=== PATIENT | female | born 1975 | race Caucasian/White ===

== ENCOUNTER → 2016-02-19 | Outpatient (CLI) | payer OTHER ==
--- NOTE | 2016-02-19 11:47 | CT ---
EXAMINATION TYPE: CT abdomen pelvis w con DATE OF EXAM: 02/19/2016 11:26 AM COMPARISON: 01/09/2016 INDICATION: Ovarian CA DLP: 715 mGycm, Automated exposure control for dose reduction was used. CONTRAST: 100 ml mL of Omnipaque 300. Study performed with Oral Contrast TECHNIQUE: Axial images were obtained from above the diaphragm to the pubic rami in the axial plane a t 5 mm thick sections. Reconstructed images are reviewed on the computer in the coronal plane. FINDINGS: Limited CT sections are obtained the lung bases. There is a small right pleural effusion. Some minim al atelectasis at the right lung base.. CT ABDOMEN: Liver: Normal Spleen: Normal Pancreas: Normal Adrenal glands: The adrenal glands are normal. Gallbladder: Normal Kidneys: No masses are evident. No hydronephrosis is present. No cysts are present. Delayed images were obtained through the kidneys, which remain unremarkable. Aorta: Vascular calcification is within the aorta. Inferior vena cava: Normal. Diffuse ascites is present throughout the abdomen. This volume has increased over the interval. Note is made of what appears to be omental caking along the anterior abdominal wall. This appears to be a new finding. CT PELVIS: Loops of bowel within the abdomen and pelvis are normal. There are loops of bowel which are incom pletely distended or lack oral contrast limiting their evaluation. Appendix: What appears to be the appendix is normal as visualized. Urinary bladder: There is asymmetric thickening along the right urinary bladder wall. This is slightl y more prominent than previous. Genitourinary structures: Uterus is absent. Ovaries are not identified. Osseous structures: No suspicious lytic or sclerotic lesions. Preliminary results were called to Dr. Tipton by Dr. Cid by telephone at the time of preliminary interpretation. IMPRESSIONS: 1. Increasing ascites. 2. Omental caking. 3. Small right pleural effusion. 4. Asymmetric urinary bladder wall thickening along the right. 5. No suspicious change to account for acute abdominal pain is identified
== END | disposition home or self-care (01) ==
LOC: RADPROMAIN 09:22
PROVIDERS: ATTEND Internal Medicine Hematology & Oncology
DX: R18.8 Other ascites (principal); N32.89 Other specified disorders of bladder; R10.84 Generalized abdominal pain
CPT/HCPCS: 74177; Q9967; 80053; 82150; 83690

== ENCOUNTER 2016-02-20 09:06 | Day surgery (SDC) | payer OTHER ==
[2016-02-20 09:48] LABS: INR 1.1 (<1.1); Mean Platelet Volume 7.3; Prothrombin Time 10.9 sec (9.0-12.0)
[2016-02-20 10:30] VITALS: TEMP 98.1
[2016-02-20 14:37] VITALS: RESP 16
[2016-02-20 14:38] VITALS: BP 120/80; PULSE 90
--- NOTE | 2016-02-20 15:16 | US ---
EXAMINATION TYPE: US paracentesis abd w/image DATE OF EXAM: 02/20/2016 12:13 PM COMPARISON: CT scan 17 March 2016 HISTORY: Ascites. PROCEDURE: Maximal barrier technique was utilized. The skin overlying a suitable pocket of fluid was localized with ultrasound and the overlying skin was prepped and draped. Ultrasound was utilized with sterile technique. Lidocaine was used for local anesthesia and a skin antonio made with a scalpel. Catheter was advanced under direct ultrasound guidance into a suitable pocket of fluid and approximately 4.7 liter s of milky fluid were removed. Catheter was withdrawn and hemostasis achieved. There is no immediat e complication; the patient is discharged in stable condition. IMPRESSION: STATUS POST ULTRASOUND GUIDED PARACENTESIS FOR PALLIATION OF ASCITES. THIS PROCEDURE WA S PERFORMED BY THE UNDERSIGNED.
== END 2016-02-20 12:15 | disposition home or self-care (01) ==
LOC: RADPROMAIN 09:06
PROVIDERS: ATTEND Internal Medicine Hematology & Oncology
DX: R18.8 Other ascites (principal)
CPT/HCPCS: 49083; 85049; 85610

== ENCOUNTER 2016-03-09 05:51 | Inpatient (IN) | payer OTHER ==
[2016-03-09] MEDS ORDERED: IPRATROPIUM-ALBUTEROL 3 ML NEB INHALATION STA ×2 (06:12→10:33)
[2016-03-09] MEDS ORDERED: HYDROmorphone 1 MG/ML 1 ML SYRINGE IVP STA ×4 (06:32→10:35)
--- NOTE | 2016-03-09 06:37 | ED ---
SOB HPI - General Source: patient, family Mode of arrival: ambulatory Limitations: no limitations - History of Present Illness MD Complaint: shortness of breath -: days(s) Severity: moderate Consistency: constant Improves With: nothing Worsens With: nothing <Cameron Page - Last Filed: 03/09/16 07:29> <Lanre Manzo - Last Filed: 03/09/16 12:32> - General Chief Complaint: Shortness of Breath Stated Complaint: SOB Time Seen by Provider: 03/09/16 06:26 - History of Present Illness Initial Comments: This patient is a 40-year-old woman with history of stage IV ovarian cancer, who complains of worsening of some underlying shortness of breath. The patient states that since the afternoon of yesterday, she has been getting more short of breath. She also is having some bilateral flank pain. Patient denies any symptoms of pneumonia, including no cough, fever or chills, sputum production, or chest pain. Patient denies change in bowel movements, including no melena or hematochezia. She has not had change in urination. Patient denies leg pain or swelling. (Cameron Page) - Related Data Home Medications Medication Instructions Recorded Confirmed Citalopram Hydrobromide [CeleXA] 20 mg PO HS 03/02/14 03/09/16 Atorvastatin [Lipitor] 20 mg PO HS 03/19/15 03/09/16 EPINEPHrine [Epipen 2-Mike] 0.3 mg IM ONCE PRN 03/19/15 03/09/16 Ondansetron [Zofran ODT] 8 mg PO Q8HR PRN 03/19/15 03/09/16 Sennosides [Senokot] 8.6 mg PO HS 03/19/15 03/09/16 Albuterol Inhaler [Ventolin Hfa 2 puff INHALATION RT-Q6H PRN 10/02/15 03/09/16 Inhaler] Albuterol Nebulized [Ventolin 2.5 mg INHALATION RT-Q6H PRN 10/02/15 03/09/16 Nebulized] Loratadine 10 mg PO HS 10/02/15 03/09/16 LORazepam [Lorazepam] 0.5 mg PO Q6H PRN 11/19/15 03/09/16 Amoxic-Pot Clav 875-125Mg 1 tab PO Q12H 03/01/16 03/09/16 [Augmentin 875-125] Gabapentin [Neurontin] 300 mg PO BID 03/01/16 03/09/16 Previous Rx's Medication Instructions Recorded Bisacodyl [Dulcolax] 5 mg PO DAILY #30 tablet. 11/20/15 Polyethylene Glycol 3350 [Miralax] 17 gm PO DAILY #255 gm 11/20/15 Allergies Allergy/AdvReac Type Severity Reaction Status Date / Time dexamethasone [From Decadron] Allergy Unknown Verified 03/09/16 06:04 dexamethasone sod phosphate Allergy Unknown Verified 03/09/16 06:04 [From Decadron] venom-honey bee Allergy Anaphylaxis Verified 03/09/16 06:04 [bee venom (honey bee)] Review of Systems ROS Other: All systems not noted in ROS Statement are negative. Constitutional: Denies: fever, chills Respiratory: Reports: as per HPI, dyspnea. Denies: cough, wheezes, hemoptysis Cardiovascular: Denies: chest pain, palpitations, edema, syncope Gastrointestinal: Reports: as per HPI, abdominal pain. Denies: nausea, vomiting , diarrhea, constipation Genitourinary: Denies: dysuria, hematuria Musculoskeletal: Denies: back pain Skin: Denies: rash Neurological: Denies: headache, weakness, numbness <Cameron Page - Last Filed: 03/09/16 07:29> ROS Other: All systems not noted in ROS Statement are negative. <Lanre Manzo - Last Filed: 03/09/16 12:32> ROS Statement: Those systems with pertinent positive or pertinent negative responses have been documented in the HPI. Past Medical History Past Medical History: Cancer, Deep Vein Thrombosis (DVT), Hyperlipidemia Additional Past Medical History / Comment(s): stage 4 uterine cancer with total hysterectomy and chemo (last chemo 11/13/15 and due again tomorrow), bilateral hands and feet neuropathy, chronic cervical pain-degnerative bone disease, buldging disk, blood clot to the rt wrist and rt neck, chronic constipation, ascites, paracentesis History of Any Multi-Drug Resistant Organisms: None Reported Past Surgical History: Hysterectomy Additional Past Surgical History / Comment(s): powerport left chest, total hysterectomy Past Anesthesia/Blood Transfusion Reactions: No Reported Reaction Past Psychological History: Anxiety, Depression Additional Psychological History / Comment(s): Pt states medication for mental health help. Pt resides with significant other. She is independent. Smoking Status: Current every day smoker Past Alcohol Use History: None Reported Additional Past Alcohol Use History / Comment(s): Pt states she started smoking at age 7 yrs (1982) and last smoked 2 days ago-planning to quit. Past Drug Use History: Marijuana Additional Drug Use History / Comment(s): Pt has medical marijuana that she uses for pain control on a nearly everyday basis. - Past Family History Mother Family Medical History: Diabetes Mellitus Additional Family Medical History / Comment(s): bilat knee replace <Cameron Page - Last Filed: 03/09/16 07:29> General Exam Limitations: no limitations General appearance: alert, in distress (Mild tachypnea) Head exam: Present: atraumatic, normocephalic Eye exam: Present: normal appearance. Absent: scleral icterus, conjunctival injection ENT exam: Present: normal oropharynx Neck exam: Present: normal inspection, full ROM Respiratory exam: Present: respiratory distress (Mild tachypnea), decreased breath sounds (At right base). Absent: wheezes, rales, rhonchi, stridor, chest wall tenderness, accessory muscle use, prolonged expiratory Cardiovascular Exam: Present: regular rate, normal rhythm, normal heart sounds. Absent: systolic murmur, diastolic murmur, rubs, gallop GI/Abdominal exam: Present: soft. Absent: tenderness, guarding, rebound, mass Extremities exam: Present: normal inspection, normal capillary refill. Absent: pedal edema, calf tenderness Back exam: Present: normal inspection. Absent: CVA tenderness (R), CVA tenderness (L) Neurological exam: Present: alert Skin exam: Present: warm, dry, intact, normal color. Absent: rash <Cameron Page - Last Filed: 03/09/16 07:29> Medical Decision Making <Cameron Page - Last Filed: 03/09/16 07:29> - Lab Data Result diagrams: 03/09/16 08:02 03/09/16 08:02 <Lanre Manzo - Last Filed: 03/09/16 12:32> - Medical Decision Making EKG shows normal sinus rhythm at 95 bpm CO interval on a 42 QRS is 80 QT interval 354 QTC is 444. Patient's EKG shows no ST segment elevation or depression or T-wave abdomen about is her noted. CT shows moderate pleural effusion on the right. Some ascites. No pulmonary emboli I spoke with Dr. Vaughn and he agreed that the patient should be admitted and be evaluated by a commercial real estate sales manager to determine the fluid can be removed so that the patient would get some comfort I spoke with Dr. Ardon he agreed to admit the patient I wrote admitting orders and consult pulmonology. (Lanre Manzo) - Lab Data Lab Results 03/09/16 03/09/16 03/09/16 Range/Units 08:02 08:02 08:02 WBC 6.2 (3.8-10.6) k/uL RBC 4.36 (3.80-5.40) m/uL Hgb 13.0 (11.4-16.0) gm/dL Hct 39.6 (34.0-46.0) % MCV 90.9 (80.0-100.0) fL MCH 29.8 (25.0-35.0) pg MCHC 32.8 (31.0-37.0) g/dL RDW 15.1 (11.5-15.5) % Plt Count 332 (150-450) k/uL Neutrophils % 75 % Lymphocytes % 12 % Monocytes % 10 % Eosinophils % 2 % Basophils % 1 % Neutrophils # 4.6 (1.3-7.7) k/uL Lymphocytes # 0.8 L (1.0-4.8) k/uL Monocytes # 0.6 (0-1.0) k/uL Eosinophils # 0.1 (0-0.7) k/uL Basophils # 0.1 (0-0.2) k/uL PT 11.0 (9.0-12.0) sec INR 1.1 (<1.1) APTT 25.6 (22.0-30.0) sec D-Dimer 1.71 H (<0.60) mg/L FEU Sodium 137 (137-145) mmol/L Potassium 4.0 (3.5-5.1) mmol/L Chloride 106 (98-107) mmol/L Carbon Dioxide 21 L (22-30) mmol/L Anion Gap 10 mmol/L BUN 6 L (7-17) mg/dL Creatinine 0.60 (0.52-1.04) mg/dL Est GFR (MDRD) Af Amer >60 (>60 ml/min/1.73 sqM) Est GFR (MDRD) Non-Af >60 (>60 ml/min/1.73 sqM) Glucose 102 H (74-99) mg/dL Plasma Lactic Acid Migle (0.7-2.0) mmol/L Calcium 8.7 (8.4-10.2) mg/dL Total Bilirubin 0.3 (0.2-1.3) mg/dL AST 19 (14-36) U/L ALT 30 (9-52) U/L Alkaline Phosphatase 90 (38-126) U/L Troponin I (0.000-0.034) ng/mL NT-Pro-B Natriuret Pep pg/mL Total Protein 5.8 L (6.3-8.2) g/dL Albumin 3.1 L (3.5-5.0) g/dL Urine Color Urine Appearance (Clear) Urine pH (5.0-8.0) Ur Specific [place] (1.001-1.035) Urine Protein (Negative) Urine Glucose (UA) (Negative) Urine Ketones (Negative) Urine Blood (Negative) Urine Nitrate (Negative) Urine Bilirubin (Negative) Urine Urobilinogen (<2.0) mg/dL Ur Leukocyte Esterase (Negative) Urine RBC (0-5) /hpf Urine WBC (0-5) /hpf Hyaline Casts (0-2) /lpf Urine Mucus (None) /hpf 03/09/16 03/09/16 03/09/16 Range/Units 08:02 08:02 08:10 WBC (3.8-10.6) k/uL RBC (3.80-5.40) m/uL Hgb (11.4-16.0) gm/dL Hct (34.0-46.0) % MCV (80.0-100.0) fL MCH (25.0-35.0) pg MCHC (31.0-37.0) g/dL RDW (11.5-15.5) % Plt Count (150-450) k/uL Neutrophils % % Lymphocytes % % Monocytes % % Eosinophils % % Basophils % % Neutrophils # (1.3-7.7) k/uL Lymphocytes # (1.0-4.8) k/uL Monocytes # (0-1.0) k/uL Eosinophils # (0-0.7) k/uL Basophils # (0-0.2) k/uL PT (9.0-12.0) sec INR (<1.1) APTT (22.0-30.0) sec D-Dimer (<0.60) mg/L FEU Sodium (137-145) mmol/L Potassium (3.5-5.1) mmol/L Chloride (98-107) mmol/L Carbon Dioxide (22-30) mmol/L Anion Gap mmol/L BUN (7-17) mg/dL Creatinine (0.52-1.04) mg/dL Est GFR (MDRD) Af Amer (>60 ml/min/1.73 sqM) Est GFR (MDRD) Non-Af (>60 ml/min/1.73 sqM) Glucose (74-99) mg/dL Plasma Lactic Acid Migel 0.8 (0.7-2.0) mmol/L Calcium (8.4-10.2) mg/dL Total Bilirubin (0.2-1.3) mg/dL AST (14-36) U/L ALT (9-52) U/L Alkaline Phosphatase (38-126) U/L Troponin I <0.012 (0.000-0.034) ng/mL NT-Pro-B Natriuret Pep 254 pg/mL Total Protein (6.3-8.2) g/dL Albumin (3.5-5.0) g/dL Urine Color Urine Appearance (Clear) Urine pH (5.0-8.0) Ur Specific [place] (1.001-1.035) Urine Protein (Negative) Urine Glucose (UA) (Negative) Urine Ketones (Negative) Urine Blood (Negative) Urine Nitrate (Negative) Urine Bilirubin (Negative) Urine Urobilinogen (<2.0) mg/dL Ur Leukocyte Esterase (Negative) Urine RBC (0-5) /hpf Urine WBC (0-5) /hpf Hyaline Casts (0-2) /lpf Urine Mucus (None) /hpf 03/09/16 Range/Units 08:30 WBC (3.8-10.6) k/uL RBC (3.80-5.40) m/uL Hgb (11.4-16.0) gm/dL Hct (34.0-46.0) % MCV (80.0-100.0) fL MCH (25.0-35.0) pg MCHC (31.0-37.0) g/dL RDW (11.5-15.5) % Plt Count (150-450) k/uL Neutrophils % % Lymphocytes % % Monocytes % % Eosinophils % % Basophils % % Neutrophils # (1.3-7.7) k/uL Lymphocytes # (1.0-4.8) k/uL Monocytes # (0-1.0) k/uL Eosinophils # (0-0.7) k/uL Basophils # (0-0.2) k/uL PT (9.0-12.0) sec INR (<1.1) APTT (22.0-30.0) sec D-Dimer (<0.60) mg/L FEU Sodium (137-145) mmol/L Potassium (3.5-5.1) mmol/L Chloride (98-107) mmol/L Carbon Dioxide (22-30) mmol/L Anion Gap mmol/L BUN (7-17) mg/dL Creatinine (0.52-1.04) mg/dL Est GFR (MDRD) Af Amer (>60 ml/min/1.73 sqM) Est GFR (MDRD) Non-Af (>60 ml/min/1.73 sqM) Glucose (74-99) mg/dL Plasma Lactic Acid Migel (0.7-2.0) mmol/L Calcium (8.4-10.2) mg/dL Total Bilirubin (0.2-1.3) mg/dL AST (14-36) U/L ALT (9-52) U/L Alkaline Phosphatase (38-126) U/L Troponin I (0.000-0.034) ng/mL NT-Pro-B Natriuret Pep pg/mL Total Protein (6.3-8.2) g/dL Albumin (3.5-5.0) g/dL Urine Color Yellow Urine Appearance Clear (Clear) Urine pH 7.0 (5.0-8.0) Ur Specific [place] 1.021 (1.001-1.035) Urine Protein 1+ H (Negative) Urine Glucose (UA) Negative (Negative) Urine Ketones Trace H (Negative) Urine Blood Negative (Negative) Urine Nitrate Negative (Negative) Urine Bilirubin Negative (Negative) Urine Urobilinogen 4.0 (<2.0) mg/dL Ur Leukocyte Esterase Small H (Negative) Urine RBC 3 (0-5) /hpf Urine WBC <1 (0-5) /hpf Hyaline Casts 3 H (0-2) /lpf Urine Mucus Many H (None) /hpf Disposition <Cameron Page - Last Filed: 03/09/16 07:29> Time of Disposition: 12:29 <Lanre Manzo - Last Filed: 03/09/16 12:32> Clinical Impression: Pleural effusion, Thoracic back pain Disposition: ADMITTED IP TO THIS HOSP Referrals: Adia Ardon MD [Primary Care Provider] - 1-2 days
[2016-03-09] MEDS ORDERED: ENOXAPARIN 80 MG/0.8 ML SYRINGE SQ STA (07:03)
--- NOTE | 2016-03-09 07:06 | XR ---
EXAMINATION TYPE: XR chest 1V portable DATE OF EXAM: 03/09/2016 7:00 AM COMPARISON: 03/02/2016 HISTORY: Shortness of breath back pain stage IV ovarian carcinoma. TECHNIQUE: Single frontal view of the chest is obtained. Portable upright AP study. FINDINGS: There is moderate right-sided pleural effusion with right basilar lung infiltrates and atelectasis wi thout significant change. Rest of the lungs are clear. Left-sided Mediport catheter is noted. The cardiac silhouette size is within normal limits. The osseous structures are intact. IMPRESSION: 1. Stable moderate right-sided pleural effusion and right basilar lung infiltrates and atelectasis. 2. Left-sided Mediport catheter in place.
[2016-03-09] MEDS ORDERED: KETOROLAC 60 MG/2 ML VIAL IVP STA (07:47)
[2016-03-09] MEDS ORDERED: SODIUM CHLORIDE 0.9% 1,000 ML IV ONE ×2 (07:47→12:33)
[2016-03-09] MEDS ORDERED: ONDANSETRON 4 MG/2 ML VIAL IVP STA (07:52)
[2016-03-09 08:19] LABS: Basophils # (A) 0.1 k/uL (0-0.2); Basophils % (A) 1 %; CHCM 34.2; Eosinophils # (A) 0.1 k/uL (0-0.7); Eosinophils % (A) 2 %; HCT 39.6 % (34.0-46.0); HDW 3.35; Luc # (Auto) 0.06; Luc % (Auto) 1; Lymphocytes # (A) 0.8 k/uL (1.0-4.8); Lymphocytes % (A) 12 %; MCH 29.8 pg (25.0-35.0); MCHC 32.8 g/dL (31.0-37.0); MCV 90.9 fL (80.0-100.0); Mean Platelet Volume 7.2; Monocytes # (A) 0.6 k/uL (0-1.0); Monocytes % (A) 10 %; Neutrophils # (A) 4.6 k/uL (1.3-7.7); Neutrophils % (A) 75 %; RBC 4.36 m/uL (3.80-5.40); RDW 15.1 % (11.5-15.5); WBC 6.2 k/uL (3.8-10.6); WBC (Perox) 6.86
[2016-03-09 08:38] LABS: ALT 30 U/L (9-52); AST 19 U/L (14-36); Alkaline Phosphatase 90 U/L (38-126); Anion Gap 10 mmol/L; Blood Urea Nitrogen 6 mg/dL (7-17); Calcium 8.7 mg/dL (8.4-10.2); Carbon Dioxide 21 mmol/L (22-30); Chloride 106 mmol/L (98-107); Glucose 102 mg/dL (74-99); Non-African American GFR(MDRD) >60 (>60 ml/min/1.73 sqM); Sodium 137 mmol/L (137-145); Total Bilirubin 0.3 mg/dL (0.2-1.3); Total Protein 5.8 g/dL (6.3-8.2)
[2016-03-09 08:49] LABS: INR 1.1 (<1.1); Partial Thromboplastin Time 25.6 sec (22.0-30.0)
[2016-03-09 09:10] LABS: Appearance,Urine Clear (Clear); Bilirubin,Urine Negative (Negative); Glucose,Urine (UA) Negative (Negative); Ketones,Urine Trace (Negative); Leukocyte Esterase,Urine Small (Negative); Mucus,Urine Many /hpf; Nitrite,Urine Negative (Negative); Particle Count 10345; Protein,Urine 1+ (Negative); RBC,Urine 3 /hpf (0-5); Specific Gravity,Urine 1.021 (1.001-1.035); UA Billing (MACRO vs. MICRO) MICRO; WBC,Urine <1 /hpf (0-5)
[2016-03-09] MEDS ORDERED: RX INFO: IV CONTRAST WAS GIVEN 1 EACH MISC MISCELLANE PRN (09:50)
[2016-03-09] MEDS ORDERED: OSELTAMIVIR 75 MG CAP PO STA (10:32)
[2016-03-09] MEDS ORDERED: ACETAMINOPHEN TAB 500 MG TAB PO STA (10:33)
[2016-03-09] MEDS ORDERED: IBUPROFEN 600 MG TAB PO STA (10:33)
[2016-03-09] MEDS ORDERED: KETOROLAC 30 MG/ML 1 ML VIAL IVP STA (11:19)
--- NOTE | 2016-03-09 11:29 | CT ---
CT CHEST FOR PULMONARY EMBOLISM. EXAMINATION TYPE: CT chest angio for PE DATE OF EXAM: 03/09/2016 11:07 AM INDICATION: SOB CT DLP: 159.1 mGycm, Automated exposure control for dose reduction was used. CONTRAST: Patient injected with 45 ml mL of Omnipaque 350. COMPARISON: 10/02/2015 TECHNIQUE: CT of the chest is performed on a spiral scan at 2 mm thick sections. Study is performed with intravenous contrast timed for evaluation for pulmonary embolism. This will limit additional po rtions of the evaluation. 3-D MIP images reconstructed by the technologist are reviewed on the compu ter in the coronal and sagittal planes. Contrast timing results were suboptimal. FINDINGS: No persistent filling defects are evident to suggest an acute pulmonary embolism. Contrast opacificat ion however suboptimal with the majority of the contrast within the peripheral arterial system. Subtl e pulmonary emboli may not be visualized. No mediastinal or hilar adenopathy enlarged by CT criteria is evident. The ascending aorta diameter at the level of the main pulmonary artery is 2.8 cm. The main pulmonary artery diameter at the bifur cation is 2.8 cm. There is compressive atelectasis or consolidation at the right middle lobe. There is a moderate size right pleural effusion. Ascites is present adjacent to the liver and spleen within the [id number]. IMPRESSIONS: 1. Right middle lobe atelectasis or pneumonia. 2. Moderate right pleural effusion. 3. Ascites. 4. No acute pulmonary embolism. Exam is limited for pulmonary embolism evaluation due to contrast t iming.
[2016-03-09] MEDS ORDERED: PIPERACILLIN-TAZOBACTAM 3.375 GM in DEXTROSE/WATER 1 50ML.BAG IVPB STA (12:35)
[2016-03-09 14:47] VITALS: BMI 27.6
[2016-03-09 15:09] LABS: Magnesium 1.8 mg/dL (1.6-2.3)
[2016-03-09] MEDS: HYDROmorphone 1 MG/ML 1 ML SYRINGE IVP PRN ×2 (15:24→21:03)
--- NOTE | 2016-03-09 15:28 | P.CNPUL ---
History of Present Illness Consult date: 03/09/16 Requesting physician: Adia Ardon Reason for consult: dyspnea, pleural effusion Chief complaint: Shortness of breath History of present illness: This is a 40-year-old female with history of stage IV ovarian cancer, patient has been receiving chemotherapy for quite some time down at [facility], and recently she was seen by Dr. Tipton. A few years ago, patient presented with a right pleural effusion, and this was drained by a air intelligence specialist out of [facility]. Since then the patient has been doing well, and recently she developed recurrent ascites requiring paracentesis. Her last paracentesis was 2 weeks ago down at [facility]. Patient presented this time to the ER with mostly a few days history of increased shortness of breath. No fever no chills no hemoptysis no chest pain. Patient had a CT of the chest and chest x-ray showing a significant right -sided pleural effusion. Hence this consult was initiated. Patient is complaining of shortness of breath, but she is not in extreme distress. She is actually on room air, very comfortable, but she has some shortness of breath especially when she lays flat. Denies any headaches, no blurred vision, no dizziness. Again his CT of the chest today showed moderate right-sided pleural effusion, right middle lobe atelectasis, and ascites. After reviewing the findings on the CT, I recommended ultrasound of the chest with markings, I also recommended ultrasound of the abdomen and pelvis, patient may even need to have thoracentesis and paracentesis done at the same time. And this will likely be arranged for to be done tomorrow. Review of Systems 14 point review of systems were obtained, please refer to pertinent positives and negatives in HPI. Past Medical History Past Medical History: Cancer, Deep Vein Thrombosis (DVT), Hyperlipidemia Additional Past Medical History / Comment(s): stage 4 ovarian cancer with total hysterectomy and chemo (last chemo 03/04/15), bilateral hands and feet neuropathy , chronic cervical pain-degnerative bone disease, buldging disk, blood clot to the rt wrist and rt neck, chronic constipation, ascites, paracentesis History of Any Multi-Drug Resistant Organisms: None Reported Past Surgical History: Hysterectomy Additional Past Surgical History / Comment(s): powerport left chest, total hysterectomy, multiple paracentisis, one right thorocentesis Past Anesthesia/Blood Transfusion Reactions: No Reported Reaction Past Psychological History: Anxiety Additional Psychological History / Comment(s): Pt states medication for mental health help. Pt resides with significant other. She is independent. Smoking Status: Current some day smoker Past Alcohol Use History: None Reported Additional Past Alcohol Use History / Comment(s): Pt states she started smoking at age 7 yrs (1982) Past Drug Use History: Marijuana Additional Drug Use History / Comment(s): Pt has medical marijuana that she uses for pain control on a nearly everyday basis. - Past Family History Mother Family Medical History: Diabetes Mellitus Additional Family Medical History / Comment(s): bilat knee replace Father Family Medical History: COPD Medications and Allergies Home Medications Medication Instructions Recorded Confirmed Type Citalopram Hydrobromide [CeleXA] 20 mg PO HS 03/02/14 03/09/16 History Atorvastatin [Lipitor] 20 mg PO HS 03/19/15 03/09/16 History EPINEPHrine [Epipen 2-Mike] 0.3 mg IM ONCE PRN 03/19/15 03/09/16 History Ondansetron [Zofran ODT] 8 mg PO Q8HR PRN 03/19/15 03/09/16 History Sennosides [Senokot] 8.6 mg PO HS 03/19/15 03/09/16 History Albuterol Inhaler [Ventolin Hfa 2 puff INHALATION RT-Q6H PRN 10/02/15 03/09/16 History Inhaler] Albuterol Nebulized [Ventolin 2.5 mg INHALATION RT-Q6H PRN 10/02/15 03/09/16 History Nebulized] Loratadine 10 mg PO HS 10/02/15 03/09/16 History LORazepam [Lorazepam] 0.5 mg PO Q6H PRN 11/19/15 03/09/16 History Amoxic-Pot Clav 875-125Mg 1 tab PO Q12H 03/01/16 03/09/16 History [Augmentin 875-125] Gabapentin [Neurontin] 300 mg PO BID 03/01/16 03/09/16 History Allergies Allergy/AdvReac Type Severity Reaction Status Date / Time dexamethasone [From Decadron] Allergy Unknown Verified 03/09/16 12:53 dexamethasone sod phosphate Allergy Unknown Verified 03/09/16 12:53 [From Decadron] venom-honey bee Allergy Anaphylaxis Verified 03/09/16 12:53 [bee venom (honey bee)] Physical Exam Vitals: Vital Signs Temp Pulse Pulse Resp BP BP Pulse Ox 03/09/16 14:57 97.4 F L 72 16 108/61 98 03/09/16 14:26 99 F 75 20 100/56 97 Intake and Output 03/09/16 03/09/16 03/09/16 06:59 14:59 22:59 Intake Total 1000 Balance 1000 Intake: Amount of Fluid Infused ( 1000 ml) Other: Weight 70.76 kg Patient Weight 03/10/16 06:59 Weight 70.76 kg Limitations: no limitations General appearance: alert, in distress (Mild tachypnea) Head exam: Present: atraumatic, normocephalic Eye exam: Present: normal appearance. Absent: scleral icterus, conjunctival injection ENT exam: Present: normal oropharynx Neck exam: Present: normal inspection, full ROM Respiratory exam: Present: respiratory distress (Mild tachypnea), decreased breath sounds (At right base). Absent: wheezes, rales, rhonchi, stridor, chest wall tenderness, accessory muscle use, prolonged expiratory. Port-A-Cath is noted in the left upper chest below the left clavicle. Cardiovascular Exam: Present: regular rate, normal rhythm, normal heart sounds. Absent: systolic murmur, diastolic murmur, rubs, gallop GI/Abdominal exam: Present: soft. Absent: tenderness, guarding, rebound, mass Extremities exam: Present: normal inspection, normal capillary refill. Absent: pedal edema, calf tenderness Back exam: Present: normal inspection. Absent: CVA tenderness (R), CVA tenderness (L) Neurological exam: Present: alert Skin exam: Present: warm, dry, intact, normal color. Absent: rash Results - Laboratory Findings CBC and BMP: 03/09/16 08:02 03/09/16 08:02 PT/INR, D-dimer PT 11.0 sec (9.0-12.0) 03/09/16 08:02 INR 1.1 (<1.1) 03/09/16 08:02 D-Dimer 1.71 mg/L FEU (<0.60) H 03/09/16 08:02 - Diagnostic Findings Chest x-ray: image reviewed CT scan - chest: image reviewed Assessment and Plan Plan: Impression: 1 moderate Right pleural effusion and ascites secondary to metastatic ovarian cancer stage IV. Her last chemotherapy was on 11/13/2015, and she is due for chemotherapy again tomorrow. 2 history of multiple comorbidities including history of deep vein thrombosis, hyperlipidemia, history of chemotherapy-induced neuropathy and history of degenerative joint disease. History of bulging disc. Recommendation: Patient will likely need to have right-sided thoracentesis and paracentesis to be done, however prior to any intervention, patient will have ultrasound of the chest and ultrasound of the abdomen and pelvis. And most likely Dr. Weiss will perform the thoracentesis in a.m., however her paracentesis will be done by interventional radiology if needed. In the meantime, continue present treatment plan, agree with empiric antibiotics, although I have a feeling that the patient would have full expansion of her right lung postthoracentesis. Strongly doubt pneumonia. We'll continue to follow. Once the patient gets her thoracentesis done, she could be discharged home. Time with Patient: Greater than 30
[2016-03-09] MEDS ORDERED: IPRATROPIUM-ALBUTEROL 3 ML NEB INHALATION SCH (16:00)
[2016-03-09] MEDS ORDERED: METOCLOPRAMIDE 10 MG TAB PO PRN (16:51)
[2016-03-09] MEDS ORDERED: SENNOSIDES 8.6 MG TAB PO PRN (16:51)
[2016-03-09] MEDS ORDERED: ONDANSETRON ODT 8 MG TAB.RAPDIS PO PRN (16:51)
[2016-03-09] MEDS ORDERED: ALBUTEROL INHALER 60 PUFF/8 GM INHALER INHALATION PRN (16:51)
[2016-03-09] MEDS ORDERED: LORazepam 0.5 MG TAB PO PRN (16:51)
[2016-03-09] MEDS ORDERED: methylPREDNISolone SOD SUCCI 125 MG/2 ML VIAL IV SCH (18:00)
[2016-03-09] MEDS: ALBUTEROL NEBULIZED 2.5 MG/3 ML INHALATION PRN (19:53)
[2016-03-09] MEDS: HYDROcodone/APAP 10-325MG 1 EACH TAB PO SCH (21:07)
[2016-03-09] MEDS: CITALOPRAM HYDROBROMIDE 20 MG TAB PO SCH (21:10)
[2016-03-09] MEDS: ATORVASTATIN 20 MG TAB PO SCH (21:10)
[2016-03-09] MEDS: LORATADINE 10 MG TAB PO SCH (21:10)
[2016-03-09] MEDS: GABAPENTIN 300 MG CAP PO SCH (21:10)
[2016-03-09] MEDS: PIPERACILLIN-TAZOBACTAM 3.375 GM in DEXTROSE/WATER 1 50ML.BAG IVPB SCH (23:14)
[2016-03-10] MEDS: HYDROmorphone 1 MG/ML 1 ML SYRINGE IVP PRN ×4 (01:04→22:42)
[2016-03-10] MEDS: PIPERACILLIN-TAZOBACTAM 3.375 GM in DEXTROSE/WATER 1 50ML.BAG IVPB SCH ×3 (06:19→22:42)
[2016-03-10 06:27] LABS: CH 30.5; CHCM 32.6; HGB 11.1 gm/dL (11.4-16.0); Hypochromasia Slight; MCH 30.5 pg (25.0-35.0); MCHC 32.5 g/dL (31.0-37.0); MCV 93.8 fL (80.0-100.0); Mean Platelet Volume 6.8; Poikilocytosis Slight; RBC 3.62 m/uL (3.80-5.40); WBC 4.9 k/uL (3.8-10.6)
[2016-03-10 06:39] LABS: ALT 23 U/L (9-52); AST 21 U/L (14-36); Alkaline Phosphatase 70 U/L (38-126); Anion Gap 6 mmol/L; Blood Urea Nitrogen 5 mg/dL (7-17); Carbon Dioxide 24 mmol/L (22-30); Chloride 105 mmol/L (98-107); Glucose 90 mg/dL (74-99); Magnesium 1.9 mg/dL (1.6-2.3); Non-African American GFR(MDRD) >60 (>60 ml/min/1.73 sqM); Potassium 3.9 mmol/L (3.5-5.1); Sodium 135 mmol/L (137-145); Total Bilirubin 0.3 mg/dL (0.2-1.3); Total Protein 4.9 g/dL (6.3-8.2)
[2016-03-10] MEDS: POLYETHYLENE GLYCOL 3350 17 GM POWD.PACK PO SCH (09:26)
[2016-03-10] MEDS: HYDROcodone/APAP 10-325MG 1 EACH TAB PO SCH ×2 (09:26→20:30)
[2016-03-10] MEDS: GABAPENTIN 300 MG CAP PO SCH ×2 (09:26→20:30)
[2016-03-10] MEDS: BISACODYL 5 MG TABLET.DR PO SCH (09:29)
--- NOTE | 2016-03-10 10:19 | US ---
EXAMINATION TYPE: US chest DATE OF EXAM: 03/10/2016 8:29 AM COMPARISON: NONE CLINICAL HISTORY: rt pleural effusion. EXAM MEASUREMENTS: Right Pleural Effusion fluid pocket: 6.7 cm Right skin to fluid thickness: 2.4 cm Left Pleural Effusion fluid pocket: no fluid Right side marked for possible thoracentesis outside the dept. Left side NOT marked for possible thoracentesis outside the dept. Pulmonologists are able to review the images in the patient?s EMR. IMPRESSIONS: 1. Right pleural effusion.
--- NOTE | 2016-03-10 10:30 | US ---
EXAMINATION TYPE: US abdomen comp/pelvis limited DATE OF EXAM: 03/10/2016 8:21 AM COMPARISON: NONE CLINICAL HISTORY: ascites/ ovarian cancer stage . EXAM MEASUREMENTS: Liver Length: 16.8 cm Gallbladder Wall: 0.3 cm CBD: 0.3 cm Spleen: 11.2 cm Right Kidney: 10.9 x 4.9 x 5.1 cm Left Kidney: 11.4x 5.9 x 5.6 cm Findings: Mild to moderate ascites Pancreas: tail obscured by bowel gas Liver: wnl Gallbladder: wnl CBD: wnl Spleen: wnl Right Kidney: inferior pole obscured by bowel gas Left Kidney: upper pole obscured by bowel gas Upper IVC: wnl Abd Aorta: Obscured by overlying bowel gas/ ascites Bladder: somewhat difficult to visualized due to ascites, appears wnl IMPRESSION: 1 mild to moderate ascites.
[2016-03-10] MEDS: ALBUTEROL NEBULIZED 2.5 MG/3 ML INHALATION PRN ×2 (12:26→19:59)
--- NOTE | 2016-03-10 12:41 | P.HPIM ---
History of Present Illness H&P Date: 03/10/16 Chief Complaint: Worsening shortness of breath Is a 40-year-old female with a known history of stage IV ovarian cancer status post GHAZALA and SBO. She's currently on chemotherapy. Her last chemotherapy was 03/04/2015. Patient reports over the last couple a days she had worsening shortness of breath. Came into the emergency room for further evaluation and treatment. Patient has required previous thoracentesis and paracentesis. Last paracentesis was 1 week ago. Patient does also admit to a cough at times. Denies any fevers chills or sweats. Denies any nausea or vomiting. Denies any bowel movement changes or urinary symptoms. Primary service has been consulted. She had a CTA of the chest which was negative for PE. It did reveal a right middle lobe atelectasis versus pneumonia and a moderate right pleural effusion. There is also evidence of abdominal ascites. Therefore a chest ultrasound and abdominal ultrasound were ordered. Chest ultrasound shows a right pleural effusion of 6.7 cm. Abdominal ultrasound shows mild to moderate ascites. Patient also had some cardiac arrhythmia cardiology is also been consulted. Patient also complaining of lower back pain bilaterally she reports that this happens when the fluid buildup. Review of Systems Please refer to HPI otherwise unremarkable Past Medical History Past Medical History: Cancer, Deep Vein Thrombosis (DVT), Hyperlipidemia Additional Past Medical History / Comment(s): stage 4 ovarian cancer with total hysterectomy and chemo (last chemo 03/04/15), bilateral hands and feet neuropathy , chronic cervical pain-degnerative bone disease, buldging disk, blood clot to the rt wrist and rt neck, chronic constipation, ascites, paracentesis History of Any Multi-Drug Resistant Organisms: None Reported Past Surgical History: Hysterectomy Additional Past Surgical History / Comment(s): powerport left chest, total hysterectomy, multiple paracentisis, one right thorocentesis Past Anesthesia/Blood Transfusion Reactions: No Reported Reaction Past Psychological History: Anxiety Additional Psychological History / Comment(s): Pt states medication for mental health help. Pt resides with significant other. She is independent. Smoking Status: Current some day smoker Past Alcohol Use History: None Reported Additional Past Alcohol Use History / Comment(s): Pt states she started smoking at age 7 yrs (1982) Past Drug Use History: Marijuana Additional Drug Use History / Comment(s): Pt has medical marijuana that she uses for pain control on a nearly everyday basis. - Past Family History Mother Family Medical History: Diabetes Mellitus Additional Family Medical History / Comment(s): bilat knee replace Father Family Medical History: COPD Medications and Allergies Home Medications Medication Instructions Recorded Confirmed Type Citalopram Hydrobromide [CeleXA] 20 mg PO HS 03/02/14 03/09/16 History Atorvastatin [Lipitor] 20 mg PO HS 03/19/15 03/09/16 History EPINEPHrine [Epipen 2-Mike] 0.3 mg IM ONCE PRN 03/19/15 03/09/16 History Ondansetron [Zofran ODT] 8 mg PO Q8HR PRN 03/19/15 03/09/16 History Sennosides [Senokot] 8.6 mg PO DAILY PRN 03/19/15 03/09/16 History Albuterol Inhaler [Ventolin Hfa 2 puff INHALATION RT-Q6H PRN 10/02/15 03/09/16 History Inhaler] Albuterol Nebulized [Ventolin 2.5 mg INHALATION RT-Q6H PRN 10/02/15 03/09/16 History Nebulized] Loratadine 10 mg PO HS 10/02/15 03/09/16 History LORazepam [Lorazepam] 0.5 mg PO Q6H PRN 11/19/15 03/09/16 History Amoxic-Pot Clav 875-125Mg 1 tab PO Q12H 03/01/16 03/09/16 History [Augmentin 875-125] Gabapentin [Neurontin] 300 mg PO BID 03/01/16 03/09/16 History HYDROcodone/APAP 10-325MG [[place] 2 tab PO BID 03/09/16 03/09/16 History 10-325] Metoclopramide HCl [Reglan] 10 mg PO Q6HR PRN 03/09/16 03/09/16 History Allergies Allergy/AdvReac Type Severity Reaction Status Date / Time dexamethasone [From Decadron] Allergy Unknown Verified 03/09/16 12:53 dexamethasone sod phosphate Allergy Unknown Verified 03/09/16 12:53 [From Decadron] venom-honey bee Allergy Anaphylaxis Verified 03/09/16 12:53 [bee venom (honey bee)] Physical Exam Vitals: Vital Signs Temp Pulse Pulse Resp BP BP Pulse Ox 03/10/16 07:00 97.2 F L 57 L 16 97/67 94 L 03/10/16 00:00 92 16 03/09/16 22:20 98.8 F 92 16 127/72 93 L 03/09/16 20:07 84 03/09/16 19:54 86 03/09/16 14:57 97.4 F L 72 16 108/61 98 03/09/16 14:26 99 F 75 20 100/56 97 Intake and Output 03/09/16 03/10/16 03/10/16 22:59 06:59 14:59 Intake Total 800 700 Balance 800 700 Intake: IV 800 700 Sodium Chloride 0.9% 1, 800 700 000 ml @ 100 mls/hr IV . Q10H ONE Rx#:[id number] Other: Voiding Method Toilet Toilet Toilet # Voids 2 2 Head normocephalic Neck supple Lungs no breath sounds noted on the right lower lung field Heart regular rate and rhythm S1-S2, no rub or gallop Abdomen is soft nontender distended. Ascites present. Fluid was present Extremities no edema Neuro alert and orientated to 3 Results CBC & Chem 7: 03/10/16 05:50 03/10/16 05:50 Labs: Abnormal Lab Results - Last 24 Hours (Table) 03/10/16 03/10/16 Range/Units 05:50 05:50 RBC 3.62 L (3.80-5.40) m/uL Hgb 11.1 L (11.4-16.0) gm/dL Sodium 135 L (137-145) mmol/L BUN 5 L (7-17) mg/dL Calcium 8.0 L (8.4-10.2) mg/dL Total Protein 4.9 L (6.3-8.2) g/dL Albumin 2.5 L (3.5-5.0) g/dL Thrombosis Risk Factor Assmnt - Choose All That Apply Each Factor Represents 1 point: Age 41-60 years Each Risk Factor Represents 2 Points: Malignancy Each Risk Factor Represents 3 Points: History of DVT/PE Thrombosis Risk Factor Assessment Total Risk Factor Score: 6 Thrombosis Risk Factor Assessment Level: High Risk Assessment and Plan Plan: 1. Shortness of breath secondary to right pleural effusion 2. Right pleural effusion noted on CAT scan. Chest ultrasound showing a right pleural effusion 6.7 cm. Patient followed by pulmonary service. We'll await their recommendations in regards to possible thoracentesis 3. Abdominal ascites with abdominal ultrasound revealing mild to moderate ascites. Patient's last paracentesis was 1 week ago 4. Pleural effusion abdominal ascites secondary to metastatic of ovarian cancer stage IV 5. Metastatic ovarian cancer stage IV status post GHAZALA/SBO. Last chemotherapy March 04. Followed by Dr. Tipton 6. Opiate-induced constipation continue with her MiraLAX and stool softener. Last bowel movement yesterday 7. Possible pneumonia noted on computed tomography scan patient currently on IV Zosyn 8. Hyperlipidemia continue Lipitor 9. Depression continue with Celexa GI prophylaxis Pepcid and DVT prophylaxis Lovenox Time with Patient: Greater than 30 (Greater than 50% of the total time spent in counseling and coordination of care.I performed an examination of the patient and discussed their management with the physician Order Entry Technician. I have reviewed the Physician Order Entry Technician's notes and agree with the documented findings and plan of care)
--- NOTE | 2016-03-10 13:11 | P.CRDCN ---
History of Present Illness Consult date: 03/10/16 History of present illness: This is a 40-year-old female with history of ovarian cancer ,stage IV, who was admitted to the hospital with complaints of increasing shortness of breath. Apparently patient had a pleural effusion and had a pleural tap done in the past at [facility]. Patient also has been receiving chemotherapy. There is history that she has had recurrent bouts of ascites requiring paracentesis. Apparently she had a last paracentesis about 2 weeks ago done at [facility]. Since admission patient was found to have moderate right-sided pleural effusion and also [id number] ascites. These issues are being addressed by control systems eng. We're asked to see the patient because of irregular heart rhythm and evidence of frequent PVCs with a bigeminal pattern. No sustained arrhythmias were documented. Patient has had palpitations all her life but they're brief and nonsustained. No history of previous hypertension or diabetes or myocardial infarction. I'm going to obtain an echocardiogram to assess LV function. Her blood pressure has been running low. Her potassium and magnesium were also within normal limits. At this point I'm not offering any specific therapy for these unifocal PVCs. Further recommendation depending upon the clinical course and findings on the echocardiogram. Review of Systems As per the chart Past Medical History Past Medical History: Cancer, Deep Vein Thrombosis (DVT), Hyperlipidemia Additional Past Medical History / Comment(s): stage 4 ovarian cancer with total hysterectomy and chemo (last chemo 03/04/15), bilateral hands and feet neuropathy , chronic cervical pain-degnerative bone disease, buldging disk, blood clot to the rt wrist and rt neck, chronic constipation, ascites, paracentesis History of Any Multi-Drug Resistant Organisms: None Reported Past Surgical History: Hysterectomy Additional Past Surgical History / Comment(s): powerport left chest, total hysterectomy, multiple paracentisis, one right thorocentesis Past Anesthesia/Blood Transfusion Reactions: No Reported Reaction Past Psychological History: Anxiety Additional Psychological History / Comment(s): Pt states medication for mental health help. Pt resides with significant other. She is independent. Smoking Status: Current some day smoker Past Alcohol Use History: None Reported Additional Past Alcohol Use History / Comment(s): Pt states she started smoking at age 7 yrs (1982) Past Drug Use History: Marijuana Additional Drug Use History / Comment(s): Pt has medical marijuana that she uses for pain control on a nearly everyday basis. - Past Family History Mother Family Medical History: Diabetes Mellitus Additional Family Medical History / Comment(s): bilat knee replace Father Family Medical History: COPD Medications and Allergies Home Medications Medication Instructions Recorded Confirmed Type Citalopram Hydrobromide [CeleXA] 20 mg PO HS 03/02/14 03/09/16 History Atorvastatin [Lipitor] 20 mg PO HS 03/19/15 03/09/16 History EPINEPHrine [Epipen 2-Mike] 0.3 mg IM ONCE PRN 03/19/15 03/09/16 History Ondansetron [Zofran ODT] 8 mg PO Q8HR PRN 03/19/15 03/09/16 History Sennosides [Senokot] 8.6 mg PO DAILY PRN 03/19/15 03/09/16 History Albuterol Inhaler [Ventolin Hfa 2 puff INHALATION RT-Q6H PRN 10/02/15 03/09/16 History Inhaler] Albuterol Nebulized [Ventolin 2.5 mg INHALATION RT-Q6H PRN 10/02/15 03/09/16 History Nebulized] Loratadine 10 mg PO HS 10/02/15 03/09/16 History LORazepam [Lorazepam] 0.5 mg PO Q6H PRN 11/19/15 03/09/16 History Amoxic-Pot Clav 875-125Mg 1 tab PO Q12H 03/01/16 03/09/16 History [Augmentin 875-125] Gabapentin [Neurontin] 300 mg PO BID 03/01/16 03/09/16 History HYDROcodone/APAP 10-325MG [[place] 2 tab PO BID 03/09/16 03/09/16 History 10-325] Metoclopramide HCl [Reglan] 10 mg PO Q6HR PRN 03/09/16 03/09/16 History Allergies Allergy/AdvReac Type Severity Reaction Status Date / Time dexamethasone [From Decadron] Allergy Unknown Verified 03/09/16 12:53 dexamethasone sod phosphate Allergy Unknown Verified 03/09/16 12:53 [From Decadron] venom-honey bee Allergy Anaphylaxis Verified 03/09/16 12:53 [bee venom (honey bee)] Physical Exam Vitals: Vital Signs Temp Pulse Pulse Resp BP BP Pulse Ox 03/10/16 12:36 64 03/10/16 12:26 68 03/10/16 07:00 97.2 F L 57 L 16 97/67 94 L 03/10/16 00:00 92 16 03/09/16 22:20 98.8 F 92 16 127/72 93 L 03/09/16 20:07 84 03/09/16 19:54 86 03/09/16 14:57 97.4 F L 72 16 108/61 98 03/09/16 14:26 99 F 75 20 100/56 97 Intake and Output 03/09/16 03/10/16 03/10/16 22:59 06:59 14:59 Intake Total 800 700 Balance 800 700 Intake: IV 800 700 Sodium Chloride 0.9% 1, 800 700 000 ml @ 100 mls/hr IV . Q10H ONE Rx#:[id number] Other: Voiding Method Toilet Toilet Toilet # Voids 2 2 GENERAL EXAM: Patient is alert and oriented and doesn't appear to be in any acute distress HEENT: Normocephalic. Normal reaction of pupils, equal size, normal range of extraocular motion. No erythema or exudates in the throat. NECK: No masses, no nuchal rigidity. CHEST: No chest wall deformity. LUNGS: Equal air entry with diminished breath sounds on the right side with dullness to percussion HEART: S1 and S2 normal with no audible mumurs or gallops. Regular rhythm, femorals equal on both sides.. ABDOMEN: Distended with ascites , normal bowel sounds, no guarding or rigidity. SKIN: No rashes CENTRAL NERVOUS SYSTEM: No focal deficits. EXTREMITIES: No cyanosis, clubbing or edema. Results 03/10/16 05:50 03/10/16 05:50 Cardiac Enzymes 03/10/16 Range/Units 05:50 AST 21 (14-36) U/L CBC 03/10/16 Range/Units 05:50 WBC 4.9 (3.8-10.6) k/uL RBC 3.62 L (3.80-5.40) m/uL Hgb 11.1 L (11.4-16.0) gm/dL Hct 34.0 (34.0-46.0) % Plt Count 303 (150-450) k/uL Comprehensive Metabolic Panel 03/10/16 Range/Units 05:50 Sodium 135 L (137-145) mmol/L Potassium 3.9 (3.5-5.1) mmol/L Chloride 105 (98-107) mmol/L Carbon Dioxide 24 (22-30) mmol/L BUN 5 L (7-17) mg/dL Creatinine 0.60 (0.52-1.04) mg/dL Glucose 90 (74-99) mg/dL Calcium 8.0 L (8.4-10.2) mg/dL AST 21 (14-36) U/L ALT 23 (9-52) U/L Alkaline Phosphatase 70 (38-126) U/L Total Protein 4.9 L (6.3-8.2) g/dL Albumin 2.5 L (3.5-5.0) g/dL Current Medications Generic Name Dose Route Start Last Admin Trade Name Freq PRN Reason Stop Dose Admin Acetaminophen/Hydrocodone Bitart 2 each 03/09/16 21:00 03/10/16 09:26 [place] 10 PO 2 each BID CHARLA Administration Albuterol Sulfate 2.5 mg 03/09/16 16:51 03/10/16 12:26 Ventolin Nebulized INHALATION 2.5 mg RT-Q6H PRN Administration Shortness Of Breath Atorvastatin Calcium 20 mg 03/09/16 21:00 03/09/16 21:10 Lipitor PO 20 mg HS CHARLA Administration Bisacodyl 5 mg 03/10/16 09:00 03/10/16 09:29 Dulcolax PO 5 mg DAILY CHARLA Administration Citalopram Hydrobromide 20 mg 03/09/16 21:00 03/09/16 21:10 Celexa PO 20 mg HS CHARLA Administration Enoxaparin Sodium 40 mg 03/11/16 09:00 Lovenox SQ DAILY CHARLA Famotidine 20 mg 03/11/16 09:00 Pepcid PO DAILY CHARLA Gabapentin 300 mg 03/09/16 21:00 03/10/16 09:26 Neurontin PO 300 mg BID CHARLA Administration Hydromorphone HCl 0.5 mg 03/09/16 15:05 03/10/16 05:31 Dilaudid IVP 0.5 mg Q4HR PRN Administration Pain Piperacillin/Tazobactam/ 50 mls @ 12.5 mls/hr 03/09/16 22:00 03/10/16 06:19 Dextrose 3.375 gm/ IV Solution IVPB 12.5 mls/hr Q8H CHARLA Administration Loratadine 10 mg 03/09/16 21:00 03/09/16 21:10 Claritin PO 10 mg HS CHARLA Administration Lorazepam 0.5 mg 03/09/16 16:51 03/09/16 21:02 Ativan PO 0.5 mg Q6H PRN Administration Nausea Metoclopramide HCl 10 mg 03/09/16 16:51 Reglan PO Q6HR PRN Nausea Miscellaneous Information 1 each 03/09/16 09:50 Rx Info: Iv Contrast Was Given MISCELLANE 03/11/16 09:50 DAILY PRN Per Protocol Ondansetron HCl 8 mg 03/09/16 16:51 03/09/16 21:10 Zofran Odt PO 8 mg Q8HR PRN Administration Nausea Polyethylene Glycol 17 gm 03/10/16 09:00 03/10/16 09:26 Miralax PO 17 gm DAILY CHARLA Administration Senna 8.6 mg 03/09/16 16:51 Senokot PO DAILY PRN Constipation Intake and Output 03/09/16 03/10/16 03/10/16 22:59 06:59 14:59 Intake Total 800 700 Balance 800 700 Intake: IV 800 700 Sodium Chloride 0.9% 1, 800 700 000 ml @ 100 mls/hr IV . Q10H ONE Rx#:[id number] Other: Voiding Method Toilet Toilet Toilet # Voids 2 2 03/10/16 05:50 03/10/16 05:50 EKG Interpretations (text) Sinus rhythm with occasional to frequent PVCs and bigeminal pattern Assessment and Plan (1) PVCs (premature ventricular contractions) Status: Acute (2) Pleural effusion Status: Acute (3) Ascites Status: Acute (4) History of ovarian cancer Status: Acute Plan: Will obtain echocardiogram to assess LV function. If the LV function is normal without any structural heart disease,with therapies offered of the PVCs. If necessary small dose of beta pooja may be considered if the blood pressure is more stable.
--- NOTE | 2016-03-10 13:42 | P.PN ---
Subjective Principal diagnosis: Dyspnea secondary to right pleural effusion This is a very pleasant 40-year-old female patient with a known history of stage IV ovarian cancer status post total hysterectomy and chemotherapy, DVT and hyperlipidemia. She has had previous episodes of right pleural effusions with previous thoracentesis. She's also had multiple paracentesis secondary to ascites. She presented here on 03/09/2016 with complaints of increasing shortness of breath. She was seen in consultation by Dr. Davies. Her CAT scan revealed a moderate right-sided pleural effusion, right middle lobe atelectasis and ascites. An ultrasound of the chest was performed as well and showed a 6.7 cm pocket and the chest was marked. Ultrasound of the abdomen revealed mild to moderate ascites. She is seen again today in follow-up. She is awake and alert in no acute distress. She denies any worsening shortness of breath, cough or congestion. She is dyspneic on exertion. She is maintaining good O2 saturations in the mid 90s on room air. Objective - Vital Signs Vital signs: Vital Signs Temp 97.2 F L 03/10/16 07:00 Pulse 64 03/10/16 12:36 Resp 16 03/10/16 07:00 BP 97/67 03/10/16 07:00 Pulse Ox 94 L 03/10/16 07:00 Intake & Output 03/09/16 03/10/16 03/10/16 18:59 06:59 18:59 Intake Total 1000 1500 Balance 1000 1500 Weight 70.76 kg Intake: IV 1500 Sodium Chloride 0.9% 1, 1500 000 ml @ 100 mls/hr IV . Q10H ONE Rx#:[id number] Amount of Fluid Infused ( 1000 ml) Other: Voiding Method Toilet Toilet Toilet # Voids 2 - Exam GENERAL EXAM: Alert, active, comfortable in no apparent distress. HEAD: Normocephalic. EYES: Normal reaction of pupils, equal size. NOSE: Clear with pink turbinates. THROAT: No erythema or exudates. NECK: No masses, no JVD. CHEST: No chest wall deformity. LUNGS: Equal air entry with crackles in the right posterior base. Diminished.. CVS: S1 and S2 normal with no audible murmurs, regular rhythm. ABDOMEN: Distended, positive fluid wave, normal bowel sounds, no guarding or rigidity. Extremities: There is trace peripheral edema. No clubbing, no cyanosis peripheral pulses are intact. - Labs CBC & Chem 7: 03/10/16 05:50 03/10/16 05:50 Labs: Abnormal Lab Results - Last 24 Hours (Table) 03/10/16 03/10/16 Range/Units 05:50 05:50 RBC 3.62 L (3.80-5.40) m/uL Hgb 11.1 L (11.4-16.0) gm/dL Sodium 135 L (137-145) mmol/L BUN 5 L (7-17) mg/dL Calcium 8.0 L (8.4-10.2) mg/dL Total Protein 4.9 L (6.3-8.2) g/dL Albumin 2.5 L (3.5-5.0) g/dL Assessment and Plan Plan: Impression: #1 Dyspnea secondary to moderate right pleural effusion. Ultrasound reveals 6.7 cm. #2 Mild to moderate ascites secondary to stage IV ovarian cancer. #3 Stage IV ovarian cancer status post total hysterectomy and chemotherapy. #4 History of DVT. #5 Hyperlipidemia. #6 Degenerative joint disease. Plan: The patient was seen and evaluated by Dr. Weiss. Her CAT scan, chest x-ray and ultrasound were reviewed. We are going to place an order to interventional radiology to perform a thoracentesis. Patient is in no respiratory distress at this time. We'll continue with with bronchodilators as needed. The patient could go home following the thoracentesis.
[2016-03-10] MEDS: LORATADINE 10 MG TAB PO SCH (20:30)
[2016-03-10] MEDS: ATORVASTATIN 20 MG TAB PO SCH (20:30)
[2016-03-10] MEDS: CITALOPRAM HYDROBROMIDE 20 MG TAB PO SCH (20:30)
[2016-03-11] MEDS: HYDROmorphone 1 MG/ML 1 ML SYRINGE IVP PRN ×2 (04:23→08:01)
[2016-03-11 05:59] LABS: Basophils % (A) 1 %; CH 30.5; CHCM 33.2; Eosinophils # (A) 0.3 k/uL (0-0.7); Eosinophils % (A) 4 %; HCT 36.9 % (34.0-46.0); Hypochromasia Slight; Luc # (Auto) 0.12; Luc % (Auto) 2; Lymphocytes % (A) 17 %; MCHC 32.5 g/dL (31.0-37.0); MCV 92.2 fL (80.0-100.0); Mean Platelet Volume 6.8; Monocytes # (A) 0.4 k/uL (0-1.0); Monocytes % (A) 7 %; Neutrophils # (A) 4.2 k/uL (1.3-7.7); Neutrophils % (A) 70 %; Poikilocytosis Slight; RBC 4.01 m/uL (3.80-5.40); RDW 14.9 % (11.5-15.5); WBC 6.1 k/uL (3.8-10.6); WBC (Perox) 6.89
[2016-03-11 06:13] LABS: ALT 27 U/L (9-52); AST 25 U/L (14-36); Alkaline Phosphatase 83 U/L (38-126); Anion Gap 8 mmol/L; Blood Urea Nitrogen 7 mg/dL (7-17); Calcium 8.5 mg/dL (8.4-10.2); Carbon Dioxide 27 mmol/L (22-30); Chloride 105 mmol/L (98-107); Glucose 91 mg/dL (74-99); Non-African American GFR(MDRD) >60 (>60 ml/min/1.73 sqM); Sodium 140 mmol/L (137-145); Total Bilirubin 0.4 mg/dL (0.2-1.3); Total Protein 5.6 g/dL (6.3-8.2)
[2016-03-11] MEDS: PIPERACILLIN-TAZOBACTAM 3.375 GM in DEXTROSE/WATER 1 50ML.BAG IVPB SCH (06:21)
[2016-03-11 07:46] VITALS: TEMP 97.7
[2016-03-11] MEDS ORDERED: ENOXAPARIN 40 MG/0.4 ML SYRINGE SQ SCH (09:00)
[2016-03-11] MEDS ORDERED: FAMOTIDINE 20 MG TAB PO SCH (09:00)
--- NOTE | 2016-03-11 09:49 | ECHOF ---
Referral Reason:PVCs MEASUREMENTS -------- HEIGHT: 160.0 cm WEIGHT: 70.8 kg BP: 97/67 RVIDd: 2.8 cm (< 3.3) IVSd: 1.0 cm (0.6 - 1.1) LVIDd: 3.9 cm (3.9 - 5.3) LVPWd: 1.0 cm (0.6 - 1.1) IVSs: 1.4 cm LVIDs: 2.9 cm LVPWs: 1.4 cm LA Diam: 2.7 cm (2.7 - 3.8) Ao Diam: 2.8 cm (2.0 - 3.7) AV Cusp: 1.9 cm (1.5 - 2.6) LA Diam: 3.3 cm (2.7 - 3.8) MV EXCURSION: 10.933 mm (> 18.000) MV EF SLOPE: 77 mm/s (70 - 150) EPSS: 0.4 cm MV E Carroll: 1.05 m/s MV DecT: 266 ms MV A [place]: 0.57 m/s MV E/A Ratio: 1.86 RAP: 5.00 mmHg RVSP: 50.88 mmHg FINDINGS -------- Sinus rhythm. This was a technically good study. Left ventricular wall thickness is normal. Overall left ventricular systolic function is normal with, an EF between 55 - 60 %. The right ventricle is normal in size. The left atrial size is normal. The right atrium is normal in size. The aortic valve is trileaflet and appears structurally normal. Mild mitral regurgitation is present. Mild tricuspid regurgitation present. There is moderate pulmonary hypertension. The right ventricular systolic pressure, as measured by Doppler, is 50.88mmHg. Trace/mild (physiologic) pulmonic regurgitation. The aortic root size is normal. Normal inferior vena cava with normal inspiratory collapse consistent with estimated right atrial pressure of 5 mmHg. There is no pericardial effusion. Pleural Effusion with Fibrin. CONCLUSIONS -------- 1. Sinus rhythm. 2. Mild tricuspid regurgitation present. 3. There is moderate pulmonary hypertension. 4. The right ventricular systolic pressure, as measured by Doppler, is 50.88mmHg. 5. Trace/mild (physiologic) pulmonic regurgitation. 6. The aortic root size is normal. 7. There is no pericardial effusion. 8. Pleural Effusion with Fibrin. 9. This was a technically good study. 10. Left ventricular wall thickness is normal. 11. Overall left ventricular systolic function is normal with, an EF between 55 - 60 %. 12. The right ventricle is normal in size. 13. The left atrial size is normal. 14. The right atrium is normal in size. 15. The aortic valve is trileaflet and appears structurally normal. 16. Mild mitral regurgitation is present. COLOR STRAINER: Turner Valderrama RDCS
[2016-03-11 10:08] VITALS: RESP 14
[2016-03-11 10:52] VITALS: BP 119/66; PULSE 75
--- NOTE | 2016-03-11 11:44 | P.PN ---
Subjective This is a 40-year-old female with history of advanced ovarian carcinoma. She suffer some shortness of breath caused by ascites and pleural effusion practically on the right side. She has had for paracentesis performed in 2 thoracentesis. The second thoracentesis was done today. From our perspective she can be discharged home. Today we did speak about; a Pleurx catheter. This may offer her long-term solution to her right-sided pleural effusion. Anyway she is feeling much better. About a liter and a half was removed today. I believe the Dr. Page did the procedure. Anyway again from our perspective she can be discharged home. Objective - Vital Signs Vital signs: Vital Signs Temp 97.7 F 03/11/16 07:00 Pulse 75 03/11/16 10:51 Resp 14 03/11/16 10:51 BP 119/66 03/11/16 10:51 Pulse Ox 96 03/11/16 10:51 Intake & Output 03/10/16 03/11/16 03/11/16 18:59 06:59 18:59 Intake Total 850 230 Balance 850 230 Intake: IV 800 80 .9@10 80 Sodium Chloride 0.9% 1, 800 000 ml @ 100 mls/hr IV . Q10H ONE Rx#:[id number] Intake, IV Titration 50 50 Amount Piperacillin-Tazobactam 3 50 50 .375 gm In Dextrose/Water 1 50ml.bag @ 12.5 mls/hr IVPB Q8H [facility] Rx#: [id number] Oral 100 Other: Voiding Method Toilet Toilet Toilet # Voids 3 1 - Exam No acute distress, oriented 3. Up and walking down the hallway. HEENT examination is grossly unremarkable. Neck supple. Full range of motion. Cardiovascular examination reveals regular rhythm rate. Lungs reveal diminished breath sounds. A few scattered rhonchi. No wheezes. Most of the abnormal breath sounds on the right side. Abdomen soft. Mildly distended. Extremities are intact. - Labs CBC & Chem 7: 03/11/16 05:50 03/11/16 05:50 Labs: Abnormal Lab Results - Last 24 Hours (Table) 03/11/16 Range/Units 05:50 Total Protein 5.6 L (6.3-8.2) g/dL Albumin 3.0 L (3.5-5.0) g/dL Microbiology - Last 24 Hours (Table) 03/10/16 13:45 Urine Culture - Preliminary Urine,Voided Assessment and Plan (1) Pleural effusion Status: Acute (2) Ascites Status: Acute (3) Dyspnea Status: Acute (4) History of ovarian cancer Status: Acute (5) Pleural effusion on right Status: Acute (6) Recurrent right pleural effusion Status: Acute (7) Shortness of breath Status: Acute Plan: Plan 03/11/2016 The patient can be discharged home today. No additional recommendations are made. We did talk about the possibility of a Pleurx catheter as a long-term solution to her right-sided effusion. Additional recommendations suggestions are forthcoming. Time with Patient: Less than 30
[2016-03-11] MEDS: BISACODYL 5 MG TABLET.DR PO SCH (11:52)
[2016-03-11] MEDS: GABAPENTIN 300 MG CAP PO SCH (11:53)
[2016-03-11] MEDS: POLYETHYLENE GLYCOL 3350 17 GM POWD.PACK PO SCH (11:53)
[2016-03-11] MEDS: HYDROcodone/APAP 10-325MG 1 EACH TAB PO SCH (11:53)
--- NOTE | 2016-03-11 11:59 | P.DS ---
Providers Date of admission: 03/09/16 12:33 Expected date of discharge: 03/11/16 Attending physician: Adia Ardon Consults: 03/09/16 13:58 Consult Physician Routine Consulting Provider: [facility] Consult Reason/Comments: [email or web address] Do you want consulting provider notified?: Yes [facility] Course: Patient presented to the hospital with worsening shortness of breath. 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 Below is a list of her medical problems addressed during this hospitalization 1. Shortness of breath secondary to right pleural effusion patient underwent a therapeutic thoracentesis with approximately 1.7 L of fluid removed by interventional cardiology. 2. Right pleural effusion noted on CAT scan. Patient was seen and evaluated by pulmonology during this admission 3. Abdominal ascites with abdominal ultrasound revealing mild to moderate ascites. Patient's last paracentesis was 1 week ago. No plan for paracentesis at this time 4. Pleural effusion abdominal ascites secondary to metastatic of ovarian cancer stage IV 5. Metastatic ovarian cancer stage IV status post GHAZALA/SBO. Last chemotherapy March 04. Followed by Dr. Tipton 6. Opiate-induced constipation continue with her MiraLAX and stool softener. Last bowel movement yesterday 7. Possible pneumonia noted on computed tomography scan patient currently on IV Zosyn 8. Hyperlipidemia continue Lipitor 9. Depression continue with Celexa Patient will be discharged home in a stable condition. Follow-up with her oncologist for chemotherapy as scheduled. Plan - Discharge Summary Discharge Medication List Citalopram Hydrobromide [CeleXA] 20 mg PO HS 03/02/14 [History] Atorvastatin [Lipitor] 20 mg PO HS 03/19/15 [History] EPINEPHrine [Epipen 2-Mike] 0.3 mg IM ONCE PRN 03/19/15 [History] Ondansetron [Zofran ODT] 8 mg PO Q8HR PRN 03/19/15 [History] Sennosides [Senokot] 8.6 mg PO DAILY PRN 03/19/15 [History] Albuterol Inhaler [Ventolin Hfa Inhaler] 2 puff INHALATION RT-Q6H PRN 10/02/15 [ History] Albuterol Nebulized [Ventolin Nebulized] 2.5 mg INHALATION RT-Q6H PRN 10/02/15 [ History] Loratadine 10 mg PO HS 10/02/15 [History] LORazepam [Lorazepam] 0.5 mg PO Q6H PRN 11/19/15 [History] Bisacodyl [Dulcolax] 5 mg PO DAILY #30 tablet.dr 11/20/15 [Rx] Polyethylene Glycol 3350 [Miralax] 17 gm PO DAILY #255 gm 11/20/15 [Rx] Gabapentin [Neurontin] 300 mg PO BID 03/01/16 [History] HYDROcodone/APAP 10-325MG [[place] 10-325] 2 tab PO BID 03/09/16 [History] Metoclopramide HCl [Reglan] 10 mg PO Q6HR PRN 03/09/16 [History] Follow up Appointment(s)/Referral(s): Adia Ardon MD [Primary Care Provider] - 1 Week
[2016-03-11 12:57] LABS: Total Protein 5.5 g/dL (6.3-8.2)
--- NOTE | 2016-03-11 13:32 | XR ---
EXAMINATION TYPE: XR chest 1V DATE OF EXAM: 03/11/2016 11:05 AM COMPARISON: Chest x-ray 09 March 2016 HISTORY: Status post thoracentesis TECHNIQUE: Single frontal view of the chest is obtained. FINDINGS: There is interval improved aeration at the right lung base. No evident pneumothorax. No ot her interval change. IMPRESSION: No evident complication status post thoracentesis.
[2016-03-11 14:33] LABS: RBC, Body Fluid 460000 /uL
--- NOTE | 2016-03-11 16:26 | US ---
EXAMINATION TYPE: US thoracentesis DATE OF EXAM: 03/11/2016 10:54 AM COMPARISON: Chest x-ray 09 March 2016 HISTORY: Pleural effusion. FINDINGS: Maximal barrier technique was utilized. The skin overlying a suitable pocket of fluid was localized and the overlying skin prepped and draped. Lidocaine was used for local anesthesia. Ultras ound was used with sterile technique. A 5 [place] catheter over guide needle was advanced into the pl eural fluid collection using ultrasound guidance catheter advanced, needle removed. Approximately 1. 8 liter(s) of sanguinous fluid was removed. Catheter was withdrawn and hemostasis achieved. There i s no immediate complication. The patient discharged in stable condition without complication. IMPRESSION: STATUS POST ULTRASOUND GUIDED THORACENTESIS, POST PROCEDURE CHEST X-RAY PENDING. THIS [place] OCEDURE WAS PERFORMED BY THE UNDERSIGNED.
[2016-03-14 09:35] LABS: Mis test requested (Non-blood) LDH Pleural Fld
== END 2016-03-11 14:55 | disposition home or self-care (01) | DRG 755 ==
LOC: EC 05:51 → 5ONC 12:33
PROVIDERS: ADMIT Internal Medicine; ATTEND Internal Medicine
PROC: 0W993ZZ Drainage of Right Pleural Cavity, Percutaneous Approach (ICD-10-PCS; principal; 2016-03-11)
DX: C56.9 Malignant neoplasm of unspecified ovary (principal); J91.0 Malignant pleural effusion; R18.0 Malignant ascites; J98.11 Atelectasis; K59.03 Drug induced constipation; T40.605A Adverse effect of unspecified narcotics, initial encounter; E78.5 Hyperlipidemia, unspecified; F32.9 Major depressive disorder, single episode, unspecified; G62.0 Drug-induced polyneuropathy; T45.1X5A Adverse effect of antineoplastic and immunosuppressive drugs, initial encounter; F17.200 Nicotine dependence, unspecified, uncomplicated; M50.30 Other cervical disc degeneration, unspecified cervical region; M19.90 Unspecified osteoarthritis, unspecified site; Z86.718 Personal history of other venous thrombosis and embolism; I49.3 Ventricular premature depolarization; F41.9 Anxiety disorder, unspecified; Z92.21 Personal history of antineoplastic chemotherapy; Z90.710 Acquired absence of both cervix and uterus; Z90.722 Acquired absence of ovaries, bilateral; Z79.891 Long term (current) use of opiate analgesic; Z79.899 Other long term (current) drug therapy
CPT/HCPCS: 32555; 36415; 71010; 71275; 76604; 76700; 76857; 80053; 81001; 82945; 83605; 83615; 83735; 83880; 84155; 84157; 84484; 85025; 85027; 85379; 85610; 85730; 87040; 87070; 87075; 87086; 87205; 88108; 88305; 88341; 88342; 89050; 93005; 93306; 94640; 96361; 96372; 96374; 96375; 96376; 99285

== ENCOUNTER 2016-03-12 21:11 | Emergency (ER) | payer OTHER ==
[2016-03-12 21:24] VITALS: RESP 18
--- NOTE | 2016-03-12 22:12 | ED ---
Extremity Problem HPI <HarrisonYoshi - Last Filed: 03/13/16 00:46> - General Source: patient, RN notes reviewed Mode of arrival: ambulatory Limitations: no limitations <BetsyYoana - Last Filed: 03/13/16 00:56> - General Chief complaint: Extremity Problem,Nontraumatic Stated complaint: left leg swelling/pain Time Seen by Provider: 03/12/16 21:30 - History of Present Illness Initial comments: Patient is a 40-year-old female with a chief complaint of left leg swelling for approximately 1 day. Patient has a past medical history significant for stage IV ovarian cancer. She reports that she was discharged yesterday due to a pleural effusion and shortness of breath. Patient reports that she recently had a thoracentesis. Patient denies any shortness of breath or chest pain at this time. Patient states that she does have pain and heaviness in the left leg. She has had a history of blood clots in her neck and her right arm. Patient reports that she has had increased ascites as well which is been manage at her in patient treatment. Patient states that she was feeling well earlier today and had her appointment with her oncologist in no problems until this afternoon when her leg started to swell. Patient reports that she is not able to continue chemotherapy treatment as it is now reached a palliative care measures. (Yoana Meyer) - Related Data Home Medications Medication Instructions Recorded Confirmed Citalopram Hydrobromide [CeleXA] 20 mg PO HS 03/02/14 03/12/16 Atorvastatin [Lipitor] 20 mg PO HS 03/19/15 03/12/16 EPINEPHrine [Epipen 2-Mike] 0.3 mg IM ONCE PRN 03/19/15 03/12/16 Ondansetron [Zofran ODT] 8 mg PO Q8HR PRN 03/19/15 03/12/16 Sennosides [Senokot] 8.6 mg PO DAILY PRN 03/19/15 03/12/16 Albuterol Inhaler [Ventolin Hfa 2 puff INHALATION RT-Q6H PRN 10/02/15 03/12/16 Inhaler] Albuterol Nebulized [Ventolin 2.5 mg INHALATION RT-Q6H PRN 10/02/15 03/12/16 Nebulized] Loratadine 10 mg PO HS 10/02/15 03/12/16 LORazepam [Lorazepam] 0.5 mg PO Q6H PRN 11/19/15 03/12/16 Gabapentin [Neurontin] 300 mg PO BID 03/01/16 03/12/16 HYDROcodone/APAP 10-325MG [[place] 2 tab PO BID 03/09/16 03/12/16 10-325] Metoclopramide HCl [Reglan] 10 mg PO Q6HR PRN 03/09/16 03/12/16 Morphine Sulfate [Ms Contin] 30 mg PO Q12HR 03/12/16 03/12/16 Previous Rx's Medication Instructions Recorded Bisacodyl [Dulcolax] 5 mg PO DAILY #30 tablet. 11/20/15 Polyethylene Glycol 3350 [Miralax] 17 gm PO DAILY #255 gm 11/20/15 Allergies Allergy/AdvReac Type Severity Reaction Status Date / Time dexamethasone [From Decadron] Allergy Unknown Verified 03/12/16 21:29 dexamethasone sod phosphate Allergy Unknown Verified 03/12/16 21:29 [From Decadron] venom-honey bee Allergy Anaphylaxis Verified 03/12/16 21:29 [bee venom (honey bee)] Review of Systems ROS Other: All systems not noted in ROS Statement are negative. <Yoshi Terry - Last Filed: 03/13/16 00:46> ROS Other: All systems not noted in ROS Statement are negative. <Yoana Meyer - Last Filed: 03/13/16 00:56> ROS Statement: Those systems with pertinent positive or pertinent negative responses have been documented in the HPI. Past Medical History Past Medical History: Cancer, Deep Vein Thrombosis (DVT), Hyperlipidemia Additional Past Medical History / Comment(s): stage 4 ovarian cancer with total hysterectomy and chemo (last chemo 03/04/15), bilateral hands and feet neuropathy , chronic cervical pain-degnerative bone disease, buldging disk, blood clot to the rt wrist and rt neck, chronic constipation, ascites, paracentesis History of Any Multi-Drug Resistant Organisms: None Reported Past Surgical History: Hysterectomy Additional Past Surgical History / Comment(s): powerport left chest, total hysterectomy, multiple paracentisis, one right thorocentesis Past Anesthesia/Blood Transfusion Reactions: No Reported Reaction Past Psychological History: Anxiety Additional Psychological History / Comment(s): Pt states medication for mental health help. Pt resides with significant other. She is independent. Smoking Status: Current some day smoker Past Alcohol Use History: None Reported Additional Past Alcohol Use History / Comment(s): Pt states she started smoking at age 7 yrs (1982) Past Drug Use History: Marijuana Additional Drug Use History / Comment(s): Pt has medical marijuana that she uses for pain control on a nearly everyday basis. - Past Family History Mother Family Medical History: Diabetes Mellitus Additional Family Medical History / Comment(s): bilat knee replace Father Family Medical History: COPD <Yoana Meyer - Last Filed: 03/13/16 00:56> General Exam <Yoshi Terry - Last Filed: 03/13/16 00:46> Limitations: no limitations General appearance: alert, in no apparent distress Head exam: Present: atraumatic, normocephalic, normal inspection Eye exam: Present: normal appearance, PERRL, EOMI. Absent: scleral icterus, conjunctival injection, periorbital swelling ENT exam: Present: normal exam, normal oropharynx, mucous membranes moist Neck exam: Present: normal inspection. Absent: tenderness, meningismus, lymphadenopathy Respiratory exam: Present: normal lung sounds bilaterally. Absent: respiratory distress, wheezes, rales, rhonchi, stridor Cardiovascular Exam: Present: regular rate, normal rhythm, normal heart sounds. Absent: systolic murmur, diastolic murmur, rubs, gallop, clicks GI/Abdominal exam: Present: soft, tenderness (Patient reports some mild tenderness in the right lower quadrant.), normal bowel sounds, other (evidence of ascites). Absent: distended, guarding, rebound, rigid Extremities exam: Present: normal inspection, full ROM, normal capillary refill. Absent: tenderness, pedal edema, joint swelling, calf tenderness Back exam: Present: normal inspection Neurological exam: Present: alert, oriented X3, CN II-XII intact Psychiatric exam: Present: normal affect, normal mood Skin exam: Present: warm, dry, intact, normal color. Absent: rash <Yoana Meyer - Last Filed: 03/13/16 00:56> - General Exam Comments Initial Comments: Patient is a very pleasant 40-year-old female. She does not appear to be in any acute distress at this time. (Yoana Meyer) Medical Decision Making - Lab Data Result diagrams: 03/12/16 22:40 03/12/16 22:40 <Yoshi Terry - Last Filed: 03/13/16 00:46> - Lab Data Result diagrams: 03/12/16 22:40 03/12/16 22:40 <Yoana Meyer - Last Filed: 03/13/16 00:56> - Medical Decision Making Medical decision-making. The patient has stage IV ovarian cancer. Has increased intraperitoneal fluid as well as right pleural effusion. She had some swelling to her left calf and mild discomfort yesterday it comes and goes pending upon her keeping the leg elevated. She had an ultrasound which is negative for DVT. I examine the patient neurovascular status intact the bones bruises or injuries. No popliteal swelling. We discussed the potential cause of occasional swelling to her left leg. The patient will be discharged home and she will follow-up with her family physician and oncologist. Dr. Terry ( Yoshi Terry) - Lab Data Lab Results 03/12/16 03/12/16 03/12/16 Range/Units 22:40 22:40 22:40 WBC 7.6 (3.8-10.6) k/uL RBC 3.75 L (3.80-5.40) m/uL Hgb 11.3 L (11.4-16.0) gm/dL Hct 33.3 L (34.0-46.0) % MCV 89.0 (80.0-100.0) fL MCH 30.1 (25.0-35.0) pg MCHC 33.8 (31.0-37.0) g/dL RDW 14.7 (11.5-15.5) % Plt Count 344 (150-450) k/uL Neutrophils % 75 % Lymphocytes % 14 % Monocytes % 6 % Eosinophils % 4 % Basophils % 1 % Neutrophils # 5.7 (1.3-7.7) k/uL Lymphocytes # 1.1 (1.0-4.8) k/uL Monocytes # 0.5 (0-1.0) k/uL Eosinophils # 0.3 (0-0.7) k/uL Basophils # 0.0 (0-0.2) k/uL Poikilocytosis Slight PT 11.3 (9.0-12.0) sec INR 1.1 (<1.1) APTT 26.6 (22.0-30.0) sec Sodium 135 L (137-145) mmol/L Potassium 3.7 (3.5-5.1) mmol/L Chloride 100 (98-107) mmol/L Carbon Dioxide 28 (22-30) mmol/L Anion Gap 7 mmol/L BUN 6 L (7-17) mg/dL Creatinine 0.53 (0.52-1.04) mg/dL Est GFR (MDRD) Af Amer >60 (>60 ml/min/1.73 sqM) Est GFR (MDRD) Non-Af >60 (>60 ml/min/1.73 sqM) Glucose 91 (74-99) mg/dL Plasma Lactic Acid Migel (0.7-2.0) mmol/L Calcium 8.4 (8.4-10.2) mg/dL Magnesium 1.9 (1.6-2.3) mg/dL Total Bilirubin 0.4 (0.2-1.3) mg/dL AST 26 (14-36) U/L ALT 31 (9-52) U/L Alkaline Phosphatase 76 (38-126) U/L Total Protein 5.3 L (6.3-8.2) g/dL Albumin 2.7 L (3.5-5.0) g/dL 03/12/16 Range/Units 22:40 WBC (3.8-10.6) k/uL RBC (3.80-5.40) m/uL Hgb (11.4-16.0) gm/dL Hct (34.0-46.0) % MCV (80.0-100.0) fL MCH (25.0-35.0) pg MCHC (31.0-37.0) g/dL RDW (11.5-15.5) % Plt Count (150-450) k/uL Neutrophils % % Lymphocytes % % Monocytes % % Eosinophils % % Basophils % % Neutrophils # (1.3-7.7) k/uL Lymphocytes # (1.0-4.8) k/uL Monocytes # (0-1.0) k/uL Eosinophils # (0-0.7) k/uL Basophils # (0-0.2) k/uL Poikilocytosis PT (9.0-12.0) sec INR (<1.1) APTT (22.0-30.0) sec Sodium (137-145) mmol/L Potassium (3.5-5.1) mmol/L Chloride (98-107) mmol/L Carbon Dioxide (22-30) mmol/L Anion Gap mmol/L BUN (7-17) mg/dL Creatinine (0.52-1.04) mg/dL Est GFR (MDRD) Af Amer (>60 ml/min/1.73 sqM) Est GFR (MDRD) Non-Af (>60 ml/min/1.73 sqM) Glucose (74-99) mg/dL Plasma Lactic Acid Migel 0.7 (0.7-2.0) mmol/L Calcium (8.4-10.2) mg/dL Magnesium (1.6-2.3) mg/dL Total Bilirubin (0.2-1.3) mg/dL AST (14-36) U/L ALT (9-52) U/L Alkaline Phosphatase (38-126) U/L Total Protein (6.3-8.2) g/dL Albumin (3.5-5.0) g/dL 03/12/16 22:36 EKG shows normal sinus rhythm. Unable to rule out a history of tearing for a period. 87 bpm..: 54 ms. QRS duration 90 seconds. QT/QTc is 360/433 ms. ( Yoana Meyer) Disposition <Yoshi Terry - Last Filed: 03/13/16 00:46> Time of Disposition: 00:55 <Yoana Meyer - Last Filed: 03/13/16 00:56> Clinical Impression: Left leg swelling Disposition: HOME SELF-CARE Condition: Good Instructions: Leg Edema (ED) Additional Instructions: Patient started to follow-up with primary care provider in one to 2 days. Return to the EC if any alarming signs or symptoms occur.
[2016-03-12] MEDS ORDERED: MORPHINE SULFATE 2 MG/ML SYRINGE IVP ONE (22:16)
--- NOTE | 2016-03-12 23:01 | XR ---
EXAMINATION TYPE: XR chest 2V DATE OF EXAM: 03/12/2016 10:53 PM COMPARISON: 03/11/2016 HISTORY: Chest pain TECHNIQUE: Frontal and lateral views of the chest are obtained. FINDINGS: There is right pleural effusion. There is infiltrate and atelectasis in the right lower lo be. There is mild focal atelectasis in the left lower lobe. There is no gross heart failure. Heart si ze is normal. There are no hilar masses. There is a left subclavian catheter with the tip in the supe rior vena cava. IMPRESSION: Right pleural effusion with right lower lobe infiltrate and atelectasis appears to be le ss fluid than yesterday but the atelectasis is increased.
[2016-03-12 23:03] LABS: Basophils % (A) 1 %; CH 30.6; CHCM 34.4; Eosinophils # (A) 0.3 k/uL (0-0.7); Eosinophils % (A) 4 %; HCT 33.3 % (34.0-46.0); HDW 3.61; HGB 11.3 gm/dL (11.4-16.0); Luc % (Auto) 1; Lymphocytes # (A) 1.1 k/uL (1.0-4.8); Lymphocytes % (A) 14 %; MCH 30.1 pg (25.0-35.0); MCHC 33.8 g/dL (31.0-37.0); Mean Platelet Volume 7.4; Monocytes # (A) 0.5 k/uL (0-1.0); Monocytes % (A) 6 %; Neutrophils # (A) 5.7 k/uL (1.3-7.7); Neutrophils % (A) 75 %; Poikilocytosis Slight; RBC 3.75 m/uL (3.80-5.40); RDW 14.7 % (11.5-15.5); WBC 7.6 k/uL (3.8-10.6); WBC (Perox) 8.24
[2016-03-12 23:13] LABS: INR 1.1 (<1.1); Partial Thromboplastin Time 26.6 sec (22.0-30.0); Prothrombin Time 11.3 sec (9.0-12.0)
[2016-03-12 23:19] LABS: ALT 31 U/L (9-52); AST 26 U/L (14-36); Alkaline Phosphatase 76 U/L (38-126); Anion Gap 7 mmol/L; Blood Urea Nitrogen 6 mg/dL (7-17); Calcium 8.4 mg/dL (8.4-10.2); Carbon Dioxide 28 mmol/L (22-30); Chloride 100 mmol/L (98-107); Glucose 91 mg/dL (74-99); Magnesium 1.9 mg/dL (1.6-2.3); Non-African American GFR(MDRD) >60 (>60 ml/min/1.73 sqM); Potassium 3.7 mmol/L (3.5-5.1); Sodium 135 mmol/L (137-145); Total Bilirubin 0.4 mg/dL (0.2-1.3); Total Protein 5.3 g/dL (6.3-8.2)
[2016-03-12] MEDS ORDERED: SODIUM CHLORIDE 0.9% 1,000 ML IV ONE (23:41)
--- NOTE | 2016-03-12 23:52 | US ---
EXAMINATION TYPE: US venous doppler duplex LE LT DATE OF EXAM: 03/12/2016 11:41 PM COMPARISON: NONE CLINICAL HISTORY: Pain and swelling in left leg . SIDE PERFORMED: Left VESSELS IMAGED: External Iliac Vein (EIV) Common Femoral Vein Deep Femoral Vein Greater Saphenous Vein * Femoral Vein Popliteal Vein Small Saphenous Vein * Proximal Calf Veins (* superficial vessels) TECHNOLOGIST IMPRESSION: Left Leg: Negative for DVT IMPRESSION: Normal exam. No evidence of deep venous thrombosis in the left leg.
[2016-03-13 01:25] VITALS: BP 112/65; PULSE 95; TEMP 98.3
== END 2016-03-13 01:24 | disposition home or self-care (01) ==
LOC: EC 21:11
DX: M79.89 Other specified soft tissue disorders (principal); C56.9 Malignant neoplasm of unspecified ovary; J90 Pleural effusion, not elsewhere classified; Z88.8 Allergy status to other drugs, medicaments and biological substances; E78.5 Hyperlipidemia, unspecified; F41.9 Anxiety disorder, unspecified; F17.200 Nicotine dependence, unspecified, uncomplicated; Z86.718 Personal history of other venous thrombosis and embolism; Z92.21 Personal history of antineoplastic chemotherapy; Z79.899 Other long term (current) drug therapy; Z79.891 Long term (current) use of opiate analgesic
CPT/HCPCS: 96374; 96361; 99284; 36415; 93005; 80053; 83605; 83735; 85025; 85610; 85730; 87040; 71020; 93971; J2270

== ENCOUNTER 2016-03-21 09:03 | Day surgery (SDC) | payer OTHER ==
[2016-03-21 09:32] VITALS: RESP 20; TEMP 97.6
[2016-03-21 09:38] LABS: Mean Platelet Volume 6.5
[2016-03-21 09:42] LABS: INR 1.1 (<1.1); Prothrombin Time 10.7 sec (9.0-12.0)
[2016-03-21 11:13] VITALS: BP 106/66; PULSE 70
--- NOTE | 2016-03-21 13:01 | US ---
EXAMINATION TYPE: US paracentesis abd w/image DATE OF EXAM: 03/21/2016 10:51 AM CLINICAL HISTORY: Ascites The procedure was discussed with the patient. The risks, complications, benefits, and alternatives we re discussed and any questions were answered. Informed consent was obtained. The patient was placed s upine on the ultrasound table and prepped and draped in the usual sterile fashion. All elements of maximal barrier technique were utilized. Under ultrasound guidance, access into the left lower quadrant was obtained, via the paracentesis catheter system and direct ultrasound guidance . Approximately 4 liters of serous fluid was removed. The patient was stable throughout the procedure a nd remained stable upon discharge from Department of Radiology. IMPRESSION: Successful therapeutic paracentesis under ultrasound guidance.
== END 2016-03-21 11:00 | disposition home or self-care (01) ==
LOC: RADPROMAIN 09:03
PROVIDERS: ATTEND Internal Medicine Hematology & Oncology
DX: R18.8 Other ascites (principal)
CPT/HCPCS: 36415; 49083; 85049; 85610

== ENCOUNTER 2016-04-02 09:16 | Day surgery (SDC) | payer OTHER ==
[2016-04-02 09:45] LABS: Mean Platelet Volume 7.4
[2016-04-02 09:49] VITALS: TEMP 97.6
[2016-04-02 09:49] LABS: Prothrombin Time 10.3 sec (9.0-12.0)
[2016-04-02 10:31] VITALS: RESP 16
[2016-04-02 11:43] VITALS: BP 119/83; PULSE 90
--- NOTE | 2016-04-02 13:40 | US ---
EXAMINATION TYPE: US paracentesis abd w/image DATE OF EXAM: 04/02/2016 12:27 PM HISTORY: Ascites. PROCEDURE: Maximal barrier technique was utilized. The skin overlying a suitable pocket of fluid was localized with ultrasound and the overlying skin was prepped and draped. Ultrasound was utilized with sterile technique. Lidocaine was used for local anesthesia and a skin antonio made with a scalpel. Catheter was advanced under direct ultrasound guidance into a suitable pocket of fluid and approximately 3.5 liter s of serous fluid were removed. Catheter was withdrawn and hemostasis achieved. There is no immedia te complication; the patient is discharged in stable condition. IMPRESSION: STATUS POST ULTRASOUND GUIDED PARACENTESIS FOR PALLIATION OF ASCITES. THIS PROCEDURE WA S PERFORMED BY THE UNDERSIGNED.
== END 2016-04-02 11:45 | disposition home or self-care (01) ==
LOC: RADPROMAIN 09:16
PROVIDERS: ATTEND Internal Medicine Hematology & Oncology
DX: R18.8 Other ascites (principal)
CPT/HCPCS: 36415; 49083; 85049; 85610

== ENCOUNTER 2016-04-09 09:09 | Day surgery (SDC) | payer OTHER ==
[2016-04-09 09:42] LABS: Mean Platelet Volume 7.3
[2016-04-09 09:49] LABS: INR 1.1 (<1.1); Prothrombin Time 10.6 sec (9.0-12.0)
[2016-04-09 10:24] VITALS: TEMP 98
[2016-04-09 12:05] VITALS: BP 105/74; PULSE 94; RESP 18
--- NOTE | 2016-04-09 12:41 | US ---
EXAMINATION TYPE: US paracentesis abd w/image DATE OF EXAM: 04/09/2016 12:18 PM COMPARISON: NONE HISTORY: Ascites. PROCEDURE: Maximal barrier technique was utilized. The skin overlying a suitable pocket of fluid was localized with ultrasound and the overlying skin was prepped and draped. Ultrasound was utilized with sterile technique. Lidocaine was used for local anesthesia and a skin antonio made with a scalpel. Catheter was advanced under direct ultrasound guidance into a suitable pocket of fluid and approximately 4.5 liter s of milky fluid were removed. Catheter was withdrawn and hemostasis achieved. There is no immediat e complication; the patient is discharged in stable condition. IMPRESSION: STATUS POST ULTRASOUND GUIDED PARACENTESIS FOR PALLIATION OF ASCITES. THIS PROCEDURE WA S PERFORMED BY THE UNDERSIGNED.
== END 2016-04-09 12:00 | disposition home or self-care (01) ==
LOC: RADPROMAIN 09:09
PROVIDERS: ATTEND Internal Medicine Hematology & Oncology
DX: R18.8 Other ascites (principal)
CPT/HCPCS: 49083; 85049; 85610

== ENCOUNTER 2016-04-16 09:12 | Day surgery (SDC) | payer OTHER ==
[2016-04-16 10:07] VITALS: RESP 20; TEMP 97.9
[2016-04-16 10:11] LABS: Mean Platelet Volume 6.3
[2016-04-16 10:18] LABS: Prothrombin Time 10.4 sec (9.0-12.0)
[2016-04-16 11:21] VITALS: PULSE 100
[2016-04-16 11:54] VITALS: BP 119/80
--- NOTE | 2016-04-16 12:45 | US ---
Therapeutic paracentesis. CLINICAL HISTORY: Ascites The procedure was discussed with the patient. The risks, complications, benefits, and alternatives we re discussed and any questions were answered. Informed consent was obtained. The patient was placed s upine on the ultrasound table and prepped and draped in the usual sterile fashion. All elements of maximal barrier technique were utilized. Under ultrasound guidance, access into the left lower quadrant was obtained, via the paracentesis catheter system and direct ultrasound guidance . Approximately 4.4 liters of straw-colored fluid was removed. The patient was stable throughout the pr ocedure and remained stable upon discharge from Department of Radiology. IMPRESSION: Successful therapeutic paracentesis under ultrasound guidance.
== END 2016-04-16 11:50 | disposition home or self-care (01) ==
LOC: RADPROMAIN 09:12
PROVIDERS: ATTEND Internal Medicine Hematology & Oncology
DX: R18.8 Other ascites (principal)
CPT/HCPCS: 36415; 49083; 85049; 85610

== ENCOUNTER 2016-04-21 12:26 | Day surgery (SDC) | payer OTHER ==
[2016-04-21 12:56] VITALS: RESP 20; TEMP 98
[2016-04-21 13:08] LABS: Mean Platelet Volume 7.2
[2016-04-21 13:13] LABS: Prothrombin Time 10.2 sec (9.0-12.0)
[2016-04-21 14:25] VITALS: BP 118/70; PULSE 96
--- NOTE | 2016-04-21 14:43 | US ---
Therapeutic paracentesis. CLINICAL HISTORY: Ascites The procedure was discussed with the patient. The risks, complications, benefits, and alternatives we re discussed and any questions were answered. Informed consent was obtained. The patient was placed s upine on the ultrasound table and prepped and draped in the usual sterile fashion. All elements of maximal barrier technique were utilized. Under ultrasound guidance, access into the right lower quadrant was obtained, via the paracentesis catheter system and direct ultrasound guidanc e. Approximately 4.3 liters of straw-colored fluid was removed. The patient was stable throughout the pr ocedure and remained stable upon discharge from Department of Radiology. IMPRESSION: Successful therapeutic paracentesis under ultrasound guidance.
== END 2016-04-21 14:45 | disposition home or self-care (01) ==
LOC: RADPROMAIN 12:26
PROVIDERS: ATTEND Internal Medicine Hematology & Oncology
DX: R18.8 Other ascites (principal)
CPT/HCPCS: 49083; 85049; 85610

== ENCOUNTER 2016-04-24 19:06 | Emergency (ER) | payer OTHER ==
[2016-04-24 19:21] VITALS: RESP 18
[2016-04-24 20:04] LABS: Basophils % (A) 0 %; CH 28.1; CHCM 33.7; Eosinophils # (A) 0.2 k/uL (0-0.7); Eosinophils % (A) 2 %; HCT 37.4 % (34.0-46.0); HDW 3.44; HGB 12.3 gm/dL (11.4-16.0); Luc # (Auto) 0.19; Luc % (Auto) 2; Lymphocytes # (A) 1.1 k/uL (1.0-4.8); Lymphocytes % (A) 11 %; MCH 27.3 pg (25.0-35.0); MCHC 32.7 g/dL (31.0-37.0); Monocytes # (A) 0.6 k/uL (0-1.0); Monocytes % (A) 6 %; Neutrophils % (A) 80 %; Poikilocytosis Slight; RBC 4.49 m/uL (3.80-5.40); RDW 15.6 % (11.5-15.5); WBC 10.1 k/uL (3.8-10.6); WBC (Perox) 9.87
[2016-04-24 20:10] LABS: MCV 83.4 fL (80.0-100.0)
--- NOTE | 2016-04-24 20:16 | ED ---
General Adult HPI - General Chief complaint: Urogenital Stated complaint: FEMALE , LEFT LEG SWELLING Time Seen by Provider: 04/24/16 19:35 Source: patient, RN notes reviewed Mode of arrival: ambulatory Limitations: no limitations - History of Present Illness Initial comments: Patient 40-year-old female who presents emergency room today with a chief complaint of increased swelling to left lower extremity. She admits that this started approximately an hour ago. Also admits that she's noticed some swelling to the bilateral labia majora. States she's had similar symptoms in the past with swelling. States she does have history of stage IV ovarian cancer. Patient admits that she was recently discharged from [facility] for constipation. Patient denies any other complaints or symptoms. She denies any pain. Denies any vaginal bleeding or discharge. Patient denies any recent fever, chills, shortness of breath, chest pain, back pain, abdominal pain, nausea or vomiting, numbness or tingling, dysuria or hematuria, constipation or diarrhea, headaches or visual changes, or any other complaints. - Related Data Home Medications Medication Instructions Recorded Confirmed Citalopram Hydrobromide [CeleXA] 20 mg PO HS 03/02/14 04/24/16 Atorvastatin [Lipitor] 20 mg PO HS 03/19/15 04/24/16 EPINEPHrine [Epipen 2-Mike] 0.3 mg IM ONCE PRN 03/19/15 04/24/16 Ondansetron [Zofran ODT] 8 mg PO Q8HR PRN 03/19/15 04/24/16 Sennosides [Senokot] 8.6 mg PO DAILY PRN 03/19/15 04/24/16 Albuterol Inhaler [Ventolin Hfa 2 puff INHALATION RT-Q6H PRN 10/02/15 04/24/16 Inhaler] Albuterol Nebulized [Ventolin 2.5 mg INHALATION RT-Q6H PRN 10/02/15 04/24/16 Nebulized] LORazepam [Lorazepam] 0.5 mg PO Q6H PRN 11/19/15 04/24/16 Gabapentin [Neurontin] 300 mg PO BID 03/01/16 04/24/16 HYDROcodone/APAP 10-325MG [[place] 2 tab PO BID 03/09/16 04/24/16 10-325] Morphine Sulfate [Ms Contin] 30 mg PO Q12HR 03/12/16 04/24/16 Previous Rx's Medication Instructions Recorded Bisacodyl [Dulcolax] 5 mg PO DAILY #30 tablet. 11/20/15 Polyethylene Glycol 3350 [Miralax] 17 gm PO DAILY #255 gm 11/20/15 Allergies Allergy/AdvReac Type Severity Reaction Status Date / Time dexamethasone [From Decadron] Allergy Unknown Verified 04/24/16 19:32 dexamethasone sod phosphate Allergy Unknown Verified 04/24/16 19:32 [From Decadron] venom-honey bee Allergy Anaphylaxis Verified 04/24/16 19:32 [bee venom (honey bee)] Review of Systems ROS Statement: Those systems with pertinent positive or pertinent negative responses have been documented in the HPI. ROS Other: All systems not noted in ROS Statement are negative. Past Medical History Past Medical History: Cancer, Deep Vein Thrombosis (DVT), Hyperlipidemia Additional Past Medical History / Comment(s): stage 4 ovarian cancer with total hysterectomy and chemo (last chemo 03/04/15), bilateral hands and feet neuropathy , chronic cervical pain-degnerative bone disease, buldging disk, blood clot to the rt wrist and rt neck, chronic constipation, ascites, paracentesis History of Any Multi-Drug Resistant Organisms: None Reported Past Surgical History: Hysterectomy Additional Past Surgical History / Comment(s): powerport left chest, total hysterectomy, multiple paracentisis, one right thorocentesis Past Anesthesia/Blood Transfusion Reactions: No Reported Reaction Past Psychological History: Anxiety Additional Psychological History / Comment(s): Pt states medication for mental health help. Pt resides with significant other. She is independent. Smoking Status: Current some day smoker Past Alcohol Use History: None Reported Additional Past Alcohol Use History / Comment(s): Pt states she started smoking at age 7 yrs (1982) Past Drug Use History: Marijuana Additional Drug Use History / Comment(s): Pt has medical marijuana that she uses for pain control on a nearly everyday basis. - Past Family History Mother Family Medical History: Diabetes Mellitus Additional Family Medical History / Comment(s): bilat knee replace Father Family Medical History: COPD General Exam - General Exam Comments Initial Comments: General: The patient is awake and alert, in no distress, and does not appear acutely ill. Eye: Pupils are equal, round and reactive to light, extra-ocular movements are intact. No nystagmus. There is normal conjunctiva bilaterally. No signs of icterus. Ears, nose, mouth and throat: There are moist mucous membranes and no oral lesions. Neck: The neck is supple, there is no tenderness or JVD. Cardiovascular: There is a regular rate and rhythm. No murmur, rub or gallop is appreciated. Respiratory: Lungs are clear to auscultation, respirations are non-labored, breath sounds are equal. No wheezes, stridor, rales, or rhonchi. Gastrointestinal: Soft, non-distended, non-tender abdomen without masses or organomegaly noted. There is no rebound or guarding present. No CVA tenderness. Bowel sounds are unremarkable. Musculoskeletal: Normal ROM, no tenderness. Strength 5/5. Sensation intact. Pulses equal bilaterally 2+. Neurological: A&O x 3. CN II-XII intact, There are no obvious motor or sensory deficits. Coordination appears grossly intact. Speech is normal. Skin: Skin is warm and dry and no rashes or lesions are noted. Mild swelling to the left lower extremity when compared bilaterally. No redness or erythema. No sign of infection. No tenderness on exam. Psychiatric: Cooperative, appropriate mood & affect, normal judgment. : CONSULTING PRACTICE MANAGER Phil present. Patient admits to swelling bilateral to the labia majora. No sign of infection. No redness or swelling. No discharge. No tenderness. Limitations: no limitations Course Vital Signs 04/24/16 19:17 Temperature 98.6 F Pulse Rate 115 H Respiratory 18 Rate Blood Pressure 115/74 O2 Sat by Pulse 97 Oximetry Medical Decision Making - Medical Decision Making Case discussed in detail with attending physician Dr. Vázquez. His labs reviewed. Has had similar visits here in the emergency room. Chest x-ray reviewed. Labs are unremarkable. Patient will be discharged home advised to use compression stockings and elevation. Negative DVT. Advised follow-up the oncologist and [facility] tomorrow. Advised return for any other concerns. She states understanding and is in agreement. - Lab Data Result diagrams: 04/24/16 19:48 04/24/16 19:48 Lab Results 04/24/16 04/24/16 04/24/16 Range/Units 19:48 19:48 19:48 WBC 10.1 (3.8-10.6) k/uL RBC 4.49 (3.80-5.40) m/uL Hgb 12.3 (11.4-16.0) gm/dL Hct 37.4 (34.0-46.0) % MCV 83.4 D (80.0-100.0) fL MCH 27.3 (25.0-35.0) pg MCHC 32.7 (31.0-37.0) g/dL RDW 15.6 H (11.5-15.5) % Plt Count 407 (150-450) k/uL Neutrophils % 80 % Lymphocytes % 11 % Monocytes % 6 % Eosinophils % 2 % Basophils % 0 % Neutrophils # 8.0 H (1.3-7.7) k/uL Lymphocytes # 1.1 (1.0-4.8) k/uL Monocytes # 0.6 (0-1.0) k/uL Eosinophils # 0.2 (0-0.7) k/uL Basophils # 0.0 (0-0.2) k/uL Poikilocytosis Slight PT 10.5 (9.0-12.0) sec INR 1.0 (<1.1) APTT 25.0 (22.0-30.0) sec Sodium 133 L (137-145) mmol/L Potassium 3.8 (3.5-5.1) mmol/L Chloride 101 (98-107) mmol/L Carbon Dioxide 24 (22-30) mmol/L Anion Gap 8 mmol/L BUN 6 L (7-17) mg/dL Creatinine 0.59 (0.52-1.04) mg/dL Est GFR (MDRD) Af Amer >60 (>60 ml/min/1.73 sqM) Est GFR (MDRD) Non-Af >60 (>60 ml/min/1.73 sqM) Glucose 90 (74-99) mg/dL Calcium 8.2 L (8.4-10.2) mg/dL Total Bilirubin 0.3 (0.2-1.3) mg/dL AST 20 (14-36) U/L ALT 19 (9-52) U/L Alkaline Phosphatase 75 (38-126) U/L Total Protein 4.9 L (6.3-8.2) g/dL Albumin 2.4 L (3.5-5.0) g/dL Disposition Clinical Impression: Leg edema, left Disposition: HOME SELF-CARE Condition: Good Instructions: Leg Edema (ED) Additional Instructions: Please follow-up with your oncologist in [facility] tomorrow as discussed. Please return to emergency room if the symptoms increase or worsen or for any other concerns. Referrals: Adia Ardon MD [Primary Care Provider] - 1-2 days Trenton Tipton MD [STAFF PHYSICIAN] - 1-2 days Time of Disposition: 21:05
[2016-04-24 20:19] LABS: ALT 19 U/L (9-52); AST 20 U/L (14-36); Alkaline Phosphatase 75 U/L (38-126); Anion Gap 8 mmol/L; Blood Urea Nitrogen 6 mg/dL (7-17); Calcium 8.2 mg/dL (8.4-10.2); Carbon Dioxide 24 mmol/L (22-30); Chloride 101 mmol/L (98-107); Glucose 90 mg/dL (74-99); Non-African American GFR(MDRD) >60 (>60 ml/min/1.73 sqM); Potassium 3.8 mmol/L (3.5-5.1); Prothrombin Time 10.5 sec (9.0-12.0); Sodium 133 mmol/L (137-145); Total Bilirubin 0.3 mg/dL (0.2-1.3); Total Protein 4.9 g/dL (6.3-8.2)
--- NOTE | 2016-04-24 20:28 | US ---
EXAMINATION TYPE: US venous doppler duplex LE LT DATE OF EXAM: 04/24/2016 8:11 PM COMPARISON: Prior in PACS CLINICAL HISTORY: Left leg pain SIDE PERFORMED: Left VESSELS IMAGED: External Iliac Vein (EIV) Common Femoral Vein Deep Femoral Vein Greater Saphenous Vein * Femoral Vein Popliteal Vein Small Saphenous Vein * Proximal Calf Veins (* superficial vessels) TECHNOLOGIST IMPRESSION: Left Leg: Negative for DVT IMPRESSION: Normal exam. No evidence of deep venous thrombosis in the left leg.
--- NOTE | 2016-04-24 20:35 | XR ---
EXAMINATION TYPE: XR chest 2V DATE OF EXAM: 04/24/2016 8:27 PM COMPARISON: 03/12/2016 HISTORY: Left leg swelling TECHNIQUE: Frontal and lateral views of the chest are obtained. FINDINGS: Heart and mediastinum are normal. There is blunting of right costophrenic angle. The left lung is clear. There is a left subclavian catheter with the tip in the superior vena cava. There is n o pneumothorax. Bony thorax is intact. IMPRESSION: Mild right pleural effusion. There is some clearing of the atelectasis in the right lowe r lobe compared to last exam. Normal heart. Pleural fluid is increased compared to last exam. No hear t failure.
[2016-04-24] MEDS ORDERED: MORPHINE SULFATE 4 MG/ML SYRINGE IV STA (21:03)
[2016-04-24 21:37] VITALS: BP 109/76; PULSE 96; TEMP 97.6
== END 2016-04-24 21:36 | disposition home or self-care (01) ==
LOC: EC 19:06
DX: R60.0 Localized edema (principal); N90.89 Other specified noninflammatory disorders of vulva and perineum; E78.5 Hyperlipidemia, unspecified; G62.9 Polyneuropathy, unspecified; F17.200 Nicotine dependence, unspecified, uncomplicated; Z86.718 Personal history of other venous thrombosis and embolism; Z85.43 Personal history of malignant neoplasm of ovary; Z79.891 Long term (current) use of opiate analgesic; Z79.899 Other long term (current) drug therapy; Z91.030 Bee allergy status; Z88.8 Allergy status to other drugs, medicaments and biological substances; Z90.710 Acquired absence of both cervix and uterus
CPT/HCPCS: 36415; 80053; 85025; 85610; 85730; 71020; 93971; 99284; 96374; J2270

== ENCOUNTER 2016-05-05 11:28 | Emergency (ER) | payer OTHER ==
[2016-05-05] MEDS ORDERED: ONDANSETRON 4 MG/2 ML VIAL IVP STA (13:27)
[2016-05-05] MEDS ORDERED: IPRATROPIUM-ALBUTEROL 3 ML NEB INHALATION STA (13:29)
[2016-05-05] MEDS: HYDROmorphone 1 MG/ML 1 ML SYRINGE IVP STA ×2 (13:48→16:40)
--- NOTE | 2016-05-05 13:51 | ED ---
Abdominal Pain HPI - General Chief Complaint: Abdominal Pain Stated Complaint: diff breathing Time Seen by Provider: 05/05/16 13:18 Source: patient Mode of arrival: ambulatory Limitations: no limitations - History of Present Illness Initial Comments: This 40-year-old white female presents with a complaint of some abdominal pain and distention. She does have a history of uterine cancer which apparently is stage IV. She's been battling this since 2010. She states that she is no longer receiving chemotherapy and is terminal. She has developed significant ascites. She usually gets this drained weekly. She was last drained approximately 4 days ago. She states that she is now having increased distention and feels as though she needs another paracentesis. She is having some difficulty in breathing as well as some nausea and lightheadedness. She last was drained at [facility] this past . She denies any other complaints or modifying factors. - Related Data Home Medications Medication Instructions Recorded Confirmed Citalopram Hydrobromide [CeleXA] 20 mg PO HS 03/02/14 05/05/16 EPINEPHrine [Epipen 2-Mike] 0.3 mg IM ONCE PRN 03/19/15 05/05/16 Ondansetron [Zofran ODT] 8 mg PO Q8HR PRN 03/19/15 05/05/16 Sennosides [Senokot] 8.6 mg PO DAILY PRN 03/19/15 05/05/16 Albuterol Inhaler [Ventolin Hfa 2 puff INHALATION RT-Q6H PRN 10/02/15 05/05/16 Inhaler] Albuterol Nebulized [Ventolin 2.5 mg INHALATION RT-Q6H PRN 10/02/15 05/05/16 Nebulized] LORazepam [Lorazepam] 0.5 mg PO Q6H PRN 11/19/15 05/05/16 Gabapentin [Neurontin] 300 mg PO BID 03/01/16 05/05/16 HYDROcodone/APAP 10-325MG [[place] 2 tab PO BID 03/09/16 05/05/16 10-325] Morphine Sulfate [Ms Contin] 30 mg PO Q12HR 03/12/16 05/05/16 Magnesium Hydroxide [Milk of 2,400 mg PO DAILY PRN 05/05/16 05/05/16 Magnesia] Previous Rx's Medication Instructions Recorded Bisacodyl [Dulcolax] 5 mg PO DAILY #30 tablet. 11/20/15 Polyethylene Glycol 3350 [Miralax] 17 gm PO DAILY #255 gm 11/20/15 Allergies Allergy/AdvReac Type Severity Reaction Status Date / Time dexamethasone [From Decadron] Allergy Unknown Verified 05/05/16 14:42 dexamethasone sod phosphate Allergy Unknown Verified 05/05/16 14:42 [From Decadron] venom-honey bee Allergy Anaphylaxis Verified 05/05/16 14:42 [bee venom (honey bee)] Review of Systems ROS Statement: Those systems with pertinent positive or pertinent negative responses have been documented in the HPI. ROS Other: All systems not noted in ROS Statement are negative. Past Medical History Past Medical History: Cancer, Deep Vein Thrombosis (DVT), Hyperlipidemia Additional Past Medical History / Comment(s): stage 4 ovarian cancer with total hysterectomy and chemo (last chemo 03/04/15), bilateral hands and feet neuropathy , chronic cervical pain-degnerative bone disease, buldging disk, blood clot to the rt wrist and rt neck, chronic constipation, ascites, paracentesis History of Any Multi-Drug Resistant Organisms: None Reported Past Surgical History: Hysterectomy Additional Past Surgical History / Comment(s): powerport left chest, total hysterectomy, multiple paracentisis, one right thorocentesis Past Anesthesia/Blood Transfusion Reactions: No Reported Reaction Past Psychological History: Anxiety Additional Psychological History / Comment(s): Pt states medication for mental health help. Pt resides with significant other. She is independent. Smoking Status: Current some day smoker Past Alcohol Use History: None Reported Additional Past Alcohol Use History / Comment(s): Pt states she started smoking at age 7 yrs (1982) Past Drug Use History: Marijuana Additional Drug Use History / Comment(s): Pt has medical marijuana that she uses for pain control on a nearly everyday basis. - Past Family History Mother Family Medical History: Diabetes Mellitus Additional Family Medical History / Comment(s): bilat knee replace Father Family Medical History: COPD General Exam - General Exam Comments Initial Comments: GENERAL: The patient is well nourished and well hydrated. VITAL SIGNS: Heart rate, blood pressure, respiratory rate reviewed as recorded in nurse's notes. EYES: Pupils are round and reactive. Extraocular movements are intact. No conjunctival / lid redness or swelling. ENT: No external evidence of injury, swelling, or ecchymosis. Airway is patent. Throat is clear. NECK: Nontender. No swelling or evidence of injury. No subcutaneous emphysema. Trachea is midline. No thyroid mass. HEART: Regular rate and rhythm. Good peripheral pulses. LUNGS/CHEST: There is mild wheezing noted bilaterally. No ecchymosis, subcutaneous emphysema, or tenderness. ABDOMEN: There is significant ascites noted diffusely with mild tenderness. No palpable masses or organomegaly. No peritoneal signs. No abdominal wall swelling or ecchymosis. EXTREMITIES: No extremity tenderness. Normal muscle tone and function. No thoracolumbar tenderness. NEUROLOGIC: Sensation is grossly intact. Cranial nerve exam reveals face is symmetrical, tongue is midline, speech is clear. SKIN: No abrasions or ecchymosis is noted. No induration or masses noted. PSYCHIATRIC: Alert and oriented. Appropriate behavior and judgment. Limitations: no limitations Course Vital Signs 05/05/16 05/05/16 05/05/16 11:36 13:50 13:57 Temperature 96.7 F L Pulse Rate 110 H 80 84 Pulse Rate [ Pulse Oximetery ] Respiratory 23 Rate Blood Pressure 114/85 Blood Pressure [Supine] O2 Sat by Pulse 98 Oximetry 05/05/16 05/05/16 05/05/16 15:00 15:27 15:38 Temperature Pulse Rate Pulse Rate [ 90 80 77 Pulse Oximetery ] Respiratory 16 16 16 Rate Blood Pressure Blood Pressure 120/83 120/83 119/79 [Supine] O2 Sat by Pulse 97 96 Oximetry 05/05/16 05/05/16 16:15 16:42 Temperature Pulse Rate 82 89 Pulse Rate [ Pulse Oximetery ] Respiratory 20 18 Rate Blood Pressure 112/70 115/77 Blood Pressure [Supine] O2 Sat by Pulse 98 97 Oximetry Medical Decision Making - Medical Decision Making The patient was seen and examined. All diagnostics were reviewed. She did receive some Dilaudid for pain control intravenously 2. The laboratory overall is fairly unremarkable. The patient had a chest x-ray done which is show a chronic right pleural effusion which is stable. The patient also underwent a paracentesis and had over 4 L of fluid removed. She feels remarkably better on recheck. She states that she is no longer short of breath. His felt as though she is stable for discharge. She has an appointment with her oncologist in 2 days. She is instructed to continue this appointment. Return parameters are discussed. - Lab Data Result diagrams: 05/05/16 13:47 05/05/16 13:47 Lab Results 05/05/16 05/05/16 05/05/16 Range/Units 13:47 13:47 14:00 WBC 9.0 (3.8-10.6) k/uL RBC 5.61 H (3.80-5.40) m/uL Hgb 15.2 (11.4-16.0) gm/dL Hct 46.9 H (34.0-46.0) % MCV 83.6 (80.0-100.0) fL MCH 27.0 (25.0-35.0) pg MCHC 32.3 (31.0-37.0) g/dL RDW 16.0 H (11.5-15.5) % Plt Count 439 (150-450) k/uL Neutrophils % 77 % Lymphocytes % 13 % Monocytes % 5 % Eosinophils % 1 % Basophils % 1 % Neutrophils # 6.9 (1.3-7.7) k/uL Lymphocytes # 1.2 (1.0-4.8) k/uL Monocytes # 0.5 (0-1.0) k/uL Eosinophils # 0.1 (0-0.7) k/uL Basophils # 0.1 (0-0.2) k/uL Hypochromasia Slight Poikilocytosis Slight Anisocytosis Slight PT 10.0 (9.0-12.0) sec INR 1.0 (<1.1) APTT 23.1 (22.0-30.0) sec Sodium 132 L (137-145) mmol/L Potassium 4.4 (3.5-5.1) mmol/L Chloride 100 (98-107) mmol/L Carbon Dioxide 25 (22-30) mmol/L Anion Gap 7 mmol/L BUN 11 (7-17) mg/dL Creatinine 0.56 (0.52-1.04) mg/dL Est GFR (MDRD) Af Amer >60 (>60 ml/min/1.73 sqM) Est GFR (MDRD) Non-Af >60 (>60 ml/min/1.73 sqM) Glucose 95 (74-99) mg/dL Calcium 8.1 L (8.4-10.2) mg/dL Total Bilirubin 0.2 (0.2-1.3) mg/dL AST 23 (14-36) U/L ALT 24 (9-52) U/L Alkaline Phosphatase 86 (38-126) U/L Total Protein 5.2 L (6.3-8.2) g/dL Albumin 2.5 L (3.5-5.0) g/dL Amylase 34 (30-110) U/L Lipase 40 (23-300) U/L Disposition Clinical Impression: Abdominal pain, Ascites, Abdominal pain, Recurrent right pleural effusion, Uterine cancer, Dyspnea Disposition: HOME SELF-CARE Condition: Good Instructions: Abdominal Pain (ED), Ascites (ED) Referrals: Adia Ardon MD [Primary Care Provider] - 1-2 days Time of Disposition: 17:18
[2016-05-05 14:11] LABS: Anisocytosis Slight; Basophils # (A) 0.1 k/uL (0-0.2); Basophils % (A) 1 %; CH 27.3; CHCM 32.7; Eosinophils # (A) 0.1 k/uL (0-0.7); Eosinophils % (A) 1 %; HCT 46.9 % (34.0-46.0); HDW 3.41; HGB 15.2 gm/dL (11.4-16.0); Hypochromasia Slight; Luc # (Auto) 0.28; Luc % (Auto) 3; Lymphocytes # (A) 1.2 k/uL (1.0-4.8); Lymphocytes % (A) 13 %; MCHC 32.3 g/dL (31.0-37.0); MCV 83.6 fL (80.0-100.0); Mean Platelet Volume 7.5; Monocytes # (A) 0.5 k/uL (0-1.0); Monocytes % (A) 5 %; Neutrophils # (A) 6.9 k/uL (1.3-7.7); Neutrophils % (A) 77 %; Poikilocytosis Slight; RBC 5.61 m/uL (3.80-5.40); WBC (Perox) 9.11
[2016-05-05 14:24] LABS: ALT 24 U/L (9-52); AST 23 U/L (14-36); Alkaline Phosphatase 86 U/L (38-126); Amylase 34 U/L (30-110); Anion Gap 7 mmol/L; Blood Urea Nitrogen 11 mg/dL (7-17); Calcium 8.1 mg/dL (8.4-10.2); Carbon Dioxide 25 mmol/L (22-30); Chloride 100 mmol/L (98-107); Glucose 95 mg/dL (74-99); Non-African American GFR(MDRD) >60 (>60 ml/min/1.73 sqM); Potassium 4.4 mmol/L (3.5-5.1); Sodium 132 mmol/L (137-145); Total Bilirubin 0.2 mg/dL (0.2-1.3); Total Protein 5.2 g/dL (6.3-8.2)
[2016-05-05 14:38] LABS: Partial Thromboplastin Time 23.1 sec (22.0-30.0)
[2016-05-05 16:44] VITALS: RESP 18
--- NOTE | 2016-05-05 16:52 | XR ---
EXAMINATION TYPE: XR abdomen acute w cxr DATE OF EXAM: 05/05/2016 2:28 PM COMPARISON: 04/24/2016 HISTORY: Shortness of breath and chest pain TECHNIQUE: Supine, upright, and left side down lateral decubitus views of the abdomen are obtained. FINDINGS: Right lower lobe infiltrate and small effusion. Mediport catheter seen with the tip overlyi ng the SVC. No sizable pneumothorax. Findings appear stable. 4 views of the abdomen demonstrate a nonspecific gas pattern. Surgical clips in the pelvis noted. No suspicious calcifications. IMPRESSION: 1. Nonspecific abdomen. 2. Stable right lower lobe infiltrate and small effusion.
[2016-05-05 17:29] VITALS: BP 108/77; PULSE 85; TEMP 97.9
--- NOTE | 2016-05-06 08:13 | US ---
EXAMINATION TYPE: US paracentesis abd w/image DATE OF EXAM: 05/05/2016 4:44 PM COMPARISON: NONE HISTORY: Ascites. PROCEDURE: Maximal barrier technique was utilized. The skin overlying a suitable pocket of fluid was localized with ultrasound and the overlying skin was prepped and draped. Ultrasound was utilized with sterile technique. Lidocaine was used for local anesthesia and a skin antonio made with a scalpel. Catheter was advanced under direct ultrasound guidance into a suitable pocket of fluid and approximately 4.7 liter s of white fluid were removed. Catheter was withdrawn and hemostasis achieved. There is no immediat e complication; the patient is discharged in stable condition. IMPRESSION: STATUS POST ULTRASOUND GUIDED PARACENTESIS FOR PALLIATION OF ASCITES. THIS PROCEDURE WA S PERFORMED BY THE UNDERSIGNED.
== END 2016-05-05 17:32 | disposition home or self-care (01) ==
LOC: EC 11:28
DX: R18.8 Other ascites (principal); R10.9 Unspecified abdominal pain; J90 Pleural effusion, not elsewhere classified; R06.00 Dyspnea, unspecified; F17.200 Nicotine dependence, unspecified, uncomplicated; Z85.42 Personal history of malignant neoplasm of other parts of uterus; E78.5 Hyperlipidemia, unspecified; Z86.718 Personal history of other venous thrombosis and embolism; Z79.891 Long term (current) use of opiate analgesic; Z79.899 Other long term (current) drug therapy; Z91.030 Bee allergy status; Z88.8 Allergy status to other drugs, medicaments and biological substances; F41.9 Anxiety disorder, unspecified; Z90.710 Acquired absence of both cervix and uterus
CPT/HCPCS: 36415; 94640; 80053; 82150; 83690; 85025; 85610; 85730; 74022; 49083; 99284; 96374; 96375 ×2; J2405; J1642; J1170

== ENCOUNTER 2016-05-12 12:46 | Day surgery (SDC) | payer OTHER ==
[2016-05-12 13:18] VITALS: RESP 20; TEMP 97.8
[2016-05-12 13:21] LABS: Mean Platelet Volume 7.5
[2016-05-12 13:35] LABS: Prothrombin Time 10.4 sec (9.0-12.0)
[2016-05-12] MEDS ORDERED: ALTEPLASE 2 MG VIAL (CATHFLO) IV STA (13:35)
[2016-05-12 14:52] VITALS: BP 105/70; PULSE 70
--- NOTE | 2016-05-12 15:03 | US ---
EXAMINATION TYPE: US paracentesis abd w/image DATE OF EXAM: 05/12/2016 2:56 PM COMPARISON: NONE HISTORY: Ascites. PROCEDURE: Maximal barrier technique was utilized. The skin overlying a suitable pocket of fluid was localized with ultrasound and the overlying skin was prepped and draped. Ultrasound was utilized with sterile technique. Lidocaine was used for local anesthesia and a skin antonio made with a scalpel. Catheter was advanced under direct ultrasound guidance into a suitable pocket of fluid and approximately 4.3 liter s of milky fluid were removed. Catheter was withdrawn and hemostasis achieved. There is no immediat e complication; the patient is discharged in stable condition. IMPRESSION: STATUS POST ULTRASOUND GUIDED PARACENTESIS FOR PALLIATION OF ASCITES. THIS PROCEDURE WA S PERFORMED BY THE UNDERSIGNED.
== END 2016-05-12 15:15 | disposition home or self-care (01) ==
LOC: RADPROMAIN 12:46
PROVIDERS: ATTEND Internal Medicine Hematology & Oncology
DX: R18.8 Other ascites (principal)
CPT/HCPCS: 85049; 85610; 36415; 49083; J2997

== ENCOUNTER 2016-05-15 11:21 | Emergency (ER) | payer OTHER ==
[2016-05-15 12:41] LABS: Anisocytosis Slight; Basophils # (A) 0.1 k/uL (0-0.2); Basophils % (A) 1 %; CH 26.4; CHCM 31.3; Eosinophils # (A) 0.2 k/uL (0-0.7); Eosinophils % (A) 2 %; HCT 44.9 % (34.0-46.0); HDW 3.34; HGB 14.1 gm/dL (11.4-16.0); Hypochromasia Moderate; Luc # (Auto) 0.15; Luc % (Auto) 2; Lymphocytes # (A) 0.9 k/uL (1.0-4.8); Lymphocytes % (A) 9 %; MCH 26.6 pg (25.0-35.0); MCHC 31.5 g/dL (31.0-37.0); MCV 84.3 fL (80.0-100.0); Monocytes # (A) 0.6 k/uL (0-1.0); Monocytes % (A) 6 %; Neutrophils # (A) 8.1 k/uL (1.3-7.7); Neutrophils % (A) 81 %; RBC 5.32 m/uL (3.80-5.40); RDW 16.3 % (11.5-15.5); WBC 9.9 k/uL (3.8-10.6); WBC (Perox) 9.68
[2016-05-15] MEDS ORDERED: HYDROmorphone 1 MG/ML 1 ML SYRINGE IVP STA (13:11)
[2016-05-15 13:25] LABS: Appearance,Urine Cloudy (Clear); Bacteria,Urine Rare /hpf; Bilirubin,Urine Negative (Negative); Glucose,Urine (UA) Negative (Negative); Ketones,Urine Negative (Negative); Leukocyte Esterase,Urine Large (Negative); Mucus,Urine Rare /hpf; Nitrite,Urine Negative (Negative); Particle Count 6840; Protein,Urine Negative (Negative); RBC,Urine 1 /hpf (0-5); Squamous Epithelial Cell,Urine 9 /hpf (0-4); UA Billing (MACRO vs. MICRO) MICRO; Urobilinogen,Urine <2.0 mg/dL (<2.0); WBC,Urine 6 /hpf (0-5)
--- NOTE | 2016-05-15 13:32 | ED ---
SOB HPI - General Chief Complaint: Shortness of Breath Stated Complaint: Abd pain,diff breathing Time Seen by Provider: 05/15/16 11:37 Source: patient Mode of arrival: wheelchair Limitations: no limitations - History of Present Illness Initial Comments: Patient complains of shortness of breath. She has a history of cancer. She has regularly scheduled paracentesis. She states that she has had a thoracentesis done in the past. She feels like she needs that done today. She doesn't have any lightheadedness or dizziness. She has no fever or chills. - Related Data Home Medications Medication Instructions Recorded Confirmed Citalopram Hydrobromide [CeleXA] 20 mg PO HS 03/02/14 05/15/16 EPINEPHrine [Epipen 2-Mike] 0.3 mg IM ONCE PRN 03/19/15 05/15/16 Ondansetron [Zofran ODT] 8 mg PO Q8HR PRN 03/19/15 05/15/16 Sennosides [Senokot] 8.6 mg PO DAILY PRN 03/19/15 05/15/16 Albuterol Inhaler [Ventolin Hfa 2 puff INHALATION RT-Q6H PRN 10/02/15 05/15/16 Inhaler] Albuterol Nebulized [Ventolin 2.5 mg INHALATION RT-Q6H PRN 10/02/15 05/15/16 Nebulized] LORazepam [Lorazepam] 0.5 mg PO Q6H PRN 11/19/15 05/15/16 Gabapentin [Neurontin] 300 mg PO BID 03/01/16 05/15/16 HYDROcodone/APAP 10-325MG [[place] 2 tab PO BID 03/09/16 05/15/16 10-325] Morphine Sulfate [Ms Contin] 30 mg PO Q12HR 03/12/16 05/15/16 Magnesium Hydroxide [Milk of 2,400 mg PO DAILY PRN 05/05/16 05/15/16 Magnesia] Previous Rx's Medication Instructions Recorded Bisacodyl [Dulcolax] 5 mg PO DAILY #30 tablet. 11/20/15 Polyethylene Glycol 3350 [Miralax] 17 gm PO DAILY #255 gm 11/20/15 Allergies Allergy/AdvReac Type Severity Reaction Status Date / Time dexamethasone [From Decadron] Allergy Unknown Verified 05/15/16 12:11 dexamethasone sod phosphate Allergy Unknown Verified 05/15/16 12:11 [From Decadron] venom-honey bee Allergy Anaphylaxis Verified 05/15/16 12:11 [bee venom (honey bee)] Review of Systems ROS Statement: Those systems with pertinent positive or pertinent negative responses have been documented in the HPI. ROS Other: All systems not noted in ROS Statement are negative. Past Medical History Past Medical History: Cancer, Deep Vein Thrombosis (DVT), Hyperlipidemia Additional Past Medical History / Comment(s): stage 4 ovarian cancer with total hysterectomy and chemo (last chemo 03/04/15), bilateral hands and feet neuropathy , chronic cervical pain-degnerative bone disease, buldging disk, blood clot to the rt wrist and rt neck, chronic constipation, ascites, paracentesis History of Any Multi-Drug Resistant Organisms: None Reported Past Surgical History: Hysterectomy Additional Past Surgical History / Comment(s): powerport left chest, total hysterectomy, multiple paracentisis, one right thorocentesis Past Anesthesia/Blood Transfusion Reactions: No Reported Reaction Past Psychological History: Anxiety Additional Psychological History / Comment(s): Pt states medication for mental health help. Pt resides with significant other. She is independent. Smoking Status: Current some day smoker Past Alcohol Use History: None Reported Additional Past Alcohol Use History / Comment(s): Pt states she started smoking at age 7 yrs (1982) Past Drug Use History: Marijuana Additional Drug Use History / Comment(s): Pt has medical marijuana that she uses for pain control on a nearly everyday basis. - Past Family History Mother Family Medical History: Diabetes Mellitus Additional Family Medical History / Comment(s): bilat knee replace Father Family Medical History: COPD General Exam Limitations: no limitations General appearance: alert, in no apparent distress Head exam: Present: atraumatic, normocephalic, normal inspection Eye exam: Present: normal appearance, PERRL, EOMI. Absent: scleral icterus, conjunctival injection, periorbital swelling ENT exam: Present: normal exam, mucous membranes moist Respiratory exam: Absent: accessory muscle use Cardiovascular Exam: Present: regular rate GI/Abdominal exam: Present: distended Back exam: Present: normal inspection Neurological exam: Present: alert, oriented X3, CN II-XII intact Psychiatric exam: Present: normal affect, normal mood Course Vital Signs 05/15/16 05/15/16 11:26 11:41 Temperature 97.4 F L 97.9 F Pulse Rate 113 H 71 Respiratory 20 20 Rate Blood Pressure 109/78 114/83 O2 Sat by Pulse 98 98 Oximetry Medical Decision Making - Medical Decision Making Patient complains of shortness of breath. She has a pleural effusion. I discussed the case with interventional radiology. They're unable to perform a thoracentesis today, however we have arranged for thoracentesis to be done tomorrow morning. There is no emergent quality of the patient's condition, and it does not actually require a thoracentesis today. Therefore I feel that she is stable for outpatient follow-up tomorrow morning which I have arranged. I did discuss the case the patient's primary care physician, who was comfortable with her going home. - Lab Data Result diagrams: 05/15/16 12:30 Lab Results 05/15/16 05/15/16 05/15/16 Range/Units 12:30 12:30 13:05 WBC 9.9 (3.8-10.6) k/uL RBC 5.32 (3.80-5.40) m/uL Hgb 14.1 (11.4-16.0) gm/dL Hct 44.9 (34.0-46.0) % MCV 84.3 (80.0-100.0) fL MCH 26.6 (25.0-35.0) pg MCHC 31.5 (31.0-37.0) g/dL RDW 16.3 H (11.5-15.5) % Plt Count 378 (150-450) k/uL Neutrophils % 81 % Lymphocytes % 9 % Monocytes % 6 % Eosinophils % 2 % Basophils % 1 % Neutrophils # 8.1 H (1.3-7.7) k/uL Lymphocytes # 0.9 L (1.0-4.8) k/uL Monocytes # 0.6 (0-1.0) k/uL Eosinophils # 0.2 (0-0.7) k/uL Basophils # 0.1 (0-0.2) k/uL Hypochromasia Moderate Anisocytosis Slight Troponin I <0.012 (0.000-0.034) ng/mL Urine Color Yellow Urine Appearance Cloudy H (Clear) Urine pH 7.0 (5.0-8.0) Ur Specific [place] 1.010 (1.001-1.035) Urine Protein Negative (Negative) Urine Glucose (UA) Negative (Negative) Urine Ketones Negative (Negative) Urine Blood Negative (Negative) Urine Nitrite Negative (Negative) Urine Bilirubin Negative (Negative) Urine Urobilinogen <2.0 (<2.0) mg/dL Ur Leukocyte Esterase Large H (Negative) Urine RBC 1 (0-5) /hpf Urine WBC 6 H (0-5) /hpf Ur Squamous Epith Cells 9 H (0-4) /hpf Urine Bacteria Rare H (None) /hpf Urine Mucus Rare H (None) /hpf Disposition Clinical Impression: Pleural effusion Disposition: HOME SELF-CARE Condition: Good Instructions: Pleural Effusion (ED) Time of Disposition: 13:32
[2016-05-15 13:36] LABS: ALT 16 U/L (9-52); AST 16 U/L (14-36); Alkaline Phosphatase 88 U/L (38-126); Anion Gap 5 mmol/L; Blood Urea Nitrogen 8 mg/dL (7-17); Calcium 8.2 mg/dL (8.4-10.2); Carbon Dioxide 24 mmol/L (22-30); Chloride 106 mmol/L (98-107); Glucose 82 mg/dL (74-99); Magnesium 1.8 mg/dL (1.6-2.3); Non-African American GFR(MDRD) >60 (>60 ml/min/1.73 sqM); Potassium 4.1 mmol/L (3.5-5.1); Sodium 135 mmol/L (137-145); Total Bilirubin 0.3 mg/dL (0.2-1.3); Total Protein 5.1 g/dL (6.3-8.2)
[2016-05-15 13:46] VITALS: BP 118/96; PULSE 85; RESP 16; TEMP 98
--- NOTE | 2016-05-15 14:19 | XR ---
EXAMINATION TYPE: XR chest 1V portable DATE OF EXAM: 05/15/2016 2:10 PM HISTORY: dyspnea. REFERENCE: Previous study dated 04/24/2016. FINDINGS: There is a stable right pleural effusion. There is some right basilar atelectasis. Left nhua g is clear. Heart size is normal. There is a Port-A-Cath in place on the left, unchanged from previous. IMPRESSION: STABLE RIGHT PLEURAL EFFUSION.
--- NOTE | 2016-05-15 14:38 | US ---
EXAMINATION TYPE: US chest DATE OF EXAM: 05/15/2016 2:27 PM COMPARISON: See PACS CLINICAL HISTORY: Pain. EXAM MEASUREMENTS: Right Pleural Effusion fluid pocket: 8.1 cm Right skin to fluid thickness: 2.8 cm Left Pleural Effusion fluid pocket: 1.3 cm Lung seen within right fluid pocket. IMPRESSIONS: Moderate right-sided pleural effusion. Left pleural effusion is small.
== END 2016-05-15 14:39 | disposition home or self-care (01) ==
LOC: EC 11:21
DX: J90 Pleural effusion, not elsewhere classified (principal); M50.30 Other cervical disc degeneration, unspecified cervical region; G62.9 Polyneuropathy, unspecified; F17.200 Nicotine dependence, unspecified, uncomplicated; Z79.899 Other long term (current) drug therapy; Z91.030 Bee allergy status; Z88.8 Allergy status to other drugs, medicaments and biological substances; Z79.891 Long term (current) use of opiate analgesic
CPT/HCPCS: 99285; 96374; 36415; 80053; 83735; 84484; 85025; 81001; 71010; 76604; J1170; 32555

== ENCOUNTER 2016-05-16 08:03 | Day surgery (SDC) | payer OTHER ==
[2016-05-16 08:26] VITALS: TEMP 97.3
[2016-05-16] MEDS ORDERED: HYDROmorphone 1 MG/ML 1 ML SYRINGE IVP PRN (09:00)
[2016-05-16] MEDS ORDERED: ALTEPLASE 2 MG VIAL (CATHFLO) IV STA (09:08)
[2016-05-16 10:05] VITALS: RESP 16
--- NOTE | 2016-05-16 11:17 | XR ---
EXAMINATION TYPE: XR chest 1V DATE OF EXAM: 05/16/2016 11:01 AM HISTORY: post thoracentesis right. REFERENCE: Previous study dated 05/15/2016. FINDINGS: There is a stable right-sided pleural effusion. The lungs appear clear. Heart size is jonn l. IMPRESSION: STABLE RIGHT-SIDED PLEURAL EFFUSION.
[2016-05-16 11:40] VITALS: BP 116/80; PULSE 97
--- NOTE | 2016-05-16 12:58 | US ---
EXAMINATION TYPE: US thoracentesis DATE OF EXAM: 05/16/2016 10:59 AM COMPARISON: NONE HISTORY: Right Pleural effusion. FINDINGS: Maximal barrier technique was utilized. The skin overlying a suitable pocket of fluid was localized and the overlying skin prepped and draped. Lidocaine was used for local anesthesia. Ultras ound was used with sterile technique. A 5 [place] needle was advanced into the pleural fluid collecti on using ultrasound guidance and the needle removed, catheter advanced. Approximately 1.1 liter(s) o f serous sanguinous fluid was removed. Catheter was withdrawn and hemostasis achieved. There is no immediate complication. The patient discharged in stable condition without complication. IMPRESSION: STATUS POST ULTRASOUND GUIDED THORACENTESIS, POST PROCEDURE CHEST X-RAY PENDING. THIS MS OCEDURE WAS PERFORMED BY THE UNDERSIGNED.
== END 2016-05-16 11:40 | disposition home or self-care (01) ==
LOC: RADPROMAIN 08:03
PROVIDERS: ATTEND Emergency Medicine
DX: J90 Pleural effusion, not elsewhere classified (principal); R18.8 Other ascites
CPT/HCPCS: 96374; 71010; 32555; J1170; J1642; J2997

== ENCOUNTER 2016-05-19 08:13 | Day surgery (SDC) | payer OTHER ==
--- NOTE | 2016-05-19 09:16 | US ---
EXAMINATION TYPE: US abdomen limited DATE OF EXAM: 05/19/2016 8:49 AM COMPARISON: Previous study dated 05/12/2016 CLINICAL HISTORY: R18.8 ascites. Limited amount of fluid seen in all four quadrants. IMPRESSION: SMALL AMOUNT OF ASCITES.
== END 2016-05-19 08:30 | disposition home or self-care (01) ==
LOC: RADPROMAIN 08:13
PROVIDERS: ATTEND Internal Medicine Hematology & Oncology
DX: R18.8 Other ascites (principal); Z53.8 Procedure and treatment not carried out for other reasons
CPT/HCPCS: 76705

== ENCOUNTER 2016-05-23 05:18 | Inpatient (IN) | payer OTHER ==
[2016-05-23] MEDS ORDERED: SODIUM CHLORIDE 0.9% 1,000 ML IV STA (05:30)
[2016-05-23] MEDS ORDERED: LORazepam 2 MG/ML SYRINGE IV STA (05:30)
[2016-05-23] MEDS ORDERED: HYDROmorphone 2 MG/ML 1 ML SYRINGE IVP STA (05:30)
[2016-05-23] MEDS ORDERED: ONDANSETRON 4 MG/2 ML VIAL IVP STA (05:30)
[2016-05-23] MEDS ORDERED: PANTOPRAZOLE 40 MG/10 ML VIAL IVP STA (05:30)
--- NOTE | 2016-05-23 05:33 | ED ---
General Adult HPI - General Stated complaint: ABD PAIN Time Seen by Provider: 05/23/16 05:28 Source: RN notes reviewed, old records reviewed - History of Present Illness Initial comments: This is a 40-year-old female in severe distress. Patient coming in with severe abdominal pain, severe nausea feels like abides going to explode. Patient has a significant medical history centering around stage IV ovarian cancer. Patient has no appetite significant weight loss but feels like she cannot have a bowel movement and her belly is much larger than before. No recent fevers cough or congestion. Patient denies difficulty with urination. - Related Data Home Medications Medication Instructions Recorded Confirmed Citalopram Hydrobromide [CeleXA] 20 mg PO HS 03/02/14 05/15/16 EPINEPHrine [Epipen 2-Mike] 0.3 mg IM ONCE PRN 03/19/15 05/15/16 Ondansetron [Zofran ODT] 8 mg PO Q8HR PRN 03/19/15 05/15/16 Sennosides [Senokot] 8.6 mg PO DAILY PRN 03/19/15 05/15/16 Albuterol Inhaler [Ventolin Hfa 2 puff INHALATION RT-Q6H PRN 10/02/15 05/15/16 Inhaler] Albuterol Nebulized [Ventolin 2.5 mg INHALATION RT-Q6H PRN 10/02/15 05/15/16 Nebulized] LORazepam [Lorazepam] 0.5 mg PO Q6H PRN 11/19/15 05/15/16 Gabapentin [Neurontin] 300 mg PO BID 03/01/16 05/15/16 HYDROcodone/APAP 10-325MG [[place] 2 tab PO BID 03/09/16 05/15/16 10-325] Morphine Sulfate [Ms Contin] 30 mg PO Q12HR 03/12/16 05/15/16 Magnesium Hydroxide [Milk of 2,400 mg PO DAILY PRN 05/05/16 05/15/16 Magnesia] Previous Rx's Medication Instructions Recorded Bisacodyl [Dulcolax] 5 mg PO DAILY #30 tablet 11/20/15 Polyethylene Glycol 3350 [Miralax] 17 gm PO DAILY #255 gm 11/20/15 Allergies Allergy/AdvReac Type Severity Reaction Status Date / Time dexamethasone [From Decadron] Allergy Unknown Verified 05/23/16 05:33 dexamethasone sod phosphate Allergy Unknown Verified 05/23/16 05:33 [From Decadron] venom-honey bee Allergy Anaphylaxis Verified 05/23/16 05:33 [bee venom (honey bee)] Review of Systems ROS Statement: Those systems with pertinent positive or pertinent negative responses have been documented in the HPI. ROS Other: All systems not noted in ROS Statement are negative. Past Medical History Past Medical History: Cancer, Deep Vein Thrombosis (DVT), Hyperlipidemia Additional Past Medical History / Comment(s): stage 4 ovarian cancer with total hysterectomy and chemo (last chemo 03/04/15), bilateral hands and feet neuropathy , chronic cervical pain-degnerative bone disease, buldging disk, blood clot to the rt wrist and rt neck, chronic constipation, ascites, paracentesis History of Any Multi-Drug Resistant Organisms: None Reported Past Surgical History: Hysterectomy Additional Past Surgical History / Comment(s): powerport left chest, total hysterectomy, multiple paracentisis, one right thorocentesis Past Anesthesia/Blood Transfusion Reactions: No Reported Reaction Past Psychological History: Anxiety, Depression Additional Psychological History / Comment(s): Pt states medication for mental health help. Pt resides with significant other. She is independent. Smoking Status: Current some day smoker Past Alcohol Use History: None Reported Additional Past Alcohol Use History / Comment(s): Pt states she started smoking at age 7 yrs (1982) Past Drug Use History: Marijuana Additional Drug Use History / Comment(s): Pt has medical marijuana that she uses for pain control on a nearly everyday basis. - Past Family History Mother Family Medical History: Diabetes Mellitus Additional Family Medical History / Comment(s): bilat knee replace Father Family Medical History: COPD General Exam General appearance: alert, anxious, in distress Head exam: Present: atraumatic, normocephalic, normal inspection Eye exam: Present: normal appearance, PERRL, EOMI. Absent: scleral icterus, conjunctival injection, periorbital swelling ENT exam: Present: normal exam, mucous membranes moist Neck exam: Present: normal inspection. Absent: tenderness, meningismus, lymphadenopathy Respiratory exam: Present: normal lung sounds bilaterally. Absent: respiratory distress, wheezes, rales, rhonchi, stridor Cardiovascular Exam: Present: regular rate, normal rhythm, normal heart sounds. Absent: systolic murmur, diastolic murmur, rubs, gallop, clicks GI/Abdominal exam: Present: soft, distended, guarding, rebound, normal bowel sounds. Absent: tenderness, rigid Extremities exam: Present: normal inspection, full ROM, normal capillary refill. Absent: tenderness, pedal edema, joint swelling, calf tenderness Back exam: Present: normal inspection Neurological exam: Present: alert, oriented X3, CN II-XII intact Psychiatric exam: Present: normal affect, normal mood Skin exam: Present: warm, dry, intact, normal color. Absent: rash Course Vital Signs 05/23/16 05/23/16 05:29 06:31 Temperature 97.3 F L Pulse Rate 99 90 Respiratory 18 18 Rate Blood Pressure 136/97 118/81 O2 Sat by Pulse 96 97 Oximetry - Reevaluation(s) Reevaluation #1: 05/23/16 05:33 Medical record is reviewed EKG Findings - EKG Comments: EKG Findings:: EKG shows normal sinus rhythm rate of 93, pr of 140, qrs of 82, qtc 455 Medical Decision Making - Medical Decision Making 40 female in the ER for evaluation of bowel pain, severe ascites, severe dull pain. Patient will be admitted for GI psychological evaluation. Pain control. Symptomatic therapy - Lab Data Result diagrams: 05/23/16 06:00 05/23/16 06:00 Lab Results 05/23/16 05/23/16 05/23/16 Range/Units 06:00 06:00 06:00 WBC 7.8 (3.8-10.6) k/uL RBC 4.98 (3.80-5.40) m/uL Hgb 13.4 (11.4-16.0) gm/dL Hct 41.9 (34.0-46.0) % MCV 84.2 (80.0-100.0) fL MCH 26.9 (25.0-35.0) pg MCHC 31.9 (31.0-37.0) g/dL RDW 17.2 H (11.5-15.5) % Plt Count 469 H (150-450) k/uL Neutrophils % 76 % Lymphocytes % 11 % Monocytes % 8 % Eosinophils % 2 % Basophils % 0 % Neutrophils # 5.9 (1.3-7.7) k/uL Lymphocytes # 0.9 L (1.0-4.8) k/uL Monocytes # 0.6 (0-1.0) k/uL Eosinophils # 0.1 (0-0.7) k/uL Basophils # 0.0 (0-0.2) k/uL Hypochromasia Slight Anisocytosis Slight Sodium 132 L (137-145) mmol/L Potassium 4.7 (3.5-5.1) mmol/L Chloride 99 (98-107) mmol/L Carbon Dioxide 25 (22-30) mmol/L Anion Gap 8 mmol/L BUN 8 (7-17) mg/dL Creatinine 0.60 (0.52-1.04) mg/dL Est GFR (MDRD) Af Amer >60 (>60 ml/min/1.73 sqM) Est GFR (MDRD) Non-Af >60 (>60 ml/min/1.73 sqM) Glucose 100 H (74-99) mg/dL Calcium 8.8 (8.4-10.2) mg/dL Total Bilirubin 0.4 (0.2-1.3) mg/dL AST 24 (14-36) U/L ALT 21 (9-52) U/L Alkaline Phosphatase 106 (38-126) U/L Ammonia <9 (<30) umol/L Total Protein 5.5 L (6.3-8.2) g/dL Albumin 2.6 L (3.5-5.0) g/dL Amylase <30 L (30-110) U/L Lipase 22 L (23-300) U/L Disposition Clinical Impression: History of ovarian cancer, Recurrent right pleural effusion, Constipation, Abdominal pain Disposition: ADMITTED IP TO THIS HOSP Condition: Serious Instructions: Abdominal Pain (ED)
[2016-05-23 06:23] LABS: Anisocytosis Slight; Basophils % (A) 0 %; CHCM 32.1; Eosinophils # (A) 0.1 k/uL (0-0.7); Eosinophils % (A) 2 %; HCT 41.9 % (34.0-46.0); HDW 3.11; HGB 13.4 gm/dL (11.4-16.0); Hypochromasia Slight; Luc % (Auto) 3; Lymphocytes # (A) 0.9 k/uL (1.0-4.8); Lymphocytes % (A) 11 %; MCH 26.9 pg (25.0-35.0); MCHC 31.9 g/dL (31.0-37.0); MCV 84.2 fL (80.0-100.0); Mean Platelet Volume 6.9; Monocytes # (A) 0.6 k/uL (0-1.0); Monocytes % (A) 8 %; Neutrophils # (A) 5.9 k/uL (1.3-7.7); Neutrophils % (A) 76 %; RBC 4.98 m/uL (3.80-5.40); RDW 17.2 % (11.5-15.5); WBC 7.8 k/uL (3.8-10.6); WBC (Perox) 7.76
[2016-05-23 06:41] LABS: ALT 21 U/L (9-52); AST 24 U/L (14-36); Alkaline Phosphatase 106 U/L (38-126); Amylase <30 U/L (30-110); Anion Gap 8 mmol/L; Blood Urea Nitrogen 8 mg/dL (7-17); Calcium 8.8 mg/dL (8.4-10.2); Carbon Dioxide 25 mmol/L (22-30); Chloride 99 mmol/L (98-107); Glucose 100 mg/dL (74-99); Non-African American GFR(MDRD) >60 (>60 ml/min/1.73 sqM); Potassium 4.7 mmol/L (3.5-5.1); Sodium 132 mmol/L (137-145); Total Bilirubin 0.4 mg/dL (0.2-1.3); Total Protein 5.5 g/dL (6.3-8.2)
--- NOTE | 2016-05-23 06:54 | XR ---
EXAM: XR Kub. CLINICAL HISTORY: Reason: abdominal pain TECHNIQUE: Single upright view of the abdomen Inferior pelvis is not completely imaged. COMPARISON: 05/05/16 FINDINGS: No subdiaphragmatic free air. Minimal distention of some small bowel loops measuring up to about 2.8 Cm in caliber. Nonspecific. There is still gas and stool in colon. Partially imaged right lung base demonstrates some similar pleural parenchymal opacity as the prior study. IMPRESSION: Nonspecific, nonobstructive bowel gas pattern. No subdiaphragmatic free air. Other findings, as above.
[2016-05-23 08:23] LABS: Prothrombin Time 10.5 sec (9.0-12.0)
--- NOTE | 2016-05-23 10:34 | P.CONS ---
History of Present Illness - Reason for Consult Consult date: 05/23/16 metastatic ovarian carcinoma Requesting physician: Lanre Pagan - Chief Complaint abd distension, anuria - History of Present Illness Ms. Rosales is a very pleasant cuacasian female pt of Dr. Donahue who was diagnosed with stage IIIC ovarian cancer in Mar 2012, she had GHAZALA/BSO, she received adjuvant chemo with Carbo and Taxol initially. Over the years the pt has received multiple therapies for recurrences: Doxil, Avastin June of 2013, carboplatinum then topotecan in 12/2014, gemcitabine Feb 2015 and then single agent taxol September 2015. Pt wanted treatment closer to home in [place] so she was seen by Dr. Tipton late least year. She continued on single agent taxol under the direction of Dr. Donahue, she was recently discontinued from chemo, placed on "hormonse pill" and was being worked up for clinical trial- anticipate 3 months before sudy evaluation is complete. Pt mother explained to me that her understanding was that there "are no more treatments" and that her daughter is "terminal". Dr. Tipton has seen pt within the last month, he did discuss hospice but pt was not ready for that, mother confirmed same. Pt came to hospital after having anuria all day, her abd has been distended, progressive, she has required palliative paracentesis previously, she is having constipation and abd pain, abd pain is constant, sore, worse when moving around , pain meds help. She has urinated twice since coming back from paracentesis- she has been having paracentesis every 4-6 days with 4-5+ L fluid being removed- she has poor appetite but denies nausea or vomiting at this time, she will get SOB with activity,no wheezing, chest pain, JASMINE, palpitations. She is ambulatory. Review of Systems All systems: negative Constitutional: Reports as per HPI Past Medical History Past Medical History: Cancer, Deep Vein Thrombosis (DVT), Hyperlipidemia Additional Past Medical History / Comment(s): Stage 4 ovarian cancer with total hysterectomy and chemo (last chemo 03/04/15), right pleural effusions with thoracentesis, ascities with paracentesis, bilateral hands and feet neuropathy, chronic cervical pain-degnerative bone disease, buldging disk, blood clot to the rt wrist and rt neck, chronic constipation. History of Any Multi-Drug Resistant Organisms: None Reported Past Surgical History: Hysterectomy Additional Past Surgical History / Comment(s): powerport left chest, total hysterectomy, multiple paracentisis, multiple right thorocentesis Past Anesthesia/Blood Transfusion Reactions: No Reported Reaction Past Psychological History: Anxiety, Depression Additional Psychological History / Comment(s): Pt states medication for mental health help. Pt resides with significant other. She is independent. States she and significant other spoke with hospice recently and they did not care for it. Significant other assists pt when she needs it. Smoking Status: Current some day smoker Past Alcohol Use History: None Reported Additional Past Alcohol Use History / Comment(s): Pt states she started smoking at age 7 yrs (1982) Past Drug Use History: Marijuana Additional Drug Use History / Comment(s): Pt has medical marijuana that she uses for pain control on a nearly everyday basis. - Past Family History Mother Family Medical History: Diabetes Mellitus Additional Family Medical History / Comment(s): bilat knee replace Father Family Medical History: COPD Medications and Allergies Home Medications Medication Instructions Recorded Confirmed Type Citalopram Hydrobromide [CeleXA] 20 mg PO HS 03/02/14 05/23/16 History EPINEPHrine [Epipen 2-Mike] 0.3 mg IM ONCE PRN 03/19/15 05/23/16 History Ondansetron [Zofran ODT] 8 mg PO Q8HR PRN 03/19/15 05/23/16 History Sennosides [Senokot] 8.6 mg PO DAILY PRN 03/19/15 05/23/16 History Albuterol Inhaler [Ventolin Hfa 2 puff INHALATION RT-Q6H PRN 10/02/15 05/23/16 History Inhaler] Albuterol Nebulized [Ventolin 2.5 mg INHALATION RT-Q6H PRN 10/02/15 05/23/16 History Nebulized] LORazepam [Lorazepam] 0.5 mg PO Q6H PRN 11/19/15 05/23/16 History Gabapentin [Neurontin] 300 mg PO BID 03/01/16 05/23/16 History HYDROcodone/APAP 10-325MG [[place] 2 tab PO BID 03/09/16 05/23/16 History 10-325] Morphine Sulfate [Ms Contin] 30 mg PO Q12HR 03/12/16 05/23/16 History Magnesium Hydroxide [Milk of 2,400 mg PO DAILY PRN 05/05/16 05/23/16 History Magnesia] Allergies Allergy/AdvReac Type Severity Reaction Status Date / Time dexamethasone [From Decadron] Allergy Unknown Verified 05/23/16 07:14 dexamethasone sod phosphate Allergy Unknown Verified 05/23/16 07:14 [From Decadron] venom-honey bee Allergy Anaphylaxis Verified 05/23/16 07:14 [bee venom (honey bee)] Physical Exam Vitals: Vital Signs Temp Pulse Pulse Resp BP BP Pulse Ox 05/23/16 10:20 98.6 F 80 18 156/78 98 05/23/16 08:27 97.6 F 90 18 143/95 98 05/23/16 07:27 97.0 F L 90 16 121/94 96 - Constitutional General appearance: average body habitus, cooperative, mild distress - EENT Eyes: anicteric sclerae, EOMI, PERRLA, normal appearance ENT: normal oropharynx - Neck Neck: no lymphadenopathy - Respiratory Respiratory: bilateral: CTA - Cardiovascular Rhythm: regular Heart sounds: normal: S1, S2 leg Peripheral Edema: bilateral: Trace - Gastrointestinal General gastrointestinal: soft, tenderness Localized gastrointestinal: tender: diffuse - Integumentary Integumentary: normal - Neurologic Neurologic: CNII-XII intact - Musculoskeletal Musculoskeletal: strength equal bilaterally - Psychiatric Psychiatric: A&O x's 3, appropriate affect, intact judgment & insight Results CBC & Chem 7: 05/23/16 06:00 05/23/16 06:00 Abdominal x-ray: report reviewed Assessment and Plan (1) Ovarian carcinoma Narrative/Plan: Pt has known metastatic ovarian carcinoma and has received al FDA approved therapies. Her Oncologist Dr. Donahue was trying to work pt up for clinical trials but that will take several months. Pt states that she understands there are no additional treatments at this time, she is NOT interested in hospice so we are planning palliation. Pt wants more information about percutaneous drain and will discuss with her mother. If she is amenable IR will be consulted for procedure. Pt pain meds will be adjusted and titrated for comfort. Status: Chronic (2) Ascites Narrative/Plan: Pt had 5.1 L of fluid removed with improvement in her abd pain, distension. She has urinated twice since procedure. Pt and mother being provided with info re: peritoneal percutaneous drain placement. Status: Chronic
[2016-05-23] MEDS ORDERED: MORPHINE SULFATE 2 MG/ML SYRINGE IVP PRN (10:41)
--- NOTE | 2016-05-23 10:45 | P.CONS ---
History of Present Illness - Reason for Consult Consult date: 05/23/16 constipation Requesting physician: Helder London - History of Present Illness 40-year-old female with a history of malignant ovarian carcinoma; omental caking status post thoracentesis February 2016 with evidence of metastatic carcinoma. Presents with acute abdominal pain distention reports of constipation and recurrent ascites. She is scheduled to have therapeutic paracentesis today. Last paracentesis a few weeks ago of 4.3 L removal. Consultation requested for constipation unrelieved with [id number] laxatives. Persistent bloatedness pelvic heaviness and lower abdominal pain for several months. Denies hematemesis hematochezia melena fever or chills. Last bowel movement 2 days ago. More constipated over the last few months. Attempted colonoscopy several months ago but unsuccessful secondary unable to tolerate prep. No history of colonoscopy. CT abdomen and pelvis February 2016 reported no evidence of bowel obstruction or dilation. Hemoglobin 13.4. White count 7.8. INR 1.0. Review of Systems Constitutional: Denies fever, chills, sweats, weight gain, or loss. HEENT: Negative for migraines, blurred vision or loss, earaches, drainage, tinnitus, oral mucosal lesions, dysphagia, or odynophagia. CARDIAC: Hyperlipidemia. Negative for chest pain, arrhythmias, or palpitation. RESPIRATORY: Negative for shortness of breath, hemoptysis, cough, or sputum production. GI: See HPI for pertinent findings. : Negative for hematuria, urgency, frequency, polyuria, or dysuria. GYNc: metastatic ovarian carcinoma Negative vaginal discharge. MUSCULOSKELETAL: Chronic neuropathy degenerative disc disease Negative for muscle aches, swelling, arthritis, and arthralgias. NEUROLOGIC: Negative for stroke or TIA. Hematologic: DVT. ENDOCRINE: Negative for thyroid problems. SKIN: Negative for rash or itching. PSYCHIATRIC: anxiety, depression All systems: negative (See HPI) Past Medical History Past Medical History: Cancer, Deep Vein Thrombosis (DVT), Hyperlipidemia Additional Past Medical History / Comment(s): Stage 4 ovarian cancer with total hysterectomy and chemo (last chemo 03/04/15), right pleural effusions with thoracentesis, ascities with paracentesis, bilateral hands and feet neuropathy, chronic cervical pain-degnerative bone disease, buldging disk, blood clot to the rt wrist and rt neck, chronic constipation. History of Any Multi-Drug Resistant Organisms: None Reported Past Surgical History: Hysterectomy Additional Past Surgical History / Comment(s): powerport left chest, total hysterectomy, multiple paracentisis, multiple right thorocentesis Past Anesthesia/Blood Transfusion Reactions: No Reported Reaction Past Psychological History: Anxiety, Depression Additional Psychological History / Comment(s): Pt states medication for mental health help. Pt resides with significant other. She is independent. States she and significant other spoke with hospice recently and they did not care for it. Significant other assists pt when she needs it. Smoking Status: Current some day smoker Past Alcohol Use History: None Reported Additional Past Alcohol Use History / Comment(s): Pt states she started smoking at age 7 yrs (1982) Past Drug Use History: Marijuana Additional Drug Use History / Comment(s): Pt has medical marijuana that she uses for pain control on a nearly everyday basis. - Past Family History Mother Family Medical History: Diabetes Mellitus Additional Family Medical History / Comment(s): bilat knee replace Father Family Medical History: COPD Medications and Allergies Home Medications Medication Instructions Recorded Confirmed Type Citalopram Hydrobromide [CeleXA] 20 mg PO HS 03/02/14 05/23/16 History EPINEPHrine [Epipen 2-Mike] 0.3 mg IM ONCE PRN 03/19/15 05/23/16 History Ondansetron [Zofran ODT] 8 mg PO Q8HR PRN 03/19/15 05/23/16 History Sennosides [Senokot] 8.6 mg PO DAILY PRN 03/19/15 05/23/16 History Albuterol Inhaler [Ventolin Hfa 2 puff INHALATION RT-Q6H PRN 10/02/15 05/23/16 History Inhaler] Albuterol Nebulized [Ventolin 2.5 mg INHALATION RT-Q6H PRN 10/02/15 05/23/16 History Nebulized] LORazepam [Lorazepam] 0.5 mg PO Q6H PRN 11/19/15 05/23/16 History Gabapentin [Neurontin] 300 mg PO BID 03/01/16 05/23/16 History HYDROcodone/APAP 10-325MG [[place] 2 tab PO BID 03/09/16 05/23/16 History 10-325] Morphine Sulfate [Ms Contin] 30 mg PO Q12HR 03/12/16 05/23/16 History Magnesium Hydroxide [Milk of 2,400 mg PO DAILY PRN 05/05/16 05/23/16 History Magnesia] Allergies Allergy/AdvReac Type Severity Reaction Status Date / Time dexamethasone [From Decadron] Allergy Unknown Verified 05/23/16 07:14 dexamethasone sod phosphate Allergy Unknown Verified 05/23/16 07:14 [From Decadron] venom-honey bee Allergy Anaphylaxis Verified 05/23/16 07:14 [bee venom (honey bee)] Physical Exam Vitals: Vital Signs Temp Pulse Pulse Resp BP BP Pulse Ox 05/23/16 10:20 98.6 F 80 18 156/78 98 05/23/16 08:27 97.6 F 90 18 143/95 98 05/23/16 07:27 97.0 F L 90 16 121/94 96 General appearance: The patient is alert, oriented, anxious. HET: Head is normocephalic and atraumatic. Pupils are equal and reactive. Oropharynx is clear without lesions. Neck: Supple without lymphadenopathy. Trachea midline. Heart: S1 S2. Regular rate and rhythm. Lungs: No crackles or wheezes are heard. Abdomen: Soft, distended with mild ascites with bowel sounds. No peritoneal signs. No palpable organomegaly or masses. Extremities: Normal skin color and turgor. No cyanosis, rash, ulceration, clubbing, or edema. Radial and pedal pulses are 2/4 bilaterally. Neurological: No focal deficits. Strength and sensation are grossly intact. Results CBC & Chem 7: 05/23/16 06:00 05/23/16 06:00 Assessment and Plan (1) Constipation Narrative/Plan: Patient's symptoms of constipation bloatedness lower pelvic fullness sometimes can be seen with underlying ovarian carcinoma. Status: Acute (2) Ovarian carcinoma Narrative/Plan: Metastatic Status: Acute (3) Anxiety Status: Acute (4) Ascites Status: Acute Plan: 1. Paracentesis. 2. Stool softeners and laxatives. 3. Outpatient colonoscopy discussed. Follow-up in office after discharge for reevaluation in 1-2 weeks. Thank you for this kind referral and the opportunity to participate in the care of your patient. This consultation was discussed with Dr. Hawkins. The impression and plan of care have been directed as dictated.
[2016-05-23] MEDS ORDERED: MAGNESIUM CITRATE 296 ML BOTTLE PO ONE (10:46)
[2016-05-23] MEDS ORDERED: MAGNESIUM HYDROXIDE 2,400 MG/10 ML CUP PO PRN (10:46)
[2016-05-23] MEDS ORDERED: LORazepam 0.5 MG TAB PO PRN (11:47)
[2016-05-23] MEDS ORDERED: NON-FORMULARY DRUG (Magnesium Hydroxide [Milk Of Magnesia] 2,400 MG) PO PRN (11:47)
--- NOTE | 2016-05-23 12:27 | US ---
Therapeutic paracentesis. CLINICAL HISTORY: Ascites The procedure was discussed with the patient. The risks, complications, benefits, and alternatives we re discussed and any questions were answered. Informed consent was obtained. The patient was placed s upine on the ultrasound table and prepped and draped in the usual sterile fashion. All elements of maximal barrier technique were utilized. Under ultrasound guidance, access into the left lower quadrant was obtained, via the paracentesis catheter system and direct ultrasound guidance . Approximately 5.1 liters of straw-colored fluid was removed. The patient was stable throughout the pr ocedure and remained stable upon discharge from Department of Radiology. IMPRESSION: Successful therapeutic paracentesis under ultrasound guidance.
[2016-05-23] MEDS ORDERED: HYDROmorphone 1 MG/ML 1 ML SYRINGE IVP PRN (13:15)
[2016-05-23] MEDS: ENOXAPARIN 40 MG/0.4 ML SYRINGE SQ SCH (14:37)
[2016-05-23] MEDS: SENNOSIDES-DOCUSATE SODIUM 1 EACH TAB PO SCH ×2 (14:38→20:58)
[2016-05-23] MEDS: BISACODYL 5 MG TABLET.DR PO SCH (14:38)
[2016-05-23 14:54] VITALS: BMI 26.0
--- NOTE | 2016-05-23 15:03 | P.HPIM ---
History of Present Illness H&P Date: 05/23/16 Chief Complaint: Abdominal discomfort This is a 40-year-old female with complex past medical history significant for metastatic ovarian cancer on chemotherapy with history of recurrent right pleural effusion and recurrent ascites that presented to the emergency room with worsening abdominal distention and pain patient did not have any documented fever. X-ray showed obstructive pattern with possible fecal stasis. She is known to have chronic constipation secondary to opiate use. She was admitted to the hospital and was seen and evaluated by GI and oncology. She is scheduled for paracentesis today. She will receive IV albumin as needed for large paracentesis of larger than 4 L. Review of Systems Review of system: 14 points review of systems were obtained and were negative except to what were mentioned in the HPI. Past Medical History Past Medical History: Cancer, Deep Vein Thrombosis (DVT), Hyperlipidemia Additional Past Medical History / Comment(s): Stage 4 ovarian cancer with total hysterectomy and chemo (last chemo 03/04/15), right pleural effusions with thoracentesis, ascities with paracentesis, bilateral hands and feet neuropathy, chronic cervical pain-degnerative bone disease, buldging disk, blood clot to the rt wrist and rt neck, chronic constipation. History of Any Multi-Drug Resistant Organisms: None Reported Past Surgical History: Hysterectomy Additional Past Surgical History / Comment(s): powerport left chest, total hysterectomy, multiple paracentisis, multiple right thorocentesis Past Anesthesia/Blood Transfusion Reactions: No Reported Reaction Past Psychological History: Anxiety, Depression Additional Psychological History / Comment(s): Pt states medication for mental health help. Pt resides with significant other. She is independent. States she and significant other spoke with hospice recently and they did not care for it. Significant other assists pt when she needs it. Smoking Status: Current some day smoker Past Alcohol Use History: None Reported Additional Past Alcohol Use History / Comment(s): Pt states she started smoking at age 7 yrs (1982) Past Drug Use History: Marijuana Additional Drug Use History / Comment(s): Pt has medical marijuana that she uses for pain control on a nearly everyday basis. - Past Family History Mother Family Medical History: Diabetes Mellitus Additional Family Medical History / Comment(s): bilat knee replace Father Family Medical History: COPD Medications and Allergies Home Medications Medication Instructions Recorded Confirmed Type RX: Citalopram Hydrobromide 20 mg PO HS 03/02/14 05/23/16 History [CeleXA] RX: EPINEPHrine [Epipen 2-Mike] 0.3 mg IM ONCE PRN 03/19/15 05/23/16 History RX: Ondansetron [Zofran ODT] 8 mg PO Q8HR PRN 03/19/15 05/23/16 History RX: Sennosides [Senokot] 8.6 mg PO DAILY PRN 03/19/15 05/23/16 History RX: Albuterol Inhaler [Ventolin 2 puff INHALATION RT-Q6H PRN 10/02/15 05/23/16 History Hfa Inhaler] RX: Albuterol Nebulized [Ventolin 2.5 mg INHALATION RT-Q6H PRN 10/02/15 History Nebulized] RX: LORazepam [Lorazepam] 0.5 mg PO Q6H PRN 11/19/15 05/23/16 History RX: Gabapentin [Neurontin] 300 mg PO BID 03/01/16 05/23/16 History RX: HYDROcodone/APAP 10-325MG 2 tab PO BID 03/09/16 05/23/16 History [[place] 10-325] Morphine Sulfate [Ms Contin] 30 mg PO Q12HR 03/12/16 05/23/16 History Magnesium Hydroxide [Milk of 2,400 mg PO DAILY PRN 05/05/16 05/23/16 History Magnesia] Allergies Allergy/AdvReac Type Severity Reaction Status Date / Time dexamethasone [From Decadron] Allergy Unknown Verified 05/23/16 07:14 dexamethasone sod phosphate Allergy Unknown Verified 05/23/16 07:14 [From Decadron] venom-honey bee Allergy Anaphylaxis Verified 05/23/16 07:14 [bee venom (honey bee)] Physical Exam Vitals: Vital Signs Temp Pulse Pulse Resp BP BP BP 05/23/16 12:26 88 14 120/85 05/23/16 12:05 91 14 114/79 05/23/16 11:40 90 14 133/74 05/23/16 11:09 92 14 133/91 05/23/16 10:20 98.6 F 80 18 156/78 05/23/16 08:27 97.6 F 90 18 143/95 05/23/16 08:00 91 14 05/23/16 07:27 97.0 F L 90 16 121/94 Pulse Ox 05/23/16 12:26 98 05/23/16 12:05 94 L 05/23/16 11:40 92 L 05/23/16 11:09 97 05/23/16 10:20 98 05/23/16 08:27 98 05/23/16 08:00 05/23/16 07:27 96 Intake and Output 05/23/16 05/23/16 05/23/16 06:59 14:59 22:59 Other: Weight 66.678 kg Patient Weight 05/24/16 06:59 Weight 66.678 kg General: The patient is awake and alert, in no distress Eye: there is normal conjunctiva bilaterally. Neck: The neck is supple, there is no JVD. Cardiovascular: Normal S1-S2, no S3-S4, no murmurs. Respiratory: Lungs clear to auscultation bilaterally Gastrointestinal: Abdomen is soft, mild tenderness, evidence of ascites. Musculoskeletal: There is no pedal edema. Neurological:. Speech is normal. Skin: Skin is warm and dry Results CBC & Chem 7: 05/23/16 06:00 05/23/16 06:00 Thrombosis Risk Factor Assmnt - Choose All That Apply Any of the Below Risk Factors Present?: Yes Other Risk Factors: Yes Each Risk Factor Represents 2 Points: Malignancy Each Risk Factor Represents 3 Points: History of DVT/PE Other congenital or acquired thrombophilia - If yes, enter type in comment: No Thrombosis Risk Factor Assessment Total Risk Factor Score: 5 Thrombosis Risk Factor Assessment Level: High Risk Assessment and Plan Plan: 1. Worsening abdominal pain secondary to large ascites and constipation IR consulted for paracentesis 2. Stage IV metastatic ovarian cancer status post GHAZALA/SBO 3. Opiate-induced constipation 4. Mixed hyperlipidemia 5. Major depressive disorder 6. Generalized anxiety disorder Patient is scheduled for therapeutic paracentesis today 50 g of IV albumin will be given for large paracentesis of greater than 4 L. Continue supportive care otherwise. Bowel regimen adjusted. Repeat lab work in the morning. Family updated at bedside.
[2016-05-23] MEDS: ALBUMIN HUMAN 25% 50 ML in EMPTY BAG 1 BAG IVPB SCH ×4 (15:28→18:47)
[2016-05-23] MEDS: HYDROmorphone 1 MG/ML 1 ML SYRINGE IVP PRN ×3 (16:47→23:18)
[2016-05-23] MEDS: ALBUTEROL NEBULIZED 2.5 MG/3 ML INHALATION PRN (20:02)
[2016-05-23] MEDS: GABAPENTIN 300 MG CAP PO SCH (20:58)
[2016-05-23] MEDS: MORPHINE SULFATE ER 30 MG TABLET PO SCH (20:58)
[2016-05-23] MEDS ORDERED: CITALOPRAM HYDROBROMIDE 20 MG TAB PO SCH (21:00)
[2016-05-23 22:11] VITALS: RESP 16
[2016-05-24] MEDS: HYDROmorphone 1 MG/ML 1 ML SYRINGE IVP PRN ×5 (02:42→16:41)
[2016-05-24] MEDS: MORPHINE SULFATE ER 30 MG TABLET PO SCH (07:28)
[2016-05-24] MEDS: SENNOSIDES-DOCUSATE SODIUM 1 EACH TAB PO SCH (07:28)
[2016-05-24] MEDS: ENOXAPARIN 40 MG/0.4 ML SYRINGE SQ SCH (07:29)
[2016-05-24] MEDS: GABAPENTIN 300 MG CAP PO SCH (07:29)
[2016-05-24] MEDS: BISACODYL 5 MG TABLET.DR PO SCH (07:30)
[2016-05-24 07:54] VITALS: TEMP 97.4
[2016-05-24] MEDS ORDERED: POLYETHYLENE GLYCOL 3350 17 GM POWD.PACK PO SCH (09:00)
[2016-05-24] MEDS: ALBUTEROL NEBULIZED 2.5 MG/3 ML INHALATION PRN (09:21)
--- NOTE | 2016-05-24 14:28 | P.DS ---
Providers Date of admission: 05/24/16 08:13 Expected date of discharge: 05/24/16 Attending physician: Adia Ardon Primary care physician: Adia Ardon [facility] Course: This is a 40-year-old female with past medical history noted below significant for stage IV metastatic ovarian cancer with recurrent malignant ascites that presented to the hospital with worsening abdominal pain and distention. 1. Worsening abdominal pain secondary to large ascites status post therapeutic paracentesis with approximately 5 L removed 2. Stage IV metastatic ovarian cancer status post GHAZALA/SBO 3. Opiate-induced constipation: Will be given a trial of Flovent take 4. Mixed hyperlipidemia 5. Major depressive disorder 6. Generalized anxiety disorder Patient will be discharged home in a stable condition. She is scheduled for repeat paracentesis on Thursday if needed. She will follow-up with me in the office. He was discussed with the patient possibly placing a permanent pigtail catheter which will be discussed with interventional radiology next week. Patient Condition at Discharge: Serious Plan - Discharge Summary Discharge Medication List Citalopram Hydrobromide [CeleXA] 20 mg PO HS 03/02/14 [History] EPINEPHrine [Epipen 2-Mike] 0.3 mg IM ONCE PRN 03/19/15 [History] Ondansetron [Zofran ODT] 8 mg PO Q8HR PRN 03/19/15 [History] Sennosides [Senokot] 8.6 mg PO DAILY PRN 03/19/15 [History] Albuterol Inhaler [Ventolin Hfa Inhaler] 2 puff INHALATION RT-Q6H PRN 10/02/15 [ History] Albuterol Nebulized [Ventolin Nebulized] 2.5 mg INHALATION RT-Q6H PRN 10/02/15 [ History] LORazepam [Lorazepam] 0.5 mg PO Q6H PRN 11/19/15 [History] Bisacodyl [Dulcolax] 5 mg PO DAILY #30 tablet.dr 11/20/15 [Rx] Polyethylene Glycol 3350 [Miralax] 17 gm PO DAILY #255 gm 11/20/15 [Rx] Gabapentin [Neurontin] 300 mg PO BID 03/01/16 [History] HYDROcodone/APAP 10-325MG [[place] 10-325] 2 tab PO BID 03/09/16 [History] Morphine Sulfate [Ms Contin] 30 mg PO Q12HR 03/12/16 [History] Magnesium Hydroxide [Milk of Magnesia] 2,400 mg PO DAILY PRN 05/05/16 [History] Follow up Appointment(s)/Referral(s): Fernando Hawkins MD [STAFF PHYSICIAN] - 2 Weeks None,Stated [REFERRING] - 1-2 days Trenton Tipton MD [STAFF PHYSICIAN] - 05/30/16 9:30 am Patient Instructions/Handouts: Abdominal Pain (ED) Activity/Diet/Wound Care/Special Instructions: 05/28/16 0800 AM paracentesis nothing to eat or drink after 0700 on 2016 Discharge Disposition: HOME SELF-CARE
[2016-05-24 17:12] VITALS: PULSE 86
[2016-05-24 17:34] VITALS: BP 142/92
== END 2016-05-24 17:30 | disposition home or self-care (01) | DRG 755 ==
LOC: EC 05:18 → 5ONC 06:55 → OBSVTOIN 05-24 08:13
PROVIDERS: ADMIT Internal Medicine; ATTEND Internal Medicine
PROC: 0W9G3ZZ Drainage of Peritoneal Cavity, Percutaneous Approach (ICD-10-PCS; principal; 2016-05-23)
DX: C56.9 Malignant neoplasm of unspecified ovary (principal); R18.0 Malignant ascites; J90 Pleural effusion, not elsewhere classified; K59.03 Drug induced constipation; T40.605A Adverse effect of unspecified narcotics, initial encounter; E78.2 Mixed hyperlipidemia; G62.9 Polyneuropathy, unspecified; M50.30 Other cervical disc degeneration, unspecified cervical region; G89.29 Other chronic pain; Z90.710 Acquired absence of both cervix and uterus; F17.200 Nicotine dependence, unspecified, uncomplicated; F32.9 Major depressive disorder, single episode, unspecified; F41.1 Generalized anxiety disorder; Z79.891 Long term (current) use of opiate analgesic; Z79.899 Other long term (current) drug therapy
CPT/HCPCS: 36415; 49083; 74000; 80053; 82140; 82150; 83690; 85025; 85610; 93005; 94640; 96361; 96365; 96366; 96372; 96374; 96375; 96376; 99285

== ENCOUNTER 2016-05-26 13:06 | Day surgery (SDC) | payer OTHER ==
[2016-05-26 14:06] VITALS: TEMP 98
[2016-05-26 15:18] VITALS: BP 133/88; PULSE 90; RESP 16
--- NOTE | 2016-05-26 22:54 | US ---
EXAMINATION TYPE: US paracentesis abd w/image DATE OF EXAM: 05/26/2016 2:35 PM CLINICAL HISTORY: Ascites The procedure was discussed with the patient. The risks, complications, benefits, and alternatives we re discussed and any questions were answered. Informed consent was obtained. The patient was placed s upine on the ultrasound table and prepped and draped in the usual sterile fashion. All elements of maximal barrier technique were utilized. Under ultrasound guidance, access into the right lower quadrant was obtained, via the paracentesis catheter system and direct ultrasound guidanc e. Approximately 4 liters of serous fluid was removed. The patient was stable throughout the procedure a nd remained stable upon discharge from Department of Radiology. IMPRESSION: Successful therapeutic paracentesis under ultrasound guidance.
== END 2016-05-26 15:00 | disposition home or self-care (01) ==
LOC: RADPROMAIN 13:06
PROVIDERS: ATTEND Internal Medicine Hematology & Oncology
DX: R18.8 Other ascites (principal)
CPT/HCPCS: 49083

== ENCOUNTER 2016-05-30 12:32 | Day surgery (SDC) | payer OTHER ==
[2016-05-30] MEDS ORDERED: HYDROmorphone 1 MG/ML 1 ML SYRINGE IVP STA (13:30)
[2016-05-30 14:38] VITALS: RESP 14; TEMP 98.2
[2016-05-30 15:03] VITALS: BP 122/69; PULSE 83
--- NOTE | 2016-05-30 16:13 | US ---
EXAMINATION TYPE: US paracentesis abd w/image DATE OF EXAM: 05/30/2016 3:07 PM COMPARISON: NONE HISTORY: Ascites. PROCEDURE: Maximal barrier technique was utilized. The skin overlying a suitable pocket of fluid was localized with ultrasound and the overlying skin was prepped and draped. Ultrasound was utilized with sterile technique. Lidocaine was used for local anesthesia and a skin antonio made with a scalpel. Catheter was advanced under direct ultrasound guidance into a suitable pocket of fluid and approximately 4.5 liter s of white fluid were removed. Catheter was withdrawn and hemostasis achieved. There is no immediat e complication; the patient is discharged in stable condition. IMPRESSION: STATUS POST ULTRASOUND GUIDED PARACENTESIS FOR PALLIATION OF ASCITES. THIS PROCEDURE WA S PERFORMED BY THE UNDERSIGNED.
== END 2016-05-30 15:25 | disposition home or self-care (01) ==
LOC: RADPROMAIN 12:32
PROVIDERS: ATTEND Internal Medicine Hematology & Oncology
DX: R18.8 Other ascites (principal)
CPT/HCPCS: 96374; 49083; J1170

== ENCOUNTER 2016-06-02 08:13 | Day surgery (SDC) | payer OTHER ==
[2016-06-02] MEDS ORDERED: HYDROmorphone 1 MG/ML 1 ML SYRINGE IVP PRN (08:37)
[2016-06-02 08:49] LABS: Mean Platelet Volume 6.8
[2016-06-02 08:51] LABS: Prothrombin Time 10.4 sec (9.0-12.0)
[2016-06-02 08:55] VITALS: TEMP 98
[2016-06-02 09:01] VITALS: PULSE 86
[2016-06-02 09:44] VITALS: BP 121/81; RESP 14
--- NOTE | 2016-06-02 10:57 | US ---
Discontinued paracentesis HISTORY: Ascites Real-time ultrasound shows reduced fluid as compared to previous exam of 30 May 2016. A suitable po cket of fluid is not evident within the abdomen. IMPRESSION: The procedure was aborted, reschedule as needed
== END 2016-06-02 10:30 | disposition home or self-care (01) ==
LOC: RADPROMAIN 08:13
PROVIDERS: ATTEND Internal Medicine Hematology & Oncology
DX: R18.8 Other ascites (principal); Z53.8 Procedure and treatment not carried out for other reasons
CPT/HCPCS: 85049; 85610; 96374; 76705; 49083; J1170

== ENCOUNTER 2016-06-04 08:11 | Day surgery (SDC) | payer OTHER ==
--- NOTE | 2016-06-04 11:21 | US ---
Discontinued paracentesis HISTORY: Ascites Ultrasound performed of the abdomen. Minimal ascites is present. Patient elected to abort procedure t his time. IMPRESSION: Discontinued paracentesis. Minimal ascites. Reschedule as necessary.
== END 2016-06-04 08:25 | disposition home or self-care (01) ==
LOC: RADPROMAIN 08:11
PROVIDERS: ATTEND Internal Medicine Hematology & Oncology

== ENCOUNTER 2016-06-06 01:03 | Inpatient (IN) | payer OTHER ==
[2016-06-06] MEDS ORDERED: SODIUM CHLORIDE 0.9% 1,000 ML IV STA (01:08)
[2016-06-06] MEDS ORDERED: IPRATROPIUM-ALBUTEROL 3 ML NEB INHALATION STA (01:08)
--- NOTE | 2016-06-06 01:13 | ED ---
SOB HPI - General Stated Complaint: JASMINE-cancer pt Time Seen by Provider: 06/06/16 01:03 Source: patient Mode of arrival: wheelchair Limitations: no limitations - History of Present Illness Initial Comments: This is a 40-year-old female history of ovarian cancer and a history of ascites and pleural effusions who is brought in by her today because of shortness of breath which is progressively got worse over last several days. She was scheduled originally apparently for a paracentesis tomorrow he was to be switch with thoracentesis. No fevers chills nausea vomiting she's had decreased oral intake. MD Complaint: shortness of breath - Related Data Home Medications Medication Instructions Recorded Confirmed Citalopram Hydrobromide [CeleXA] 20 mg PO HS 03/02/14 06/06/16 EPINEPHrine [Epipen 2-Mike] 0.3 mg IM ONCE PRN 03/19/15 06/06/16 Ondansetron [Zofran ODT] 8 mg PO Q8HR PRN 03/19/15 06/06/16 Sennosides [Senokot] 8.6 mg PO DAILY PRN 03/19/15 06/06/16 Albuterol Inhaler [Ventolin Hfa 2 puff INHALATION RT-Q6H PRN 10/02/15 06/06/16 Inhaler] Albuterol Nebulized [Ventolin 2.5 mg INHALATION RT-Q6H PRN 10/02/15 06/06/16 Nebulized] LORazepam [Lorazepam] 0.5 mg PO Q6H PRN 11/19/15 06/06/16 Gabapentin [Neurontin] 300 mg PO BID 03/01/16 06/06/16 HYDROcodone/APAP 10-325MG [[place] 2 tab PO BID 03/09/16 06/06/16 10-325] Morphine Sulfate [Ms Contin] 30 mg PO Q12HR 03/12/16 06/06/16 Magnesium Hydroxide [Milk of 2,400 mg PO DAILY PRN 05/05/16 06/06/16 Magnesia] Tamoxifen [Nolvadex] 20 mg PO DAILY 06/02/16 06/06/16 Previous Rx's Medication Instructions Recorded Bisacodyl [Dulcolax] 5 mg PO DAILY #30 tablet. 11/20/15 Polyethylene Glycol 3350 [Miralax] 17 gm PO DAILY #255 gm 11/20/15 Allergies Allergy/AdvReac Type Severity Reaction Status Date / Time dexamethasone [From Decadron] Allergy Unknown Verified 06/06/16 01:10 dexamethasone sod phosphate Allergy Unknown Verified 06/06/16 01:10 [From Decadron] venom-honey bee Allergy Anaphylaxis Verified 06/06/16 01:10 [bee venom (honey bee)] Review of Systems ROS Statement: Those systems with pertinent positive or pertinent negative responses have been documented in the HPI. ROS Other: All systems not noted in ROS Statement are negative. Past Medical History Past Medical History: Cancer, Deep Vein Thrombosis (DVT), Hyperlipidemia Additional Past Medical History / Comment(s): Stage 4 ovarian cancer with total hysterectomy and chemo (last chemo 03/04/15), right pleural effusions with thoracentesis, ascities with paracentesis, bilateral hands and feet neuropathy, chronic cervical pain-degnerative bone disease, buldging disk, blood clot to the rt wrist and rt neck, chronic constipation. History of Any Multi-Drug Resistant Organisms: None Reported Past Surgical History: Hysterectomy Additional Past Surgical History / Comment(s): powerport left chest, total hysterectomy, multiple paracentisis, multiple right thorocentesis Past Anesthesia/Blood Transfusion Reactions: No Reported Reaction Past Psychological History: Anxiety, Depression Additional Psychological History / Comment(s): Pt states medication for mental health help. Pt resides with significant other. She is independent. States she and significant other spoke with hospice recently and they did not care for it. Significant other assists pt when she needs it. Smoking Status: Former smoker Past Alcohol Use History: None Reported Additional Past Alcohol Use History / Comment(s): pt quit smoking 05/24/2016 Past Drug Use History: Marijuana Additional Drug Use History / Comment(s): Pt has medical marijuana that she uses for pain control on a nearly everyday basis. - Past Family History Mother Family Medical History: Diabetes Mellitus Additional Family Medical History / Comment(s): bilat knee replace Father Family Medical History: COPD General Exam - General Exam Comments Initial Comments: This is a well-developed asthenic appearing female who is very lethargic Limitations: no limitations General appearance: lethargic Head exam: Present: atraumatic, normocephalic, normal inspection Eye exam: Present: normal appearance, PERRL, EOMI. Absent: scleral icterus, conjunctival injection, periorbital swelling ENT exam: Present: mucous membranes dry Neck exam: Present: normal inspection. Absent: tenderness, meningismus, lymphadenopathy Respiratory exam: Present: decreased breath sounds Cardiovascular Exam: Present: tachycardia GI/Abdominal exam: Present: other (Distended abdomen consistent with ascites) Rectal exam: Present: deferred Extremities exam: Present: pedal edema Back exam: Present: normal inspection Neurological exam: Present: alert, oriented X3, CN II-XII intact Psychiatric exam: Present: anxious Skin exam: Present: warm, dry, intact Course Vital Signs 06/06/16 06/06/16 06/06/16 01:07 01:15 01:25 Temperature 98.3 F Pulse Rate 112 H 100 113 H Respiratory 28 H Rate Blood Pressure 191/129 O2 Sat by Pulse 100 Oximetry - Reevaluation(s) Reevaluation #1: 06/06/16 01:27 Reevaluation after the initial DuoNeb treatment reveals markedly increased aeration with no wheezing heard. Patient does appear more comfortable. She was noted to be nauseated and vomit she was given Zofran. Reevaluation #2: 06/06/16 03:48 Patient is feeling improved. I did discuss findings with her and her . Patient be admitted. Medical Decision Making - Medical Decision Making Patient will be admitted I did discuss findings with her and her as well as with the baby physician. Interventional radiology will be consulted for paracentesis. - Lab Data Result diagrams: 06/06/16 01:12 06/06/16 01:12 Lab Results 06/06/16 06/06/16 06/06/16 Range/Units 01:12 01:12 01:12 WBC 10.1 (3.8-10.6) k/uL RBC 5.84 H (3.80-5.40) m/uL Hgb 15.2 (11.4-16.0) gm/dL Hct 48.2 H (34.0-46.0) % MCV 82.7 (80.0-100.0) fL MCH 26.1 (25.0-35.0) pg MCHC 31.5 (31.0-37.0) g/dL RDW 17.6 H (11.5-15.5) % Plt Count 512 H (150-450) k/uL Neutrophils % 82 % Lymphocytes % 9 % Monocytes % 6 % Eosinophils % 1 % Basophils % 0 % Neutrophils # 8.3 H (1.3-7.7) k/uL Lymphocytes # 1.0 (1.0-4.8) k/uL Monocytes # 0.6 (0-1.0) k/uL Eosinophils # 0.1 (0-0.7) k/uL Basophils # 0.0 (0-0.2) k/uL Hypochromasia Slight Anisocytosis Slight PT (9.0-12.0) sec INR (<1.1) APTT (22.0-30.0) sec Sodium 131 L (137-145) mmol/L Potassium 4.1 (3.5-5.1) mmol/L Chloride 93 L (98-107) mmol/L Carbon Dioxide 30 (22-30) mmol/L Anion Gap 8 mmol/L BUN 8 (7-17) mg/dL Creatinine 0.70 (0.52-1.04) mg/dL Est GFR (MDRD) Af Amer >60 (>60 ml/min/1.73 sqM) Est GFR (MDRD) Non-Af >60 (>60 ml/min/1.73 sqM) Glucose 100 H (74-99) mg/dL Calcium 8.8 (8.4-10.2) mg/dL Magnesium 1.8 (1.6-2.3) mg/dL Total Bilirubin 0.3 (0.2-1.3) mg/dL AST 27 (14-36) U/L ALT 27 (9-52) U/L Alkaline Phosphatase 131 H (38-126) U/L Total Creatine Kinase 32 (30-135) U/L CK-MB (CK-2) 1.3 (0.0-2.4) ng/mL CK-MB (CK-2) Rel Index 4.1 Troponin I <0.012 (0.000-0.034) ng/mL NT-Pro-B Natriuret Pep pg/mL Total Protein 5.3 L (6.3-8.2) g/dL Albumin 2.5 L (3.5-5.0) g/dL 06/06/16 06/06/16 Range/Units 01:12 01:12 WBC (3.8-10.6) k/uL RBC (3.80-5.40) m/uL Hgb (11.4-16.0) gm/dL Hct (34.0-46.0) % MCV (80.0-100.0) fL MCH (25.0-35.0) pg MCHC (31.0-37.0) g/dL RDW (11.5-15.5) % Plt Count (150-450) k/uL Neutrophils % % Lymphocytes % % Monocytes % % Eosinophils % % Basophils % % Neutrophils # (1.3-7.7) k/uL Lymphocytes # (1.0-4.8) k/uL Monocytes # (0-1.0) k/uL Eosinophils # (0-0.7) k/uL Basophils # (0-0.2) k/uL Hypochromasia Anisocytosis PT 10.5 (9.0-12.0) sec INR 1.0 (<1.1) APTT 24.2 (22.0-30.0) sec Sodium (137-145) mmol/L Potassium (3.5-5.1) mmol/L Chloride (98-107) mmol/L Carbon Dioxide (22-30) mmol/L Anion Gap mmol/L BUN (7-17) mg/dL Creatinine (0.52-1.04) mg/dL Est GFR (MDRD) Af Amer (>60 ml/min/1.73 sqM) Est GFR (MDRD) Non-Af (>60 ml/min/1.73 sqM) Glucose (74-99) mg/dL Calcium (8.4-10.2) mg/dL Magnesium (1.6-2.3) mg/dL Total Bilirubin (0.2-1.3) mg/dL AST (14-36) U/L ALT (9-52) U/L Alkaline Phosphatase (38-126) U/L Total Creatine Kinase (30-135) U/L CK-MB (CK-2) (0.0-2.4) ng/mL CK-MB (CK-2) Rel Index Troponin I (0.000-0.034) ng/mL NT-Pro-B Natriuret Pep 884 pg/mL Total Protein (6.3-8.2) g/dL Albumin (3.5-5.0) g/dL - EKG Data -: EKG Interpreted by Al EKG shows normal: sinus rhythm (Sinus rhythm rate 99. Interval 132 QRS duration 76 QT/QTC of 338/433 low-voltage QRS and nonspecific inferior configuration.) - Radiology Data Radiology results: report reviewed (I did review the imaging and reports evidence of left lower lobe infiltrate which is new.), image reviewed Critical Care Time Critical Care Time: Yes Critical Care Time: 36 minutes of critical care time which includes initial presentation with history physical lab and x-rays reevaluation the patient multiple occasions. Discussion with the patient family regarding the findings on several occasions review of old charting. Discussion with the admitting physician documentation above admission orders. Disposition Clinical Impression: Acute exacerbation of chronic obstructive airways disease, Adult respiratory distress syndrome, Left lower lobe pneumonia, Ascites, Ovarian cancer Disposition: ADMITTED IP TO THIS HOSP Condition: Stable
[2016-06-06] MEDS ORDERED: ONDANSETRON 4 MG/2 ML VIAL IVP STA (01:15)
[2016-06-06] MEDS ORDERED: LORazepam 2 MG/ML SYRINGE IV STA (01:16)
[2016-06-06] MEDS: HYDROmorphone 1 MG/ML 1 ML SYRINGE IVP STA ×2 (01:19→03:27)
[2016-06-06 01:23] LABS: Anisocytosis Slight; Basophils % (A) 0 %; CH 26.6; CHCM 32.3; Eosinophils # (A) 0.1 k/uL (0-0.7); Eosinophils % (A) 1 %; HCT 48.2 % (34.0-46.0); HDW 2.96; HGB 15.2 gm/dL (11.4-16.0); Hypochromasia Slight; Luc % (Auto) 1; Lymphocytes % (A) 9 %; MCH 26.1 pg (25.0-35.0); MCHC 31.5 g/dL (31.0-37.0); MCV 82.7 fL (80.0-100.0); Mean Platelet Volume 6.2; Monocytes # (A) 0.6 k/uL (0-1.0); Monocytes % (A) 6 %; Neutrophils # (A) 8.3 k/uL (1.3-7.7); Neutrophils % (A) 82 %; RBC 5.84 m/uL (3.80-5.40); RDW 17.6 % (11.5-15.5); WBC 10.1 k/uL (3.8-10.6); WBC (Perox) 10.19
[2016-06-06 01:37] LABS: ALT 27 U/L (9-52); AST 27 U/L (14-36); Alkaline Phosphatase 131 U/L (38-126); Anion Gap 8 mmol/L; Blood Urea Nitrogen 8 mg/dL (7-17); Calcium 8.8 mg/dL (8.4-10.2); Carbon Dioxide 30 mmol/L (22-30); Chloride 93 mmol/L (98-107); Glucose 100 mg/dL (74-99); Magnesium 1.8 mg/dL (1.6-2.3); Non-African American GFR(MDRD) >60 (>60 ml/min/1.73 sqM); Potassium 4.1 mmol/L (3.5-5.1); Sodium 131 mmol/L (137-145); Total Bilirubin 0.3 mg/dL (0.2-1.3); Total Protein 5.3 g/dL (6.3-8.2)
[2016-06-06 01:42] LABS: Creatine Kinase 32 U/L (30-135)
[2016-06-06 01:55] LABS: Creatine Kinase MB 1.3 ng/mL (0.0-2.4); Troponin I <0.012 ng/mL (0.000-0.034)
[2016-06-06 02:00] LABS: Partial Thromboplastin Time 24.2 sec (22.0-30.0); Prothrombin Time 10.5 sec (9.0-12.0)
--- NOTE | 2016-06-06 02:30 | XR ---
EXAM: XR Chest, 2 Views. CLINICAL HISTORY: Reason: difficulty breathing TECHNIQUE: Frontal and lateral views of the chest. COMPARISON: 05/16/16 FINDINGS: Lungs/ Pleural space: There is persistent opacity in the right lower lung with obscuration of the costophrenic angle. There is interval development of ill-defined opacity in the left lower lobe. Again seen is left-sided Port-A-Cath, unchanged in position. No pneumothorax is seen. Low lung volumes accentuate pulmonary markings Heart: Unremarkable. Cardiovascular silhouette is upper limits of normal accentuated by low lung volume. Mediastinum: Unremarkable. Bones/joints: Unremarkable. IMPRESSION: 1. Low lung volume. 2. Persistent right basilar airspace disease and effusion, slightly worse. 3. Interval development of left basilar infiltrate.
[2016-06-06] MEDS ORDERED: MAGNESIUM HYDROXIDE 2,400 MG/10 ML CUP PO PRN (03:53)
[2016-06-06] MEDS ORDERED: ONDANSETRON ODT 8 MG TAB.RAPDIS PO PRN (03:53)
[2016-06-06] MEDS ORDERED: HYDROmorphone 1 MG/ML 1 ML SYRINGE IVP PRN (03:55)
[2016-06-06] MEDS ORDERED: IPRATROPIUM-ALBUTEROL 3 ML NEB INHALATION SCH (04:00)
[2016-06-06] MEDS ORDERED: SODIUM CHLORIDE 0.9% 1,000 ML IV SCH (04:00)
[2016-06-06] MEDS ORDERED: IPRATROPIUM-ALBUTEROL 3 ML NEB INHALATION PRN (04:30)
[2016-06-06 05:28] VITALS: BMI 25.7
[2016-06-06] MEDS: methylPREDNISolone SOD SUCCI 125 MG/2 ML VIAL IV SCH ×4 (06:16→22:04)
[2016-06-06] MEDS ORDERED: HYDROmorphone 2 MG/ML 1 ML SYRINGE IVP PRN (07:44)
[2016-06-06] MEDS: MORPHINE SULFATE ER 30 MG TABLET PO SCH ×2 (08:06→22:03)
[2016-06-06] MEDS: HYDROcodone/APAP 10-325MG 1 EACH TAB PO SCH ×2 (08:06→22:02)
[2016-06-06] MEDS: POLYETHYLENE GLYCOL 3350 17 GM POWD.PACK PO SCH (08:07)
[2016-06-06] MEDS: GABAPENTIN 300 MG CAP PO SCH ×2 (08:07→22:02)
[2016-06-06] MEDS: IPRATROPIUM-ALBUTEROL 3 ML NEB INHALATION SCH ×4 (08:40→19:05)
[2016-06-06] MEDS ORDERED: SENNOSIDES 8.6 MG TAB PO PRN (09:00)
[2016-06-06] MEDS: HYDROmorphone 1 MG/ML 1 ML SYRINGE IM PRN ×4 (09:05→20:24)
[2016-06-06] MEDS: LORazepam 0.5 MG TAB PO PRN ×2 (10:04→20:24)
[2016-06-06] MEDS: BISACODYL 5 MG TABLET.DR PO SCH (10:04)
[2016-06-06] MEDS: TAMOXIFEN 10 MG TAB PO SCH (12:36)
--- NOTE | 2016-06-06 12:58 | P.CNPUL ---
History of Present Illness Consult date: 06/06/16 Requesting physician: Helder London Reason for consult: pleural effusion Chief complaint: Shortness of breath History of present illness: This is a very pleasant 40-year-old female patient who follows with Dr. Ardon as her primary care physician. She has a history of hyperlipidemia, DVT, stage IV ovarian cancer status post total hysterectomy and chemotherapy. She also has chronic and ongoing ascites and pleural effusions secondary to the ovarian cancer. She follows with Dr. Armendariz. She has had 15 paracentesis done and at least 3 thoracentesis done. Mostly of the right lung. 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 Recently undergone ultrasound on 06/04/2016 for the ascites but did not show enough fluid to be drained at that time. She presented here early this morning with complaints of increasing shortness of breath. Chest x-ray does show recurrent right-sided pleural effusion. We are consulted for the same. She is seen today on the regular medical floor. She is awake and alert in no acute distress. He is maintaining good O2 saturations in the high 90s on 2 L/m per nasal cannula. She's been afebrile. Not tachycardic. Hemodynamically stable. No leukocytosis. Review of Systems 14 point review of systems was conducted. All negative other than as mentioned in HPI. Past Medical History Past Medical History: Cancer, Deep Vein Thrombosis (DVT), Hyperlipidemia Additional Past Medical History / Comment(s): Stage 4 ovarian cancer with total hysterectomy and chemo (last chemo 03/04/15), right pleural effusions with thoracentesis, ascities with paracentesis, bilateral hands and feet neuropathy, chronic cervical pain-degnerative bone disease, buldging disk, blood clot to the rt wrist and rt neck, chronic constipation. History of Any Multi-Drug Resistant Organisms: None Reported Past Surgical History: Hysterectomy Additional Past Surgical History / Comment(s): powerport left chest, total hysterectomy, multiple paracentisis, multiple right thorocentesis Past Anesthesia/Blood Transfusion Reactions: No Reported Reaction Past Psychological History: Anxiety, Depression Additional Psychological History / Comment(s): Pt states medication for mental health help. Pt resides with significant other. She is independent. States she and significant other spoke with hospice recently and they did not care for it. Significant other assists pt when she needs it. Smoking Status: Former smoker Past Alcohol Use History: None Reported Additional Past Alcohol Use History / Comment(s): pt quit smoking 05/24/2016 Past Drug Use History: Marijuana Additional Drug Use History / Comment(s): Pt has medical marijuana that she uses for pain control on a nearly everyday basis. - Past Family History Mother Family Medical History: Diabetes Mellitus Additional Family Medical History / Comment(s): bilat knee replace Father Family Medical History: COPD Medications and Allergies Home Medications Medication Instructions Recorded Confirmed Type Citalopram Hydrobromide [CeleXA] 20 mg PO HS 03/02/14 06/06/16 History EPINEPHrine [Epipen 2-Mike] 0.3 mg IM ONCE PRN 03/19/15 06/06/16 History Ondansetron [Zofran ODT] 8 mg PO Q8HR PRN 03/19/15 06/06/16 History Sennosides [Senokot] 8.6 mg PO DAILY PRN 03/19/15 06/06/16 History Albuterol Inhaler [Ventolin Hfa 2 puff INHALATION RT-Q6H PRN 10/02/15 06/06/16 History Inhaler] Albuterol Nebulized [Ventolin 2.5 mg INHALATION RT-Q6H PRN 10/02/15 06/06/16 History Nebulized] LORazepam [Lorazepam] 0.5 mg PO Q6H PRN 11/19/15 06/06/16 History Gabapentin [Neurontin] 300 mg PO BID 03/01/16 06/06/16 History HYDROcodone/APAP 10-325MG [[place] 2 tab PO BID 03/09/16 06/06/16 History 10-325] Morphine Sulfate [Ms Contin] 30 mg PO Q12HR 03/12/16 06/06/16 History Magnesium Hydroxide [Milk of 2,400 mg PO DAILY PRN 05/05/16 06/06/16 History Magnesia] Tamoxifen Citrate [Tamoxifen 20 mg PO DAILY 06/06/16 06/06/16 History Citrate] Allergies Allergy/AdvReac Type Severity Reaction Status Date / Time dexamethasone [From Decadron] Allergy Unknown Verified 06/06/16 08:15 dexamethasone sod phosphate Allergy Unknown Verified 06/06/16 08:15 [From Decadron] venom-honey bee Allergy Anaphylaxis Verified 06/06/16 08:15 [bee venom (honey bee)] Physical Exam Vitals: Vital Signs Temp Pulse Pulse Resp BP BP BP 06/06/16 11:24 100 06/06/16 11:12 96 06/06/16 08:46 100 06/06/16 08:32 100 06/06/16 07:00 97.5 F L 98 16 140/90 06/06/16 04:59 96.8 F L 86 16 133/89 06/06/16 03:57 93 16 143/96 Pulse Ox 06/06/16 11:24 06/06/16 11:12 06/06/16 08:46 06/06/16 08:32 06/06/16 07:00 99 06/06/16 04:59 97 06/06/16 03:57 96 Intake and Output 06/05/16 06/06/16 06/06/16 22:59 06:59 14:59 Other: # Voids 1 Weight 65.771 kg GENERAL EXAM: Alert, active, comfortable in no apparent distress. HEAD: Normocephalic. EYES: Normal reaction of pupils, equal size. NOSE: Clear with pink turbinates. THROAT: No erythema or exudates. NECK: No masses, no JVD. CHEST: No chest wall deformity. LUNGS: Equal air entry with crackles diminished in the right posterior base. CVS: S1 and S2 normal with no audible murmurs, regular rhythm. ABDOMEN: Distended, soft, normal bowel sounds, no guarding or rigidity. SPINE: No scoliosis or deformity SKIN: No rashes CENTRAL NERVOUS SYSTEM: No focal deficits, tone is normal in all 4 extremities. *Midis: There is 1-2+ lower extremity peripheral edema. No clubbing, no cyanosis. Peripheral pulses are intact. Results - Laboratory Findings CBC and BMP: 06/06/16 01:12 06/06/16 01:12 PT/INR, D-dimer PT 10.5 sec (9.0-12.0) 06/06/16 01:12 INR 1.0 (<1.1) 06/06/16 01:12 - Diagnostic Findings Chest x-ray: image reviewed Assessment and Plan Plan: Impression: #1 Recurrent right-sided pleural effusion, metastatic carcinoma of ovarian primary documented on previous thoracentesis fluid. #2 Stage IV ovarian cancer status post total hysterectomy and chemotherapy, last chemotherapy February 2015. #3 Bilateral hand and feet neuropathy. #4 Chronic cervical neck pain. #5 History of DVT. #6 Hyperlipidemia Plan: The patient was seen and evaluated by Dr. Weiss. We did offer her a repeat thoracentesis that we could do tomorrow however the patient is quite anxious that she has plans for the weekend. We will request interventional radiology to possibly perform the thoracentesis, ultrasound-guided today. The patient was interested in any more permanent paracentesis tube to continue to drain the fluid as she has had at least 18 paracentesis done. She may also benefit from a Pleurx catheter for her recurrent thoracentesis however she goes ahead with the paracentesis drainage tube that will be necessary. He is currently stable from the pulmonary standpoint. We'll wait and see if interventional radiology can perform the procedure today if not will do a thoracentesis of the right chest tomorrow. We'll continue to follow and make further recommendations based on her clinical status. Time with Patient: Greater than 30
--- NOTE | 2016-06-06 14:05 | P.HPIM ---
History of Present Illness H&P Date: 06/06/16 Chief Complaint: Shortness of breath This is a 40-year-old female with a known past medical history of stage IV ovarian cancer status post total hysterectomy and chemotherapy. She also has a history of hyperlipidemia and DVT. She's had recurrent and chronic abdominal ascites and pleural effusion secondary to her ovarian cancer. Her last routine paracentesis was about 3 weeks ago. She follows with Dr. Tipton an outpatient setting for her oncology care. patient presents to emergency room with complaints of worsening shortness of breath. Chest x-ray showing low lung volume and persistent right basilar airspace disease and effusion, slightly worse. Also interval development of a left basilar infiltrate. Patient does report having a cough that is productive at times. Patient was started on IV Rocephin. Also is been placed on IV steroids for COPD exacerbation. Pulmonary service is consulted. Chest ultrasound ordered for evaluation of pleural effusion and that patient may require Thoracentesis. patient denies any fever, nausea or vomiting, bowel movement changes or any burning with urination. She does have some lower extremity edema and edema in the labial area with some difficulty with avoiding. Post void residuals have been ordered. Review of Systems please refer to HPI otherwise unremarkable Past Medical History Past Medical History: Cancer, Deep Vein Thrombosis (DVT), Hyperlipidemia Additional Past Medical History / Comment(s): Stage 4 ovarian cancer with total hysterectomy and chemo (last chemo 03/04/15), right pleural effusions with thoracentesis, ascities with paracentesis, bilateral hands and feet neuropathy, chronic cervical pain-degnerative bone disease, buldging disk, blood clot to the rt wrist and rt neck, chronic constipation. History of Any Multi-Drug Resistant Organisms: None Reported Past Surgical History: Hysterectomy Additional Past Surgical History / Comment(s): powerport left chest, total hysterectomy, multiple paracentisis, multiple right thorocentesis Past Anesthesia/Blood Transfusion Reactions: No Reported Reaction Past Psychological History: Anxiety, Depression Additional Psychological History / Comment(s): Pt states medication for mental health help. Pt resides with significant other. She is independent. States she and significant other spoke with hospice recently and they did not care for it. Significant other assists pt when she needs it. Smoking Status: Former smoker Past Alcohol Use History: None Reported Additional Past Alcohol Use History / Comment(s): pt quit smoking 05/24/2016 Past Drug Use History: Marijuana Additional Drug Use History / Comment(s): Pt has medical marijuana that she uses for pain control on a nearly everyday basis. - Past Family History Mother Family Medical History: Diabetes Mellitus Additional Family Medical History / Comment(s): bilat knee replace Father Family Medical History: COPD Medications and Allergies Home Medications Medication Instructions Recorded Confirmed Type Citalopram Hydrobromide [CeleXA] 20 mg PO HS 03/02/14 06/06/16 History EPINEPHrine [Epipen 2-Mike] 0.3 mg IM ONCE PRN 03/19/15 06/06/16 History Ondansetron [Zofran ODT] 8 mg PO Q8HR PRN 03/19/15 06/06/16 History Sennosides [Senokot] 8.6 mg PO DAILY PRN 03/19/15 06/06/16 History Albuterol Inhaler [Ventolin Hfa 2 puff INHALATION RT-Q6H PRN 10/02/15 06/06/16 History Inhaler] Albuterol Nebulized [Ventolin 2.5 mg INHALATION RT-Q6H PRN 10/02/15 06/06/16 History Nebulized] LORazepam [Lorazepam] 0.5 mg PO Q6H PRN 11/19/15 06/06/16 History Gabapentin [Neurontin] 300 mg PO BID 03/01/16 06/06/16 History HYDROcodone/APAP 10-325MG [[place] 2 tab PO BID 03/09/16 06/06/16 History 10-325] Morphine Sulfate [Ms Contin] 30 mg PO Q12HR 03/12/16 06/06/16 History Magnesium Hydroxide [Milk of 2,400 mg PO DAILY PRN 05/05/16 06/06/16 History Magnesia] Tamoxifen Citrate [Tamoxifen 20 mg PO DAILY 06/06/16 06/06/16 History Citrate] Allergies Allergy/AdvReac Type Severity Reaction Status Date / Time dexamethasone [From Decadron] Allergy Unknown Verified 06/06/16 08:15 dexamethasone sod phosphate Allergy Unknown Verified 06/06/16 08:15 [From Decadron] venom-honey bee Allergy Anaphylaxis Verified 06/06/16 08:15 [bee venom (honey bee)] Physical Exam Vitals: Vital Signs Temp Pulse Pulse Resp BP BP BP 06/06/16 11:24 100 06/06/16 11:12 96 06/06/16 08:46 100 06/06/16 08:32 100 06/06/16 07:00 97.5 F L 98 16 140/90 06/06/16 04:59 96.8 F L 86 16 133/89 06/06/16 03:57 93 16 143/96 Pulse Ox 06/06/16 11:24 06/06/16 11:12 06/06/16 08:46 06/06/16 08:32 06/06/16 07:00 99 06/06/16 04:59 97 06/06/16 03:57 96 Intake and Output 06/05/16 06/06/16 06/06/16 22:59 06:59 14:59 Other: # Voids 1 Weight 65.771 kg Head normocephalic Neck supple Lungs diminished at the bases no wheezing Heart regular rate and rhythm S1-S2, no rub or gallop Abdomen is soft nontender nondistended positive bowel sounds no hepatosplenomegaly Extremities +1 edema bilateral Neuro alert and orientated to 3 Results CBC & Chem 7: 06/06/16 01:12 06/06/16 01:12 Thrombosis Risk Factor Assmnt - Choose All That Apply Any of the Below Risk Factors Present?: No Other Risk Factors: No Other congenital or acquired thrombophilia - If yes, enter type in comment: No Thrombosis Risk Factor Assessment Level: Very Low Risk Assessment and Plan Plan: 1. Shortness of breath likely related to recurrent right-sided pleural effusion secondary to her metastatic ovarian cancer. Patient has chest ultrasound ordered for evaluation of possible thoracentesis. Pulmonary service has been consulted 2. Stage IV ovarian cancer status post total hysterectomy and chemotherapy. Last chemotherapy was February 2015. Oncology consulted 3. Hyponatremia: Sodium level 131. Patient did receive some IV fluids in the emergency room. At this time fluids were hep-locked due to her edema and pleural effusion. Repeat labs in a.m. 4.possible bacterial pneumonia: Continue Rocephin 1 g daily 5. Acute COPD exacerbation continue IV Solu-Medrol and bronchodilators 6. Chronic constipation continue her stool softener and MiraLAX 7.GI prophylaxis Pepcid and DVT prophylaxis subcu heparin 8. Monitor for urinary retention post void residuals should be checked every shift for the next 24 hours 9. severe Protein calorie malnutrition: Albumin level 2.5. Start ensure protein drinks 3 times a day 10. hypertension: Continue to monitor blood pressures. We'll Hep-Lock IV. if blood pressure remains elevated will need add antihypertensive Time with Patient: Greater than 30 (Greater than 50% of the total time spent in counseling and coordination of care.I performed an examination of the patient and discussed their management with the physician Recruitment Director. I have reviewed the Physician Recruitment Director's notes and agree with the documented findings and plan of care)
--- NOTE | 2016-06-06 16:28 | XR ---
EXAMINATION TYPE: XR chest 1V DATE OF EXAM: 06/06/2016 4:15 PM COMPARISON: Prior chest x-ray 06 June 2016 HISTORY: Status post right thoracentesis TECHNIQUE: Single frontal view of the chest is obtained. FINDINGS: There is improvement in the right pleural effusion. No evident pneumothorax. No significan t interval change. Left pleural effusion also noted, bibasilar atelectasis is likely. IMPRESSION: No evident complication status post thoracentesis.
--- NOTE | 2016-06-06 16:29 | US ---
EXAMINATION TYPE: US thoracentesis DATE OF EXAM: 06/06/2016 4:19 PM COMPARISON: NONE HISTORY: Pleural effusion. FINDINGS: Maximal barrier technique was utilized. The skin overlying a suitable pocket of fluid was localized and the overlying skin prepped and draped. Lidocaine was used for local anesthesia. Ultras ound was used with sterile technique. A 5 Y[place] catheter over guide needle was advanced into the pl eural fluid collection using ultrasound guidance and catheter advanced, needle removed. Approximatel y 1.25 liter(s) of serous sanguinous fluid was removed. Catheter was withdrawn and hemostasis achiev ed. There is no immediate complication. The patient discharged in stable condition without complica tion. IMPRESSION: STATUS POST ULTRASOUND GUIDED THORACENTESIS, POST PROCEDURE CHEST X-RAY PENDING. THIS FL OCEDURE WAS PERFORMED BY THE UNDERSIGNED.
--- NOTE | 2016-06-06 17:55 | P.CONS ---
History of Present Illness - Reason for Consult Consult date: 06/06/16 ovarian cancer Requesting physician: Crispin Belle - Chief Complaint SOB - History of Present Illness Yvette is a very pleasant 40-year-old female patient of Dr. Tipton and Dr. Donahue who was diagnosed with stage IIIc ovarian cancer March 2012. At that time she had GHAZALA/BSO, adjuvant chemotherapy with carboplatin and Taxol. Patient has received multiple therapies over the years for recurrence under the care of Dr. Donahue. Patient moved her care over to Dr. Tipton in late 2015 as she wanted to be treated closer to home. Patient was on single agent Taxol at that time. This was subsequently discontinued and she was placed on a hormone pill and in the process of being worked up for clinical trials. Patient is aware that there are no other treatment options available at this time. Patient has had hospice discussion but is not ready for that at this time. Patient has been requiring palliative paracentesis. Over the last few days she had progressive shortness of breath and difficulty in breathing, also had some nausea and vomiting so she came to the emergency room for evaluation. She denies fevers, chills, oral irritation, chest pain or palpitations, her abdomen is constantly distended but she denies any acute pain in her abdomen or cramping, she does have to medicate to prevent constipation, she is currently able to urinate with no symptoms of dysuria or hematuria, her bilateral lower extremities are chronically swollen. She is able to ambulate independently. She is status post thoracentesis on the right with 1.25 L of serosanguineous fluid drained. Patient states breathing is much better and is anxious to go home. She was supposed to meet with surgeon for placement possibly of a peritoneal drain to prevent her from having to return to the hospital so frequently for paracentesis (about once a week), but she does have a family gathering planned for this weekend so she would prefer to wait until next week to consider that option. Currently she is denying significant discomfort from the ascites in her abdomen. Review of Systems All systems: negative Constitutional: Reports as per HPI Past Medical History Past Medical History: Cancer, Deep Vein Thrombosis (DVT), Hyperlipidemia Additional Past Medical History / Comment(s): Stage 4 ovarian cancer with total hysterectomy and chemo (last chemo 03/04/15), right pleural effusions with thoracentesis, ascities with paracentesis, bilateral hands and feet neuropathy, chronic cervical pain-degnerative bone disease, buldging disk, blood clot to the rt wrist and rt neck, chronic constipation. History of Any Multi-Drug Resistant Organisms: None Reported Past Surgical History: Hysterectomy Additional Past Surgical History / Comment(s): powerport left chest, total hysterectomy, multiple paracentisis, multiple right thorocentesis Past Anesthesia/Blood Transfusion Reactions: No Reported Reaction Past Psychological History: Anxiety, Depression Additional Psychological History / Comment(s): Pt states medication for mental health help. Pt resides with significant other. She is independent. States she and significant other spoke with hospice recently and they did not care for it. Significant other assists pt when she needs it. Smoking Status: Former smoker Past Alcohol Use History: None Reported Additional Past Alcohol Use History / Comment(s): pt quit smoking 05/24/2016 Past Drug Use History: Marijuana Additional Drug Use History / Comment(s): Pt has medical marijuana that she uses for pain control on a nearly everyday basis. - Past Family History Mother Family Medical History: Diabetes Mellitus Additional Family Medical History / Comment(s): bilat knee replace Father Family Medical History: COPD Medications and Allergies Home Medications Medication Instructions Recorded Confirmed Type Citalopram Hydrobromide [CeleXA] 20 mg PO HS 03/02/14 06/06/16 History EPINEPHrine [Epipen 2-Mike] 0.3 mg IM ONCE PRN 03/19/15 06/06/16 History Ondansetron [Zofran ODT] 8 mg PO Q8HR PRN 03/19/15 06/06/16 History Sennosides [Senokot] 8.6 mg PO DAILY PRN 03/19/15 06/06/16 History Albuterol Inhaler [Ventolin Hfa 2 puff INHALATION RT-Q6H PRN 10/02/15 06/06/16 History Inhaler] Albuterol Nebulized [Ventolin 2.5 mg INHALATION RT-Q6H PRN 10/02/15 06/06/16 History Nebulized] LORazepam [Lorazepam] 0.5 mg PO Q6H PRN 11/19/15 06/06/16 History Gabapentin [Neurontin] 300 mg PO BID 03/01/16 06/06/16 History HYDROcodone/APAP 10-325MG [[place] 2 tab PO BID 03/09/16 06/06/16 History 10-325] Morphine Sulfate [Ms Contin] 30 mg PO Q12HR 03/12/16 06/06/16 History Magnesium Hydroxide [Milk of 2,400 mg PO DAILY PRN 05/05/16 06/06/16 History Magnesia] Tamoxifen Citrate [Tamoxifen 20 mg PO DAILY 06/06/16 06/06/16 History Citrate] Allergies Allergy/AdvReac Type Severity Reaction Status Date / Time dexamethasone [From Decadron] Allergy Unknown Verified 06/06/16 16:42 dexamethasone sod phosphate Allergy Unknown Verified 06/06/16 16:42 [From Decadron] venom-honey bee Allergy Anaphylaxis Verified 06/06/16 16:42 [bee venom (honey bee)] Physical Exam Vitals: Vital Signs Temp Pulse Pulse Resp BP BP BP 06/06/16 17:32 97.9 F 97 16 135/95 06/06/16 16:00 99 20 06/06/16 15:30 99 20 140/92 06/06/16 11:24 100 06/06/16 11:12 96 06/06/16 08:46 100 06/06/16 08:32 100 06/06/16 07:00 97.5 F L 98 16 140/90 06/06/16 04:59 96.8 F L 86 16 133/89 06/06/16 03:57 93 16 143/96 Pulse Ox 06/06/16 17:32 98 06/06/16 16:00 06/06/16 15:30 98 06/06/16 11:24 06/06/16 11:12 06/06/16 08:46 06/06/16 08:32 06/06/16 07:00 99 06/06/16 04:59 97 06/06/16 03:57 96 Intake and Output 06/06/16 06/06/16 06/06/16 06:59 14:59 22:59 Intake Total 300 Balance 300 Intake: Oral 300 Other: # Voids 1 3 Weight 65.771 kg 65.771 kg Patient Weight 06/07/16 06:59 Weight 65.771 kg - Constitutional General appearance: average body habitus, cooperative, no acute distress - EENT Eyes: anicteric sclerae, normal appearance ENT: normal oropharynx - Neck Neck: no lymphadenopathy - Respiratory Respiratory: right: rhonchi, left: CTA - Cardiovascular Rhythm: regular Heart sounds: normal: S1, S2 leg Peripheral Edema: bilateral: 2+ - Gastrointestinal General gastrointestinal: no absent bowel sounds, decreased bowel sounds, distended, no hepatomegaly, no hyperactive bowel sounds, no normal bowel sounds , no organomegaly, no rigid, no scaphoid, soft, no splenomegaly, tenderness, no umbilical hernia, no ventral hernia - Integumentary Integumentary: normal - Neurologic Neurologic: CNII-XII intact - Musculoskeletal Musculoskeletal: strength equal bilaterally - Psychiatric Psychiatric: A&O x's 3, appropriate affect, intact judgment & insight Results CBC & Chem 7: 06/06/16 01:12 06/06/16 01:12 Chest x-ray: report reviewed Assessment and Plan (1) Ascites Narrative/Plan: Ascites is recurrent and related to malignancy. From my understanding there are were plans for her to be seen by Dr. Bowers for placement of a peritoneal drain. Patient is still interested in this option but we will schedule this for her outpatient she would prefer to have it done after family gathering this weekend. Status: Chronic (2) Pleural effusion on right Narrative/Plan: Patient did have thoracentesis with interventional radiology. Patient's respiratory symptoms are significantly improved. Status: Acute (3) Ovarian carcinoma Narrative/Plan: Patient has recurrent ovarian malignancy. Patient has been on multiple lines of treatment. Patient has been started on tamoxifen. She will continue to follow-up with Dr. Tipton as needed. Patient is not interested in pursuing comfort measures only at this time. Status: Chronic Plan: Bilateral lower extremity lymphedema: Patient has been provided with information to call [facility] to see if she qualifies for lymph drainage. She will contact our office if she is interested and we will provide referral. Verbalized understanding patient is okay from an oncology standpoint to be discharged once she has been cleared by internal medicine and other consults
[2016-06-06] MEDS ORDERED: CITALOPRAM HYDROBROMIDE 20 MG TAB PO SCH (21:00)
[2016-06-06] MEDS: HEPARIN SODIUM,PORCINE 5,000 UNIT/ML 1 ML VIAL SQ SCH (22:22)
[2016-06-07] MEDS: HYDROmorphone 1 MG/ML 1 ML SYRINGE IM PRN ×3 (00:19→08:42)
[2016-06-07] MEDS: methylPREDNISolone SOD SUCCI 125 MG/2 ML VIAL IV SCH ×2 (05:37→11:55)
[2016-06-07] MEDS: LORazepam 0.5 MG TAB PO PRN (05:38)
[2016-06-07 07:39] LABS: Anisocytosis Slight; Basophils % (A) 0 %; CH 26.1; CHCM 31.3; Eosinophils % (A) 0 %; HCT 44.8 % (34.0-46.0); HDW 3.09; HGB 13.8 gm/dL (11.4-16.0); Hypochromasia Moderate; Luc # (Auto) 0.09; Luc % (Auto) 1; Lymphocytes # (A) 0.5 k/uL (1.0-4.8); Lymphocytes % (A) 3 %; MCH 25.7 pg (25.0-35.0); MCHC 30.8 g/dL (31.0-37.0); MCV 83.3 fL (80.0-100.0); Mean Platelet Volume 6.5; Monocytes # (A) 0.5 k/uL (0-1.0); Monocytes % (A) 3 %; Neutrophils # (A) 15.3 k/uL (1.3-7.7); Neutrophils % (A) 94 %; RBC 5.38 m/uL (3.80-5.40); WBC 16.4 k/uL (3.8-10.6); WBC (Perox) 16.93
[2016-06-07 08:04] VITALS: BP 145/91; RESP 18; TEMP 94.6
[2016-06-07] MEDS: BISACODYL 5 MG TABLET.DR PO SCH (08:05)
[2016-06-07] MEDS: GABAPENTIN 300 MG CAP PO SCH (08:06)
[2016-06-07] MEDS: HYDROcodone/APAP 10-325MG 1 EACH TAB PO SCH (08:06)
[2016-06-07] MEDS: HEPARIN SODIUM,PORCINE 5,000 UNIT/ML 1 ML VIAL SQ SCH (08:06)
[2016-06-07] MEDS: MORPHINE SULFATE ER 30 MG TABLET PO SCH (08:07)
[2016-06-07] MEDS: POLYETHYLENE GLYCOL 3350 17 GM POWD.PACK PO SCH (08:08)
[2016-06-07] MEDS: TAMOXIFEN 10 MG TAB PO SCH (08:08)
[2016-06-07 08:15] LABS: ALT 29 U/L (9-52); AST 27 U/L (14-36); Alkaline Phosphatase 126 U/L (38-126); Anion Gap 8 mmol/L; Blood Urea Nitrogen 13 mg/dL (7-17); Carbon Dioxide 27 mmol/L (22-30); Chloride 93 mmol/L (98-107); Glucose 122 mg/dL (74-99); Non-African American GFR(MDRD) >60 (>60 ml/min/1.73 sqM); Potassium 5.1 mmol/L (3.5-5.1); Sodium 128 mmol/L (137-145); Total Bilirubin 0.4 mg/dL (0.2-1.3); Total Protein 5.8 g/dL (6.3-8.2)
[2016-06-07] MEDS: IPRATROPIUM-ALBUTEROL 3 ML NEB INHALATION SCH ×2 (08:55→12:52)
[2016-06-07] MEDS ORDERED: FAMOTIDINE 20 MG TAB PO SCH (09:00)
[2016-06-07 09:07] VITALS: PULSE 92
--- NOTE | 2016-06-07 11:55 | P.DS ---
Providers Date of admission: 06/06/16 03:50 Expected date of discharge: 06/07/16 Attending physician: Helder London Consults: 06/06/16 04:09 Consult Physician Routine Consulting Provider: Crispin Weiss Consult Reason/Comments: COPD, infiltrate Do you want consulting provider notified?: Yes, Notify in am Primary care physician: [facility] Hospital Course: This is a 40-year-old female with a known past medical history of stage IV ovarian cancer status post total hysterectomy and chemotherapy. She also has a history of hyperlipidemia and DVT. She's had recurrent and chronic abdominal ascites and pleural effusion secondary to her ovarian cancer. Her last routine paracentesis was about 3 weeks ago. She follows with Dr. Tipton an outpatient setting for her oncology care. patient presents to emergency room with complaints of worsening shortness of breath. Chest x-ray showing low lung volume and persistent right basilar airspace disease and effusion, slightly worse. Also interval development of a left basilar infiltrate. Patient does report having a cough that is productive at times. Patient was started on IV Rocephin. Also is been placed on IV steroids for COPD exacerbation. Pulmonary service is consulted. Chest ultrasound ordered for evaluation of pleural effusion and that patient may require Thoracentesis. patient denies any fever, nausea or vomiting, bowel movement changes or any burning with urination. She does have some lower extremity edema and edema in the labial area with some difficulty with avoiding. Post void residuals have been ordered. Patient is admitted to medical floor she was seen by pulmonary she underwent thoracentesis, she did well she was discharged home on 06/07/2016 She will follow with Bibi within one week She will also follow with Dr Ozuna within one week Patient Condition at Discharge: Stable Plan - Discharge Summary Discharge Medication List Citalopram Hydrobromide [CeleXA] 20 mg PO HS 03/02/14 [History] EPINEPHrine [Epipen 2-Mike] 0.3 mg IM ONCE PRN 03/19/15 [History] Ondansetron [Zofran ODT] 8 mg PO Q8HR PRN 03/19/15 [History] Sennosides [Senokot] 8.6 mg PO DAILY PRN 03/19/15 [History] Albuterol Inhaler [Ventolin Hfa Inhaler] 2 puff INHALATION RT-Q6H PRN 10/02/15 [ History] Albuterol Nebulized [Ventolin Nebulized] 2.5 mg INHALATION RT-Q6H PRN 10/02/15 [ History] LORazepam [Lorazepam] 0.5 mg PO Q6H PRN 11/19/15 [History] Bisacodyl [Dulcolax] 5 mg PO DAILY #30 tablet.dr 11/20/15 [Rx] Polyethylene Glycol 3350 [Miralax] 17 gm PO DAILY #255 gm 11/20/15 [Rx] Gabapentin [Neurontin] 300 mg PO BID 03/01/16 [History] HYDROcodone/APAP 10-325MG [[place] 10-325] 2 tab PO BID 03/09/16 [History] Morphine Sulfate [Ms Contin] 30 mg PO Q12HR 03/12/16 [History] Magnesium Hydroxide [Milk of Magnesia] 2,400 mg PO DAILY PRN 05/05/16 [History] Tamoxifen Citrate 20 mg PO DAILY 06/06/16 [History] Tamoxifen [Nolvadex] 20 mg PO DAILY tab 06/07/16 [Rx] Follow up Appointment(s)/Referral(s): Adia Ozuna MD [Primary Care Provider] - 1-2 days Activity/Diet/Wound Care/Special Instructions: resume [facility] [employer]
== END 2016-06-07 13:01 | disposition home health service (06) | DRG 754 ==
LOC: EC 01:03 → SUPCPDRO 01:03 → 5MS5E 03:50
PROVIDERS: ADMIT Internal Medicine; ATTEND Internal Medicine
PROC: 0W993ZZ Drainage of Right Pleural Cavity, Percutaneous Approach (ICD-10-PCS; principal; 2016-06-06)
DX: C56.9 Malignant neoplasm of unspecified ovary (principal); E43 Unspecified severe protein-calorie malnutrition; R18.0 Malignant ascites; J91.0 Malignant pleural effusion; E87.1 Hypo-osmolality and hyponatremia; J44.1 Chronic obstructive pulmonary disease with (acute) exacerbation; G62.9 Polyneuropathy, unspecified; M50.20 Other cervical disc displacement, unspecified cervical region; E78.5 Hyperlipidemia, unspecified; F17.200 Nicotine dependence, unspecified, uncomplicated; F32.9 Major depressive disorder, single episode, unspecified; F41.9 Anxiety disorder, unspecified; I10 Essential (primary) hypertension; K59.09 Other constipation; M50.30 Other cervical disc degeneration, unspecified cervical region; G89.29 Other chronic pain; F12.90 Cannabis use, unspecified, uncomplicated; Z79.810 Long term (current) use of selective estrogen receptor modulators (SERMs); Z79.899 Other long term (current) drug therapy; Z88.8 Allergy status to other drugs, medicaments and biological substances; Z68.25 Body mass index [BMI] 25.0-25.9, adult
CPT/HCPCS: 32555; 36415; 71010; 71020; 80053; 82550; 82553; 83735; 83880; 84484; 85025; 85610; 85730; 87040; 93005; 94640; 96361; 96365; 96375; 99291

== ENCOUNTER 2016-06-11 08:14 | Day surgery (SDC) | payer OTHER ==
[~2016-06-11 08:14] MED LIST: fentaNYL (PF) 50 MCG/ML 2 ML AMP ONE
[2016-06-11] MEDS ORDERED: HYDROmorphone 1 MG/ML 1 ML SYRINGE IVP PRN (08:38)
[2016-06-11 08:47] LABS: Mean Platelet Volume 6.6
[2016-06-11 09:18] VITALS: TEMP 98.1
[2016-06-11 10:59] VITALS: RESP 16
[2016-06-11 11:08] VITALS: BP 118/77; PULSE 84
--- NOTE | 2016-06-11 12:42 | US ---
Therapeutic paracentesis. CLINICAL HISTORY: Ascites The procedure was discussed with the patient. The risks, complications, benefits, and alternatives we re discussed and any questions were answered. Informed consent was obtained. The patient was placed s upine on the ultrasound table and prepped and draped in the usual sterile fashion. All elements of maximal barrier technique were utilized. Under ultrasound guidance, access into the right lower quadrant was obtained, via the paracentesis catheter system and direct ultrasound guidanc e. Approximately 6.6 liters of serous fluid was removed. The patient was stable throughout the procedure and remained stable upon discharge from Department of Radiology. IMPRESSION: Successful therapeutic paracentesis under ultrasound guidance.
== END 2016-06-11 11:20 | disposition home or self-care (01) ==
LOC: RADPROMAIN 08:14
PROVIDERS: ATTEND Internal Medicine Hematology & Oncology
DX: R18.8 Other ascites (principal)
CPT/HCPCS: 85049; 85610; 36415; 49083; J1170

== ENCOUNTER 2016-06-16 12:39 | Day surgery (SDC) | payer OTHER ==
[2016-06-16 13:27] LABS: Mean Platelet Volume 6.7
[2016-06-16 13:30] VITALS: TEMP 98
[2016-06-16] MEDS ORDERED: HYDROmorphone 1 MG/ML 1 ML SYRINGE IVP STA (13:30)
[2016-06-16 13:31] LABS: INR 1.1 (<1.1); Prothrombin Time 10.8 sec (9.0-12.0)
[2016-06-16 16:13] VITALS: RESP 16
[2016-06-16 16:15] VITALS: BP 119/73; PULSE 103
--- NOTE | 2016-06-16 16:25 | US ---
EXAMINATION TYPE: US thoracentesis DATE OF EXAM: 06/16/2016 2:41 PM COMPARISON: NONE HISTORY: Pleural effusion. FINDINGS: Maximal barrier technique was utilized. The skin overlying a suitable pocket of fluid was localized and the overlying skin prepped and draped. Lidocaine was used for local anesthesia. Ultras ound was used with sterile technique. A 5 [place] catheter over guide needle was advanced into the pl eural fluid collection using ultrasound guidance and the catheter advanced, needle removed. Approxim ately 0.65 liter(s) of serous sanguinous fluid was removed. Catheter was withdrawn and hemostasis ac hieved. There is no immediate complication. The patient discharged in stable condition without comp lication. IMPRESSION: STATUS POST ULTRASOUND GUIDED THORACENTESIS, POST PROCEDURE CHEST X-RAY PENDING. THIS GA OCEDURE WAS PERFORMED BY THE UNDERSIGNED.
--- NOTE | 2016-06-16 16:26 | XR ---
EXAMINATION TYPE: XR chest 1V DATE OF EXAM: 06/16/2016 3:04 PM COMPARISON: Prior chest x-ray May HISTORY: Status post thoracentesis TECHNIQUE: Single frontal view of the chest is obtained. FINDINGS: There is no significant interval change. IMPRESSION: No evident complication status post thoracentesis.
--- NOTE | 2016-06-16 16:31 | US ---
Discontinued paracentesis HISTORY: Ascites Ultrasound of the abdomen shows small pockets of fluid. Exam is aborted at this time, reconsult as necessary, no paracentesis at this time
== END 2016-06-16 16:15 | disposition home or self-care (01) ==
LOC: RADPROMAIN 12:39
PROVIDERS: ATTEND Internal Medicine Hematology & Oncology
DX: R18.8 Other ascites (principal); C56.9 Malignant neoplasm of unspecified ovary; Z53.8 Procedure and treatment not carried out for other reasons
CPT/HCPCS: 85049; 85610; 71010; 32555; 76705; 49083; J1170

== ENCOUNTER 2016-06-18 10:23 | Inpatient (IN) | payer OTHER ==
[2016-06-18] MEDS ORDERED: SODIUM CHLORIDE 0.9% 500 ML IV STA (10:36)
[2016-06-18] MEDS ORDERED: ONDANSETRON 4 MG/2 ML VIAL IVP STA (10:36)
[2016-06-18] MEDS ORDERED: FAMOTIDINE 20 MG/2 ML VIAL IV STA (10:37)
--- NOTE | 2016-06-18 10:40 | ED ---
General Adult HPI - General Chief complaint: Nausea/Vomiting/Diarrhea Stated complaint: Vomiting Time Seen by Provider: 06/18/16 10:30 Source: patient, family, RN notes reviewed Mode of arrival: wheelchair Limitations: physical limitation - History of Present Illness Initial comments: Patient is a pleasant 40-year-old female presenting to the emergency department complaining of nausea and vomiting. Onset was through the night. Patient did try some medicine at home without improvement. Symptoms started up again worse this morning. Patient does complain of chest discomfort which is fairly chronic for her. Patient also has some abdominal discomfort which is also fairly chronic for her. Patient did have thoracentesis done yesterday. Patient is scheduled for thoracentesis on the other side tomorrow as well as paracentesis. Patient does have stage IV ovarian cancer. Patient is not currently on any treatment for this. Patient has had leg swelling for the past several weeks. - Related Data Home Medications Medication Instructions Recorded Confirmed Citalopram Hydrobromide [CeleXA] 20 mg PO HS 03/02/14 06/18/16 EPINEPHrine [Epipen 2-Mike] 0.3 mg IM ONCE PRN 03/19/15 06/18/16 Ondansetron [Zofran ODT] 8 mg PO Q8HR PRN 03/19/15 06/18/16 Sennosides [Senokot] 8.6 mg PO DAILY PRN 03/19/15 06/18/16 Albuterol Inhaler [Ventolin Hfa 2 puff INHALATION RT-Q6H PRN 10/02/15 06/18/16 Inhaler] Albuterol Nebulized [Ventolin 2.5 mg INHALATION RT-Q6H PRN 10/02/15 06/18/16 Nebulized] LORazepam [Lorazepam] 0.5 mg PO Q6H PRN 11/19/15 06/18/16 Gabapentin [Neurontin] 300 mg PO BID 03/01/16 06/18/16 HYDROcodone/APAP 10-325MG [[place] 1 tab PO Q6H PRN 03/09/16 06/18/16 10-325] Morphine Sulfate [Ms Contin] 30 mg PO Q12HR 03/12/16 06/18/16 Magnesium Hydroxide [Milk of 2,400 mg PO DAILY PRN 05/05/16 06/18/16 Magnesia] Tamoxifen Citrate 20 mg PO DAILY 06/06/16 06/18/16 Spironolactone [Aldactone] 50 mg PO BID 06/18/16 06/18/16 Previous Rx's Medication Instructions Recorded Bisacodyl [Dulcolax] 5 mg PO DAILY #30 tablet. 11/20/15 Polyethylene Glycol 3350 [Miralax] 17 gm PO DAILY #255 gm 11/20/15 Allergies Allergy/AdvReac Type Severity Reaction Status Date / Time dexamethasone [From Decadron] Allergy Unknown Verified 06/18/16 11:20 dexamethasone sod phosphate Allergy Unknown Verified 06/18/16 11:20 [From Decadron] venom-honey bee Allergy Anaphylaxis Verified 06/18/16 11:20 [bee venom (honey bee)] Review of Systems ROS Statement: Those systems with pertinent positive or pertinent negative responses have been documented in the HPI. ROS Other: All systems not noted in ROS Statement are negative. Constitutional: Denies: fever Eyes: Denies: eye pain ENT: Denies: ear pain Respiratory: Reports: dyspnea (Chronic and unchanged). Denies: cough Cardiovascular: Reports: chest pain (Chronic) Endocrine: Reports: fatigue Gastrointestinal: Reports: abdominal pain, nausea, vomiting Genitourinary: Denies: dysuria Musculoskeletal: Denies: back pain Skin: Denies: rash Neurological: Reports: weakness Past Medical History Past Medical History: Cancer, Deep Vein Thrombosis (DVT), Hyperlipidemia Additional Past Medical History / Comment(s): Stage 4 ovarian cancer with total hysterectomy and chemo (last chemo 03/04/15), right pleural effusions with thoracentesis, ascities with paracentesis, bilateral hands and feet neuropathy, chronic cervical pain-degnerative bone disease, buldging disk, blood clot to the rt wrist and rt neck, chronic constipation. History of Any Multi-Drug Resistant Organisms: None Reported Past Surgical History: Hysterectomy Additional Past Surgical History / Comment(s): powerport left chest, total hysterectomy, multiple paracentisis, multiple right thorocentesis Past Anesthesia/Blood Transfusion Reactions: No Reported Reaction Past Psychological History: Anxiety, Depression Additional Psychological History / Comment(s): Pt states medication for mental health help. Pt resides with significant other. She is independent. States she and significant other spoke with hospice recently and they did not care for it. Significant other assists pt when she needs it. Smoking Status: Former smoker Past Alcohol Use History: None Reported Additional Past Alcohol Use History / Comment(s): pt quit smoking 05/24/2016 Past Drug Use History: Marijuana Additional Drug Use History / Comment(s): Pt has medical marijuana that she uses for pain control on a nearly everyday basis. - Past Family History Mother Family Medical History: Diabetes Mellitus Additional Family Medical History / Comment(s): bilat knee replace Father Family Medical History: COPD General Exam Limitations: physical limitation General appearance: alert, cachectic Head exam: Present: normocephalic Eye exam: Present: normal appearance, PERRL ENT exam: Present: mucous membranes dry Neck exam: Present: normal inspection Respiratory exam: Present: rales Cardiovascular Exam: Present: tachycardia GI/Abdominal exam: Present: distended (Ascites), tenderness (Mild to moderate diffuse tenderness) Extremities exam: Present: pedal edema. Absent: calf tenderness Neurological exam: Present: alert. Absent: motor sensory deficit Psychiatric exam: Present: normal affect, normal mood Skin exam: Present: normal color Course Vital Signs 06/18/16 06/18/16 06/18/16 10:27 11:01 11:59 Temperature 97.8 F Pulse Rate 105 H 105 H 102 H Respiratory 16 16 16 Rate Blood Pressure 142/107 144/109 151/104 O2 Sat by Pulse 97 99 99 Oximetry 06/18/16 12:28 Temperature 97.1 F L Pulse Rate 108 H Respiratory 18 Rate Blood Pressure 152/111 O2 Sat by Pulse 99 Oximetry EKG Findings - EKG Comments: EKG Findings:: Sinus tachycardia 109. ND 152. QRS 78. QT 328. QTC 441. Normal axis. Normal QRS. No acute ST change. Medical Decision Making - Medical Decision Making Patient reevaluated and feels somewhat better. Patient is still drowsy. Patient is not comfortable with discharge home and does request admission. Case was discussed in detail with Dr. Oh, who recommends medical admission and will consult. Dr. London has been paged for admission for Dr. Juarez who Dr. Dorantes states his primary care physician. - Lab Data Result diagrams: 06/18/16 10:50 06/18/16 10:50 Lab Results 06/18/16 06/18/16 06/18/16 Range/Units 10:50 10:50 10:50 WBC 13.5 H (3.8-10.6) k/uL RBC 4.90 (3.80-5.40) m/uL Hgb 13.1 (11.4-16.0) gm/dL Hct 39.6 (34.0-46.0) % MCV 80.9 (80.0-100.0) fL MCH 26.7 (25.0-35.0) pg MCHC 33.0 (31.0-37.0) g/dL RDW 17.8 H (11.5-15.5) % Plt Count 535 H (150-450) k/uL Neutrophils % 90 % Lymphocytes % 4 % Monocytes % 5 % Eosinophils % 0 % Basophils % 0 % Neutrophils # 12.2 H (1.3-7.7) k/uL Lymphocytes # 0.6 L (1.0-4.8) k/uL Monocytes # 0.6 (0-1.0) k/uL Eosinophils # 0.0 (0-0.7) k/uL Basophils # 0.0 (0-0.2) k/uL Anisocytosis Slight Microcytosis Slight PT (9.0-12.0) sec INR (<1.1) APTT (22.0-30.0) sec Sodium 124 L (137-145) mmol/L Potassium 4.9 (3.5-5.1) mmol/L Chloride 90 L (98-107) mmol/L Carbon Dioxide 27 (22-30) mmol/L Anion Gap 7 mmol/L BUN 11 (7-17) mg/dL Creatinine 0.63 (0.52-1.04) mg/dL Est GFR (MDRD) Af Amer >60 (>60 ml/min/1.73 sqM) Est GFR (MDRD) Non-Af >60 (>60 ml/min/1.73 sqM) Glucose 92 (74-99) mg/dL Calcium 8.6 (8.4-10.2) mg/dL Total Bilirubin 0.4 (0.2-1.3) mg/dL AST 25 (14-36) U/L ALT 29 (9-52) U/L Alkaline Phosphatase 121 (38-126) U/L Total Creatine Kinase 26 L (30-135) U/L CK-MB (CK-2) 1.6 (0.0-2.4) ng/mL CK-MB (CK-2) Rel Index 6.2 Troponin I <0.012 (0.000-0.034) ng/mL Total Protein 5.1 L (6.3-8.2) g/dL Albumin 2.4 L (3.5-5.0) g/dL Amylase <30 L (30-110) U/L Lipase 22 L (23-300) U/L Urine Color Urine Appearance (Clear) Urine pH (5.0-8.0) Ur Specific [place] (1.001-1.035) Urine Protein (Negative) Urine Glucose (UA) (Negative) Urine Ketones (Negative) Urine Blood (Negative) Urine Nitrite (Negative) Urine Bilirubin (Negative) Urine Urobilinogen (<2.0) mg/dL Ur Leukocyte Esterase (Negative) Urine RBC (0-5) /hpf Urine WBC (0-5) /hpf Ur Squamous Epith Cells (0-4) /hpf Urine Mucus (None) /hpf 06/18/16 06/18/16 Range/Units 10:50 12:52 WBC (3.8-10.6) k/uL RBC (3.80-5.40) m/uL Hgb (11.4-16.0) gm/dL Hct (34.0-46.0) % MCV (80.0-100.0) fL MCH (25.0-35.0) pg MCHC (31.0-37.0) g/dL RDW (11.5-15.5) % Plt Count (150-450) k/uL Neutrophils % % Lymphocytes % % Monocytes % % Eosinophils % % Basophils % % Neutrophils # (1.3-7.7) k/uL Lymphocytes # (1.0-4.8) k/uL Monocytes # (0-1.0) k/uL Eosinophils # (0-0.7) k/uL Basophils # (0-0.2) k/uL Anisocytosis Microcytosis PT 10.6 (9.0-12.0) sec INR 1.1 (<1.1) APTT 124.0 H* (22.0-30.0) sec Sodium (137-145) mmol/L Potassium (3.5-5.1) mmol/L Chloride (98-107) mmol/L Carbon Dioxide (22-30) mmol/L Anion Gap mmol/L BUN (7-17) mg/dL Creatinine (0.52-1.04) mg/dL Est GFR (MDRD) Af Amer (>60 ml/min/1.73 sqM) Est GFR (MDRD) Non-Af (>60 ml/min/1.73 sqM) Glucose (74-99) mg/dL Calcium (8.4-10.2) mg/dL Total Bilirubin (0.2-1.3) mg/dL AST (14-36) U/L ALT (9-52) U/L Alkaline Phosphatase (38-126) U/L Total Creatine Kinase (30-135) U/L CK-MB (CK-2) (0.0-2.4) ng/mL CK-MB (CK-2) Rel Index Troponin I (0.000-0.034) ng/mL Total Protein (6.3-8.2) g/dL Albumin (3.5-5.0) g/dL Amylase (30-110) U/L Lipase (23-300) U/L Urine Color Yellow Urine Appearance Cloudy H (Clear) Urine pH 7.0 (5.0-8.0) Ur Specific [place] 1.012 (1.001-1.035) Urine Protein 1+ H (Negative) Urine Glucose (UA) Negative (Negative) Urine Ketones Trace H (Negative) Urine Blood Negative (Negative) Urine Nitrite Negative (Negative) Urine Bilirubin Negative (Negative) Urine Urobilinogen <2.0 (<2.0) mg/dL Ur Leukocyte Esterase Negative (Negative) Urine RBC 1 (0-5) /hpf Urine WBC 4 (0-5) /hpf Ur Squamous Epith Cells 1 (0-4) /hpf Urine Mucus Many H (None) /hpf - Radiology Data Radiology results: image reviewed (Chest x-ray shows basilar effusions. KUB shows nonobstructive pattern. Concern for ascites.) Disposition Clinical Impression: Intractable vomiting, Hyponatremia, Ovarian cancer Disposition: ADMITTED IP TO THIS HOSP
[2016-06-18] MEDS: HYDROmorphone 1 MG/ML 1 ML SYRINGE IVP STA ×2 (11:07→13:00)
[2016-06-18 11:26] LABS: ALT 29 U/L (9-52); AST 25 U/L (14-36); Alkaline Phosphatase 121 U/L (38-126); Amylase <30 U/L (30-110); Anion Gap 7 mmol/L; Blood Urea Nitrogen 11 mg/dL (7-17); Calcium 8.6 mg/dL (8.4-10.2); Carbon Dioxide 27 mmol/L (22-30); Chloride 90 mmol/L (98-107); Glucose 92 mg/dL (74-99); Non-African American GFR(MDRD) >60 (>60 ml/min/1.73 sqM); Potassium 4.9 mmol/L (3.5-5.1); Sodium 124 mmol/L (137-145); Total Bilirubin 0.4 mg/dL (0.2-1.3); Total Protein 5.1 g/dL (6.3-8.2)
--- NOTE | 2016-06-18 11:27 | XR ---
EXAMINATION TYPE: XR KUB DATE OF EXAM: 06/18/2016 11:21 AM COMPARISON: NONE HISTORY: Pain TECHNIQUE: Single supine KUB image of the abdomen is obtained FINDINGS: Small bowel demonstrates no evidence for dilatation or air fluid levels. Gas and fecal material is seen in non-distended colon. No convincing evidence for pneumoperitoneum. No unusual calcifications. The lung bases are clear. The osseous structures are intact. IMPRESSION: 1. Overall nonobstructive bowel gas pattern.
--- NOTE | 2016-06-18 11:30 | XR ---
EXAMINATION TYPE: XR chest 1V portable DATE OF EXAM: 06/18/2016 11:21 AM COMPARISON: June 16, 2016 HISTORY: Chest pain TECHNIQUE: Single frontal view of the chest is obtained. FINDINGS: Basilar pleural effusions are again noted. There may be mild right basilar atelectasis or infiltrate. Mediastinum is unremarkable. MediPort catheter is in place. The cardiac silhouette size is within normal limits. The osseous structures are intact. IMPRESSION: 1. Basilar pleural effusions are again noted. There may be mild right basilar atelectasis or infiltr ate.
[2016-06-18 11:39] LABS: INR 1.1 (<1.1); Prothrombin Time 10.6 sec (9.0-12.0)
[2016-06-18 11:42] LABS: Creatine Kinase 26 U/L (30-135)
[2016-06-18 11:54] LABS: Creatine Kinase MB 1.6 ng/mL (0.0-2.4); Troponin I <0.012 ng/mL (0.000-0.034)
[2016-06-18] MEDS: SODIUM CHLORIDE 0.9% 1,000 ML IV STA ×2 (11:56→15:01)
[2016-06-18 12:01] LABS: Anisocytosis Slight; Basophils % (A) 0 %; CH 26.4; CHCM 32.7; Eosinophils % (A) 0 %; HCT 39.6 % (34.0-46.0); HDW 2.98; HGB 13.1 gm/dL (11.4-16.0); Luc # (Auto) 0.13; Luc % (Auto) 1; Lymphocytes # (A) 0.6 k/uL (1.0-4.8); Lymphocytes % (A) 4 %; MCH 26.7 pg (25.0-35.0); MCV 80.9 fL (80.0-100.0); Microcytosis Slight; Monocytes # (A) 0.6 k/uL (0-1.0); Monocytes % (A) 5 %; Neutrophils # (A) 12.2 k/uL (1.3-7.7); Neutrophils % (A) 90 %; RDW 17.8 % (11.5-15.5); WBC 13.5 k/uL (3.8-10.6); WBC (Perox) 12.81
[2016-06-18 13:12] LABS: Appearance,Urine Cloudy (Clear); Bilirubin,Urine Negative (Negative); Glucose,Urine (UA) Negative (Negative); Ketones,Urine Trace (Negative); Leukocyte Esterase,Urine Negative (Negative); Mucus,Urine Many /hpf; Nitrite,Urine Negative (Negative); Particle Count 16432; Protein,Urine 1+ (Negative); RBC,Urine 1 /hpf (0-5); Specific Gravity,Urine 1.012 (1.001-1.035); Squamous Epithelial Cell,Urine 1 /hpf (0-4); UA Billing (MACRO vs. MICRO) MICRO; Urobilinogen,Urine <2.0 mg/dL (<2.0); WBC,Urine 4 /hpf (0-5)
[2016-06-18] MEDS ORDERED: ONDANSETRON 4 MG/2 ML VIAL IVP PRN (13:59)
[2016-06-18] MEDS ORDERED: NALOXONE 0.4 MG/ML 1 ML VIAL IV PRN (13:59)
[2016-06-18] MEDS ORDERED: METOCLOPRAMIDE 5 MG/ML 2 ML VIAL IVP STA (15:03)
[2016-06-18] MEDS ORDERED: HYDROmorphone 1 MG/ML 1 ML SYRINGE IVP STA (15:06)
[2016-06-18] MEDS: HYDROmorphone 1 MG/ML 1 ML SYRINGE IVP PRN ×2 (18:05→21:17)
[2016-06-18] MEDS: SODIUM CHLORIDE 0.9% 1,000 ML IV SCH (18:13)
[2016-06-18] MEDS ORDERED: MAGNESIUM HYDROXIDE 2,400 MG/10 ML CUP PO PRN (21:22)
[2016-06-18] MEDS ORDERED: ALBUTEROL INHALER 60 PUFF/8 GM INHALER INHALATION PRN (21:22)
[2016-06-18] MEDS ORDERED: ALBUTEROL NEBULIZED 2.5 MG/3 ML INHALATION PRN ×2 (21:22→22:49)
[2016-06-18] MEDS ORDERED: ONDANSETRON ODT 8 MG TAB.RAPDIS PO PRN (21:22)
[2016-06-18] MEDS: GABAPENTIN 300 MG CAP PO SCH (22:45)
[2016-06-18] MEDS: MORPHINE SULFATE ER 30 MG TABLET PO SCH (22:45)
[2016-06-18] MEDS: SPIRONOLACTONE 25 MG TAB PO SCH (22:45)
[2016-06-18] MEDS: CITALOPRAM HYDROBROMIDE 20 MG TAB PO SCH (22:45)
[2016-06-19] MEDS: HYDROmorphone 1 MG/ML 1 ML SYRINGE IVP PRN ×8 (00:44→23:09)
[2016-06-19 06:13] LABS: Anisocytosis Slight; Basophils % (A) 0 %; CH 26.4; CHCM 32.8; Eosinophils # (A) 0.1 k/uL (0-0.7); Eosinophils % (A) 1 %; HCT 37.4 % (34.0-46.0); HDW 3.09; HGB 12.3 gm/dL (11.4-16.0); Luc # (Auto) 0.17; Luc % (Auto) 1; Lymphocytes # (A) 0.7 k/uL (1.0-4.8); Lymphocytes % (A) 6 %; MCH 26.5 pg (25.0-35.0); MCHC 32.9 g/dL (31.0-37.0); MCV 80.7 fL (80.0-100.0); Mean Platelet Volume 6.4; Microcytosis Slight; Monocytes # (A) 0.7 k/uL (0-1.0); Monocytes % (A) 6 %; Neutrophils # (A) 10.4 k/uL (1.3-7.7); Neutrophils % (A) 86 %; RBC 4.63 m/uL (3.80-5.40); RDW 17.7 % (11.5-15.5); WBC 12.1 k/uL (3.8-10.6); WBC (Perox) 11.75
[2016-06-19 06:33] LABS: ALT 27 U/L (9-52); AST 25 U/L (14-36); Alkaline Phosphatase 108 U/L (38-126); Anion Gap 5 mmol/L; Blood Urea Nitrogen 10 mg/dL (7-17); Calcium 8.2 mg/dL (8.4-10.2); Carbon Dioxide 26 mmol/L (22-30); Chloride 94 mmol/L (98-107); Glucose 83 mg/dL (74-99); Non-African American GFR(MDRD) >60 (>60 ml/min/1.73 sqM); Potassium 4.8 mmol/L (3.5-5.1); Sodium 125 mmol/L (137-145); Total Bilirubin 0.3 mg/dL (0.2-1.3); Total Protein 4.6 g/dL (6.3-8.2)
[2016-06-19] MEDS: ALBUTEROL NEBULIZED 2.5 MG/3 ML INHALATION SCH ×4 (07:27→19:45)
[2016-06-19] MEDS: MORPHINE SULFATE ER 30 MG TABLET PO SCH ×2 (07:50→20:48)
[2016-06-19] MEDS: SODIUM CHLORIDE 0.9% 1,000 ML IV SCH ×2 (08:58→10:45)
[2016-06-19] MEDS: BISACODYL 5 MG TABLET.DR PO SCH (09:12)
[2016-06-19] MEDS: POLYETHYLENE GLYCOL 3350 17 GM POWD.PACK PO SCH (09:12)
[2016-06-19] MEDS: PANTOPRAZOLE 40 MG/10 ML VIAL IV SCH (09:12)
[2016-06-19] MEDS: TAMOXIFEN 10 MG TAB PO SCH (09:13)
[2016-06-19] MEDS: SPIRONOLACTONE 25 MG TAB PO SCH (09:15)
[2016-06-19] MEDS: GABAPENTIN 300 MG CAP PO SCH ×2 (09:15→20:49)
[2016-06-19 10:58] VITALS: BMI 24.7
--- NOTE | 2016-06-19 11:48 | P.HPIM ---
History of Present Illness H&P Date: 06/19/16 Chief Complaint: Persistent nausea and vomiting This is a 40-year-old female with past medical history significant for metastatic ovarian cancer currently not on any active chemotherapy who presented to the hospital with acute nausea and vomiting. Patient is known to have recurrent right pleural effusion and recurrent ascites requiring frequent paracentesis. For the past few days her abdomen is being getting more distended. Yesterday, she was unable to keep any food down. She was significantly nauseated and was vomiting what she described as green bile. There was no blood in her vomitus. She presented to the emergency room for further evaluation. Abdominal x-ray showed nonobstructive pattern. Patient was treated with anti-emetics and pain medication with significant improvement in her symptoms. Patient had multiple discussions with Dr. Bowers about placement of a permanent pigtail catheter to help her drain her ascites. Review of Systems Review of system: 14 points review of systems were obtained and were negative except to what were mentioned in the HPI. Past Medical History Past Medical History: Cancer, Deep Vein Thrombosis (DVT), Hyperlipidemia Additional Past Medical History / Comment(s): Stage 4 ovarian cancer with total hysterectomy and chemo (last chemo 03/04/15), right pleural effusions with multiple thoracentesis, ascities with multiple paracentesis, pt had R thoracentesis yesterday and was to have L thoracentesis and paracentesis tomorrow, bilateral hands and feet neuropathy, chronic cervical pain- degnerative bone disease, buldging disk, blood clot to the rt wrist and rt neck , chronic constipation. History of Any Multi-Drug Resistant Organisms: None Reported Past Surgical History: Hysterectomy Additional Past Surgical History / Comment(s): powerport left chest, total hysterectomy, multiple paracentisis, multiple right thorocentesis Past Anesthesia/Blood Transfusion Reactions: No Reported Reaction Past Psychological History: Anxiety, Depression Additional Psychological History / Comment(s): Pt states medication for mental health help. Pt resides with significant other. Significant other assists pt when she needs it. Smoking Status: Former smoker Past Alcohol Use History: None Reported Additional Past Alcohol Use History / Comment(s): pt quit smoking 05/24/2016 Past Drug Use History: Marijuana Additional Drug Use History / Comment(s): Pt has medical marijuana that she uses for pain control on a nearly everyday basis. - Past Family History Mother Family Medical History: Diabetes Mellitus Additional Family Medical History / Comment(s): bilat knee replace Father Family Medical History: COPD Medications and Allergies Home Medications Medication Instructions Recorded Confirmed Type Citalopram Hydrobromide [CeleXA] 20 mg PO HS 03/02/14 06/18/16 History EPINEPHrine [Epipen 2-Mike] 0.3 mg IM ONCE PRN 03/19/15 06/18/16 History Ondansetron [Zofran ODT] 8 mg PO Q8HR PRN 03/19/15 06/18/16 History Sennosides [Senokot] 8.6 mg PO DAILY PRN 03/19/15 06/18/16 History Albuterol Inhaler [Ventolin Hfa 2 puff INHALATION RT-Q6H PRN 10/02/15 06/18/16 History Inhaler] Albuterol Nebulized [Ventolin 2.5 mg INHALATION RT-Q6H PRN 10/02/15 06/18/16 History Nebulized] LORazepam [Lorazepam] 0.5 mg PO Q6H PRN 11/19/15 06/18/16 History Gabapentin [Neurontin] 300 mg PO BID 03/01/16 06/18/16 History HYDROcodone/APAP 10-325MG [[place] 1 tab PO Q6H PRN 03/09/16 06/18/16 History 10-325] Morphine Sulfate [Ms Contin] 30 mg PO Q12HR 03/12/16 06/18/16 History Magnesium Hydroxide [Milk of 2,400 mg PO DAILY PRN 05/05/16 06/18/16 History Magnesia] Tamoxifen Citrate 20 mg PO DAILY 06/06/16 06/18/16 History Spironolactone [Aldactone] 50 mg PO BID 06/18/16 06/18/16 History Allergies Allergy/AdvReac Type Severity Reaction Status Date / Time dexamethasone [From Decadron] Allergy Unknown Verified 06/18/16 11:20 dexamethasone sod phosphate Allergy Unknown Verified 06/18/16 11:20 [From Decadron] venom-honey bee Allergy Anaphylaxis Verified 06/18/16 11:20 [bee venom (honey bee)] Physical Exam Vitals: Vital Signs Temp Pulse Pulse Pulse Resp BP BP 06/19/16 11:21 80 06/19/16 08:00 84 84 16 06/19/16 07:38 84 06/19/16 07:28 84 06/19/16 07:00 97.8 F 94 16 121/77 06/19/16 02:47 101 H 18 06/18/16 22:54 84 06/18/16 22:48 84 06/18/16 22:34 97.8 F 101 H 18 122/86 06/18/16 17:10 96.3 F L 67 16 144/89 06/18/16 15:45 97.0 F L 104 H 16 135/96 06/18/16 15:15 97.0 F L 114 H 16 133/95 06/18/16 14:40 108 H 16 148/102 06/18/16 14:00 98.0 F 106 H 18 143/105 Pulse Ox 06/19/16 11:21 06/19/16 08:00 06/19/16 07:38 06/19/16 07:28 06/19/16 07:00 95 06/19/16 02:47 06/18/16 22:54 06/18/16 22:48 06/18/16 22:34 96 06/18/16 17:10 97 06/18/16 15:45 96 06/18/16 15:15 96 06/18/16 14:40 98 06/18/16 14:00 98 Intake and Output 06/18/16 06/19/16 06/19/16 22:59 06:59 14:59 Intake Total 240 Output Total 300 Balance -60 Intake: Oral 240 Output: Urine 300 Other: Voiding Method Toilet Toilet # Voids 3 Weight 61.235 kg 61.235 kg Patient Weight 06/20/16 06:59 Weight 61.235 kg General: The patient is awake and alert, she appears chronically ill Eye: extra-ocular movements are intact; there is normal conjunctiva bilaterally. . Neck: The neck is supple, there is no tenderness or JVD. Cardiovascular: Normal S1-S2, no S3-S4, no murmurs. Respiratory: Lungs clear to auscultation bilaterally with no wheezes rhonchi or rales. Gastrointestinal: Abdomen is significantly distended with evidence of large ascites Musculoskeletal: Normal ROM, no tenderness, There is +2 pedal edema. Neurological: There are no obvious motor or sensory deficits. Speech is normal. Skin: Skin is warm and dry Results CBC & Chem 7: 06/19/16 06:00 06/19/16 06:00 Labs: Abnormal Lab Results - Last 24 Hours (Table) 06/19/16 06/19/16 Range/Units 06:00 06:00 WBC 12.1 H (3.8-10.6) k/uL RDW 17.7 H (11.5-15.5) % Plt Count 463 H (150-450) k/uL Neutrophils # 10.4 H (1.3-7.7) k/uL Lymphocytes # 0.7 L (1.0-4.8) k/uL Sodium 125 L (137-145) mmol/L Chloride 94 L (98-107) mmol/L Calcium 8.2 L (8.4-10.2) mg/dL Total Protein 4.6 L (6.3-8.2) g/dL Albumin 2.2 L (3.5-5.0) g/dL Thrombosis Risk Factor Assmnt - Choose All That Apply Any of the Below Risk Factors Present?: Yes Each Factor Represents 1 point: Age 41-60 years Other Risk Factors: Yes Each Risk Factor Represents 2 Points: Malignancy Other congenital or acquired thrombophilia - If yes, enter type in comment: No Thrombosis Risk Factor Assessment Total Risk Factor Score: 3 Thrombosis Risk Factor Assessment Level: Moderate Risk Assessment and Plan Plan: 1. Recurrent metastatic pleural effusion and ascites 2. Stage IV metastatic ovarian cancer status post GHAZALA/SBO 3. Acute nausea and vomiting secondary to #1 and 2 4. Chronic opiate-induced constipation 5. Mixed hyperlipidemia 6. Major depressive disorder 7. Generalized anxiety disorder 8. Hypovolemic hyponatremia 40-year-old female with complex past medical history noted above who presented with worsening nausea and vomiting and abdominal distention. Patient was noted to be dehydrated with evidence of hypovolemic hyponatremia. I would continue IV fluid hydration. I will consult general surgery for the possibility of inserting a permanent pigtail catheter for the patient to drain her ascites on her own given recurrent effusion. If not patient would undergo paracentesis with interventional radiology. I discussed today with the patient and her mother her current clinical condition. She is off any chemotherapy at this time. Oncology consulted. I answered all their questions to their satisfaction.
--- NOTE | 2016-06-19 15:53 | P.GSCN ---
History of Present Illness Consult date: 06/19/16 Reason for Consult: Recurrent ascites History of present illness: Patient has history of metastatic ovarian cancer. She has recurrent ascites as a result of this. He has required innumerable peritoneal taps and has had up to 12 L aspirated at one time. Patient is interested in peritoneal catheter placement so that she can have the fluid drained at home. This decision is supported by her oncologist. Currently she is having some issues with nausea and vomiting although better today. Review of Systems The patient denies any acute changes in his vision or hearing, no dysphagia or odynophagia, no chest pain or shortness of breath, no dysuria or hematuria, no headache, no runny nose, no rectal bleeding or melena Past Medical History Past Medical History: Cancer, Deep Vein Thrombosis (DVT), Hyperlipidemia Additional Past Medical History / Comment(s): Stage 4 ovarian cancer with total hysterectomy and chemo (last chemo 03/04/15), right pleural effusions with multiple thoracentesis, ascities with multiple paracentesis, pt had R thoracentesis yesterday and was to have L thoracentesis and paracentesis tomorrow, bilateral hands and feet neuropathy, chronic cervical pain- degnerative bone disease, buldging disk, blood clot to the rt wrist and rt neck , chronic constipation. History of Any Multi-Drug Resistant Organisms: None Reported Past Surgical History: Hysterectomy Additional Past Surgical History / Comment(s): powerport left chest, total hysterectomy, multiple paracentisis, multiple right thorocentesis Past Anesthesia/Blood Transfusion Reactions: No Reported Reaction Past Psychological History: Anxiety, Depression Additional Psychological History / Comment(s): Pt states medication for mental health help. Pt resides with significant other. Significant other assists pt when she needs it. Smoking Status: Former smoker Past Alcohol Use History: None Reported Additional Past Alcohol Use History / Comment(s): pt quit smoking 05/24/2016 Past Drug Use History: Marijuana Additional Drug Use History / Comment(s): Pt has medical marijuana that she uses for pain control on a nearly everyday basis. - Past Family History Mother Family Medical History: Diabetes Mellitus Additional Family Medical History / Comment(s): bilat knee replace Father Family Medical History: COPD Medications and Allergies Home Medications Medication Instructions Recorded Confirmed Type Citalopram Hydrobromide [CeleXA] 20 mg PO HS 03/02/14 06/18/16 History EPINEPHrine [Epipen 2-Mike] 0.3 mg IM ONCE PRN 03/19/15 06/18/16 History Ondansetron [Zofran ODT] 8 mg PO Q8HR PRN 03/19/15 06/18/16 History Sennosides [Senokot] 8.6 mg PO DAILY PRN 03/19/15 06/18/16 History Albuterol Inhaler [Ventolin Hfa 2 puff INHALATION RT-Q6H PRN 10/02/15 06/18/16 History Inhaler] Albuterol Nebulized [Ventolin 2.5 mg INHALATION RT-Q6H PRN 10/02/15 06/18/16 History Nebulized] LORazepam [Lorazepam] 0.5 mg PO Q6H PRN 11/19/15 06/18/16 History Gabapentin [Neurontin] 300 mg PO BID 03/01/16 06/18/16 History HYDROcodone/APAP 10-325MG [[place] 1 tab PO Q6H PRN 03/09/16 06/18/16 History 10-325] Morphine Sulfate [Ms Contin] 30 mg PO Q12HR 03/12/16 06/18/16 History Magnesium Hydroxide [Milk of 2,400 mg PO DAILY PRN 05/05/16 06/18/16 History Magnesia] Tamoxifen Citrate 20 mg PO DAILY 06/06/16 06/18/16 History Spironolactone [Aldactone] 50 mg PO BID 06/18/16 06/18/16 History Allergies Allergy/AdvReac Type Severity Reaction Status Date / Time dexamethasone [From Decadron] Allergy Unknown Verified 06/18/16 11:20 dexamethasone sod phosphate Allergy Unknown Verified 06/18/16 11:20 [From Decadron] venom-honey bee Allergy Anaphylaxis Verified 06/18/16 11:20 [bee venom (honey bee)] Surgical - Exam Vital Signs Temp Pulse Resp BP Pulse Ox 97.8 F 105 H 16 142/107 97 06/18/16 10:27 06/18/16 10:27 06/18/16 10:27 06/18/16 10:27 06/18/16 10:27 Physical exam: General: Well-developed, malnourished appearing HEENT: Normocephalic, sclerae nonicteric Abdomen: Nontender, distended, fluid-filled Extremities: Bilateral lower extremity edema Neuro: Alert and oriented Results - Labs 06/19/16 06:00 06/19/16 06:00 Abnormal Lab Results - Last 24 Hours (Table) 06/19/16 06/19/16 Range/Units 06:00 06:00 WBC 12.1 H (3.8-10.6) k/uL RDW 17.7 H (11.5-15.5) % Plt Count 463 H (150-450) k/uL Neutrophils # 10.4 H (1.3-7.7) k/uL Lymphocytes # 0.7 L (1.0-4.8) k/uL Sodium 125 L (137-145) mmol/L Chloride 94 L (98-107) mmol/L Calcium 8.2 L (8.4-10.2) mg/dL Total Protein 4.6 L (6.3-8.2) g/dL Albumin 2.2 L (3.5-5.0) g/dL Diabetes panel 06/19/16 Range/Units 06:00 Sodium 125 L (137-145) mmol/L Potassium 4.8 (3.5-5.1) mmol/L Chloride 94 L (98-107) mmol/L Carbon Dioxide 26 (22-30) mmol/L BUN 10 (7-17) mg/dL Creatinine 0.60 (0.52-1.04) mg/dL Glucose 83 (74-99) mg/dL Calcium 8.2 L (8.4-10.2) mg/dL AST 25 (14-36) U/L ALT 27 (9-52) U/L Alkaline Phosphatase 108 (38-126) U/L Total Protein 4.6 L (6.3-8.2) g/dL Albumin 2.2 L (3.5-5.0) g/dL Calcium panel 06/19/16 Range/Units 06:00 Calcium 8.2 L (8.4-10.2) mg/dL Albumin 2.2 L (3.5-5.0) g/dL Pituitary panel 06/19/16 Range/Units 06:00 Sodium 125 L (137-145) mmol/L Potassium 4.8 (3.5-5.1) mmol/L Chloride 94 L (98-107) mmol/L Carbon Dioxide 26 (22-30) mmol/L BUN 10 (7-17) mg/dL Creatinine 0.60 (0.52-1.04) mg/dL Glucose 83 (74-99) mg/dL Calcium 8.2 L (8.4-10.2) mg/dL Adrenal panel 06/19/16 Range/Units 06:00 Sodium 125 L (137-145) mmol/L Potassium 4.8 (3.5-5.1) mmol/L Chloride 94 L (98-107) mmol/L Carbon Dioxide 26 (22-30) mmol/L BUN 10 (7-17) mg/dL Creatinine 0.60 (0.52-1.04) mg/dL Glucose 83 (74-99) mg/dL Calcium 8.2 L (8.4-10.2) mg/dL Total Bilirubin 0.3 (0.2-1.3) mg/dL AST 25 (14-36) U/L ALT 27 (9-52) U/L Alkaline Phosphatase 108 (38-126) U/L Total Protein 4.6 L (6.3-8.2) g/dL Albumin 2.2 L (3.5-5.0) g/dL Assessment and Plan (1) Ovarian cancer Narrative/Plan: Options discussed in detail with the patient. We'll proceed with peritoneal catheter insertion tomorrow. Risks of bleeding, bowel injury, insufficient drainage, catheter malfunction, and infection were discussed. She understands and wishes to proceed. Status: Acute
--- NOTE | 2016-06-19 19:07 | P.CONS ---
History of Present Illness - Reason for Consult Consult date: 06/19/16 Oncology care, metastatic ovarian Requesting physician: Cecil Joaquin - Chief Complaint SOB - History of Present Illness Please see Consult from 06/06/16 for full malignancy details as there are no changes or updates based on her malignancy, pt is currently taking tamoxifen. Pt admitted for progressive SOB and JASMINE, she is feeling much better when seen, awaiting placement of a percutaneous drain for management of recurrent malignant ascites. Pt denies fever, nausea, appetite is fair, she is having fairly regular BMs, she is still ambulatory, would like her pain meds adjusted for abd and lower extremity pain. Review of Systems All systems: negative Constitutional: Reports as per HPI Past Medical History Past Medical History: Cancer, Deep Vein Thrombosis (DVT), Hyperlipidemia Additional Past Medical History / Comment(s): Stage 4 ovarian cancer with total hysterectomy and chemo (last chemo 03/04/15), right pleural effusions with multiple thoracentesis, ascities with multiple paracentesis, pt had R thoracentesis yesterday and was to have L thoracentesis and paracentesis tomorrow, bilateral hands and feet neuropathy, chronic cervical pain- degnerative bone disease, buldging disk, blood clot to the rt wrist and rt neck , chronic constipation. History of Any Multi-Drug Resistant Organisms: None Reported Past Surgical History: Hysterectomy Additional Past Surgical History / Comment(s): powerport left chest, total hysterectomy, multiple paracentisis, multiple right thorocentesis Past Anesthesia/Blood Transfusion Reactions: No Reported Reaction Past Psychological History: Anxiety, Depression Additional Psychological History / Comment(s): Pt states medication for mental health help. Pt resides with significant other. Significant other assists pt when she needs it. Smoking Status: Former smoker Past Alcohol Use History: None Reported Additional Past Alcohol Use History / Comment(s): pt quit smoking 05/24/2016 Past Drug Use History: Marijuana Additional Drug Use History / Comment(s): Pt has medical marijuana that she uses for pain control on a nearly everyday basis. - Past Family History Mother Family Medical History: Diabetes Mellitus Additional Family Medical History / Comment(s): bilat knee replace Father Family Medical History: COPD Medications and Allergies Home Medications Medication Instructions Recorded Confirmed Type Citalopram Hydrobromide [CeleXA] 20 mg PO HS 03/02/14 06/18/16 History EPINEPHrine [Epipen 2-Imke] 0.3 mg IM ONCE PRN 03/19/15 06/18/16 History Ondansetron [Zofran ODT] 8 mg PO Q8HR PRN 03/19/15 06/18/16 History Sennosides [Senokot] 8.6 mg PO DAILY PRN 03/19/15 06/18/16 History Albuterol Inhaler [Ventolin Hfa 2 puff INHALATION RT-Q6H PRN 10/02/15 06/18/16 History Inhaler] Albuterol Nebulized [Ventolin 2.5 mg INHALATION RT-Q6H PRN 10/02/15 06/18/16 History Nebulized] LORazepam [Lorazepam] 0.5 mg PO Q6H PRN 11/19/15 06/18/16 History Gabapentin [Neurontin] 300 mg PO BID 03/01/16 06/18/16 History HYDROcodone/APAP 10-325MG [[place] 1 tab PO Q6H PRN 03/09/16 06/18/16 History 10-325] Morphine Sulfate [Ms Contin] 30 mg PO Q12HR 03/12/16 06/18/16 History Magnesium Hydroxide [Milk of 2,400 mg PO DAILY PRN 05/05/16 06/18/16 History Magnesia] Tamoxifen Citrate 20 mg PO DAILY 06/06/16 06/18/16 History Spironolactone [Aldactone] 50 mg PO BID 06/18/16 06/18/16 History Allergies Allergy/AdvReac Type Severity Reaction Status Date / Time dexamethasone [From Decadron] Allergy Unknown Verified 06/18/16 11:20 dexamethasone sod phosphate Allergy Unknown Verified 06/18/16 11:20 [From Decadron] venom-honey bee Allergy Anaphylaxis Verified 06/18/16 11:20 [bee venom (honey bee)] Physical Exam Vitals: Vital Signs Temp Pulse Pulse Pulse Resp BP Pulse Ox 06/19/16 16:19 88 06/19/16 16:08 92 06/19/16 16:00 84 113 H 16 06/19/16 15:00 97.7 F 113 H 16 126/90 95 06/19/16 11:57 16 06/19/16 11:48 82 06/19/16 11:38 80 06/19/16 08:00 84 84 16 06/19/16 07:38 84 06/19/16 07:28 84 06/19/16 07:00 97.8 F 94 16 121/77 95 06/19/16 02:47 101 H 18 06/18/16 22:54 84 06/18/16 22:48 84 06/18/16 22:34 97.8 F 101 H 18 122/86 96 Intake and Output 06/19/16 06/19/16 06/19/16 06:59 14:59 22:59 Intake Total 240 480 Output Total 300 Balance -60 480 Intake: Oral 240 480 Output: Urine 300 Other: Voiding Method Toilet Toilet Toilet # Voids 3 Weight 61.235 kg 61.235 kg Patient Weight 06/20/16 06:59 Weight 61.235 kg - Constitutional General appearance: average body habitus, cooperative, no acute distress - EENT Eyes: anicteric sclerae, PERRLA, normal appearance ENT: normal oropharynx - Neck Neck: no lymphadenopathy - Respiratory Respiratory: bilateral: CTA, diminished (L>R) - Cardiovascular Rhythm: regular Heart sounds: normal: S1, S2 leg Peripheral Edema: bilateral: 3+ - Gastrointestinal General gastrointestinal: no absent bowel sounds, no decreased bowel sounds, distended, no hepatomegaly, no hyperactive bowel sounds, normal bowel sounds, no organomegaly, no rigid, no scaphoid, soft, no splenomegaly, tenderness, no umbilical hernia, no ventral hernia - Integumentary Integumentary: pale - Neurologic Neurologic: CNII-XII intact - Musculoskeletal Musculoskeletal: strength equal bilaterally - Psychiatric Psychiatric: A&O x's 3, appropriate affect, intact judgment & insight Results CBC & Chem 7: 06/19/16 06:00 06/19/16 06:00 Labs: Abnormal Lab Results - Last 24 Hours (Table) 06/19/16 06/19/16 Range/Units 06:00 06:00 WBC 12.1 H (3.8-10.6) k/uL RDW 17.7 H (11.5-15.5) % Plt Count 463 H (150-450) k/uL Neutrophils # 10.4 H (1.3-7.7) k/uL Lymphocytes # 0.7 L (1.0-4.8) k/uL Sodium 125 L (137-145) mmol/L Chloride 94 L (98-107) mmol/L Calcium 8.2 L (8.4-10.2) mg/dL Total Protein 4.6 L (6.3-8.2) g/dL Albumin 2.2 L (3.5-5.0) g/dL Chest x-ray: report reviewed Abdominal x-ray: report reviewed Assessment and Plan (1) Ovarian carcinoma Narrative/Plan: Metastatic. Unfortunately there are no treatment options available. Palliative care and hospice have been recommended but pt is not currently interested. Pt will continue to have symptoms managed and follow up with Dr. Tipton. Status: Chronic Plan: Agree with plan for percutaneous drain insertion, it may help palliate pt symptoms, will await eval and recommendations of Surgeon. Pt is ok from an Onc standpoint to be discharged once her symptoms are managed.
[2016-06-19] MEDS: CITALOPRAM HYDROBROMIDE 20 MG TAB PO SCH (20:49)
[2016-06-19] MEDS: SENNOSIDES 8.6 MG TAB PO PRN (22:01)
[2016-06-19] MEDS: HYDROcodone/APAP 10-325MG 1 EACH TAB PO PRN (22:01)
[2016-06-20] MEDS: HYDROmorphone 1 MG/ML 1 ML SYRINGE IVP PRN ×6 (02:20→21:29)
[2016-06-20] MEDS: SODIUM CHLORIDE 0.9% 1,000 ML IV SCH ×3 (02:24→16:42)
[2016-06-20] MEDS: HYDROcodone/APAP 10-325MG 1 EACH TAB PO PRN ×4 (04:04→22:24)
[2016-06-20] MEDS: LORazepam 0.5 MG TAB PO PRN ×2 (04:14→09:50)
[2016-06-20] MEDS: ALBUTEROL NEBULIZED 2.5 MG/3 ML INHALATION SCH ×4 (07:10→20:45)
[2016-06-20] MEDS: TAMOXIFEN 10 MG TAB PO SCH (09:00)
[2016-06-20] MEDS: PANTOPRAZOLE 40 MG/10 ML VIAL IV SCH (09:00)
[2016-06-20] MEDS: GABAPENTIN 300 MG CAP PO SCH ×2 (09:00→20:17)
[2016-06-20] MEDS: POLYETHYLENE GLYCOL 3350 17 GM POWD.PACK PO SCH (09:00)
[2016-06-20] MEDS: BISACODYL 5 MG TABLET.DR PO SCH (09:00)
[2016-06-20] MEDS: MORPHINE SULFATE ER 30 MG TABLET PO SCH ×2 (09:50→20:16)
[2016-06-20] MEDS: CITALOPRAM HYDROBROMIDE 20 MG TAB PO SCH (09:50)
[2016-06-20 10:55] LABS: Anisocytosis Slight; Basophils % (A) 0 %; CH 25.9; Eosinophils % (A) 0 %; HCT 42.1 % (34.0-46.0); HDW 2.97; HGB 12.9 gm/dL (11.4-16.0); Hypochromasia Moderate; Luc # (Auto) 0.13; Luc % (Auto) 1; Lymphocytes # (A) 0.6 k/uL (1.0-4.8); Lymphocytes % (A) 5 %; MCH 25.7 pg (25.0-35.0); MCHC 30.7 g/dL (31.0-37.0); Monocytes # (A) 0.6 k/uL (0-1.0); Monocytes % (A) 5 %; Neutrophils # (A) 11.6 k/uL (1.3-7.7); Neutrophils % (A) 89 %; RBC 5.01 m/uL (3.80-5.40); RDW 17.4 % (11.5-15.5); WBC 13.1 k/uL (3.8-10.6); WBC (Perox) 13.56
[2016-06-20 10:58] LABS: Anion Gap 7 mmol/L; Blood Urea Nitrogen 11 mg/dL (7-17); Calcium 8.3 mg/dL (8.4-10.2); Carbon Dioxide 21 mmol/L (22-30); Chloride 95 mmol/L (98-107); Glucose 86 mg/dL (74-99); Non-African American GFR(MDRD) >60 (>60 ml/min/1.73 sqM); Potassium 4.7 mmol/L (3.5-5.1); Sodium 123 mmol/L (137-145)
--- NOTE | 2016-06-20 13:21 | P.PN ---
Subjective Patient presents with recurrent abdominal ascites with nausea and vomiting Patient scheduled for peritoneal catheter insertion with drainage of her ascites today. Patient lying in bed comfortably. Receive pain medication and is a little drowsy. But she is awake and able to answer some questions. She is asking when her procedure will be done. She denies any further vomiting. Denies any burning with urination. Patient's family requesting refills on pain meds and antinausea meds at time of discharge. Objective - Vital Signs Vital signs: Vital Signs Temp 97.6 F 06/20/16 07:00 Pulse 84 06/20/16 11:21 Resp 20 06/20/16 08:00 BP 130/85 06/20/16 07:00 Pulse Ox 93 L 06/20/16 07:00 Intake & Output 06/19/16 06/20/16 06/20/16 18:59 06:59 18:59 Intake Total 480 250 Balance 480 250 Weight 61.235 kg Intake: Oral 480 250 Other: Voiding Method Toilet Toilet Toilet # Voids 3 2 - Exam Head normocephalic Neck supple Lungs clear to auscultation bilaterally no wheezing or crackles Heart regular rate and rhythm S1-S2, no rub or gallop Abdomen ascites Extremities no edema Neuro alert and orientated to 3 - Labs CBC & Chem 7: 06/20/16 08:15 06/20/16 08:15 Labs: Abnormal Lab Results - Last 24 Hours (Table) 06/20/16 06/20/16 06/20/16 Range/Units 08:15 08:15 08:15 WBC 13.1 H (3.8-10.6) k/uL MCHC 30.7 L (31.0-37.0) g/dL RDW 17.4 H (11.5-15.5) % Plt Count 468 H (150-450) k/uL Neutrophils # 11.6 H (1.3-7.7) k/uL Lymphocytes # 0.6 L (1.0-4.8) k/uL APTT 20.8 L (22.0-30.0) sec Sodium 123 L (137-145) mmol/L Chloride 95 L (98-107) mmol/L Carbon Dioxide 21 L (22-30) mmol/L Calcium 8.3 L (8.4-10.2) mg/dL Assessment and Plan Plan: 1. Recurrent metastatic pleural effusion and ascites. Patient scheduled for a peritoneal catheter insertion due to recurrent abdominal ascites 2. Stage IV metastatic ovarian cancer status post GHAZALA/SBO 3. Acute nausea and vomiting secondary to #1 and 2 4. Chronic opiate-induced constipation 5. Mixed hyperlipidemia 6. Major depressive disorder 7. Generalized anxiety disorder 8. Hypovolemic hyponatremia: Continue IV fluids. Sodium 123 40-year-old female with complex past medical history noted above who presented with worsening nausea and vomiting and abdominal distention. Patient was noted to be dehydrated with evidence of hypovolemic hyponatremia. I would continue IV fluid hydration. I will consult general surgery for the possibility of inserting a permanent pigtail catheter for the patient to drain her ascites on her own given recurrent effusion. If not patient would undergo paracentesis with interventional radiology. I discussed today with the patient and her mother her current clinical condition. She is off any chemotherapy at this time. Oncology consulted. I performed an examination of the patient and discussed their management with the physician Fire Extinguisher Inspector. I have reviewed the Physician Fire Extinguisher Inspector's notes and agree with the documented findings and plan of care
[2016-06-20] MEDS ORDERED: IV FLUID CONTINUATION 600 ML IV ONE (13:43)
[2016-06-20] MEDS ORDERED: HYDROmorphone (PF) 1 MG/ML ONE (14:27)
[2016-06-20] MEDS ORDERED: LIDOCAINE 1% INJ 10MG/ML (20 ML MDV) ONE (14:27)
[2016-06-20] MEDS ORDERED: fentaNYL (PF) 50 MCG/ML 2 ML AMP ONE (14:27)
[2016-06-20] MEDS ORDERED: ONDANSETRON 4 MG/2 ML VIAL ONE (14:27)
[2016-06-20] MEDS ORDERED: PROPOFOL 10 MG/ML 20 ML VIAL IV ONE (14:27)
[2016-06-20] MEDS ORDERED: MIDAZOLAM 2 MG/2 ML VIAL ONE (14:27)
[2016-06-20] MEDS ORDERED: SODIUM CHLORIDE 0.9% 100 ML with ceFAZolin 1,000 MG IV ONE ×2 (14:35)
[2016-06-20] MEDS ORDERED: MINERAL OIL 1 APPLIC/ML OIL TOPICAL ONE (14:43)
[2016-06-20] MEDS ORDERED: BUPIVACAIN-EPI 0.25%-1:200,000 30 ML VIAL SQ ONE ×2 (14:43→15:10)
--- NOTE | 2016-06-20 15:22 | P.PCN ---
Date of Procedure: 06/20/16 Procedure(s) Performed: PREOPERATIVE DIAGNOSIS: Metastatic ovarian cancer POSTOPERATIVE DIAGNOSIS: Same PROCEDURE: Tunneled pigtail intraperitoneal catheter insertion SURGEON: Robinson EBL: Minimal ANESTHESIA: Sedation plus local COMPLICATIONS: None OPERATIVE PROCEDURE: The patient was placed in the operative table in the supine position. Her abdomen was prepped and draped in usual sterile fashion. Using the ultrasound I evaluated the abdominal wall searching for open fluid pockets. Thankfully most of the upper abdomen was free of any adhesions. I chose a site in the left upper quadrant. A small vertical incision was made in the periumbilical location. Dissection down through the subcutaneous tissues took place using electrocautery. The anterior rectus was divided vertically using the scalpel. The rectus was bluntly. The posterior rectus was visualized. An 0 Vicryl pursestring was placed. A small opening in the posterior rectus fascia and peritoneum took place using a Metzenbaum scissors. At that time approximately 8-10 L of a milky non-odorous fluid was evacuated. There were no adhesions to the suture that was placed. The pigtail catheter was advanced into the pelvis over a stylette. No resistance was met. The inner cuff was secured to the fascia using the 0 Vicryl pursestring that was placed. The catheter was tunneled to an exit site in the left lateral lower quadrant. The catheter was connected to the 1 L bag of saline that had been evacuated of fluid. An additional 1 L of intraperineal fluid was evacuated at that time. The anterior rectus fascia was then reapproximated using a running 0 Vicryl stitch. The subcutaneous tissues were closed using 3-0 Vicryl sutures and the skin using 4-0 Monocryl sutures. The outpatient dialysis adapter was applied to the end of the catheter. A sterile dressings then applied after Steri-Strips were placed over the incision. DISPOSITION: Stable to recovery room
--- NOTE | 2016-06-20 18:07 | P.PN ---
Subjective Principal diagnosis: If occult he and breathing secondary to malignant ascites, metastatic ovarian carcinoma Patient is seen today in follow-up. She is drowsy as she is status post peritoneal pigtail catheter insertion for attempt to manage recurrent malignant ascites in the outpatient setting. Patient is requiring anywhere from 2-3 paracentesis a week. Patient at the time of being seen denied any nausea, shortness of breath or pain. Family is at the bedside. Objective - Vital Signs Vital signs: Vital Signs Temp 97.6 F 06/20/16 15:23 Pulse 84 06/20/16 16:35 Resp 16 06/20/16 16:00 BP 99/52 06/20/16 15:53 Pulse Ox 98 06/20/16 15:53 Intake & Output 06/19/16 06/20/16 06/20/16 18:59 06:59 18:59 Intake Total 480 250 650 Output Total 5 Balance 480 250 645 Weight 61.235 kg Intake: IV 650 Oral 480 250 0 Output: Estimated Blood Loss 5 Other: Voiding Method Toilet Toilet Toilet # Voids 3 2 2 - Exam Well-developed female laying in bed, easily aroused to voice but drifts off to sleep easily, no acute visible distress, respirations are even and unlabored. - Labs CBC & Chem 7: 06/20/16 08:15 06/20/16 08:15 Labs: Abnormal Lab Results - Last 24 Hours (Table) 06/20/16 06/20/16 06/20/16 Range/Units 08:15 08:15 08:15 WBC 13.1 H (3.8-10.6) k/uL MCHC 30.7 L (31.0-37.0) g/dL RDW 17.4 H (11.5-15.5) % Plt Count 468 H (150-450) k/uL Neutrophils # 11.6 H (1.3-7.7) k/uL Lymphocytes # 0.6 L (1.0-4.8) k/uL APTT 20.8 L (22.0-30.0) sec Sodium 123 L (137-145) mmol/L Chloride 95 L (98-107) mmol/L Carbon Dioxide 21 L (22-30) mmol/L Calcium 8.3 L (8.4-10.2) mg/dL Assessment and Plan (1) Ovarian carcinoma Narrative/Plan: Patient has had peritoneal pigtail catheter placement for attempts to manage recurrent malignant ascites. Case was discussed with nursing. Case management will be involved so that patient's home care can be updated on the new patient needs. Patient does have a follow-up with Dr. Tipton scheduled for the . She will keep this appointment at this time. Unfortunately there are no current treatment options available for the patient's metastatic malignancy. Patient is aware of this. He is not interested in hospice at this time. Status: Chronic Plan: Patient's pain is for malignancy. Pain was assessed today. Patient seems to be doing well on a combination of MS Contin twice a day, [place] every 6 as needed for mild to moderate pain and Dilaudid every 3 as needed for severe breakthrough pain. Prescriptions for 30 days supply of MS Contin as well as [place] has been placed in the chart. Prescription for 80 tablets of Dilaudid is also in the chart. Patient's Zofran prescription was also refilled. This is all been documented on patient's discharge plan. Patient is okay for discharge from a Hematology/Oncology standpoint once she has been cleared by Attending and other consults include Physicians.
[2016-06-20] MEDS: SENNOSIDES 8.6 MG TAB PO PRN (21:10)
[2016-06-20] MEDS: LACTATED RINGERS 1,000 ML IV SCH (22:18)
[2016-06-21] MEDS: HYDROmorphone 1 MG/ML 1 ML SYRINGE IVP PRN ×8 (00:26→23:34)
[2016-06-21] MEDS: SODIUM CHLORIDE 0.9% 1,000 ML IV SCH ×2 (03:41→13:36)
[2016-06-21] MEDS: ALBUTEROL NEBULIZED 2.5 MG/3 ML INHALATION SCH ×4 (07:39→20:26)
[2016-06-21] MEDS: MORPHINE SULFATE ER 30 MG TABLET PO SCH ×2 (08:00→20:34)
[2016-06-21] MEDS: GABAPENTIN 300 MG CAP PO SCH ×2 (08:00→20:34)
[2016-06-21] MEDS: TAMOXIFEN 10 MG TAB PO SCH (08:00)
[2016-06-21 08:01] LABS: Anisocytosis Slight; Basophils % (A) 0 %; CH 26.2; CHCM 32.4; Eosinophils # (A) 0.1 k/uL (0-0.7); Eosinophils % (A) 1 %; HCT 40.1 % (34.0-46.0); HGB 12.9 gm/dL (11.4-16.0); Hypochromasia Slight; Luc # (Auto) 0.11; Luc % (Auto) 1; Lymphocytes # (A) 0.5 k/uL (1.0-4.8); Lymphocytes % (A) 4 %; MCHC 32.1 g/dL (31.0-37.0); MCV 81.1 fL (80.0-100.0); Mean Platelet Volume 6.1; Monocytes # (A) 0.6 k/uL (0-1.0); Monocytes % (A) 6 %; Neutrophils % (A) 88 %; RBC 4.95 m/uL (3.80-5.40); RDW 17.1 % (11.5-15.5); WBC 11.4 k/uL (3.8-10.6); WBC (Perox) 10.27
[2016-06-21] MEDS: PANTOPRAZOLE 40 MG/10 ML VIAL IV SCH (08:01)
[2016-06-21] MEDS: BISACODYL 5 MG TABLET.DR PO SCH (08:01)
[2016-06-21] MEDS: POLYETHYLENE GLYCOL 3350 17 GM POWD.PACK PO SCH (08:01)
[2016-06-21 08:24] LABS: ALT 24 U/L (9-52); AST 28 U/L (14-36); Alkaline Phosphatase 109 U/L (38-126); Anion Gap 6 mmol/L; Blood Urea Nitrogen 9 mg/dL (7-17); Calcium 7.7 mg/dL (8.4-10.2); Carbon Dioxide 22 mmol/L (22-30); Chloride 96 mmol/L (98-107); Glucose 95 mg/dL (74-99); Non-African American GFR(MDRD) >60 (>60 ml/min/1.73 sqM); Potassium 4.5 mmol/L (3.5-5.1); Sodium 124 mmol/L (137-145); Total Bilirubin 0.3 mg/dL (0.2-1.3); Total Protein 4.6 g/dL (6.3-8.2)
[2016-06-21] MEDS: HYDROcodone/APAP 10-325MG 1 EACH TAB PO PRN ×2 (09:05→15:07)
--- NOTE | 2016-06-21 09:57 | P.PN ---
Subjective Principal diagnosis: Malignant ascites The patient is postoperative day one placement of a catheter for drainage of her chronic malignant ascites. She feels better than preoperatively. She was able to have a normal breakfast. She is having drainage through the dressing. Objective - Vital Signs Vital signs: Vital Signs Temp 97.7 F 06/21/16 07:00 Pulse 102 H 06/21/16 08:00 Resp 20 06/21/16 08:00 BP 116/78 06/21/16 07:00 Pulse Ox 92 L 06/21/16 07:00 Intake & Output 06/20/16 06/21/16 06/21/16 18:59 06:59 18:59 Intake Total 650 1150 Output Total 5 200 Balance 645 1150 -200 Intake: IV 650 Intake, IV Titration 1150 Amount Sodium Chloride 0.9% 1, 350 000 ml @ 100 mls/hr IV . Q10H [facility] Rx#:[id number] Sodium Chloride 0.9% 100 800 ml As IV .STK-MED ONE with ceFAZolin 1,000 mg Rx#:[id number] Oral 0 Output: Urine 200 Estimated Blood Loss 5 Other: Voiding Method Toilet Toilet Toilet # Voids 2 1 1 - Constitutional General appearance: Present: cooperative, no acute distress - Gastrointestinal General gastrointestinal: Present: normal bowel sounds, soft Localized gastrointestinal: surgical scar: midline (Significant amount of serous drainage on the dressing.) - Integumentary Integumentary Comment(s): Marked edema in the lower half of her body. - Labs CBC & Chem 7: 06/21/16 07:45 06/21/16 07:45 Labs: Abnormal Lab Results - Last 24 Hours (Table) 06/20/16 06/20/16 06/21/16 Range/Units 08:15 08:15 07:45 WBC 13.1 H 11.4 H (3.8-10.6) k/uL MCHC 30.7 L (31.0-37.0) g/dL RDW 17.4 H 17.1 H (11.5-15.5) % Plt Count 468 H 482 H (150-450) k/uL Neutrophils # 11.6 H 10.0 H (1.3-7.7) k/uL Lymphocytes # 0.6 L 0.5 L (1.0-4.8) k/uL Sodium 123 L (137-145) mmol/L Chloride 95 L (98-107) mmol/L Carbon Dioxide 21 L (22-30) mmol/L Calcium 8.3 L (8.4-10.2) mg/dL Total Protein (6.3-8.2) g/dL Albumin (3.5-5.0) g/dL 06/21/16 Range/Units 07:45 WBC (3.8-10.6) k/uL MCHC (31.0-37.0) g/dL RDW (11.5-15.5) % Plt Count (150-450) k/uL Neutrophils # (1.3-7.7) k/uL Lymphocytes # (1.0-4.8) k/uL Sodium 124 L (137-145) mmol/L Chloride 96 L (98-107) mmol/L Carbon Dioxide (22-30) mmol/L Calcium 7.7 L (8.4-10.2) mg/dL Total Protein 4.6 L (6.3-8.2) g/dL Albumin 2.1 L (3.5-5.0) g/dL Assessment and Plan (1) Ovarian cancer Status: Acute (2) Ascites Status: Acute Plan: We'll have the nurses change the dressing. Arrangements are being made so that she can have the ascites drained periodically at home for comfort.
[2016-06-21] MEDS: LORazepam 0.5 MG TAB PO PRN (14:29)
--- NOTE | 2016-06-21 14:32 | P.PN ---
Subjective Principal diagnosis: Recurrent ascites Patient scheduled for peritoneal catheter insertion with drainage of her ascites today. Patient lying in bed comfortably. Receive pain medication and is a little drowsy. But she is awake and able to answer some questions. She is asking when her procedure will be done. She denies any further vomiting. Denies any burning with urination. Objective - Vital Signs Vital signs: Vital Signs Temp 97.7 F 06/21/16 07:00 Pulse 102 H 06/21/16 08:00 Resp 20 06/21/16 08:00 BP 116/78 06/21/16 07:00 Pulse Ox 92 L 06/21/16 07:00 Intake & Output 06/20/16 06/21/16 06/21/16 18:59 06:59 18:59 Intake Total 650 1150 Output Total 5 200 Balance 645 1150 -200 Intake: IV 650 Intake, IV Titration 1150 Amount Sodium Chloride 0.9% 1, 350 000 ml @ 100 mls/hr IV . Q10H [facility] Rx#:[id number] Sodium Chloride 0.9% 100 800 ml As IV .STK-MED ONE with ceFAZolin 1,000 mg Rx#:[id number] Oral 0 Output: Urine 200 Estimated Blood Loss 5 Other: Voiding Method Toilet Toilet Toilet # Voids 2 1 1 - Exam HEENT head normocephalic and atraumatic Neck is supple no JVD no goiter no lymphadenopathy Chest is clear to auscultation no wheezing Cardiac exam reveals regular heart sounds no murmurs Abdomen is soft non tender no organo megaly, drainage tube in site Extremity exam reveals 3+ pitting edema - Labs CBC & Chem 7: 06/21/16 07:45 06/21/16 07:45 Labs: Abnormal Lab Results - Last 24 Hours (Table) 06/21/16 06/21/16 Range/Units 07:45 07:45 WBC 11.4 H (3.8-10.6) k/uL RDW 17.1 H (11.5-15.5) % Plt Count 482 H (150-450) k/uL Neutrophils # 10.0 H (1.3-7.7) k/uL Lymphocytes # 0.5 L (1.0-4.8) k/uL Sodium 124 L (137-145) mmol/L Chloride 96 L (98-107) mmol/L Calcium 7.7 L (8.4-10.2) mg/dL Total Protein 4.6 L (6.3-8.2) g/dL Albumin 2.1 L (3.5-5.0) g/dL Assessment and Plan Plan: 1. Recurrent metastatic pleural effusion and ascites. Patient scheduled for a peritoneal catheter insertion due to recurrent abdominal ascites 2. Stage IV metastatic ovarian cancer status post GHAZALA/SBO 3. Acute nausea and vomiting secondary to #1 and 2 4. Chronic opiate-induced constipation 5. Mixed hyperlipidemia 6. Major depressive disorder 7. Generalized anxiety disorder 8. Hypovolemic hyponatremia: Continue IV fluids. Sodium 124 40-year-old female with complex past medical history noted above who presented with worsening nausea and vomiting and abdominal distention. Patient was noted to be dehydrated with evidence of hypovolemic hyponatremia. Patient is postoperative day #1 post placement of a drainage catheter in the abdomen Will follow in a.m.
[2016-06-21] MEDS: LACTATED RINGERS 1,000 ML IV SCH (15:55)
[2016-06-21] MEDS: CITALOPRAM HYDROBROMIDE 20 MG TAB PO SCH (20:34)
[2016-06-21 22:58] VITALS: RESP 16
[2016-06-22] MEDS: HYDROmorphone 1 MG/ML 1 ML SYRINGE IVP PRN ×6 (02:56→22:34)
[2016-06-22] MEDS: HYDROcodone/APAP 10-325MG 1 EACH TAB PO PRN ×3 (05:16→19:28)
[2016-06-22] MEDS: SODIUM CHLORIDE 0.9% 1,000 ML IV SCH ×3 (05:17→18:05)
[2016-06-22] MEDS: ALBUTEROL NEBULIZED 2.5 MG/3 ML INHALATION SCH ×4 (08:00→19:09)
[2016-06-22 08:05] LABS: Anisocytosis Slight; Basophils % (A) 0 %; CH 26.3; CHCM 32.4; Eosinophils # (A) 0.1 k/uL (0-0.7); Eosinophils % (A) 1 %; HCT 39.8 % (34.0-46.0); HDW 3.34; HGB 13.1 gm/dL (11.4-16.0); Hypochromasia Slight; Luc # (Auto) 0.14; Luc % (Auto) 1; Lymphocytes # (A) 0.5 k/uL (1.0-4.8); Lymphocytes % (A) 4 %; MCH 26.7 pg (25.0-35.0); MCHC 32.8 g/dL (31.0-37.0); MCV 81.3 fL (80.0-100.0); Mean Platelet Volume 6.4; Microcytosis Slight; Monocytes # (A) 0.5 k/uL (0-1.0); Monocytes % (A) 4 %; Neutrophils # (A) 11.1 k/uL (1.3-7.7); Neutrophils % (A) 90 %; RDW 17.3 % (11.5-15.5); WBC 12.4 k/uL (3.8-10.6); WBC (Perox) 12.51
[2016-06-22] MEDS: MORPHINE SULFATE ER 30 MG TABLET PO SCH ×2 (08:08→21:33)
[2016-06-22] MEDS: BISACODYL 5 MG TABLET.DR PO SCH (08:09)
[2016-06-22] MEDS: LORazepam 0.5 MG TAB PO PRN (08:11)
[2016-06-22] MEDS: GABAPENTIN 300 MG CAP PO SCH ×2 (08:13→21:34)
[2016-06-22] MEDS: TAMOXIFEN 10 MG TAB PO SCH (08:13)
[2016-06-22] MEDS: POLYETHYLENE GLYCOL 3350 17 GM POWD.PACK PO SCH (08:13)
[2016-06-22] MEDS: PANTOPRAZOLE 40 MG/10 ML VIAL IV SCH (08:13)
[2016-06-22 08:30] LABS: ALT 23 U/L (9-52); AST 32 U/L (14-36); Alkaline Phosphatase 117 U/L (38-126); Anion Gap 6 mmol/L; Blood Urea Nitrogen 8 mg/dL (7-17); Calcium 7.8 mg/dL (8.4-10.2); Carbon Dioxide 20 mmol/L (22-30); Chloride 97 mmol/L (98-107); Glucose 90 mg/dL (74-99); Non-African American GFR(MDRD) >60 (>60 ml/min/1.73 sqM); Potassium 5.2 mmol/L (3.5-5.1); Sodium 123 mmol/L (137-145); Total Bilirubin 0.4 mg/dL (0.2-1.3); Total Protein 4.8 g/dL (6.3-8.2)
--- NOTE | 2016-06-22 09:15 | P.PN ---
Subjective Principal diagnosis: Malignant ascites The patient had a bad night. Was unable to get comfortable. Abdomen is much more distended. Objective - Vital Signs Vital signs: Vital Signs Temp 98.1 F 06/21/16 22:58 Pulse 98 06/21/16 22:58 Resp 16 06/21/16 22:58 BP 113/83 06/21/16 22:58 Pulse Ox 92 L 06/21/16 22:58 Intake & Output 06/21/16 06/22/16 06/22/16 18:59 06:59 18:59 Intake Total 1500 590 Output Total 200 Balance 1300 590 Weight 61.235 kg Intake: Intake, IV Titration 900 350 Amount Sodium Chloride 0.9% 1, 800 350 000 ml @ 100 mls/hr IV . Q10H [facility] Rx#:[id number] Sodium Chloride 0.9% 100 100 ml As IV .STK-MED ONE with ceFAZolin 1,000 mg Rx#:[id number] Oral 600 240 Output: Urine 200 Other: Voiding Method Toilet Toilet # Voids 4 2 - Constitutional General appearance: Present: cooperative, no acute distress - Gastrointestinal Gastrointestinal Comment(s): Abdomen is very distended. The dressings intact and dry. - Labs CBC & Chem 7: 06/22/16 07:45 06/22/16 07:45 Labs: Abnormal Lab Results - Last 24 Hours (Table) 06/22/16 06/22/16 Range/Units 07:45 07:45 WBC 12.4 H (3.8-10.6) k/uL RDW 17.3 H (11.5-15.5) % Plt Count 489 H (150-450) k/uL Neutrophils # 11.1 H (1.3-7.7) k/uL Lymphocytes # 0.5 L (1.0-4.8) k/uL Sodium 123 L (137-145) mmol/L Potassium 5.2 H (3.5-5.1) mmol/L Chloride 97 L (98-107) mmol/L Carbon Dioxide 20 L (22-30) mmol/L Calcium 7.8 L (8.4-10.2) mg/dL Total Protein 4.8 L (6.3-8.2) g/dL Albumin 2.1 L (3.5-5.0) g/dL Assessment and Plan (1) Ovarian cancer Status: Acute (2) Ascites Status: Acute Plan: I discussed the fluid and catheter with the patient. We will have the nurses do drainage today which should decrease her discomfort. Currently we are waiting for arrangements to be made to have the fluid drained at home. Questions were encouraged and answered.
[2016-06-22] MEDS: LACTATED RINGERS 1,000 ML IV SCH (13:42)
--- NOTE | 2016-06-22 17:38 | P.PN ---
Subjective Principal diagnosis: Recurrent ascites Patient scheduled for peritoneal catheter insertion with drainage of her ascites today. Patient lying in bed comfortably. Receive pain medication and is a little drowsy. But she is awake and able to answer some questions. She is asking when her procedure will be done. She denies any further vomiting. Denies any burning with urination. Objective - Vital Signs Vital signs: Vital Signs Temp 98.2 F 06/22/16 15:00 Pulse 98 06/22/16 16:00 Resp 16 06/22/16 16:00 BP 110/69 06/22/16 15:00 Pulse Ox 97 06/22/16 15:00 Intake & Output 06/21/16 06/22/16 06/22/16 18:59 06:59 18:59 Intake Total 1500 590 360 Output Total 200 200 Balance 1300 590 160 Weight 61.235 kg Intake: Intake, IV Titration 900 350 Amount Sodium Chloride 0.9% 1, 800 350 000 ml @ 100 mls/hr IV . Q10H [facility] Rx#:[id number] Sodium Chloride 0.9% 100 100 ml As IV .STK-MED ONE with ceFAZolin 1,000 mg Rx#:[id number] Oral 600 240 360 Output: Urine 200 200 Other: Voiding Method Toilet Toilet Toilet # Voids 4 2 1 - Exam HEENT head normocephalic and atraumatic Neck is supple no JVD no goiter no lymphadenopathy Chest is clear to auscultation no wheezing Cardiac exam reveals regular heart sounds no murmurs Abdomen is soft non tender no organo megaly, drainage tube in site Extremity exam reveals 3+ pitting edema - Labs CBC & Chem 7: 06/22/16 07:45 06/22/16 07:45 Labs: Abnormal Lab Results - Last 24 Hours (Table) 06/22/16 06/22/16 Range/Units 07:45 07:45 WBC 12.4 H (3.8-10.6) k/uL RDW 17.3 H (11.5-15.5) % Plt Count 489 H (150-450) k/uL Neutrophils # 11.1 H (1.3-7.7) k/uL Lymphocytes # 0.5 L (1.0-4.8) k/uL Sodium 123 L (137-145) mmol/L Potassium 5.2 H (3.5-5.1) mmol/L Chloride 97 L (98-107) mmol/L Carbon Dioxide 20 L (22-30) mmol/L Calcium 7.8 L (8.4-10.2) mg/dL Total Protein 4.8 L (6.3-8.2) g/dL Albumin 2.1 L (3.5-5.0) g/dL Assessment and Plan Plan: 1. Recurrent metastatic pleural effusion and ascites. Patient scheduled for a peritoneal catheter insertion due to recurrent abdominal ascites 2. Stage IV metastatic ovarian cancer status post GHAZALA/SBO 3. Acute nausea and vomiting secondary to #1 and 2 4. Chronic opiate-induced constipation 5. Mixed hyperlipidemia 6. Major depressive disorder 7. Generalized anxiety disorder 8. Hypovolemic hyponatremia: Continue IV fluids. Sodium 124 40-year-old female with complex past medical history noted above who presented with worsening nausea and vomiting and abdominal distention. Patient was noted to be dehydrated with evidence of hypovolemic hyponatremia. Patient is postoperative day #2 post placement of a drainage catheter in the abdomen Awaiting Dr. Bowers for drainage of the abdomen tomorrow possible discharge to home tomorrow
[2016-06-22] MEDS: DRY MOUTH SPRAY 44.3 SPRAY/44.3 ML SPRAY MUCOUS MEM PRN (21:34)
[2016-06-22] MEDS: CITALOPRAM HYDROBROMIDE 20 MG TAB PO SCH (21:34)
[2016-06-23] MEDS: HYDROmorphone 1 MG/ML 1 ML SYRINGE IVP PRN ×6 (02:00→15:03)
[2016-06-23] MEDS: DRY MOUTH SPRAY 44.3 SPRAY/44.3 ML SPRAY MUCOUS MEM PRN (02:01)
[2016-06-23] MEDS: SODIUM CHLORIDE 0.9% 1,000 ML IV SCH ×2 (05:50→13:56)
[2016-06-23 07:22] LABS: Anisocytosis Slight; Basophils % (A) 0 %; CH 26.4; CHCM 31.8; Eosinophils # (A) 0.1 k/uL (0-0.7); Eosinophils % (A) 1 %; HCT 41.3 % (34.0-46.0); HDW 3.15; HGB 12.8 gm/dL (11.4-16.0); Hypochromasia Slight; Luc # (Auto) 0.12; Luc % (Auto) 1; Lymphocytes # (A) 0.5 k/uL (1.0-4.8); Lymphocytes % (A) 5 %; MCH 25.7 pg (25.0-35.0); MCV 83.1 fL (80.0-100.0); Mean Platelet Volume 6.4; Monocytes # (A) 0.6 k/uL (0-1.0); Monocytes % (A) 6 %; Neutrophils # (A) 8.2 k/uL (1.3-7.7); Neutrophils % (A) 86 %; RBC 4.98 m/uL (3.80-5.40); RDW 17.6 % (11.5-15.5); WBC 9.5 k/uL (3.8-10.6); WBC (Perox) 9.59
[2016-06-23] MEDS: ALBUTEROL NEBULIZED 2.5 MG/3 ML INHALATION SCH ×3 (07:30→12:10)
[2016-06-23 07:37] LABS: ALT 23 U/L (9-52); AST 30 U/L (14-36); Alkaline Phosphatase 127 U/L (38-126); Anion Gap 5 mmol/L; Blood Urea Nitrogen 6 mg/dL (7-17); Calcium 7.5 mg/dL (8.4-10.2); Carbon Dioxide 23 mmol/L (22-30); Chloride 96 mmol/L (98-107); Glucose 91 mg/dL (74-99); Non-African American GFR(MDRD) >60 (>60 ml/min/1.73 sqM); Potassium 4.2 mmol/L (3.5-5.1); Sodium 124 mmol/L (137-145); Total Bilirubin 0.3 mg/dL (0.2-1.3); Total Protein 4.4 g/dL (6.3-8.2)
[2016-06-23] MEDS: PANTOPRAZOLE 40 MG/10 ML VIAL IV SCH (08:05)
[2016-06-23] MEDS: MORPHINE SULFATE ER 30 MG TABLET PO SCH (08:06)
[2016-06-23] MEDS: GABAPENTIN 300 MG CAP PO SCH (08:07)
[2016-06-23] MEDS: POLYETHYLENE GLYCOL 3350 17 GM POWD.PACK PO SCH (08:07)
[2016-06-23] MEDS: BISACODYL 5 MG TABLET.DR PO SCH (08:07)
[2016-06-23 08:43] VITALS: BP 114/78; PULSE 106; TEMP 97.1
[2016-06-23] MEDS: LORazepam 0.5 MG TAB PO PRN (08:48)
[2016-06-23] MEDS: TAMOXIFEN 10 MG TAB PO SCH (11:20)
--- NOTE | 2016-06-23 13:25 | P.DS ---
Providers Date of admission: 06/18/16 13:59 Expected date of discharge: 06/23/16 Attending physician: Adia Ardon Consults: 06/19/16 11:36 Consult Physician Stat Consulting Provider: Kaushik Bowers Reason/Comments: Possible pigtail catheter placement. Do you want consulting provider notified?: Yes Primary care physician: Adia Lebronapolinar Hospital Course: 1. Recurrent metastatic pleural effusion and ascites 2. Stage IV metastatic ovarian cancer status post GHAZALA/SBO 3. Acute nausea and vomiting secondary to #1 and 2 4. Chronic opiate-induced constipation 5. Mixed hyperlipidemia 6. Major depressive disorder 7. Generalized anxiety disorder 8. Hypovolemic hyponatremia This is a 40-year-old female with complex past medical history noted above who presented to the hospital with generalized weakness. Patient was noted to have hyponatremia and received IV fluid hydration with no significant improvement of her sodium level. Her sodium level today is approximately 126. Patient was counseled extensively about increasing her protein intake. I truly believe that her hyponatremia is secondary to malnutrition and low protein intake. She was counseled extensively. She was also seen and evaluated by general surgery and underwent a permanent catheter placement to her left abdomen to help her drain her ascites at home and give her symptomatic relief. Patient is comfortable using the catheter. She will be discharged home in a stable condition. She will follow-up with me in the office as directed. Please refer to the electronic chart for further details about his hospitalization. Plan - Discharge Summary New Discharge Prescriptions: Albuterol Inhaler [Ventolin Hfa Inhaler] 2 puff INHALATION RT-Q6H PRN #1 inhaler PRN Reason: Shortness Of Breath HYDROmorphone [Dilaudid] 1 mg PO Q3HR PRN #80 tab PRN Reason: Severe Pain Ondansetron Odt [Zofran ODT] 8 mg PO Q8HR PRN #90 tab PRN Reason: Nausea Discharge Medication List Citalopram Hydrobromide [CeleXA] 20 mg PO HS 03/02/14 [History] EPINEPHrine [Epipen 2-Mike] 0.3 mg IM ONCE PRN 03/19/15 [History] Ondansetron [Zofran ODT] 8 mg PO Q8HR PRN 03/19/15 [History] Sennosides [Senokot] 8.6 mg PO DAILY PRN 03/19/15 [History] Albuterol Nebulized [Ventolin Nebulized] 2.5 mg INHALATION RT-Q6H PRN 10/02/15 [ History] LORazepam [Lorazepam] 0.5 mg PO Q6H PRN 11/19/15 [History] Bisacodyl [Dulcolax] 5 mg PO DAILY #30 tablet.dr 11/20/15 [Rx] Polyethylene Glycol 3350 [Miralax] 17 gm PO DAILY #255 gm 11/20/15 [Rx] Gabapentin [Neurontin] 300 mg PO BID 03/01/16 [History] HYDROcodone/APAP 10-325MG [[place] 10-325] 1 tab PO Q6H PRN 03/09/16 [History] Morphine Sulfate [Ms Contin] 30 mg PO Q12HR 03/12/16 [History] Magnesium Hydroxide [Milk of Magnesia] 2,400 mg PO DAILY PRN 05/05/16 [History] Tamoxifen Citrate 20 mg PO DAILY 06/06/16 [History] HYDROmorphone [Dilaudid] 1 mg PO Q3HR PRN #80 tab 06/20/16 [Rx] Ondansetron Odt [Zofran ODT] 8 mg PO Q8HR PRN #90 tab 06/20/16 [Rx] Albuterol Inhaler [Ventolin Hfa Inhaler] 2 puff INHALATION RT-Q6H PRN #1 inhaler 06/23/16 [Rx] Follow up Appointment(s)/Referral(s): Trenton Tipton MD [STAFF PHYSICIAN] - 06/27/16 10:00 am Adia Ardon MD [Primary Care Provider] - 1 Week Activity/Diet/Wound Care/Special Instructions: resume [facility] home care Discharge Disposition: HOME WITH HOME HEALTH SERVICES
[2016-06-23] MEDS: HYDROcodone/APAP 10-325MG 1 EACH TAB PO PRN (13:32)
[2016-06-23] MEDS: LACTATED RINGERS 1,000 ML IV SCH (13:56)
[2016-06-24] MEDS ORDERED: PANTOPRAZOLE 40 MG TABLET PO SCH (07:30)
--- NOTE | 2016-06-27 13:37 | CDI ---
In responding to this query, please exercise your independent professional judgment. The [facility] Coding Staff and Clinical Documentation Specialists appreciate your assistance in clarifying documentation, maintaining compliance with coding guidelines, accurately documenting patients condition and capturing severity of illness. The fact that a question is asked does not imply that any particular answer is desired or expected. Communication forms are a method of clarifying documentation and are not made part of the Legal Health Record. Thank you in advance for your clarification. Last Revision, December 2014 Rosalba Martino [address] [facility] [place] [address] Documentation Clarification Form Date: 06/27/2016 1:11:00 PM From: Swathi Gasca Admit Date: 06/18/2016 1:59:00 PM Patient Name: Yvette Rosales Visit Number: [id number] Discharge Date: Dr. Adia Ardon Malnutrition has been documented in discharge summary Hyponatremia is secondary to malnutrition and low protein intake History/Risk Factors: Stage IV metastatic ovarian cancer, Chronic opiate- induced constipation, Hyperlipidemia, Former smoker Clinical Indicators: Complains of nausea and vomiting with abdominal discomfort. She has fatigue, weakness. Her general appearance is alert, cachectic per ED exam. Vital signs: 142/107 105 16 97.8 97 % Labs: Albumin: 2.4, 2.2, 2.1, 2.0 Total Protein 2.4, 2.2, 2.1, 2.0 Current BMI: 24.7 Insufficient energy intake: Yes Treatment: Monitor PO offer supplement if PO less than 75 % Dietary Consult: Yes Lab monitoring: In your professional opinion, can you please clarify if these findings signify one of the following conditions? Mild Protein Malnutrition Mild Protein-Calorie Malnutrition Moderate Protein Malnutrition Moderate Protein-Calorie Malnutrition Severe Protein Malnutrition Severe Protein-Calorie Malnutrition Malnutrition following GI surgery Other condition, please specify Unable to determine Please document as an addendum to your discharge summary in order to capture severity of illness and risk of mortality. Include clinical findings that support your diagnosis. FYI: Press F11 to launch patient chart. Place X here if this finding has no clinical significance, is not applicable or if you are not able to provide any additional documentation. ROSALINED
--- NOTE | 2016-06-30 15:12 | CDI ---
In responding to this query, please exercise your independent professional judgment. The [facility] Coding Staff and Clinical Documentation Specialists appreciate your assistance in clarifying documentation, maintaining compliance with coding guidelines, accurately documenting patients condition and capturing severity of illness. The fact that a question is asked does not imply that any particular answer is desired or expected. Communication forms are a method of clarifying documentation and are not made part of the Legal Health Record. Thank you in advance for your clarification. Last Revision, December 2014 Rosalba Martino [address] [facility] [address] Documentation Clarification Form Date: 06/27/2016 1:11:00 PM From: Swathi Gasca Admit Date: 06/18/2016 1:59:00 PM Patient Name: Yvette Rosales Visit Number: [id number] Discharge Date: Dr. Adia Ardon Malnutrition has been documented in discharge summary Hyponatremia is secondary to malnutrition and low protein intake History/Risk Factors: Stage IV metastatic ovarian cancer, Chronic opiate- induced constipation, Hyperlipidemia, Former smoker Clinical Indicators: Complains of nausea and vomiting with abdominal discomfort. She has fatigue, weakness. Her general appearance is alert, cachectic per ED exam. Vital signs: 142/107 105 16 97.8 97 % Labs: Albumin: 2.4, 2.2, 2.1, 2.0 Total Protein 2.4, 2.2, 2.1, 2.0 Current BMI: 24.7 Insufficient energy intake: Yes Treatment: Monitor PO offer supplement if PO less than 75 % Dietary Consult: Yes Lab monitoring: In your professional opinion, can you please clarify if these findings signify one of the following conditions? Mild Protein Malnutrition Mild Protein-Calorie Malnutrition Moderate Protein Malnutrition Moderate Protein-Calorie Malnutrition Severe Protein Malnutrition Severe Protein-Calorie Malnutrition Malnutrition following GI surgery Other condition, please specify Unable to determine Please document as and addendum to your discharge summary. Include clinical findings that support your diagnosis. FYI: Press F11 to launch patient chart. Place X here if this finding has no clinical significance, is not applicable or if you are not able to provide any additional documentation. MTDD
== END 2016-06-23 15:25 | disposition home health service (06) | DRG 754 ==
LOC: EC 10:23 → 5MS5E 13:59
PROVIDERS: ADMIT Internal Medicine; ATTEND Internal Medicine
PROC: 0W9G30Z Drainage of Peritoneal Cavity with Drainage Device, Percutaneous Approach (ICD-10-PCS; principal; 2016-06-20 14:00)
DX: C56.9 Malignant neoplasm of unspecified ovary (principal); E43 Unspecified severe protein-calorie malnutrition; R18.0 Malignant ascites; J91.0 Malignant pleural effusion; R64 Cachexia; E86.0 Dehydration; E87.1 Hypo-osmolality and hyponatremia; R00.0 Tachycardia, unspecified; G89.3 Neoplasm related pain (acute) (chronic); R06.02 Shortness of breath; M50.30 Other cervical disc degeneration, unspecified cervical region; M79.605 Pain in left leg; M79.604 Pain in right leg; R11.2 Nausea with vomiting, unspecified; R53.1 Weakness; T40.605A Adverse effect of unspecified narcotics, initial encounter; K59.03 Drug induced constipation; G62.9 Polyneuropathy, unspecified; R60.9 Edema, unspecified; F41.1 Generalized anxiety disorder; F32.9 Major depressive disorder, single episode, unspecified; F12.90 Cannabis use, unspecified, uncomplicated; E78.2 Mixed hyperlipidemia; Z83.3 Family history of diabetes mellitus; Z82.5 Family history of asthma and other chronic lower respiratory diseases; Z87.891 Personal history of nicotine dependence; Z79.899 Other long term (current) drug therapy; Z92.21 Personal history of antineoplastic chemotherapy; Z86.718 Personal history of other venous thrombosis and embolism; Z88.8 Allergy status to other drugs, medicaments and biological substances; Z91.030 Bee allergy status; Z79.891 Long term (current) use of opiate analgesic; Z71.3 Dietary counseling and surveillance; Z90.710 Acquired absence of both cervix and uterus; Z90.722 Acquired absence of ovaries, bilateral; Z90.79 Acquired absence of other genital organ(s); Z68.24 Body mass index [BMI] 24.0-24.9, adult; Z95.828 Presence of other vascular implants and grafts
CPT/HCPCS: 36415; 71010; 74000; 80048; 80053; 81001; 82150; 82550; 82553; 83690; 84484; 85025; 85610; 85730; 93005; 94640; 96361; 96374; 96375; 96376; 99285

== ENCOUNTER 2016-06-24 14:03 | Inpatient (IN) | payer OTHER ==
[2016-06-24] MEDS ORDERED: ONDANSETRON 4 MG/2 ML VIAL IVP STA (14:12)
[2016-06-24] MEDS ORDERED: FAMOTIDINE 20 MG/2 ML VIAL IV STA (14:12)
--- NOTE | 2016-06-24 14:21 | ED ---
General Adult HPI - General Stated complaint: SOB Time Seen by Provider: 06/24/16 14:06 Source: patient, family Limitations: physical limitation - History of Present Illness Initial comments: Patient is a pleasant 40-year-old female sitting to the emergency department for difficulty in breathing. Patient has stage IV lung cancer. Patient has needed thoracentesis done several times in the past. Patient was just discharged from the hospital yesterday. Dyspnea has worsened since that time. Abdominal distention has been under control as she recently had a drain tube placed. Patient does have some nausea and did have some vomiting this morning. Patient is generally weak - Related Data Home Medications Medication Instructions Recorded Confirmed Citalopram Hydrobromide [CeleXA] 20 mg PO HS 03/02/14 06/24/16 EPINEPHrine [Epipen 2-Mike] 0.3 mg IM ONCE PRN 03/19/15 06/24/16 Sennosides [Senokot] 8.6 mg PO DAILY PRN 03/19/15 06/24/16 Albuterol Nebulized [Ventolin 2.5 mg INHALATION RT-Q6H PRN 10/02/15 06/24/16 Nebulized] LORazepam [Lorazepam] 0.5 mg PO Q6H PRN 11/19/15 06/24/16 Gabapentin [Neurontin] 300 mg PO BID 03/01/16 06/24/16 HYDROcodone/APAP 10-325MG [[place] 1 tab PO Q6H PRN 03/09/16 06/24/16 10-325] Morphine Sulfate [Ms Contin] 30 mg PO Q12HR 03/12/16 06/24/16 Magnesium Hydroxide [Milk of 2,400 mg PO DAILY PRN 05/05/16 06/24/16 Magnesia] Tamoxifen Citrate 20 mg PO DAILY 06/06/16 06/24/16 Previous Rx's Medication Instructions Recorded Bisacodyl [Dulcolax] 5 mg PO DAILY #30 tablet.dr 11/20/15 Polyethylene Glycol 3350 [Miralax] 17 gm PO DAILY #255 gm 11/20/15 HYDROmorphone [Dilaudid] 1 mg PO Q3HR PRN #80 tab 06/20/16 Ondansetron Odt [Zofran ODT] 8 mg PO Q8HR PRN #90 tab 06/20/16 Albuterol Inhaler [Ventolin Hfa 2 puff INHALATION RT-Q6H PRN #1 06/23/16 Inhaler] inhaler Allergies Allergy/AdvReac Type Severity Reaction Status Date / Time dexamethasone [From Decadron] Allergy Unknown Verified 06/24/16 15:29 dexamethasone sod phosphate Allergy Unknown Verified 06/24/16 15:29 [From Decadron] venom-honey bee Allergy Anaphylaxis Verified 06/24/16 15:29 [bee venom (honey bee)] Review of Systems ROS Statement: Those systems with pertinent positive or pertinent negative responses have been documented in the HPI. ROS Other: All systems not noted in ROS Statement are negative. Constitutional: Denies: fever Eyes: Denies: eye pain ENT: Denies: ear pain Respiratory: Reports: dyspnea Cardiovascular: Denies: chest pain Endocrine: Reports: fatigue Gastrointestinal: Reports: nausea, vomiting Genitourinary: Denies: dysuria Musculoskeletal: Denies: back pain Neurological: Reports: weakness Past Medical History Past Medical History: Cancer, Deep Vein Thrombosis (DVT), Hyperlipidemia Additional Past Medical History / Comment(s): Stage 4 ovarian cancer with total hysterectomy and chemo (last chemo 03/04/15), right pleural effusions with thoracentesis, ascities with paracentesis, bilateral hands and feet neuropathy, chronic cervical pain-degnerative bone disease, buldging disk, blood clot to the rt wrist and rt neck, chronic constipation. History of Any Multi-Drug Resistant Organisms: None Reported Past Surgical History: Hysterectomy Additional Past Surgical History / Comment(s): powerport left chest, total hysterectomy, multiple paracentisis, multiple right thorocentesis, peritoneal permanent catheter inserted by DR Bowers 06/20/2016 Past Anesthesia/Blood Transfusion Reactions: No Reported Reaction Past Psychological History: Anxiety, Depression Additional Psychological History / Comment(s): Pt states medication for mental health help. Pt resides with significant other. She is independent. States she and significant other spoke with hospice recently and they did not care for it. Significant other assists pt when she needs it. Smoking Status: Former smoker Past Alcohol Use History: None Reported Additional Past Alcohol Use History / Comment(s): pt quit smoking 05/24/2016 Past Drug Use History: Marijuana Additional Drug Use History / Comment(s): Pt has medical marijuana that she uses for pain control on a nearly everyday basis. - Past Family History Mother Family Medical History: Diabetes Mellitus Additional Family Medical History / Comment(s): bilat knee replace Father Family Medical History: COPD General Exam Limitations: altered mental status, physical limitation General appearance: other (Drowsy but easily arousable to voice) Head exam: Present: atraumatic Eye exam: Present: normal appearance, PERRL ENT exam: Present: normal oropharynx Neck exam: Present: normal inspection Respiratory exam: Present: decreased breath sounds (Left lower lung) Cardiovascular Exam: Present: normal rhythm, tachycardia Expanded Peripheral pulses: 2+: Radial (R), Radial (L), Dorsalis Pedis (R), Dorsalis Pedis (L) GI/Abdominal exam: Present: soft, tenderness (Mild diffuse). Absent: distended , rebound, rigid Extremities exam: Present: pedal edema. Absent: calf tenderness Neurological exam: Present: alert Psychiatric exam: Present: normal affect, normal mood Skin exam: Present: normal color Course Vital Signs 06/24/16 06/24/16 06/24/16 14:03 15:06 16:00 Temperature 97.4 F L Pulse Rate 128 H 116 H 113 H Respiratory 16 22 20 Rate Blood Pressure 130/90 118/82 113/81 O2 Sat by Pulse 78 L 95 92 L Oximetry EKG Findings - EKG Comments: EKG Findings:: Sinus tachycardia 123. NM 160. QRS 84. QT 294. QTC 420. Normal axis. Low QRS voltage. Incomplete right bundle-branch block. No acute ST change. Medical Decision Making - Medical Decision Making Patient reexamined and improved. Patient is alert sitting up in bed. Patient does request admission. Case discussed with Dr. Juarez, who will admit his patient. Consult for Dr. Davies. - Lab Data Result diagrams: 06/24/16 14:08 06/24/16 14:08 Lab Results 06/24/16 06/24/16 06/24/16 Range/Units 14:08 14:08 14:08 WBC 11.4 H (3.8-10.6) k/uL RBC 5.29 (3.80-5.40) m/uL Hgb 13.8 (11.4-16.0) gm/dL Hct 42.9 (34.0-46.0) % MCV 81.2 (80.0-100.0) fL MCH 26.1 (25.0-35.0) pg MCHC 32.2 (31.0-37.0) g/dL RDW 17.9 H (11.5-15.5) % Plt Count 487 H (150-450) k/uL Neutrophils % 87 % Lymphocytes % 6 % Monocytes % 5 % Eosinophils % 1 % Basophils % 0 % Neutrophils # 9.9 H (1.3-7.7) k/uL Lymphocytes # 0.7 L (1.0-4.8) k/uL Monocytes # 0.6 (0-1.0) k/uL Eosinophils # 0.1 (0-0.7) k/uL Basophils # 0.0 (0-0.2) k/uL Anisocytosis Slight Microcytosis Slight PT (9.0-12.0) sec INR (<1.1) APTT (22.0-30.0) sec Sodium 124 L (137-145) mmol/L Potassium 4.6 (3.5-5.1) mmol/L Chloride 96 L (98-107) mmol/L Carbon Dioxide 23 (22-30) mmol/L Anion Gap 5 mmol/L BUN 5 L (7-17) mg/dL Creatinine 0.48 L (0.52-1.04) mg/dL Est GFR (MDRD) Af Amer >60 (>60 ml/min/1.73 sqM) Est GFR (MDRD) Non-Af >60 (>60 ml/min/1.73 sqM) Glucose 102 H (74-99) mg/dL Calcium 8.2 L (8.4-10.2) mg/dL Total Bilirubin 0.3 (0.2-1.3) mg/dL AST 40 H (14-36) U/L ALT 28 (9-52) U/L Alkaline Phosphatase 157 H (38-126) U/L Total Creatine Kinase 30 (30-135) U/L CK-MB (CK-2) 2.4 (0.0-2.4) ng/mL CK-MB (CK-2) Rel Index 8.0 Troponin I <0.012 (0.000-0.034) ng/mL NT-Pro-B Natriuret Pep pg/mL Total Protein 4.7 L (6.3-8.2) g/dL Albumin 2.1 L (3.5-5.0) g/dL 06/24/16 06/24/16 Range/Units 14:08 14:08 WBC (3.8-10.6) k/uL RBC (3.80-5.40) m/uL Hgb (11.4-16.0) gm/dL Hct (34.0-46.0) % MCV (80.0-100.0) fL MCH (25.0-35.0) pg MCHC (31.0-37.0) g/dL RDW (11.5-15.5) % Plt Count (150-450) k/uL Neutrophils % % Lymphocytes % % Monocytes % % Eosinophils % % Basophils % % Neutrophils # (1.3-7.7) k/uL Lymphocytes # (1.0-4.8) k/uL Monocytes # (0-1.0) k/uL Eosinophils # (0-0.7) k/uL Basophils # (0-0.2) k/uL Anisocytosis Microcytosis PT 10.3 (9.0-12.0) sec INR 1.0 (<1.1) APTT 24.0 (22.0-30.0) sec Sodium (137-145) mmol/L Potassium (3.5-5.1) mmol/L Chloride (98-107) mmol/L Carbon Dioxide (22-30) mmol/L Anion Gap mmol/L BUN (7-17) mg/dL Creatinine (0.52-1.04) mg/dL Est GFR (MDRD) Af Amer (>60 ml/min/1.73 sqM) Est GFR (MDRD) Non-Af (>60 ml/min/1.73 sqM) Glucose (74-99) mg/dL Calcium (8.4-10.2) mg/dL Total Bilirubin (0.2-1.3) mg/dL AST (14-36) U/L ALT (9-52) U/L Alkaline Phosphatase (38-126) U/L Total Creatine Kinase (30-135) U/L CK-MB (CK-2) (0.0-2.4) ng/mL CK-MB (CK-2) Rel Index Troponin I (0.000-0.034) ng/mL NT-Pro-B Natriuret Pep 1770 pg/mL Total Protein (6.3-8.2) g/dL Albumin (3.5-5.0) g/dL - Radiology Data Radiology results: image reviewed (Chest x-ray showed bilateral pleural effusions) Disposition Clinical Impression: Pleural effusion, bilateral, Hyponatremia, Vomiting Disposition: ADMITTED IP TO THIS [facility] Condition: Serious Time of Disposition: 16:09
[2016-06-24 14:34] LABS: Anisocytosis Slight; Basophils % (A) 0 %; CH 26.5; CHCM 32.8; Eosinophils # (A) 0.1 k/uL (0-0.7); Eosinophils % (A) 1 %; HCT 42.9 % (34.0-46.0); HDW 3.15; HGB 13.8 gm/dL (11.4-16.0); Luc # (Auto) 0.13; Luc % (Auto) 1; Lymphocytes # (A) 0.7 k/uL (1.0-4.8); Lymphocytes % (A) 6 %; MCH 26.1 pg (25.0-35.0); MCHC 32.2 g/dL (31.0-37.0); MCV 81.2 fL (80.0-100.0); Mean Platelet Volume 6.7; Microcytosis Slight; Monocytes # (A) 0.6 k/uL (0-1.0); Monocytes % (A) 5 %; Neutrophils # (A) 9.9 k/uL (1.3-7.7); Neutrophils % (A) 87 %; RBC 5.29 m/uL (3.80-5.40); RDW 17.9 % (11.5-15.5); WBC 11.4 k/uL (3.8-10.6); WBC (Perox) 11.45
[2016-06-24 14:41] LABS: ALT 28 U/L (9-52); AST 40 U/L (14-36); Alkaline Phosphatase 157 U/L (38-126); Anion Gap 5 mmol/L; Blood Urea Nitrogen 5 mg/dL (7-17); Calcium 8.2 mg/dL (8.4-10.2); Carbon Dioxide 23 mmol/L (22-30); Chloride 96 mmol/L (98-107); Glucose 102 mg/dL (74-99); Non-African American GFR(MDRD) >60 (>60 ml/min/1.73 sqM); Potassium 4.6 mmol/L (3.5-5.1); Sodium 124 mmol/L (137-145); Total Bilirubin 0.3 mg/dL (0.2-1.3); Total Protein 4.7 g/dL (6.3-8.2)
[2016-06-24 14:49] LABS: Prothrombin Time 10.3 sec (9.0-12.0)
--- NOTE | 2016-06-24 14:50 | XR ---
EXAMINATION TYPE: XR chest 1V portable DATE OF EXAM: 06/24/2016 2:45 PM COMPARISON: Prior chest x-ray 18 Jun 2016 HISTORY: Dyspnea TECHNIQUE: Single frontal view of the chest is obtained. FINDINGS: Similar findings. Bibasilar density is present compatible with effusions and associated at electasis. Interstitium is somewhat prominent. Heart size may be accentuated by rotation. No evident pneumothorax. Port is stable. There are overlying cardiac leads. IMPRESSION: Bilateral pleural effusions and associated atelectasis, there is some associated interst itial lung disease.
[2016-06-24 15:01] LABS: Creatine Kinase 30 U/L (30-135)
[2016-06-24 15:14] LABS: Creatine Kinase MB 2.4 ng/mL (0.0-2.4); Troponin I <0.012 ng/mL (0.000-0.034)
[2016-06-24] MEDS ORDERED: NALOXONE 0.4 MG/ML 1 ML VIAL IV PRN (16:09)
[2016-06-24] MEDS ORDERED: ONDANSETRON 4 MG/2 ML VIAL IVP PRN (16:20)
[2016-06-24] MEDS: SODIUM CHLORIDE 0.9% 1,000 ML IV SCH (18:22)
[2016-06-24] MEDS ORDERED: ONDANSETRON ODT 8 MG TAB.RAPDIS PO PRN (20:15)
[2016-06-24] MEDS ORDERED: MAGNESIUM HYDROXIDE 2,400 MG/10 ML CUP PO PRN (20:15)
[2016-06-24] MEDS ORDERED: ALBUTEROL INHALER 60 PUFF/8 GM INHALER INHALATION PRN (20:15)
[2016-06-24] MEDS ORDERED: ALBUTEROL NEBULIZED 2.5 MG/3 ML INHALATION PRN (20:15)
[2016-06-24] MEDS ORDERED: ALTEPLASE 2 MG VIAL (CATHFLO) IV STA (20:31)
[2016-06-24] MEDS: CITALOPRAM HYDROBROMIDE 20 MG TAB PO SCH (20:59)
[2016-06-24] MEDS: GABAPENTIN 300 MG CAP PO SCH (21:00)
[2016-06-24] MEDS: HYDROmorphone 1 MG/ML 1 ML SYRINGE IVP PRN (21:00)
[2016-06-24] MEDS: LORazepam 0.5 MG TAB PO PRN (21:00)
[2016-06-24] MEDS: MORPHINE SULFATE ER 30 MG TABLET PO SCH (22:27)
[2016-06-25] MEDS: HYDROmorphone 1 MG/ML 1 ML SYRINGE IVP PRN ×8 (00:16→23:42)
[2016-06-25 06:16] LABS: Anisocytosis Slight; Basophils % (A) 0 %; CH 26.9; CHCM 32.9; Eosinophils # (A) 0.1 k/uL (0-0.7); Eosinophils % (A) 1 %; HCT 37.1 % (34.0-46.0); HDW 3.19; Luc # (Auto) 0.09; Luc % (Auto) 1; Lymphocytes # (A) 0.4 k/uL (1.0-4.8); Lymphocytes % (A) 4 %; MCH 26.4 pg (25.0-35.0); MCHC 32.3 g/dL (31.0-37.0); MCV 81.9 fL (80.0-100.0); Mean Platelet Volume 6.4; Microcytosis Slight; Monocytes # (A) 0.6 k/uL (0-1.0); Monocytes % (A) 7 %; Neutrophils # (A) 7.5 k/uL (1.3-7.7); Neutrophils % (A) 87 %; RBC 4.53 m/uL (3.80-5.40); WBC 8.7 k/uL (3.8-10.6); WBC (Perox) 8.69
[2016-06-25 06:32] LABS: ALT 26 U/L (9-52); AST 32 U/L (14-36); Alkaline Phosphatase 127 U/L (38-126); Anion Gap 2 mmol/L; Blood Urea Nitrogen 5 mg/dL (7-17); Calcium 7.6 mg/dL (8.4-10.2); Carbon Dioxide 26 mmol/L (22-30); Chloride 97 mmol/L (98-107); Glucose 90 mg/dL (74-99); Magnesium 1.4 mg/dL (1.6-2.3); Non-African American GFR(MDRD) >60 (>60 ml/min/1.73 sqM); Potassium 4.5 mmol/L (3.5-5.1); Sodium 125 mmol/L (137-145); Total Bilirubin 0.3 mg/dL (0.2-1.3)
[2016-06-25] MEDS: MORPHINE SULFATE ER 30 MG TABLET PO SCH ×2 (07:25→20:34)
[2016-06-25] MEDS: BISACODYL 5 MG TABLET.DR PO SCH (07:25)
[2016-06-25] MEDS: PANTOPRAZOLE 40 MG/10 ML VIAL IV SCH (07:29)
[2016-06-25] MEDS: GABAPENTIN 300 MG CAP PO SCH ×2 (07:29→20:34)
[2016-06-25 08:34] VITALS: RESP 16
--- NOTE | 2016-06-25 13:35 | P.HPIM ---
History of Present Illness H&P Date: 06/25/16 Chief Complaint: Uncontrolled pain This is a 40-year-old female with complicated past medical history noted below significant for metastatic ovarian cancer and has been declining over the past several months. Unfortunately, patient did not respond well to chemotherapy. Her therapy was stopped several weeks ago. Since then she has been having recurrent metastatic pleural effusion and ascites. That required drainage approximately once or twice a week. She was just the shot from the hospital yesterday after having a pigtail catheter to the left abdomen to help her drain her ascites at home. She said as soon as she had home she was having uncontrolled pain as well as shortness of breath and decided to return to the emergency room for further evaluation. Chest x-ray showed bilateral pleural effusion. Today, we discussed goals of care with patient. She understands that her illness is terminal. She is very realistic. She is interested in comfort measures and Enrolling in hospice care. She is a DO NOT RESUSCITATE/DO NOT INTUBATE. Review of Systems Review of system: 14 points review of systems were obtained and were negative except to what were mentioned in the HPI. Past Medical History Past Medical History: Cancer, Deep Vein Thrombosis (DVT), Hyperlipidemia Additional Past Medical History / Comment(s): Stage 4 ovarian cancer with total hysterectomy and chemo (last chemo 03/04/15), right pleural effusions with thoracentesis, ascities with paracentesis, bilateral hands and feet neuropathy, chronic cervical pain-degnerative bone disease, buldging disk, blood clot to the rt wrist and rt neck, chronic constipation. History of Any Multi-Drug Resistant Organisms: None Reported Past Surgical History: Hysterectomy Additional Past Surgical History / Comment(s): powerport left chest, total hysterectomy, multiple paracentisis, multiple right thorocentesis, peritoneal permanent catheter inserted by DR Bowers 06/20/2016 Past Anesthesia/Blood Transfusion Reactions: No Reported Reaction Past Psychological History: Anxiety, Depression Additional Psychological History / Comment(s): Pt states medication for mental health help. Pt resides with significant other. She is independent. States she and significant other spoke with hospice recently and they did not care for it. Significant other assists pt when she needs it. Smoking Status: Never smoker Past Alcohol Use History: None Reported Additional Past Alcohol Use History / Comment(s): pt quit smoking 05/24/2016 Past Drug Use History: Marijuana Additional Drug Use History / Comment(s): Pt has medical marijuana that she uses for pain control on a nearly everyday basis. - Past Family History Mother Family Medical History: Diabetes Mellitus Additional Family Medical History / Comment(s): bilat knee replace Father Family Medical History: COPD Medications and Allergies Home Medications Medication Instructions Recorded Confirmed Type Citalopram Hydrobromide [CeleXA] 20 mg PO HS 03/02/14 06/24/16 History EPINEPHrine [Epipen 2-Mike] 0.3 mg IM ONCE PRN 03/19/15 06/24/16 History Sennosides [Senokot] 8.6 mg PO DAILY PRN 03/19/15 06/24/16 History Albuterol Nebulized [Ventolin 2.5 mg INHALATION RT-Q6H PRN 10/02/15 06/24/16 History Nebulized] LORazepam [Lorazepam] 0.5 mg PO Q6H PRN 11/19/15 06/24/16 History Gabapentin [Neurontin] 300 mg PO BID 03/01/16 06/24/16 History HYDROcodone/APAP 10-325MG [[place] 1 tab PO Q6H PRN 03/09/16 06/24/16 History 10-325] Morphine Sulfate [Ms Contin] 30 mg PO Q12HR 03/12/16 06/24/16 History Magnesium Hydroxide [Milk of 2,400 mg PO DAILY PRN 05/05/16 06/24/16 History Magnesia] Tamoxifen Citrate 20 mg PO DAILY 06/06/16 06/24/16 History Allergies Allergy/AdvReac Type Severity Reaction Status Date / Time dexamethasone [From Decadron] Allergy Unknown Verified 06/24/16 15:29 dexamethasone sod phosphate Allergy Unknown Verified 06/24/16 15:29 [From Decadron] venom-honey bee Allergy Anaphylaxis Verified 06/24/16 15:29 [bee venom (honey bee)] Physical Exam Vitals: Vital Signs Temp Pulse Pulse Resp BP BP Pulse Ox 06/25/16 07:00 98.4 F 100 16 103/67 93 L 06/25/16 00:12 109 H 06/25/16 00:05 108 H 06/24/16 23:00 95 06/24/16 21:00 98.1 F 116 H 22 129/68 06/24/16 17:53 119 H 16 06/24/16 17:40 98 F 119 H 16 109/76 92 L 06/24/16 17:08 97.8 F 18 98 06/24/16 16:57 98.5 F 110 H 20 121/72 91 L Intake and Output 06/24/16 06/25/16 06/25/16 22:59 06:59 14:59 Intake Total 450 Balance 450 Intake: IV 450 Sodium Chloride 0.9% 1, 450 000 ml @ 50 mls/hr IV . Q20H [facility] Rx#:[id number] Other: Voiding Method Toilet # Voids 2 1 Weight 21.3 kg General: The patient is awake and alert, in no distress Eye: there is normal conjunctiva bilaterally. Neck: The neck is supple, there is no JVD. Cardiovascular: Normal S1-S2, no S3-S4, no murmurs. Respiratory: Lungs with diminished sounds bilaterally Gastrointestinal: Abdomen is slightly distended but nontender Musculoskeletal: There is +1-2 pedal edema. Neurological:. Speech is normal. Skin: Skin is warm and dry Results CBC & Chem 7: 06/25/16 06:02 06/25/16 06:02 Labs: Abnormal Lab Results - Last 24 Hours (Table) 06/25/16 06/25/16 Range/Units 06:02 06:02 RDW 18.0 H (11.5-15.5) % Lymphocytes # 0.4 L (1.0-4.8) k/uL Sodium 125 L (137-145) mmol/L Chloride 97 L (98-107) mmol/L BUN 5 L (7-17) mg/dL Creatinine 0.44 L (0.52-1.04) mg/dL Calcium 7.6 L (8.4-10.2) mg/dL Magnesium 1.4 L (1.6-2.3) mg/dL Alkaline Phosphatase 127 H (38-126) U/L Total Protein 4.0 L (6.3-8.2) g/dL Albumin 1.8 L (3.5-5.0) g/dL Thrombosis Risk Factor Assmnt - Choose All That Apply Any of the Below Risk Factors Present?: No Assessment and Plan Plan: 1. Recurrent metastatic pleural effusion and ascites 2. Stage IV metastatic ovarian cancer status post GHAZALA/SBO 3. Acute nausea and vomiting secondary to #1 and 2 4. Chronic opiate-induced constipation 5. Mixed hyperlipidemia 6. Major depressive disorder 7. Generalized anxiety disorder This is a 40-year-old female with complicated past medical history noted below significant for metastatic ovarian cancer and has been declining over the past several months. Unfortunately, patient did not respond well to chemotherapy. Her therapy was stopped several weeks ago. Since then she has been having recurrent metastatic pleural effusion and ascites. That required drainage approximately once or twice a week. She was just the shot from the hospital yesterday after having a pigtail catheter to the left abdomen to help her drain her ascites at home. She said as soon as she had home she was having uncontrolled pain as well as shortness of breath and decided to return to the emergency room for further evaluation. Chest x-ray showed bilateral pleural effusion. Today, we discussed goals of care with patient. She understands that her illness is terminal. She is very realistic. She is interested in comfort measures and Enrolling in hospice care. She is a DO NOT RESUSCITATE/DO NOT INTUBATE. We will continue comfort measures. Plan to go home on hospice. Patient needs will be addressed and set up for her in terms of home oxygen, pain medication, nebulizer machine at home, and any other needs for her comfort at home. Possible discharge tomorrow.
--- NOTE | 2016-06-25 14:10 | P.CNPUL ---
History of Present Illness Consult date: 06/25/16 Requesting physician: Adia Ardon Reason for consult: abnormal CXR/CT (Bilateral pleural effusions) Chief complaint: Shortness of breath History of present illness: This is a very pleasant 40-year-old female patient who follows with Dr. Indra cordero as her primary care physician. She has a past history of stage IV ovarian cancer status post chemotherapy. She also has had multiple paracentesis for ascites and multiple more so on the right thoracentesis for reaccumulating pleural effusions. He was here last week and a Pleurx catheter was inserted into her abdomen. She presented here again yesterday with complaints of worsening shortness of breath. Chest x-ray does reveal evidence of bilateral recurrent pleural effusions and we're consulted for the same. She is seen today in consultation on the oncology unit. She is awake and alert in no acute distress. She is quite cachectic and frail at this point. She is also hyponatremic at 125 today. He is maintaining good O2 saturations in the low 90s on 5 L/m per nasal cannula. She is currently on a 40% Ventimask. Review of Systems 14 point review of system was conducted. All negative other than as mentioned in HPI. Past Medical History Past Medical History: Cancer, Deep Vein Thrombosis (DVT), Hyperlipidemia Additional Past Medical History / Comment(s): Stage 4 ovarian cancer with total hysterectomy and chemo (last chemo 03/04/15), right pleural effusions with thoracentesis, ascities with paracentesis, bilateral hands and feet neuropathy, chronic cervical pain-degnerative bone disease, buldging disk, blood clot to the rt wrist and rt neck, chronic constipation. History of Any Multi-Drug Resistant Organisms: None Reported Past Surgical History: Hysterectomy Additional Past Surgical History / Comment(s): powerport left chest, total hysterectomy, multiple paracentisis, multiple right thorocentesis, peritoneal permanent catheter inserted by DR Bowers 06/20/2016 Past Anesthesia/Blood Transfusion Reactions: No Reported Reaction Past Psychological History: Anxiety, Depression Additional Psychological History / Comment(s): Pt states medication for mental health help. Pt resides with significant other. She is independent. States she and significant other spoke with hospice recently and they did not care for it. Significant other assists pt when she needs it. Smoking Status: Never smoker Past Alcohol Use History: None Reported Additional Past Alcohol Use History / Comment(s): pt quit smoking 05/24/2016 Past Drug Use History: Marijuana Additional Drug Use History / Comment(s): Pt has medical marijuana that she uses for pain control on a nearly everyday basis. - Past Family History Mother Family Medical History: Diabetes Mellitus Additional Family Medical History / Comment(s): bilat knee replace Father Family Medical History: COPD Medications and Allergies Home Medications Medication Instructions Recorded Confirmed Type Citalopram Hydrobromide [CeleXA] 20 mg PO HS 03/02/14 06/24/16 History EPINEPHrine [Epipen 2-Mike] 0.3 mg IM ONCE PRN 03/19/15 06/24/16 History Sennosides [Senokot] 8.6 mg PO DAILY PRN 03/19/15 06/24/16 History Albuterol Nebulized [Ventolin 2.5 mg INHALATION RT-Q6H PRN 10/02/15 06/24/16 History Nebulized] LORazepam [Lorazepam] 0.5 mg PO Q6H PRN 11/19/15 06/24/16 History Gabapentin [Neurontin] 300 mg PO BID 03/01/16 06/24/16 History HYDROcodone/APAP 10-325MG [[place] 1 tab PO Q6H PRN 03/09/16 06/24/16 History 10-325] Morphine Sulfate [Ms Contin] 30 mg PO Q12HR 03/12/16 06/24/16 History Magnesium Hydroxide [Milk of 2,400 mg PO DAILY PRN 05/05/16 06/24/16 History Magnesia] Tamoxifen Citrate 20 mg PO DAILY 06/06/16 06/24/16 History Allergies Allergy/AdvReac Type Severity Reaction Status Date / Time dexamethasone [From Decadron] Allergy Unknown Verified 06/24/16 15:29 dexamethasone sod phosphate Allergy Unknown Verified 06/24/16 15:29 [From Decadron] venom-honey bee Allergy Anaphylaxis Verified 06/24/16 15:29 [bee venom (honey bee)] Physical Exam Vitals: Vital Signs Temp Pulse Pulse Resp BP BP Pulse Ox 06/25/16 07:00 98.4 F 100 16 103/67 93 L 06/25/16 00:12 109 H 06/25/16 00:05 108 H 06/24/16 23:00 95 06/24/16 21:00 98.1 F 116 H 22 129/68 06/24/16 17:53 119 H 16 06/24/16 17:40 98 F 119 H 16 109/76 92 L 06/24/16 17:08 97.8 F 18 98 06/24/16 16:57 98.5 F 110 H 20 121/72 91 L Intake and Output 06/24/16 06/25/16 06/25/16 22:59 06:59 14:59 Intake Total 450 Balance 450 Intake: IV 450 Sodium Chloride 0.9% 1, 450 000 ml @ 50 mls/hr IV . Q20H [facility] Rx#:[id number] Other: Voiding Method Toilet # Voids 2 1 Weight 21.3 kg GENERAL EXAM: Frail cachectic. Alert, active, comfortable in no apparent distress. HEAD: Normocephalic. EYES: Normal reaction of pupils, equal size. NOSE: Clear with pink turbinates. THROAT: No erythema or exudates. NECK: No masses, no JVD. CHEST: No chest wall deformity. LUNGS: Equal air entry with crackles in the bilateral posterior bases. Diminished.r CVS: S1 and S2 normal with no audible mumurs, regular rhythm. ABDOMEN: Distended, Pleurx catheter in place., normal bowel sounds, no guarding or rigidity. Extremities: There is trace peripheral edema. No clubbing, no cyanosis. Peripheral pulses are intact. Results - Laboratory Findings CBC and BMP: 06/25/16 06:02 06/25/16 06:02 PT/INR, D-dimer PT 10.3 sec (9.0-12.0) 06/24/16 14:08 INR 1.0 (<1.1) 06/24/16 14:08 Abnormal lab findings: Abnormal Labs 06/25/16 06/25/16 06:02 06:02 RDW 18.0 H Lymphocytes # 0.4 L Sodium 125 L Chloride 97 L BUN 5 L Creatinine 0.44 L Calcium 7.6 L Magnesium 1.4 L Alkaline Phosphatase 127 H Total Protein 4.0 L Albumin 1.8 L - Diagnostic Findings Chest x-ray: image reviewed Assessment and Plan Plan: Impression: #1 Stage IV ovarian cancer. #2 Ascites, recurrent status post multiple paracentesis. Recent Pleurx catheter insertion. #3 Recurrent bilateral pleural effusions, status post multiple thoracentesis. #4 History of anxiety/depression. Plan: The patient was seen and evaluated by Dr. Weiss. Her chest x-ray and labs were reviewed. We had a discussion along with and the patient in regards to her poor prognosis. The patient is agreeable at this point to enroll into hospice care. She does not want any further interventions. She does not want to be resuscitated. Hospice consult was placed. We will follow as needed. Time with Patient: Greater than 30
--- NOTE | 2016-06-25 14:57 | CDI ---
In responding to this query, please exercise your independent professional judgment. The [facility] Coding Staff and Clinical Documentation Specialists appreciate your assistance in clarifying documentation, maintaining compliance with coding guidelines, accurately documenting patients condition and capturing severity of illness. The fact that a question is asked does not imply that any particular answer is desired or expected. Communication forms are a method of clarifying documentation and are not made part of the Legal Health Record. Thank you in advance for your clarification. Last Revision, December 2014 Rosalba Martino [address] [place] [address] Documentation Clarification Form Date: 06/25/2016 2:48:00 PM From: Lilliana Sykes RN, CCDS Admit Date: 06/24/2016 4:14:00 PM Patient Name: Yvette Rosales Visit Number: [id number] Dr. Adia Ardon History/Risk Factors: Terminal metastatic ovarian Ca with mets Clinical Indicators: 06/25 Pulmonary consult: "She is quite cachectic and frail at this point." Labs: Albumin: 2.1/1.8 Total Protein: 4.7/4 Current BMI: 8.3 Fluid accumulation: recurrent pleural effusions and ascites with pigtail catheter insertion into her abdomen Treatment: Dietary Consult: Not ordered Supplements/TPN: not ordered Lab monitoring: am daily In your professional opinion, can you please clarify if these findings signify one of the following conditions? Mild Protein-Calorie Malnutrition Moderate Protein-Calorie Malnutrition Severe Protein-Calorie Malnutrition Other condition, please specify Unable to determine Please document in your progress notes and discharge summary in order to capture severity of illness and risk of mortality. Include clinical findings that support your diagnosis. FYI: Press F11 to launch patient chart. Place X here if this finding has no clinical significance, is not applicable or if you are not able to provide any additional documentation. ROSALINED
--- NOTE | 2016-06-25 15:05 | CDI ---
In responding to this query, please exercise your independent professional judgment. The [facility] Coding Staff and Clinical Documentation Specialists appreciate your assistance in clarifying documentation, maintaining compliance with coding guidelines, accurately documenting patients condition and capturing severity of illness. The fact that a question is asked does not imply that any particular answer is desired or expected. Communication forms are a method of clarifying documentation and are not made part of the Legal Health Record. Thank you in advance for your clarification. Last Revision, April 2015 Rosalba Martino [address] [place] [place] [address] Documentation Clarification Form Date: 06/25/2016 2:57:00 PM From: Lilliana Sykes Admit Date: 06/24/2016 4:14:00 PM Patient Name: Yvette Rosales Visit Number: [id number] Dr. Adia Ardon History/Risk Factors: Terminal ovarian CA with recurrent Ascites and pleural effusions Home oxygen: to be ordered at time of d/c Clinical Indicators: Vital signs/Pulse oximetry: Spo2 78% on room air on admission, o2 increased from 4L nasal cannula to 5l, to 40% venti-mask. RR 16-22 H&P Lung/Breathing assessment: Respiratory: Lungs with diminished sounds bilaterally." ABG/CBG: not done Treatment: Breathing TX: Ventolin INH Q 6 hrs PRN SOB Continuous Pulse ox: per unit protocol O2- H&P: Pt needs to be set up for home O2 In your professional opinion, can you please clarify if these findings signify one of the following conditions? Acuity: o Acute o Chronic o Acute on Chronic Respiratory Status: o Respiratory failure o Respiratory failure with hypercapnia o Respiratory failure with hypoxia o Acute Respiratory Distress o Other Diagnosis, please specify o Unable to determine Please document in your progress notes and discharge summary in order to capture severity of illness and risk of mortality. Include clinical findings that support your diagnosis. FYI: Press F11 to launch patient chart. Place X here if this finding has no clinical significance, is not applicable or if you are not able to provide any additional documentation. MARYJANE
--- NOTE | 2016-06-25 16:02 | P.CONS ---
History of Present Illness - Reason for Consult Consult date: 06/25/16 Metastatic ovarian Requesting physician: Cecil Joaquin - Chief Complaint SOB - History of Present Illness Please refer to Medical Consult note dated 06/19 for full malignancy history details. 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 She has had multiple recurrences over the years with multiple lines of therapy tried and failed. Earlier this year the pt progressed through the last line of treatment available for her malignancy and hospice was recommended but pt was not interested. She has had multiple admissions to the hospital for SOB, she has required multiple paracentesis and thoracentesis for malignant ascites and pleural effusion. She recently had a percutaneous pigtail drain placed in the peritoneum for ability to drain at home, unfortunately her insurance would not pay for the equipment necessary for drainage. Pt is admitted with SOB, seen by Pulmonary-she thinks there are plans for palliative thoracentesis-when seen she is resting comfortably, she denies SOB at rest, does require O2 for comfort, her pain is managed, no nausea, vomiting, she had a normal consistency BM today, abd distension is stable. Review of Systems All systems: negative Constitutional: Reports as per HPI Past Medical History Past Medical History: Cancer, Deep Vein Thrombosis (DVT), Hyperlipidemia Additional Past Medical History / Comment(s): Stage 4 ovarian cancer with total hysterectomy and chemo (last chemo 03/04/15), right pleural effusions with thoracentesis, ascities with paracentesis, bilateral hands and feet neuropathy, chronic cervical pain-degnerative bone disease, buldging disk, blood clot to the rt wrist and rt neck, chronic constipation. History of Any Multi-Drug Resistant Organisms: None Reported Past Surgical History: Hysterectomy Additional Past Surgical History / Comment(s): powerport left chest, total hysterectomy, multiple paracentisis, multiple right thorocentesis, peritoneal permanent catheter inserted by DR Bowers 06/20/2016 Past Anesthesia/Blood Transfusion Reactions: No Reported Reaction Past Psychological History: Anxiety, Depression Additional Psychological History / Comment(s): Pt states medication for mental health help. Pt resides with significant other. She is independent. States she and significant other spoke with hospice recently and they did not care for it. Significant other assists pt when she needs it. Smoking Status: Never smoker Past Alcohol Use History: None Reported Additional Past Alcohol Use History / Comment(s): pt quit smoking 05/24/2016 Past Drug Use History: Marijuana Additional Drug Use History / Comment(s): Pt has medical marijuana that she uses for pain control on a nearly everyday basis. - Past Family History Mother Family Medical History: Diabetes Mellitus Additional Family Medical History / Comment(s): bilat knee replace Father Family Medical History: COPD Medications and Allergies Home Medications Medication Instructions Recorded Confirmed Type Citalopram Hydrobromide [CeleXA] 20 mg PO HS 03/02/14 06/24/16 History EPINEPHrine [Epipen 2-Mike] 0.3 mg IM ONCE PRN 03/19/15 06/24/16 History Sennosides [Senokot] 8.6 mg PO DAILY PRN 03/19/15 06/24/16 History Albuterol Nebulized [Ventolin 2.5 mg INHALATION RT-Q6H PRN 10/02/15 06/24/16 History Nebulized] LORazepam [Lorazepam] 0.5 mg PO Q6H PRN 11/19/15 06/24/16 History Gabapentin [Neurontin] 300 mg PO BID 03/01/16 06/24/16 History HYDROcodone/APAP 10-325MG [Vandiver 1 tab PO Q6H PRN 03/09/16 06/24/16 History 10-325] Morphine Sulfate [Ms Contin] 30 mg PO Q12HR 03/12/16 06/24/16 History Magnesium Hydroxide [Milk of 2,400 mg PO DAILY PRN 05/05/16 06/24/16 History Magnesia] Tamoxifen Citrate 20 mg PO DAILY 06/06/16 06/24/16 History Allergies Allergy/AdvReac Type Severity Reaction Status Date / Time dexamethasone [From Decadron] Allergy Unknown Verified 06/24/16 15:29 dexamethasone sod phosphate Allergy Unknown Verified 06/24/16 15:29 [From Decadron] venom-honey bee Allergy Anaphylaxis Verified 06/24/16 15:29 [bee venom (honey bee)] Physical Exam Vitals: Vital Signs Temp Pulse Pulse Resp BP BP Pulse Ox 06/25/16 07:00 98.4 F 100 16 103/67 93 L 06/25/16 00:12 109 H 06/25/16 00:05 108 H 06/24/16 23:00 95 06/24/16 21:00 98.1 F 116 H 22 129/68 06/24/16 17:53 119 H 16 06/24/16 17:40 98 F 119 H 16 109/76 92 L 06/24/16 17:08 97.8 F 18 98 06/24/16 16:57 98.5 F 110 H 20 121/72 91 L Intake and Output 06/25/16 06/25/16 06/25/16 06:59 14:59 22:59 Intake Total 450 Balance 450 Intake: IV 450 Sodium Chloride 0.9% 1, 450 000 ml @ 50 mls/hr IV . Q20H [facility] Rx#:[id number] Other: # Voids 1 - Constitutional General appearance: average body habitus, cooperative, no acute distress - EENT Eyes: anicteric sclerae, normal appearance ENT: normal oropharynx - Neck Neck: no lymphadenopathy - Respiratory Respiratory: bilateral: diminished (bases) - Cardiovascular Rhythm: regular Heart sounds: normal: S1, S2 leg Peripheral Edema: bilateral: 2+ - Gastrointestinal left percutaneous drain General gastrointestinal: distended, soft - Neurologic Neurologic: CNII-XII intact - Musculoskeletal Musculoskeletal: strength equal bilaterally - Psychiatric Psychiatric: A&O x's 3, appropriate affect, intact judgment & insight Results CBC & Chem 7: 06/25/16 06:02 06/25/16 06:02 Labs: Abnormal Lab Results - Last 24 Hours (Table) 06/25/16 06/25/16 Range/Units 06:02 06:02 RDW 18.0 H (11.5-15.5) % Lymphocytes # 0.4 L (1.0-4.8) k/uL Sodium 125 L (137-145) mmol/L Chloride 97 L (98-107) mmol/L BUN 5 L (7-17) mg/dL Creatinine 0.44 L (0.52-1.04) mg/dL Calcium 7.6 L (8.4-10.2) mg/dL Magnesium 1.4 L (1.6-2.3) mg/dL Alkaline Phosphatase 127 H (38-126) U/L Total Protein 4.0 L (6.3-8.2) g/dL Albumin 1.8 L (3.5-5.0) g/dL Chest x-ray: report reviewed Assessment and Plan (1) Malignant ascites Status: Chronic (2) Malignant pleural effusion Status: Chronic (3) Ovarian cancer Status: Chronic Plan: After chart review it appears pt has opted for hospice. Agree with plan of care. Did discuss case with Social Work and they will assist in finding supplies/services for management of percutaneous peritoneal pigtail drain. Pt is ok from an Oncology standpoint to be discharged once hospice services are in place and pt and family are ready for DC.
[2016-06-25] MEDS: LORazepam 0.5 MG TAB PO PRN ×2 (16:06→22:23)
[2016-06-25] MEDS: SODIUM CHLORIDE 0.9% 1,000 ML IV SCH ×2 (17:26→23:42)
[2016-06-25] MEDS: CITALOPRAM HYDROBROMIDE 20 MG TAB PO SCH (20:34)
[2016-06-26] MEDS: HYDROmorphone 1 MG/ML 1 ML SYRINGE IVP PRN ×4 (03:21→13:41)
[2016-06-26] MEDS: LORazepam 0.5 MG TAB PO PRN ×3 (04:57→15:41)
[2016-06-26 07:48] VITALS: BMI 23.8
[2016-06-26] MEDS: MORPHINE SULFATE ER 30 MG TABLET PO SCH (08:31)
[2016-06-26] MEDS: GABAPENTIN 300 MG CAP PO SCH (08:32)
[2016-06-26] MEDS: PANTOPRAZOLE 40 MG/10 ML VIAL IV SCH (08:33)
[2016-06-26] MEDS: BISACODYL 5 MG TABLET.DR PO SCH (08:38)
[2016-06-26 08:43] VITALS: BP 117/70; PULSE 122; TEMP 97.2
--- NOTE | 2016-06-26 13:25 | P.DS ---
Providers Date of admission: 06/24/16 16:14 Expected date of discharge: 06/26/16 Attending physician: Adia Ardon Consults: 06/24/16 16:22 Consult Physician Urgent Consulting Provider: Crispin Weiss Consult Reason/Comments: Bilateral pleural effusion Do you want consulting provider notified?: Yes Primary care physician: [facility] Course: 1. Recurrent metastatic pleural effusion and ascites 2. Stage IV metastatic ovarian cancer status post GHAZALA/SBO 3. Acute nausea and vomiting secondary to #1 and 2 4. Chronic opiate-induced constipation 5. Mixed hyperlipidemia 6. Major depressive disorder 7. Generalized anxiety disorder 8. Acute on chronic hypoxic respiratory failure 9. Moderate to severe protein/calorie malnutrition This is a 40-year-old female with complicated past medical history noted above significant for metastatic ovarian cancer and has been declining over the past several months. Unfortunately, patient did not respond well to chemotherapy. Her therapy was stopped several weeks ago. Since then she has been having recurrent metastatic pleural effusion and ascites. That required drainage approximately once or twice a week. She was just the shot from the hospital yesterday after having a pigtail catheter to the left abdomen to help her drain her ascites at home. She said as soon as she had home she was having uncontrolled pain as well as shortness of breath and decided to return to the emergency room for further evaluation. Chest x-ray showed bilateral pleural effusion. During this admission, we discussed goals of care with patient. She understands that her illness is terminal. She is very realistic. She is interested in comfort measures and Enrolling in hospice care. She is a DO NOT RESUSCITATE/DO NOT INTUBATE. She will be discharged home on hospice care. Patient Condition at Discharge: Serious Plan - Discharge Summary New Discharge Prescriptions: LORazepam [Ativan] 0.5 mg PO Q6H PRN #90 tab PRN Reason: Nausea Discharge Medication List Citalopram Hydrobromide [CeleXA] 20 mg PO HS 03/02/14 [History] EPINEPHrine [Epipen 2-Mike] 0.3 mg IM ONCE PRN 03/19/15 [History] Sennosides [Senokot] 8.6 mg PO DAILY PRN 03/19/15 [History] Albuterol Nebulized [Ventolin Nebulized] 2.5 mg INHALATION RT-Q6H PRN 10/02/15 [ History] Bisacodyl [Dulcolax] 5 mg PO DAILY #30 tablet.dr 11/20/15 [Rx] Polyethylene Glycol 3350 [Miralax] 17 gm PO DAILY #255 gm 11/20/15 [Rx] Gabapentin [Neurontin] 300 mg PO BID 03/01/16 [History] Morphine Sulfate [Ms Contin] 30 mg PO Q12HR 03/12/16 [History] HYDROmorphone [Dilaudid] 1 mg PO Q3HR PRN #80 tab 06/20/16 [Rx] Ondansetron Odt [Zofran ODT] 8 mg PO Q8HR PRN #90 tab 06/20/16 [Rx] Albuterol Inhaler [Ventolin Hfa Inhaler] 2 puff INHALATION RT-Q6H PRN #1 inhaler 06/23/16 [Rx] LORazepam [Ativan] 0.5 mg PO Q6H PRN #90 tab 06/26/16 [Rx] Follow up Appointment(s)/Referral(s): [facility] Visiting Nurse, [NON-STAFF] - Discharge Disposition: HOME WITH HOSPICE
--- NOTE | 2016-06-26 14:51 | PN ---
40-year-old female with a history of stage IV ovarian carcinoma. She has a history of recurrent ascites and recurrent bilateral effusions status post multiple drainage procedures. She had a recent abdominal Pleurx catheter placed. She came back into the hospital with complaints of shortness of breath and has recurrent bilateral pleural effusions. We had a long discussion with her yesterday in the presence of her primary doctor and she decided to go for home hospice. I think that is appropriate. In addition, she has a history of anxiety and depression. Current vital signs are reviewed. Temperature 97.2, heart rate 103, respiratory rate 16, blood pressure 117/70, mean 85, 3 liters saturation 93%. Appears in no acute distress. HEENT examination is grossly unremarkable. Mucous membranes are moist. No oral lesions. Neck is supple. Full range of motion. No adenopathy or thyromegaly. Cardiovascular examination reveals regular rhythm and rate. S1, S2 normal. No S3, S4 or murmur. Lungs reveal diminished breath sounds. There are some bibasilar crackles. Abdomen is soft. Bowel sounds are heard. Extremities are intact. There is some bilateral lower extremity edema. Skin without rash. Neurologic examination is nonfocal. No new labs to report. The patient has been seen by Oncology. Medications are reviewed. ASSESSMENT: 1. Stage IV ovarian cancer. 2. Recurrent ascites, status post multiple paracentesis abdominis with recent placement of abdominal Pleurx catheter. 3. He has recurrent bilateral pleural effusions with multiple previous thoracentesis mostly for palliation and comfort. 4. History of anxiety/depression. PLAN: The patient agreed to home hospice. Will continue to see as needed. No additional recommendations are made. She agreed to have nothing more done for the pleural effusions, given the fact that she has the abdominal Pleurx catheter in place.
[2016-06-27] MEDS ORDERED: PANTOPRAZOLE 40 MG TABLET PO SCH (07:30)
== END 2016-06-26 17:04 | disposition hospice, home (50) | DRG 754 ==
LOC: EC 14:03 → 5ONC 16:14
PROVIDERS: ADMIT Internal Medicine; ATTEND Internal Medicine
DX: C56.9 Malignant neoplasm of unspecified ovary (principal); E43 Unspecified severe protein-calorie malnutrition; J96.21 Acute and chronic respiratory failure with hypoxia; R18.0 Malignant ascites; R64 Cachexia; J91.0 Malignant pleural effusion; E87.1 Hypo-osmolality and hyponatremia; Z99.81 Dependence on supplemental oxygen; Z51.5 Encounter for palliative care; Z66 Do not resuscitate; M50.30 Other cervical disc degeneration, unspecified cervical region; G89.29 Other chronic pain; R00.0 Tachycardia, unspecified; F41.1 Generalized anxiety disorder; T40.605A Adverse effect of unspecified narcotics, initial encounter; K59.03 Drug induced constipation; E78.2 Mixed hyperlipidemia; G62.9 Polyneuropathy, unspecified; F12.90 Cannabis use, unspecified, uncomplicated; F32.9 Major depressive disorder, single episode, unspecified; R11.2 Nausea with vomiting, unspecified; I45.10 Unspecified right bundle-branch block; Z92.21 Personal history of antineoplastic chemotherapy; Z83.3 Family history of diabetes mellitus; Z82.5 Family history of asthma and other chronic lower respiratory diseases; Z79.899 Other long term (current) drug therapy; Z87.891 Personal history of nicotine dependence; Z79.811 Long term (current) use of aromatase inhibitors; Z79.891 Long term (current) use of opiate analgesic; Z88.8 Allergy status to other drugs, medicaments and biological substances; Z91.030 Bee allergy status; Z68.23 Body mass index [BMI] 23.0-23.9, adult; Z90.710 Acquired absence of both cervix and uterus; Z90.722 Acquired absence of ovaries, bilateral; Z90.79 Acquired absence of other genital organ(s); Z86.718 Personal history of other venous thrombosis and embolism; Z97.8 Presence of other specified devices
CPT/HCPCS: 36415; 71010; 80053; 82550; 82553; 83735; 83880; 84484; 85025; 85610; 85730; 93005; 94640; 96374; 96375; 99285

== ENCOUNTER 2016-07-11 10:11 | Day surgery (SDC) | payer OTHER ==
[2016-07-11 11:06] VITALS: TEMP 97.7
[2016-07-11 11:13] LABS: Mean Platelet Volume 6.3
[2016-07-11 11:50] LABS: Prothrombin Time 10.4 sec (9.0-12.0)
--- NOTE | 2016-07-11 12:27 | XR ---
EXAMINATION TYPE: XR chest 1V portable DATE OF EXAM: 07/11/2016 12:09 PM COMPARISON: Prior chest x-ray June 24, 2016 HISTORY: Status post left thoracentesis TECHNIQUE: Single frontal view of the chest is obtained. FINDINGS: There is been interval removal of pleural fluid on the left. No evident pneumothorax. Righ t-sided pleural effusion is present. Scarring present in the left midlung. IMPRESSION: No evident complication status post thoracentesis.
--- NOTE | 2016-07-11 12:37 | US ---
Ultrasound-guided therapeutic thoracentesis CLINICAL HISTORY: Left pleural effusion and history of malignancy The procedure was discussed with the patient. The risks, complications, benefits, and alternatives we re discussed and any questions were answered. Informed consent was obtained. The patient was placed supine on the ultrasound table and prepped and draped in the usual sterile fas hion. All elements of maximal barrier and sterile technique were utilized. Under ultrasound guidance, access into the pleural space was obtained, via the thoracentesis catheter system and direct ultrasound guidance. A pproximately 1.3 liters of serous fluid was removed. The patient was stable throughout the procedure and remained stable upon discharge from Department of Radiology. IMPRESSION: 1. Successful therapeutic thoracentesis under ultrasound guidance.
[2016-07-11 12:52] VITALS: BP 101/69; PULSE 100; RESP 18
== END 2016-07-11 12:55 | disposition home or self-care (01) ==
LOC: RADPROMAIN 10:11
PROVIDERS: ATTEND Internal Medicine Hematology & Oncology
DX: R18.8 Other ascites (principal); E56.9 Vitamin deficiency, unspecified; Z88.8 Allergy status to other drugs, medicaments and biological substances
CPT/HCPCS: 32555; 71010; 85049; 85610

== ENCOUNTER 2016-07-24 07:54 | Emergency (ER) | payer OTHER ==
[2016-07-24] MEDS ORDERED: FAMOTIDINE 20 MG/2 ML VIAL IV STA (08:15)
[2016-07-24] MEDS ORDERED: ONDANSETRON 4 MG/2 ML VIAL IVP STA (08:15)
--- NOTE | 2016-07-24 08:24 | ED ---
General Adult HPI - General Chief complaint: Shortness of Breath Stated complaint: Difficulty Breathing Time Seen by Provider: 07/24/16 08:09 Source: patient, EMS, RN notes reviewed Mode of arrival: EMS Limitations: no limitations - History of Present Illness Initial comments: Patient is a pleasant 40-year-old female presenting to the emergency department complaining of shortness of breath. Patient is weak and provides limited history. Patient states she is not able to breathe well for the past 2 days. Patient has had similar symptoms previously and twice had her lungs drained with thoracentesis. Patient believes she has a similar problem. Patient has known stage IV ovarian cancer with metastasis. - Related Data Home Medications Medication Instructions Recorded Confirmed Sennosides [Senokot] 8.6 mg PO DAILY PRN 03/19/15 07/24/16 Spironolactone 50 mg PO BID 07/11/16 07/24/16 Tamoxifen [Nolvadex] 20 mg PO DAILY 07/11/16 07/24/16 Previous Rx's Medication Instructions Recorded HYDROmorphone [Dilaudid] 1 mg PO Q3HR PRN #80 tab 06/20/16 Ondansetron Odt [Zofran ODT] 8 mg PO Q8HR PRN #90 tab 06/20/16 Albuterol Inhaler [Ventolin Hfa 2 puff INHALATION RT-Q6H PRN #1 06/23/16 Inhaler] inhaler LORazepam [Ativan] 0.5 mg PO Q6H PRN #90 tab 06/26/16 Allergies Allergy/AdvReac Type Severity Reaction Status Date / Time dexamethasone [From Decadron] Allergy Unknown Verified 07/24/16 10:37 dexamethasone sod phosphate Allergy Unknown Verified 07/24/16 10:37 [From Decadron] venom-honey bee Allergy Anaphylaxis Verified 07/24/16 10:37 [bee venom (honey bee)] Review of Systems ROS Statement: Those systems with pertinent positive or pertinent negative responses have been documented in the HPI. ROS Other: All systems not noted in ROS Statement are negative. Constitutional: Denies: fever Eyes: Denies: eye pain ENT: Denies: ear pain Respiratory: Reports: dyspnea Cardiovascular: Denies: chest pain Endocrine: Reports: fatigue Gastrointestinal: Reports: nausea Genitourinary: Denies: dysuria Musculoskeletal: Denies: back pain Skin: Denies: rash Neurological: Reports: weakness Past Medical History Past Medical History: Cancer, Deep Vein Thrombosis (DVT), Hyperlipidemia Additional Past Medical History / Comment(s): Stage 4 ovarian cancer with total hysterectomy and chemo (last chemo 03/04/15), right pleural effusions with thoracentesis, ascities with paracentesis, bilateral hands and feet neuropathy, chronic cervical pain-degnerative bone disease, buldging disk, blood clot to the rt wrist and rt neck, chronic constipation. History of Any Multi-Drug Resistant Organisms: None Reported Past Surgical History: Hysterectomy Additional Past Surgical History / Comment(s): powerport left chest, total hysterectomy, multiple paracentisis, multiple right thorocentesis, peritoneal permanent catheter inserted by DR Bowers 06/20/2016 Past Anesthesia/Blood Transfusion Reactions: No Reported Reaction Past Psychological History: Anxiety, Depression Additional Psychological History / Comment(s): Pt states medication for mental health help. Pt resides with significant other. She is independent. States she and significant other spoke with hospice recently and they did not care for it. Significant other assists pt when she needs it. Smoking Status: Never smoker Past Alcohol Use History: None Reported Additional Past Alcohol Use History / Comment(s): pt quit smoking 05/24/2016 Past Drug Use History: Marijuana Additional Drug Use History / Comment(s): Pt has medical marijuana that she uses for pain control on a nearly everyday basis. - Past Family History Mother Family Medical History: Diabetes Mellitus Additional Family Medical History / Comment(s): bilat knee replace Father Family Medical History: COPD General Exam Limitations: no limitations General appearance: alert, other (Patient does appear fatigued and is unable to sit up on her own. Patient is unable to assist with sitting up or even support the weight of her head.) Eye exam: Present: normal appearance ENT exam: Present: normal oropharynx Neck exam: Present: normal inspection Respiratory exam: Present: decreased breath sounds (Right greater than left base ) Cardiovascular Exam: Present: regular rate, normal rhythm GI/Abdominal exam: Present: soft, tenderness (Mild diffuse tenderness), normal bowel sounds Extremities exam: Present: pedal edema Neurological exam: Present: alert Psychiatric exam: Present: flat affect Skin exam: Present: normal color Course Vital Signs 07/24/16 07/24/16 07/24/16 07:58 09:12 10:08 Temperature 96 F L Pulse Rate 112 H 114 H 107 H Pulse Rate [ Pulse Oximetery ] Respiratory 20 18 18 Rate Blood Pressure 122/87 120/87 125/94 Blood Pressure [Right Arm] O2 Sat by Pulse 100 100 100 Oximetry 07/24/16 07/24/16 07/24/16 11:08 11:24 11:46 Temperature Pulse Rate 112 H Pulse Rate [ 112 H 118 H Pulse Oximetery ] Respiratory 18 16 16 Rate Blood Pressure 123/90 Blood Pressure 115/84 97/64 [Right Arm] O2 Sat by Pulse 100 98 98 Oximetry 07/24/16 07/24/16 12:00 12:10 Temperature Pulse Rate Pulse Rate [ 120 H 118 H Pulse Oximetery ] Respiratory 16 16 Rate Blood Pressure Blood Pressure 93/66 94/61 [Right Arm] O2 Sat by Pulse 98 Oximetry - Reevaluation(s) Reevaluation #1: 07/24/16 09:13 Patient reevaluated. Patient updated. Case discussed in detail with Dr. Tipton who is familiar with this patient. He does recommend 1.5 L saline bolus and thoracentesis and discharge. Case is also discussed with Dr. Iverson who will do ultrasound-guided thoracentesis. EKG Findings - EKG Comments: EKG Findings:: Sinus tachycardia 114. IN 146. QRS 88. QT 310. QTc 427. Normal axis. Septal Q waves. No acute ST change. Medical Decision Making - Medical Decision Making Patient reexamined following thoracentesis. Patient and were updated. Patient does have scheduled thoracentesis tomorrow. - Lab Data Result diagrams: 07/24/16 08:21 07/24/16 08:21 Lab Results 07/24/16 07/24/16 07/24/16 Range/Units 08:21 08:21 08:21 WBC 12.7 H (3.8-10.6) k/uL RBC 5.43 H (3.80-5.40) m/uL Hgb 14.7 (11.4-16.0) gm/dL Hct 44.1 (34.0-46.0) % MCV 81.1 (80.0-100.0) fL MCH 27.0 (25.0-35.0) pg MCHC 33.3 (31.0-37.0) g/dL RDW 18.8 H (11.5-15.5) % Plt Count 449 (150-450) k/uL Neutrophils % 93 % Lymphocytes % 2 % Monocytes % 4 % Eosinophils % 1 % Basophils % 0 % Neutrophils # 11.8 H (1.3-7.7) k/uL Lymphocytes # 0.2 L (1.0-4.8) k/uL Monocytes # 0.5 (0-1.0) k/uL Eosinophils # 0.1 (0-0.7) k/uL Basophils # 0.0 (0-0.2) k/uL Anisocytosis Slight Microcytosis Slight PT 10.2 (9.0-12.0) sec INR 1.0 (<1.1) APTT 23.8 (22.0-30.0) sec Sodium 110 L* (137-145) mmol/L Potassium 6.1 H (3.5-5.1) mmol/L Chloride 81 L (98-107) mmol/L Carbon Dioxide 19 L (22-30) mmol/L Anion Gap 10 mmol/L BUN 28 H (7-17) mg/dL Creatinine 0.59 (0.52-1.04) mg/dL Est GFR (MDRD) Af Amer >60 (>60 ml/min/1.73 sqM) Est GFR (MDRD) Non-Af >60 (>60 ml/min/1.73 sqM) Glucose 98 (74-99) mg/dL Calcium 9.3 (8.4-10.2) mg/dL Total Bilirubin 0.9 (0.2-1.3) mg/dL AST 45 H (14-36) U/L ALT 32 (9-52) U/L Alkaline Phosphatase 387 H (38-126) U/L Total Protein 5.3 L (6.3-8.2) g/dL Albumin 2.6 L (3.5-5.0) g/dL Disposition Clinical Impression: Pleural effusion, bilateral, Hyponatremia, Ovarian cancer Disposition: HOME SELF-CARE Condition: Serious Referrals: Adia Ardon MD [Primary Care Provider] - 1-2 days Time of Disposition: 13:17
[2016-07-24 08:39] LABS: Anisocytosis Slight; Basophils % (A) 0 %; CH 27.7; CHCM 34.3; Eosinophils # (A) 0.1 k/uL (0-0.7); Eosinophils % (A) 1 %; HCT 44.1 % (34.0-46.0); HDW 3.09; HGB 14.7 gm/dL (11.4-16.0); Luc # (Auto) 0.06; Luc % (Auto) 1; Lymphocytes # (A) 0.2 k/uL (1.0-4.8); Lymphocytes % (A) 2 %; MCHC 33.3 g/dL (31.0-37.0); MCV 81.1 fL (80.0-100.0); Mean Platelet Volume 7.1; Microcytosis Slight; Monocytes # (A) 0.5 k/uL (0-1.0); Monocytes % (A) 4 %; Neutrophils # (A) 11.8 k/uL (1.3-7.7); Neutrophils % (A) 93 %; RBC 5.43 m/uL (3.80-5.40); RDW 18.8 % (11.5-15.5); WBC 12.7 k/uL (3.8-10.6); WBC (Perox) 11.79
[2016-07-24 08:50] LABS: ALT 32 U/L (9-52); AST 45 U/L (14-36); Alkaline Phosphatase 387 U/L (38-126); Anion Gap 10 mmol/L; Blood Urea Nitrogen 28 mg/dL (7-17); Calcium 9.3 mg/dL (8.4-10.2); Carbon Dioxide 19 mmol/L (22-30); Chloride 81 mmol/L (98-107); Glucose 98 mg/dL (74-99); Non-African American GFR(MDRD) >60 (>60 ml/min/1.73 sqM); Potassium 6.1 mmol/L (3.5-5.1); Total Bilirubin 0.9 mg/dL (0.2-1.3); Total Protein 5.3 g/dL (6.3-8.2)
[2016-07-24 08:51] LABS: Partial Thromboplastin Time 23.8 sec (22.0-30.0); Prothrombin Time 10.2 sec (9.0-12.0)
--- NOTE | 2016-07-24 08:51 | XR ---
EXAMINATION TYPE: XR chest 2V DATE OF EXAM: 07/24/2016 COMPARISON: Chest x-ray July 11, 2016. HISTORY: Stage IV ovarian cancer with chest pain. TECHNIQUE: Frontal and lateral views of the chest are obtained. FINDINGS: There is stable left subclavian Mediport catheter. There is persistent tiny left and small to moderate-sized right pleural effusions. There is associated right basilar atelectasis and/or infi ltrate. There is left lateral midlung linear atelectasis or scarring redemonstrated that is less prom inent. Upper lungs remain clear without pneumothorax. Cardiac silhouette size is stable and within no rmal limits. Visualized osseous structures are intact. IMPRESSION: Tiny left and small to moderate-sized right pleural effusion with associated right basil ar atelectasis and/or infiltrate all redemonstrated without significant interval change.
[2016-07-24 08:54] LABS: Sodium 110 mmol/L (137-145)
[2016-07-24] MEDS ORDERED: SODIUM CHLORIDE 0.9% 250 ML IV STA ×2 (08:58→09:06)
[2016-07-24] MEDS ORDERED: SODIUM CHLORIDE 0.9% 1,000 ML IV STA ×2 (08:58→09:06)
--- NOTE | 2016-07-24 10:20 | US ---
EXAMINATION TYPE: US chest DATE OF EXAM: 07/24/2016 COMPARISON: US CLINICAL HISTORY: Effusion and dyspnea. Pleural effusion, exam done portable in ER EXAM MEASUREMENTS: Right Pleural Effusion fluid pocket: 5.9 cm Right skin to fluid thickness: 1.5 cm Left Pleural Effusion fluid pocket: 8.1 cm Left skin to fluid thickness: 1.6 cm Right side MARKED for possible thoracentesis outside the dept. Left side MARKED for possible thoracentesis outside the dept. Pulmonologists are able to review the images in the patient?s EMR. IMPRESSIONS: Bilateral pleural effusions
--- NOTE | 2016-07-24 12:45 | US ---
EXAMINATION TYPE: US thoracentesis DATE OF EXAM: 07/24/2016 COMPARISON: NONE HISTORY: Pleural effusion. FINDINGS: Maximal barrier technique was utilized. The skin overlying a suitable pocket of fluid was localized and the overlying skin prepped and draped. Lidocaine was used for local anesthesia. Ultras ound was used with sterile technique. A 5 Irish catheter over guide needle was advanced into the pl eural fluid collection using ultrasound guidance and catheter advanced, needle removed. Approximatel y 0.5 liter(s) of sanguinous fluid was removed. Catheter was withdrawn and hemostasis achieved. The re is no immediate complication. The patient discharged in stable condition without complication. IMPRESSION: STATUS POST ULTRASOUND GUIDED THORACENTESIS. THIS PROCEDURE WAS PERFORMED BY THE [facility].
[2016-07-24 13:48] VITALS: BP 111/59; PULSE 88; RESP 18; TEMP 97.5
== END 2016-07-24 14:02 | disposition home or self-care (01) ==
LOC: EC 07:54
DX: J90 Pleural effusion, not elsewhere classified (principal); C56.9 Malignant neoplasm of unspecified ovary; E87.1 Hypo-osmolality and hyponatremia; R00.0 Tachycardia, unspecified; R60.0 Localized edema; Z79.899 Other long term (current) drug therapy; Z88.8 Allergy status to other drugs, medicaments and biological substances; Z91.030 Bee allergy status; Z98.890 Other specified postprocedural states; Z90.710 Acquired absence of both cervix and uterus; Z82.5 Family history of asthma and other chronic lower respiratory diseases
CPT/HCPCS: 36415; 93005; 80053; 85025; 85610; 85730; 71020; 32555; 76604; 99285; 96374; 96375; 96361 ×4; J2405

== ENCOUNTER 2016-07-25 10:08 | Inpatient (IN) | payer OTHER ==
[2016-07-25] MEDS ORDERED: MORPHINE SULFATE (100 MG/2 ML) 100 MG in SODIUM CHLORIDE 0.9% 100 ML IV SCH (11:15)
[2016-07-25] MEDS ORDERED: SODIUM CHLORIDE 0.9% 1,000 ML IV SCH (11:15)
[2016-07-25] MEDS ORDERED: ONDANSETRON ODT 8 MG TAB.RAPDIS PO PRN (12:39)
[2016-07-25] MEDS ORDERED: LORazepam 0.5 MG TAB PO PRN (12:39)
--- NOTE | 2016-07-25 14:26 | P.HPIM ---
History of Present Illness H&P Date: 07/25/16 Chief Complaint: end of life care Yvette is a very pleasant pt of Dr. Tipton diagnosed with stage III-C ovarian cancer in Mar 2012, she had GHAZALA+BSO and treated with Carbo/Taxol, then Doxil+ Avastin in 2013, Carboplatinum, then Topotecan Dec 2014, gemzar in Mar 03, then single agent Taxol in Sep 2015. She did not start treating here until Dec 2015. She required palliative paracentesis and this progressed to malignant pleural effusions. Treatment was stopped earlier this year. Pt has previously refused hospice care. She came to see Dr. Tipton in the office today in severe pain, he felt she was actively dying. He convinced her to come to the hospital with hospice care, [facility] admit. Pt seen briefly, she is sleeping, arouses to soft touch, she wanted something to drink, her pain is better now. Review of Systems Constitutional: Reports as per HPI Past Medical History Past Medical History: Cancer, Deep Vein Thrombosis (DVT), Hyperlipidemia Additional Past Medical History / Comment(s): Stage 4 ovarian cancer with total hysterectomy and chemo (last chemo 03/04/15), recurrent pleural effusions with thoracentesises and recurrent ascities with paracentesises, bilateral hands and feet neuropathy, current bilateral pedal lower leg edema, chronic cervical pain- degnerative disc disease, buldging disc, blood clot to the rt wrist and rt neck , chronic constipation. History of Any Multi-Drug Resistant Organisms: None Reported Past Surgical History: Hysterectomy Additional Past Surgical History / Comment(s): GHAZALA/BSO, powerport left chest, total hysterectomy, multiple paracentisis, multiple thorocentesis, peritoneal permanent catheter inserted by DR Bowers 06/20/2016 Past Anesthesia/Blood Transfusion Reactions: No Reported Reaction Past Psychological History: Anxiety, Depression Additional Psychological History / Comment(s): Pt resides with significant other. She has recently established with [facility]ice. Smoking Status: Former smoker Past Alcohol Use History: None Reported Additional Past Alcohol Use History / Comment(s): pt quit smoking 05/24/2016 Past Drug Use History: Marijuana Additional Drug Use History / Comment(s): Pt has medical marijuana that she uses for pain control on a nearly everyday basis. - Past Family History Mother Family Medical History: Diabetes Mellitus Additional Family Medical History / Comment(s): bilat knee replace Father Family Medical History: COPD Medications and Allergies Home Medications Medication Instructions Recorded Confirmed Type Sennosides [Senokot] 8.6 mg PO DAILY PRN 03/19/15 07/25/16 History Spironolactone 50 mg PO BID 07/11/16 07/25/16 History Tamoxifen [Nolvadex] 20 mg PO DAILY 07/11/16 07/25/16 History Citalopram Hydrobromide [CeleXA] 20 mg PO DAILY 07/25/16 07/25/16 History Gabapentin [Neurontin] 300 mg PO BID 07/25/16 07/25/16 History Polyethylene Glycol 3350 [Miralax] 17 gm PO DAILY 07/25/16 07/25/16 History Allergies Allergy/AdvReac Type Severity Reaction Status Date / Time dexamethasone [From Decadron] Allergy Unknown Verified 07/24/16 10:37 dexamethasone sod phosphate Allergy Unknown Verified 07/24/16 10:37 [From Decadron] venom-honey bee Allergy Anaphylaxis Verified 07/24/16 10:37 [bee venom (honey bee)] Physical Exam Vitals: Intake and Output 07/24/16 07/25/16 07/25/16 22:59 06:59 14:59 Intake Total 12.444 Balance 12.444 Intake: Intake, IV Titration 12.444 Amount Morphine Sulfate (100 mg/ 12.444 2 ml) 100 mg In Sodium Chloride 0.9% 100 ml @ 4 MG/HR 4.08 mls/hr IV . Q24H [facility] Rx#:[id number] Other: # Voids 2 Weight 54.5 kg Patient Weight 07/26/16 06:59 Weight 54.5 kg - Constitutional pale, cachetic, muscle wasting, NAD, respirations shallow but unlabored, extremities are cool to touch. General appearance: thin Thrombosis Risk Factor Assmnt - Choose All That Apply Any of the Below Risk Factors Present?: Yes Each Factor Represents 1 point: Medical pt on bed rest, Swollen legs (current) Other Risk Factors: Yes Each Risk Factor Represents 2 Points: Central venous access, Malignancy Each Risk Factor Represents 3 Points: History of DVT/PE Other congenital or acquired thrombophilia - If yes, enter type in comment: No Thrombosis Risk Factor Assessment Total Risk Factor Score: 9 Thrombosis Risk Factor Assessment Level: High Risk Assessment and Plan (1) End of life care Status: Acute (2) Ovarian carcinoma Status: Chronic Plan: [facility] admit for acute pain management and end of life care, standing orders for Hospice signed by Dr. Tipton. Titration of meds for comfort. Pt is terminal.
[2016-07-25] MEDS: LORazepam 2 MG/ML SYRINGE IV PRN (18:20)
[2016-07-25] MEDS ORDERED: SPIRONOLACTONE 25 MG TAB PO SCH (21:00)
[2016-07-25] MEDS ORDERED: GABAPENTIN 300 MG CAP PO SCH (21:00)
[2016-07-26] MEDS: LORazepam 2 MG/ML SYRINGE IV PRN (00:47)
[2016-07-26] MEDS ORDERED: SCOPOLAMINE 1.5MG/72HR PATCH TRANSDERM SCH (01:15)
[2016-07-26] MEDS ORDERED: CITALOPRAM HYDROBROMIDE 20 MG TAB PO SCH (09:00)
[2016-07-26] MEDS ORDERED: POLYETHYLENE GLYCOL 3350 17 GM POWD.PACK PO SCH (09:00)
[2016-07-26] MEDS ORDERED: TAMOXIFEN 10 MG TAB PO SCH (09:00)
[2016-07-26] MEDS ORDERED: SENNOSIDES 8.6 MG TAB PO PRN (09:00)
== END 2016-07-26 04:30 | disposition expired | DRG 755 ==
LOC: 5ONC 10:59
PROVIDERS: ADMIT Internal Medicine Hematology & Oncology; ATTEND Internal Medicine Hematology & Oncology
DX: C56.9 Malignant neoplasm of unspecified ovary (principal); J91.0 Malignant pleural effusion; R64 Cachexia; G62.9 Polyneuropathy, unspecified; Z51.5 Encounter for palliative care; E78.5 Hyperlipidemia, unspecified; Z68.22 Body mass index [BMI] 22.0-22.9, adult; M50.10 Cervical disc disorder with radiculopathy, unspecified cervical region; K59.09 Other constipation; F41.9 Anxiety disorder, unspecified; F32.9 Major depressive disorder, single episode, unspecified; Z90.710 Acquired absence of both cervix and uterus; Z90.722 Acquired absence of ovaries, bilateral; Z90.79 Acquired absence of other genital organ(s); Z87.891 Personal history of nicotine dependence; Z79.891 Long term (current) use of opiate analgesic; Z79.899 Other long term (current) drug therapy; Z88.8 Allergy status to other drugs, medicaments and biological substances; Z91.030 Bee allergy status

== ENCOUNTER → 2016-07-25 | Day surgery (SDC) | payer OTHER | LOC: RADPROMAIN 10:45 | PROVIDERS: ATTEND Internal Medicine Hematology & Oncology | DX: Z53.9 Procedure and treatment not carried out, unspecified reason (principal) ==